=== PATIENT | female | born 1945 | race Caucasian/White ===

== ENCOUNTER 2020-09-26 11:17 | Outpatient (REF) | payer MEDICARE, SELFPAY ==
--- NOTE | 2020-09-27 12:34 | MHC.AU.P13 ---
Adult Audiological Evaluation Date of Visit: 09/26/20 Bridge Maintainer Used: Not Applicable Reason for Appointment: Audiologic evaluation due to tinnitus and increasing hearing difficulties, particularly when background noise is present. Also experiencing sensitivity to loud speech and sounds. Does patient feel they have a hearing loss?: Yes If Yes, Which Ear?: Both Ears Has hearing been tested previously?: Yes Previous Hearing Test Results: Previously tested at [facility] several years ago and results are not available for review. Will obtain old records from storage. Hearing Handicap Inventory HHIE SCORE: 20 Based on HHIE score, patient has: Mild to moderate perceived hearing handicap Ear History: Bothersome Tinnitus/Ringing/Noises in Ears: Both Ears Ear used on the phone: Left Ear History of occupational noise exposure?: No Medical History: Arthritis, allergies, bladder cancer, high blood pressure, measles, and intermittent dizziness in the past Allergies: Erythromycin, Morphine, Statin drugs, Prilocec Medication List: Lisinopril, Meoloxicam, Ezetimibe, Baby Asprin, Loratadine (as needed), Tylenol (as needed), and Albuterol inhaler (as needed) Otoscopy: Right Ear: Small amount of non-occluding cerumen Left Ear: Unremarkable Tympanometry: Right Ear: Normal Middle Ear System (Type A) Left Ear: Normal Middle Ear System (Type A) Otoacoustic Emissions Frequency Range Used: 1.6-8 kHz Right Ear Results: Present 1600 and 2000 Hz. Absent 3365-4809 Hz Analysis: Results are consistent with degree and configuration of hearing loss Left Ear Results: Present 0515-7448 Hz Absent 5240-5959 Hz Analysis: Results are consistent with degree and configuration of hearing loss Hearing Evaluation: Transducer(s) Used: Insert Earphones Bone Conduction Method: Conventional Audiometry Stimuli Used: Pure Tones Right Ear: Description of Hearing: Mild to moderate sensorineural hearing loss Left Ear: Description of Hearing: Mild to moderate sensorineural hearing loss Speech Recognition Threshold (SRT): Method Used: Monitored Live Voice Stimuli Used: Spondee Words Right Ear: 25 dB HL Left Ear: 25 dB HL Word Discrimination: Method: Recorded Lists Word Lists Used: NU-6 Right Ear: 100% at 65 dB HL Left Ear: 100% at 65 dB HL Uncomfortable Loudness Level (UCL): Right Ear: 105 dB HL Left Ear: 100 dB HL QuickSIN: Binaural score is 1 dB SNR Loss. This results falls within the normal range suggesting Charlette does not experience any more difficulty understanding speech when background noise is present when in this controlled test environment. Comparison: Compared to the most recent evaluation: N/A Recommendations: Recommendations: Audiological re-evaluation in one year. Patient does not feel they are ready for amplification at this time. Recommendations (Other): 1) Discussed the theories of tinnitus including how allergies, chronic pain, stress, and fatigue can increase the tinnitus. 2) Discussed and provided a handout regarding Communication Strategies to improve speech understanding when needed. 3) Discussed possible trial with hearing aids; however, Charlette is not ready to pursue amplification at this time. If within the next 6 months she would like to trial aids at this office, she may schedule a Hearing Aid Evaluation. Diagnosis: Primary Diagnosis: H93.13 Tinnitus, Bilateral Secondary Diagnosis: H90.3 Bilateral Sensorineural Hearing Loss Services Performed: Services Performed: Comprehensive Audiological Evaluation (CPT 69556) Diagnostic Otoacoustic Emissions (CPT 67256, 26+TC) Tympanometry (CPT 10063) Signature: Provider: Reji Garcia, [facility]
== END 2020-09-26 11:18 | disposition home or self-care (01) ==
LOC: HO.SH 11:17
PROVIDERS: Visit Provider Internal Medicine
DX: H93.13 Tinnitus, bilateral (principal); H90.3 Sensorineural hearing loss, bilateral
CPT/HCPCS: 92557; 92567; 92588

== ENCOUNTER 2020-10-22 11:38 | Outpatient (REF) | payer MEDICARE, SELFPAY ==
--- NOTE | 2020-10-22 11:48 | MM_ITS ---
EXAMINATION: MM SCREENING DIGITAL BREAST TOMOSYNTHESIS, BILATERAL CLINICAL INFORMATION: Screening. Asymptomatic. The lifetime risk of breast cancer based on the Tyrer-Cuzick Model is 6%. COMPARISON: Mammography: 06/22/2019, 05/17/2018, 04/10/2017 TECHNIQUE: Digital breast tomosynthesis is performed in both the craniocaudal and mediolateral oblique views along with computer-aided detection (CAD). Synthesized 2D images are generated from the tomosynthesis. FINDINGS: There are scattered areas of fibroglandular density (ACR BI-RADS breast composition Category b). Parenchymal pattern is similar to prior studies. There is no developing density or interval mass or architectural abnormality. There are scattered round and dermal calcifications again noted and a dermal lesion overlying the upper outer quadrant left breast. No significant changes. MM/MM tomosynthesis screening BI IMPRESSION: No significant changes from prior exams. ASSESSMENT: BI-RADS 2: Benign RECOMMENDATION: Routine annual mammography screening. This patient's information was entered into a reminder system with a target due date for their next mammogram.
== END 2020-10-22 11:39 | disposition home or self-care (01) ==
LOC: HO.MAMMO 11:38
PROVIDERS: Visit Provider Internal Medicine
DX: Z12.31 Encounter for screening mammogram for malignant neoplasm of breast (principal)
CPT/HCPCS: 77063; 77067

== ENCOUNTER 2021-04-22 08:17 | Outpatient (REF) | payer MEDICARE, SELFPAY ==
--- NOTE | ~2021-04-22 | US_ITS ---
EXAMINATION: US RETROPERITONEAL LIMITED (RENAL ONLY) CLINICAL INFORMATION: Renal stones. COMPARISON: Renal ultrasound 03/29/2019 and 03/31/2018. X-ray abdomen KUB 01/17/2015. CT abdomen and pelvis 08/28/2013. TECHNIQUE: Real-time imaging of the kidneys. FINDINGS: RIGHT KIDNEY: 11.1 x 5.8 x 4.9 cm (SAG x AP x TRV). The kidney is normal in size, contour, and echogenicity. Renal cortical thickness is normal. There are 2 small cysts in the lower pole, largest measuring 11 x 7 x 8 mm. There are 3 stones. Largest stone measures 1.7 x 0.9 cm in the lower pole. There are 2 smaller 4 mm stones in the mid to lower pole. No hydronephrosis. LEFT KIDNEY: 12.8 x 4.9 x 4.8 cm (SAG x AP x TRV). The kidney is normal in size, contour, and echogenicity. Renal cortical thickness is normal. There are 2 small cysts, largest measuring 2.3 x 1.3 x 1.4 cm in the upper pole. There are 3 small stones, largest measuring 6 mm in the midpole. No hydronephrosis. US/US renal BI IMPRESSION: Bilateral renal stones. Bilateral renal cysts.
== END 2021-04-22 08:18 | disposition home or self-care (01) ==
LOC: HO.US 08:17
PROVIDERS: PCP Internal Medicine; Visit Provider Urology
DX: N20.0 Calculus of kidney (principal)
CPT/HCPCS: 76775

== ENCOUNTER → 2021-05-09 08:52 | Outpatient (BNVA) | payer MEDICARE, SELFPAY | PROVIDERS: PCP Internal Medicine; Visit Provider Urology | DX: C67.9 Malignant neoplasm of bladder, unspecified (principal); N20.0 Calculus of kidney; N39.3 Stress incontinence (female) (male) | CPT/HCPCS: 52000; 99212 ==

== ENCOUNTER 2021-06-07 06:38 | Outpatient (REF) | payer MEDICARE, SELFPAY ==
[2021-06-07 06:58] LABS: MANUAL DIFF FLAG NO
[2021-06-07 07:01] LABS: Basophils Absolute Auto 0.1 X10*3/uL (0.0-0.2); Basophils Percent Auto 0.8 % (0-2); Eosinophils Absolute Auto 0.6 X10*3/uL (0.0-0.4); Eosinophils Percent Auto 6.4 % (0-4); Hematocrit 42.6 % (37-47); Hemoglobin 13.6 g/dl (12.0-16.0); Imm Gran Abs Auto 0.02 X10*3/uL (0.00-0.03); Imm Gran Pct Auto 0.2 % (0.0-0.4); Lymphocytes Absolute Auto 3.4 X10*3/uL (1.2-4.9); Lymphocytes Percent Auto 38.1 % (20-40); Mean Corpuscular HGB Conc 31.9 g/dl (31.0-35.0); Mean Corpuscular Hemoglobin 29.6 pg (27.0-33.0); Mean Corpuscular Volume 92.8 fL (80-98); Mean Platelet Volume 9.2 fL (9.4-12.3); Monocytes Absolute Auto 0.9 X10*3/uL (0.1-1.2); Monocytes Percent Auto 9.5 % (2-11); Platelet Count 348 X10*3/uL (160-400); Red Blood Count 4.59 X10*6/uL (4.20-5.50); Red Cell Distribution Width 13.9 % (11.0-16.0)
[2021-06-07 07:26] LABS: Alanine Aminotransferase 27 U/L (0-31); Albumin Level 4.2 g/dL (3.5-5.0); Alkaline Phosphatase 69 U/L (39-117); Anion Gap 13 (12-20); Aspartate Amino Transferase 22 U/L (5-31); Bilirubin Total 0.4 mg/dL (0.0-1.0); Blood Urea Nitrogen 25 mg/dL (9-16); Calcium 9.7 mg/dL (8.4-10.2); Carbon Dioxide 27 mmol/L (22-29); Chloride 108 mmol/L (96-108); Cholesterol 206 mg/dL; Estimated Glomerular Filt Rate > 60; Glucose Random 105 mg/dL (60-115); HDL Cholesterol 57 mg/dL; LDL Cholesterol Calculated 131 mg/dl; Potassium 4.7 mmol/L (3.3-5.1); Sodium 143 mmol/L (135-145); Total Protein 7.1 g/dL (6.5-8.0); Triglycerides 91 mg/dL
[2021-06-07 07:50] LABS: Free T4 (Free Thyroxine) 1.05 ng/dL (0.71-1.85); Thyroid Stimulating Hormone 3.07 uIU/mL (0.32-4.0)
[2021-06-07 07:57] LABS: Folate 6.8 ng/mL (> or = 4.0); Vitamin B12 372 pg/mL (200-900)
== END 2021-06-07 06:39 | disposition home or self-care (01) ==
LOC: HO.LAB 06:38
PROVIDERS: PCP Internal Medicine; Visit Provider Internal Medicine
DX: E78.00 Pure hypercholesterolemia, unspecified (principal); I10 Essential (primary) hypertension
CPT/HCPCS: 36415; 80053; 80061; 82306; 82607; 82746; 84439; 84443; 85025

== ENCOUNTER 2021-07-16 08:00 | Outpatient (RCR) | payer MEDICARE, SELFPAY ==
--- NOTE | 2021-05-16 12:20 | MHC.PT.EP ---
[facility] [place] Office [place] Office [place] Office [address] Yasmin Weaver [address] [phone] F: [phone] F: [phone] F: [phone] F: [phone] Physical Therapy Plan of Care Date of Evaluation: Date of Surgery: Diagnosis: Assessment: The patient arrived reporting mixed urinary incontinence including stress and urge. After granted patient consent an internal exam was performed and the patient was found to have poor pelvic floor tone, and significantly decreased strength and coordination of her pelvic floor muscles. No pain noted. No point tenderness. Grade 2 rectocele noted, which does not appear to be giving her any trouble. The patient was educated on splinting the pelvic floor during difficult BM's. Grade 1 cystourethrocele noted. Additionally, the patient had poor PF endurance only able to hold for 1 second. Decreased ability to do a quick contraction of her pelvic floor, which contributes to TEGAN. She did not exhibit a pre activation of her PFM with a cough. The patient will greatly benefit from Pelvic Floor PT in order to improve coordination, and strength of her pelvic floor muscles, as well as body mechanics training with pre activation of her PFM, Pre activation of her PFM for coughing, sneezing, and laughing when possible, and improved breathing techniques. Her current diet also includes several bladder irritants, which I will discuss diet and lifestyle changes in subsequent visits. Frequency and Duration: The patient will be seen 1x/week x 8 weeks Short Term Goals: 1. Pt to be able to correctly activate her PFM to allow improved support to bowel and bladder. 2. Pt to be able to demonstrate a pre contraction before a cough 3.Pt to be able to demonstrate diaphragmatic breathing to improve pressure exchange and intra abdominal load management. 4. Pt to be educated on bladder irritants in order to decrease UI triggers 5. Pt to complete a voiding log in order to accurately assess her bladder habits 6. Pt to be educated on behavior training to help decrease urge incontinence. Director Audience Marketing Goals: 1. Pt to be able to show improved PFM contraction during functional movements such as a bridge or squat to help prevent or limit POP. 2. Pt to reduce # of episodes of TEGAN during the day by 50% to help improve quality of life and reduce pad usage. 3. Pt to be independent with her final HEP for PFM in order to help maintain gains made in therapy. Treatment Plan: Modalities to reduce pain, spasms and effusion. Manual therapy to restore motion and function. Therapeutic exercise to improve strength and flexibility. Neuromuscular re-education for posture and balance. Therapeutic activities to return to functional activities of daily living. Electronically signed by: Farzaneh Choi PT DPT Please sign and return to therapist. Thank you for your referral.
--- NOTE | 2021-07-16 10:44 | MHC.PT.DC ---
[facility] [place] Office [place] Office [place] Office [address] Yasmin Weaver [address] [facility] [phone] F: [phone] F: [phone] F: [phone] F: [phone] Physical Therapy Discharge Report Diagnosis: Date of Surgery: Date of Evaluation: 05/16/21 Date of Discharge: 07/16/21 Treatments to Date: 5 Cancellations to Date: No Shows to Date: Discharge Status: Achieved Goals Improved Function Independent with HEP Discharge Summary: The patient feels independent with the HEP. She feels she knows all of the tools to manage her symptoms. We did behavior training to help manage urge incontinence. Overall over the span of our treatment her coordination of her pelvic floor muscles improved as well as the endurance, but she has not make significant progress in strength in her PFM. The patient admits she has poor compliance to HEP. She reports not actively working on her PFM strength. She requested to be d/c today stating she felt I know what to do, I just have to do it Electronically signed by: Farzaneh Choi PT DPT Please sign and return to therapist. Thank you for your referral.
== END 2021-07-16 10:51 | disposition home or self-care (01) ==
LOC: HO.PT 08:00
PROVIDERS: PCP Internal Medicine; Visit Provider Urology
DX: N39.3 Stress incontinence (female) (male) (principal)
CPT/HCPCS: 97110; 97112; 97163

== ENCOUNTER 2021-11-12 13:31 | Outpatient (REF) | payer MEDICARE, SELFPAY ==
--- NOTE | ~2021-11-12 | MM_ITS ---
EXAMINATION: MM SCREENING DIGITAL BREAST TOMOSYNTHESIS, BILATERAL CLINICAL INFORMATION: Screening. Asymptomatic. The lifetime risk of breast cancer based on the Tyrer-Cuzick Model is 6%. COMPARISON: Mammography: 10/22/2020, 06/22/2019, 05/17/2018 TECHNIQUE: Digital breast tomosynthesis is performed in both the craniocaudal and mediolateral oblique views along with computer-aided detection (CAD). Synthesized 2D images are generated from the tomosynthesis. Additional bilateral MLO views are provided. FINDINGS: There are scattered areas of fibroglandular density (ACR BI-RADS breast composition Category b). There are no significant masses, abnormal calcifications, or other abnormalities. Parenchymal pattern is similar to prior studies. There are scattered benign round and dermal calcifications again seen. Dermal lesion again noted overlying left breast posterior outer quadrant. There is no developing density. The axilla are unremarkable. MM/MM tomosynthesis screening BI IMPRESSION: No mammographic evidence of malignancy. ASSESSMENT: BI-RADS 2: Benign RECOMMENDATION: Routine annual mammography screening. This patient's information was entered into a reminder system with a target due date for their next mammogram.
--- NOTE | ~2021-11-12 | MM_ITS ---
EXAMINATION: BONE DENSITOMETRY CLINICAL INDICATION: Osteopenia. COMPARISON: Previous BD dated 02/25/2018 and baseline BD dated 11/25/2011. TECHNIQUE: Using a JayCut DXA System (software version: 13.1) manufactured by [employer], dual-energy x-ray absorptiometry was performed of the lumbar spine and left forearm radius 33%. The patient has had prior bilateral hip replacements precluding bone density measurement. The images are of good technical quality. Summary results are attached. FINDINGS: AP SPINE L1-L4: There are multilevel degenerative changes which may cause overestimation of the lumbar bone mineral density. Current: BMD 1.686 g/cm2, Z-score 4.8, T-score 4.2, normal, 3.9% increase from previous, 6.1% increase from baseline (<5% change is not significant). Prior: BMD 1.622 g/cm2. Baseline: BMD 1.589 g/cm2. LEFT FOREARM RADIUS 33%: BMD 0.855 g/cm2, Z-score 2.1, T-score -0.2, normal, 12.1% increase from baseline (<5% change is not significant). Baseline 02/25/2018:: BMD 0.763 g/cm2. IDENTIFIED RISK FACTORS: Menopause, height loss, bilateral oophorectomy, history of fracture (adult), hysterectomy, renal. HISTORY OF FRACTURE: Ankle. MEDICATIONS: Calcium/multivitamin. MM/XR DEXA axial skeleton IMPRESSION: 1. DIAGNOSIS: Normal bone density based on the lowest T-score value of -0.2 in the forearm radius 33% applying World Health Organization criteria. 2. 10-YEAR FRACTURE RISK PREDICTION, FRAX: Not performed in this patient without a femoral neck BMD measurement. 3. Treatment Recommendations: NOF guidelines recommend consideration for treatment in postmenopausal women and men age 50 and older presenting with the following: -A hip or vertebral (clinical or morphometric) fracture. -T-score less than or equal to -2.5 at the femoral neck or spine after appropriate evaluation to exclude secondary causes. -Low bone mass at the hip or spine and a 10-year fracture probability by FRAX of greater than or equal to 3% for hip fracture or greater than or equal to 20% for major osteoporotic fracture based on the [place] adapted WHO algorithm. 4. Other Recommendations: All treatment decisions require clinical judgment and consideration of individual patient factors, including patient preferences, comorbidities, previous drug use, risk factors not captured in the FRAX model (e.g. frailty, falls, vitamin D deficiency, increased bone turnover, interval significant decline in bone density) and possible under or overestimation of fracture risk by FRAX. FUTURE SCAN RECOMMENDATION: People with diagnosed cases of osteoporosis or at high risk for fracture should have regular bone mineral density tests. For patients eligible for Medicare, routine testing is allowed once every 2 years. The testing frequency can be increased to one year for patients who have rapidly progressing disease, those who are receiving or discontinuing medical therapy to restore bone mass, or have additional risk factors.
== END 2021-11-12 13:32 | disposition home or self-care (01) ==
LOC: HO.MAMMO 13:31
PROVIDERS: PCP Internal Medicine; Visit Provider Internal Medicine
DX: Z12.31 Encounter for screening mammogram for malignant neoplasm of breast (principal); M85.80 Other specified disorders of bone density and structure, unspecified site; Z78.0 Asymptomatic menopausal state; Z90.722 Acquired absence of ovaries, bilateral; Z90.710 Acquired absence of both cervix and uterus
CPT/HCPCS: 77063; 77067; 77080

== ENCOUNTER 2021-12-27 09:27 | Outpatient (REF) | payer MEDICARE, SELFPAY ==
--- NOTE | 2021-12-30 12:32 | MHC.AU.ATI ---
Adult Audiological Evaluation- Tinnitus Date of Visit: 12/27/21 Reason for Appointment: History of constant, bilateral tinnitus and borderline-normal/mild to moderate sensorineural hearing loss. Patient feels her tinnitus has gotten louder since her last evaluation in 09/2020. Has hearing been tested previously?: Yes Previous Hearing Test Results: At this clinic on 09/26/2020- Borderline-normal/Mild sloping to moderate sensorineural hearing loss bilaterally Ear History: Recent Ear Drainage: None Reported Recent Ear Infections: None Reported Bothersome Tinnitus/Ringing/Noises in Ears: Both Ears History of occupational noise exposure?: No Medical History: Medical History: Arthritis, allergies, bladder cancer, high blood pressure, measles, and intermittent dizziness in the past Allergies: Erythromycin, Morphine, Statin drugs, Prilocec Otoscopy: Right Ear: Unremarkable Left Ear: Unremarkable Tympanometry: Tympanometry performed due to: To assess integrity of the middle ear system Right Ear: Normal Middle Ear System (Type A) Left Ear: Normal Middle Ear System (Type A) Hearing Evaluation: Transducer(s) Used: Insert Earphones Method: Conventional Audiometry Stimuli Used: Pure Tones Right Ear: Description of Hearing: Mild to moderate sensorineural hearing loss Left Ear: Description of Hearing: Mild to moderate sensorineural hearing loss Speech Recognition Threshold (SRT): Method Used: Recorded Lists Stimuli Used: Spondee Words Right Ear: 30 dBHL Left Ear: 30 dBHL Word Discrimination: Method: Recorded Lists Word Lists Used: W-22 Right Ear: 100% at 60 dBHL Left Ear: 100% at 60 dBHL Most Comfortable Level (MCL): Right Ear: 60 dBHL Left Ear: 60 dBHL Tinnitus Assessment: Tinnitus Match- Pitch/Frequency: Around 2000 Hz Tinnitus Match- Loudness: 45 dBHL Minimum Masking Level: Binaurally, tinnitus was able to be masked with white noise at 30 dBHL Comparison: Compared to the most recent evaluation: Slight decreases in thresholds bilaterally Interpretation of Results: Patient's hearing has decreased slightly since 2019. 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 Patient's tinnitus was able to be masked with only 30 dB of white noise, suggesting that she may be successful in finding relief through masking noises of her own at home, such as fans, TV, radio, nature sounds, noise generators, etc. Recommendations: Audiological re-evaluation in one year. Discussed tinnitus management strategies, which include: -Cognitive Behavior Therapy (CBT) to help train the mind to put the tinnitus in the background and manage the perception of it. -Stress relief, which could include meditation, exercise, yoga, learning new hobbies, etc. -Use of masking sounds to cover the tinnitus, such as TV, music, fans, noise generators, tinnitus masking apps, etc. -Continued avoidance of caffeine, nicotine, and alcohol, which can all exacerbate tinnitus. -Patient reports that her allergies make the tinnitus worse. She should work closely with her PCP or an fire extinguisher repairer to manage/treat her allergies. -Many people with tinnitus and hearing loss find tinnitus relief from use of hearing aids. Patient is a borderline candidate for hearing aids at this time. Most of her hearing loss is in the mild range and she is still understanding normal conversational speech well; therefore, they may not yet be warranted. If the patient is interested in trying hearing aids but is not ready for the full investment, she may be a good candidate for OTC hearing aids, such as the [employer]. Diagnosis: Primary Diagnosis: H93.13 Tinnitus, Bilateral Secondary Diagnosis: H90.3 Bilateral Sensorineural Hearing Loss Signature: Provider: Reji Garza, [facility]
== END 2021-12-27 09:28 | disposition home or self-care (01) ==
LOC: HO.SH 09:27
PROVIDERS: Visit Provider Internal Medicine
DX: H93.13 Tinnitus, bilateral (principal); H90.3 Sensorineural hearing loss, bilateral
CPT/HCPCS: 92557; 92567

== ENCOUNTER 2022-04-16 09:53 | Outpatient (REF) | payer MEDICARE, SELFPAY ==
--- NOTE | ~2022-04-16 | US_ITS ---
EXAMINATION: US RETROPERITONEAL LIMITED (RENAL ONLY) CLINICAL INFORMATION: Calculus of kidney. COMPARISON: Renal ultrasound 04/22/2021 and 03/29/2019. X-ray KUB 01/17/2015. CT abdomen and pelvis 08/28/2013. TECHNIQUE: Real-time imaging of the kidneys. FINDINGS: RIGHT KIDNEY: 10.9 x 4.7 x 4.1 cm (SAG x AP x TRV). The kidney is normal in size, contour, and echogenicity. Renal cortical thickness is normal. No hydronephrosis. There are multiple anechoic cysts. 1. A lateral lower pole cyst measures 1.2 x 0.8 x 1.1 cm. 2. A lateral lower pole cyst measures 1.0 x 1.1 x 1.0 cm. 3. A medial lower pole cyst measures 2.0 x 1.6 x 1.6 cm. There are echogenic stones. 1. Lower pole echogenic stones measure 2.1 x 0.8 cm and 0.8 x 0.9 cm. 2. Midpole stone measures 0.6 x 0.4 cm. There is no caliectasis. LEFT KIDNEY: 12.3 x 5.7 x 5.7 cm (SAG x AP x TRV). The kidney is normal in size, contour, and echogenicity. Renal cortical thickness is normal. No hydronephrosis. There are anechoic cysts. 1. An upper pole cyst measures 2.2 x 1.3 x 1.5 cm. 2. A lower pole cyst measures 1.5 x 0.8 x 1.0 cm. There are 3 echogenic stones. 1. A lower pole stone measures 0.6 x 0.7 cm and 0.6 x 0.5 cm. 2. An upper pole stone measures 0.6 x 0.4 cm. US/US renal BI IMPRESSION: Bilateral nonobstructive echogenic renal calculi. No hydronephrosis. Bilateral renal cysts.
== END 2022-04-16 09:54 | disposition home or self-care (01) ==
LOC: HO.US 09:53
PROVIDERS: Visit Provider Urology
DX: N20.0 Calculus of kidney (principal)
CPT/HCPCS: 76775

== ENCOUNTER → 2022-05-08 09:33 | Outpatient (BNVA) | payer MEDICARE, SELFPAY | PROVIDERS: PCP Internal Medicine | DX: N20.0 Calculus of kidney (principal) | CPT/HCPCS: 99212 ==

== ENCOUNTER 2022-05-29 08:54 | Day surgery (SDC) | payer MEDICARE, SELFPAY ==
[2022-05-29] VITALS (7 sets, daily range): BP systolic 111–181; BP diastolic 41–89; PULSE 50–70; RESP 15–20; TEMP 36.4–37.2; O2SAT 93–98; BMI 37.9
--- NOTE | ~2022-05-29 | CT_ITS ---
EXAMINATION: CT ABDOMEN AND PELVIS WITHOUT CONTRAST CLINICAL INFORMATION: Right-sided flank pain COMPARISON: None TECHNIQUE: Multidetector volumetric imaging was performed from the superior aspect of the liver through the pubic symphysis. Sagittal and coronal reformatted images were obtained on the technologist's workstation. This CT examination was performed using dose optimization techniques as appropriate, variously including the following: *Automated exposure control *Adjustment of mA and/or kV according to patient size (this includes techniques or standardized protocols for targeted exams where dose is matched to indication/reason for exam; i.e. extremities or head) *Use of iterative reconstruction technique DLP: 817 mGy-cm FINDINGS: LUNG BASES: Mild atelectasis or chronic change LIVER, GALLBLADDER, AND BILIARY TREE: The liver is normal in size, shape, and attenuation. No focal hepatic lesion or biliary ductal dilatation is present. Status post cholecystectomy PANCREAS: Unremarkable. SPLEEN: Unremarkable. ADRENAL GLANDS: Unremarkable. KIDNEYS AND URETERS: Bilateral renal calculi. On the right there is moderate hydronephrosis caused by a 1.2 x 0.6 cm calculus in the right UPJ/proximal right ureter. BLADDER: Limited evaluation from artifact from the patient's hip replacements. GASTROINTESTINAL TRACT: Diverticulosis without evidence for diverticulitis. ABDOMINAL WALL: There is a small periumbilical herniation but this does contain a loop of small bowel. No evidence for obstruction. The orifice measures 1.4 cm. LYMPH NODES: Normal. VASCULAR: Some atherosclerotic changes noted PELVIC VISCERA: Unremarkable. OSSEOUS STRUCTURES: Degenerative change in the lumbar spine. Mild grade 1 anterolisthesis of L4 and L5 is likely degenerative. No compression injury CT/CT abdomen pelvis wo con IMPRESSION: Moderate hydronephrosis on the right kidney caused by a 1.2 x 1.6 cm calculus in the proximal right ureter/right UPJ. Other nonobstructing calculi bilaterally. Diverticulosis but no convincing evidence for diverticulitis. Small periumbilical herniation containing small bowel but this is not causing an obstruction Fleischner guidelines were followed.
--- NOTE | ~2022-05-29 | FL_ITS ---
EXAMINATION: XR FLUOROSCOPY WITH IMAGES CLINICAL INFORMATION: Right ureteral stones. COMPARISON: Previous CT of the abdomen and pelvis 05/29/2022. TECHNIQUE: Fluoroscopy performed by Dr. Ashvin Arellano. Fluoroscopy time: 136 seconds. Cumulative Dose: 76 mGy. Images: 7. FINDINGS: Images demonstrate contrast opacification of the right renal collecting system and [id number] ureter. There are multiple filling defects in the right renal collecting system suggestive of right renal stones. There is mild right hydronephrosis and right ureteral dilatation. FL/FL guidance in OR IMPRESSION: Fluoroscopy guidance for right retrograde procedure.
--- NOTE | 2022-05-29 09:20 | PC.NURSE ---
CONSULTED WITH KYLAH SOLOMON. REQUEST TO ORDER CT SCAN. PT WITH HX OF KIDNEY STONES. PRESENTS WITH C/O RIGHT SIDED FLANK PAIN X 1 WEEK AND HEMATURIA. KYLAH SOLOMON AGREED TO CT SCAN WO CONTRAST.
[2022-05-29 09:35] LABS: Appearance Urine Clear; Color Urine Yellow; Glucose Urine UA Negative (Negative); Leukocyte Esterase Urine Negative (Negative); Nitrite Urine Negative (Negative); Specific Gravity - Urine <= 1.005 (1.005-1.025); Urine Blood Negative (Negative); Urine Ketones Negative (Negative); Urine Protein Negative (Neg-Trace)
--- NOTE | 2022-05-29 11:09 | ED.GENADULT ---
HPI - General Adult General Chief complaint: General Medical Stated complaint: Possible kidney stone Time Seen by Provider: 05/29/22 10:55 Source: patient Mode of arrival: ambulatory Limitations: no limitations History of Present Illness HPI narrative: 77-year-old female with a history kidney stones who presents emergency department for evaluation of right-sided abdominal pain x1 week. The pain started suddenly approximately 1 week prior. The pain is been intermittent. She states she gets the pain the pain waxes and wanes in intensity and has a dull component and a sharp component. The pain is 8/10 at its worst. The pain is radiating to her right abdomen. She states that she has had urinary frequency but no dysuria. She has noted some blood in her urine. The patient states that she has a large kidney stone and is scheduled to have the stone removed by Dr. Arellano. She denied fever, chills, cough, chest pain. She has had nausea and dry heaves. The patient states she took Tylenol home without relief for pain. Onset (ago): day(s) (6) Location: back (Right flank) and abdomen (Right-sided) Radiation: non-radiation Severity: severe Severity scale (1-10): 8 Quality: stabbing and aching Pain Consistency: intermittent Relieving factors: none Exacerbating factors: none Associated symptoms: nausea/vomiting Treatments prior to arrival: other (Acetaminophen) Related Data Home Medications Medication Instructions Recorded Confirmed acetaminophen 325 mg tablet 325 mg PO BEDTIME PRN 08/30/20 05/08/22 (Tylenol) albuterol sulfate 90 mcg/actuation 2 puff inhalation Q4-6H PRN 08/30/20 05/08/22 aerosol inhaler (ProAir HFA) cholecalciferol (vitamin D3) 50 50 mcg PO DAILY 08/30/20 05/08/22 mcg (2,000 unit) capsule diphenhydramine HCl 25 mg tablet 25 mg PO BEDTIME 08/30/20 05/08/22 (Benadryl Allergy) loratadine 10 mg tablet (Claritin) 10 mg PO DAILY 08/30/20 05/08/22 meloxicam 15 mg tablet 15 mg PO DAILY 08/30/20 05/08/22 aspirin 81 mg tablet,delayed 81 mg PO DAILY 10/04/20 05/08/22 release multivitamin 1 tab PO DAILY 12/10/21 05/08/22 Previous Rx's Medication Instructions Recorded fluticasone propionate 50 2 spray intranasal DAILY #15.8 mL 06/20/21 mcg/actuation nasal spray,suspension (Allergy Relief (fluticasone)) ezetimibe 10 mg tablet (Zetia) 10 mg PO DAILY 90 days #90 tabs 01/27/22 lisinopril 30 mg tablet 30 mg PO DAILY 90 days #90 tabs 02/21/22 pyridoxine (vitamin B6) 50 mg 50 mg PO DAILY #30 caps 05/08/22 capsule Allergies Allergy/AdvReac Type Severity Reaction Status Date / Time erythromycin base Allergy Severe BODY ACHES Verified 05/08/22 09:39 [ERYTHROMYCIN BASE] morphine [MORPHINE] Allergy Severe HALLUCINATI Verified 05/08/22 09:39 ONS Ursctuc-[id number]-KuB Reductase Allergy Severe ALTERED Verified 05/08/22 09:39 Inhibitor MENTAL [[id number]-QAF REDUCTASE STATUS, SI INHIBITOR] adhesive tape Allergy Intermediate BLISTERS Verified 05/08/22 09:39 omeprazole [From PRILOSEC] AdvReac Intermediate DIARRHEA Verified 05/08/22 09:39 hospital sheets Allergy Unknown ? Uncoded 05/08/22 09:39 Review of Systems Review of Systems: Yes all other systems are reviewed and are negative [facility] Past Medical History [facility] Narrative: Social history: She is . Her is here in the emergency department with her. The patient denies tobacco use. She states she occasionally drinks alcohol. She denies drug use. Medical History Allergic rhinitis Bladder cancer Carpal tunnel syndrome, left Cervical radiculopathy Dislocation of right shoulder joint GERD (gastroesophageal reflux disease) Hypercholesteremia Hypertension Left leg DVT Obesity Post herpetic neuralgia Renal calculus, bilateral Right rotator cuff tear Surgical History H/O shoulder replacement History of appendectomy History of carpal tunnel surgery of left wrist History of cholecystectomy History of cystoscopy History of hip replacement History of knee replacement procedure of left knee History of knee replacement procedure of right knee History of lithotripsy History of lumpectomy of left breast History of lumpectomy of right breast History of total abdominal hysterectomy and bilateral salpingo-oophorectomy Family History Family History Father Cancer Mother CVD (cardiovascular disease) Cerebral hemorrhage Brother CAD (coronary artery disease) Sister CVD (cardiovascular disease) Cancer Social History Social History Housing: House Alcohol intake: current Patient Tobacco Use Status: Never used Tobacco e-Cigarette/Vaping Use: Never Used Second Hand Smoke Exposure: No Advance Directives: No Advance Directives Information Provided: No service: No Current occupational status: employed and retired Cognitive needs: No Hearing needs: No Vision needs: Yes Physical Exam ED Vital Signs: Vital Signs - 24 hr 05/29/22 09:12 Temperature 98.3 F Pulse Rate 64 Respiratory Rate 16 Blood Pressure 181/89 H Pulse Oximetry 97 Oxygen Delivery Method Room Air BMI result Body Mass Index 37.9 Const General: cooperative and no acute distress Orientation/consciousness: oriented to person and oriented to place Limitations: no limitations HENMT Head: Yes normal to inspection, Yes normocephalic and Yes atraumatic Ears: external ears normal General nose exam: Normal external nose present Face and sinus: Yes normal facial exam Mouth: Normal oral and palatal mucosa present Throat: Yes posterior oropharynx normal Eyes General: appearance normal, both eyes and all related structures Pupils: Equal, round and reactive pupils present Neck Neck: Yes normal visual inspection, Yes no lymphadenopathy, Yes trachea midline and Yes supple Chest Chest palpation & inspection: normal inspection of the chest and normal palpation of entire chest wall Resp Effort & Inspection: normal respiratory effort and able to speak in complete sentences Auscultation: clear to auscultation bilaterally Cardio Rate: regular rate Rhythm: regular rhythm Heart sounds: S1 normal heart sound present, S2 normal heart sound present and no murmurs GI Inspection: Yes normal to inspection Palpation (GI): Soft to palpation, Tenderness to palpation present (GI) in the RLQ (Moderate), in the RUQ (Mild) and suprapubicly (Moderate) and no guarding Auscultation: normal bowel sounds General: Yes CVA tenderness on the right (Moderate) Back/Spine/Pelvis Back: CVA tenderness Skin General skin exam: no rashes or lesions noted Neuro General: oriented to person and oriented to place Cranial nerves: Yes CN's II-XII intact bilaterally and Yes Equal, round and reactive pupils present Cognition (Neuro): normal cognition Motor exam (neuro): 5/5 motor strength present throughout Extrem General: Yes normal to inspection Psych Appearance: grossly normal Speech and movement: Normal speech and movement present Affect: normal affect Attitude: cooperative Thought process: Normal thought process present Thought content: Normal thought content present Course Course Course Narrative: 77-year-old female with a history kidney stones a presents emergency department for evaluation of 1 week of intermittent right-sided abdominal and flank pain. Patient has had urinary frequency with hematuria as well. The patient's vital signs revealed an elevated blood pressure of 181/89 otherwise unremarkable. The patient's exam did reveal right-sided CVA tenderness, right-sided abdominal tenderness increased in the right lower quadrant and suprapubic area. I did order laboratory evaluation to include CBC, CMP, lipase, urinalysis. CT scan of the abdomen pelvis without IV contrast was ordered. Patient was ordered to get Dilaudid 0.5 mg IV, Benadryl 25 mg IV and normal saline x1 L. 1152: Radiology evaluation: CT scan of the abdomen pelvis radiology reading as follows: IMPRESSION: Moderate hydronephrosis on the right kidney caused by a 1.2 x 1.6 cm calculus in the proximal right ureter/right UPJ. Other nonobstructing calculi bilaterally. Diverticulosis but no convincing evidence for diverticulitis. Small periumbilical herniation containing small bowel but this is not causing an obstruction Fleischner guidelines were followed. Dictated By:Otis Magana MD I did send a tiger text to our urologist, Dr. Arellano to discuss further management. 1257: Laboratory evaluation: CBC and CMP were on remarkable. Urinalysis was unremarkable. Dr. Arellano plans on taking the patient to the operating room to stent the patient's ureter. The patient will be kept NPO until the procedure can be performed. Medical Decision Making Lab Data Result diagrams: 05/29/22 11:52 05/29/22 11:52 Labs: Lab Results 05/29/22 05/29/22 05/29/22 Range/Units 09:26 11:52 11:52 WBC 11.1 H (4.8-10.8) X10*3/uL RBC 4.41 (4.20-5.50) X10*6/uL Hgb 13.0 (12.0-16.0) g/dl Hct 40.5 (37.0-47.0) % MCV 91.8 (80.0-98.0) fL MCH 29.5 (27.0-33.0) pg MCHC 32.1 (31.0-35.0) g/dl RDW 13.5 (11.0-16.0) % Plt Count 332 (160-400) X10*3/uL MPV 8.7 L (9.4-12.3) fL Immature Gran % (Auto) 0.3 (0.0-0.4) % Neut % (Auto) 67.4 (45-73) % Lymph % (Auto) 19.3 L (20-40) % [place] % (Auto) 9.1 (2-11) % Eos % (Auto) 3.4 (0-4) % Baso % (Auto) 0.5 (0-2) % Lymph # (Auto) 2.1 (1.2-4.9) X10*3/uL [place] # (Auto) 1.0 (0.1-1.2) X10*3/uL Eos # (Auto) 0.4 (0.0-0.4) X10*3/uL Baso # (Auto) 0.1 (0.0-0.2) X10*3/uL Abs Immat Gran (auto) 0.03 (0.00-0.03) X10*3/uL Absolute Neuts (auto) 7.4 (2.0-8.3) x10*3/uL Absolute Nucleated RBC 0.000 (0.0-0.012) X10*3/uL Nucleated RBC % (auto) 0.0 (0.0-0.2) /100WBC PT (10.0-13.1) SEC INR (0.9-1.1) APTT (26.0-36.4) SEC Sodium 140 (135-145) mmol/L Potassium 4.6 (3.3-5.1) mmol/L Chloride 104 (96-108) mmol/L Carbon Dioxide 26 (22-29) mmol/L Anion Gap 15 (12-20) BUN 20 H (9-16) mg/dL Creatinine 1.12 (0.5-1.4) mg/dL Estim Creat Clear Calc 49.1 Estimated GFR 47 Random Glucose 107 (60-115) mg/dL Calcium 9.7 (8.4-10.2) mg/dL Total Bilirubin 0.4 (0.0-1.0) mg/dL AST 20 (5-31) U/L ALT 23 (0-31) U/L Alkaline Phosphatase 59 (39-117) U/L Total Protein 7.1 (6.5-8.0) g/dL Albumin 4.1 (3.5-5.0) g/dL Lipase 27 (8-78) U/L Urine Color Yellow Urine Appearance Clear Urine pH 6.0 (5.0-8.0) Ur Specific [place] <= 1.005 (1.005-1.025) Urine Protein Negative (Neg-Trace) mg/dL Urine Glucose (UA) Negative (Negative) mg/dL Urine Ketones Negative (Negative) mg/dL Urine Blood Negative (Negative) Urine Nitrite Negative (Negative) Ur Leukocyte Esterase Negative (Negative) COVID-19 (CHARLY) (Negative) COVID-19 Clin Com 05/29/22 05/29/22 Range/Units 11:52 11:52 WBC (4.8-10.8) X10*3/uL RBC (4.20-5.50) X10*6/uL Hgb (12.0-16.0) g/dl Hct (37.0-47.0) % MCV (80.0-98.0) fL MCH (27.0-33.0) pg MCHC (31.0-35.0) g/dl RDW (11.0-16.0) % Plt Count (160-400) X10*3/uL MPV (9.4-12.3) fL Immature Gran % (Auto) (0.0-0.4) % Neut % (Auto) (45-73) % Lymph % (Auto) (20-40) % [place] % (Auto) (2-11) % Eos % (Auto) (0-4) % Baso % (Auto) (0-2) % Lymph # (Auto) (1.2-4.9) X10*3/uL [place] # (Auto) (0.1-1.2) X10*3/uL Eos # (Auto) (0.0-0.4) X10*3/uL Baso # (Auto) (0.0-0.2) X10*3/uL Abs Immat Gran (auto) (0.00-0.03) X10*3/uL Absolute Neuts (auto) (2.0-8.3) x10*3/uL Absolute Nucleated RBC (0.0-0.012) X10*3/uL Nucleated RBC % (auto) (0.0-0.2) /100WBC PT 11.5 (10.0-13.1) SEC INR 1.0 (0.9-1.1) APTT 30.3 (26.0-36.4) SEC Sodium (135-145) mmol/L Potassium (3.3-5.1) mmol/L Chloride (96-108) mmol/L Carbon Dioxide (22-29) mmol/L Anion Gap (12-20) BUN (9-16) mg/dL Creatinine (0.5-1.4) mg/dL Estim Creat Clear Calc Estimated GFR Random Glucose (60-115) mg/dL Calcium (8.4-10.2) mg/dL Total Bilirubin (0.0-1.0) mg/dL AST (5-31) U/L ALT (0-31) U/L Alkaline Phosphatase (39-117) U/L Total Protein (6.5-8.0) g/dL Albumin (3.5-5.0) g/dL Lipase (8-78) U/L Urine Color Urine Appearance Urine pH (5.0-8.0) Ur Specific [place] (1.005-1.025) Urine Protein (Neg-Trace) mg/dL Urine Glucose (UA) (Negative) mg/dL Urine Ketones (Negative) mg/dL Urine Blood (Negative) Urine Nitrite (Negative) Ur Leukocyte Esterase (Negative) COVID-19 (CHARLY) Negative (Negative) COVID-19 Clin Com See Note Discharge Plan Discharge Patient Disposition: Admitted As Inpatient Prescriptions: No Action fluticasone propionate [Allergy Relief (fluticasone)] 50 mcg/actuation spray,suspension 2 spray intranasal DAILY Qty: 15.8 11RF Rx Instructions: administer into each nostril ezetimibe [Zetia] 10 mg tablet 10 mg PO DAILY 90 Days Qty: 90 3RF aspirin 81 mg tablet,delayed release (DR/EC) 81 mg PO DAILY loratadine [Claritin] 10 mg tablet 10 mg PO DAILY diphenhydramine HCl [Benadryl Allergy] 25 mg tablet 25 mg PO BEDTIME acetaminophen [Tylenol] 325 mg tablet 325 mg PO BEDTIME PRN meloxicam 15 mg tablet 15 mg PO DAILY albuterol sulfate [ProAir HFA] 90 mcg/actuation HFA aerosol inhaler 2 puff inhalation Q4-6H PRN cholecalciferol (vitamin D3) 50 mcg (2,000 unit) capsule 50 mcg PO DAILY multivitamin Tablet 1 tab PO DAILY lisinopril 30 mg tablet 30 mg PO DAILY 90 Days Qty: 90 2RF pyridoxine (vitamin B6) 50 mg capsule 50 mg PO DAILY Qty: 30 0RF
[2022-05-29 11:56] LABS: MANUAL DIFF FLAG NO
[2022-05-29 11:58] LABS: Basophils Absolute Auto 0.1 X10*3/uL (0.0-0.2); Basophils Percent Auto 0.5 % (0-2); Eosinophils Absolute Auto 0.4 X10*3/uL (0.0-0.4); Eosinophils Percent Auto 3.4 % (0-4); Hematocrit 40.5 % (37.0-47.0); Imm Gran Abs Auto 0.03 X10*3/uL (0.00-0.03); Imm Gran Pct Auto 0.3 % (0.0-0.4); Lymphocytes Absolute Auto 2.1 X10*3/uL (1.2-4.9); Lymphocytes Percent Auto 19.3 % (20-40); Mean Corpuscular HGB Conc 32.1 g/dl (31.0-35.0); Mean Corpuscular Hemoglobin 29.5 pg (27.0-33.0); Mean Corpuscular Volume 91.8 fL (80.0-98.0); Mean Platelet Volume 8.7 fL (9.4-12.3); Monocytes Percent Auto 9.1 % (2-11); Neutrophils Absolute Auto 7.4 x10*3/uL (2.0-8.3); Neutrophils Percent Auto 67.4 % (45-73); Platelet Count 332 X10*3/uL (160-400); Red Blood Count 4.41 X10*6/uL (4.20-5.50); Red Cell Distribution Width 13.5 % (11.0-16.0); White Blood Count 11.1 X10*3/uL (4.8-10.8)
[2022-05-29 12:04] LABS: Prothrombin Time 11.5 SEC (10.0-13.1)
[2022-05-29 12:07] LABS: Partial Thromboplastin Time 30.3 SEC (26.0-36.4)
[2022-05-29 12:15] LABS: COVID-19 Test Negative (Negative); IDNOW Serial# 16C4AD1C
[2022-05-29 12:16] LABS: Alanine Aminotransferase 23 U/L (0-31); Albumin Level 4.1 g/dL (3.5-5.0); Alkaline Phosphatase 59 U/L (39-117); Anion Gap 15 (12-20); Aspartate Amino Transferase 20 U/L (5-31); Bilirubin Total 0.4 mg/dL (0.0-1.0); Blood Urea Nitrogen 20 mg/dL (9-16); Calcium 9.7 mg/dL (8.4-10.2); Carbon Dioxide 26 mmol/L (22-29); Chloride 104 mmol/L (96-108); Creatinine Clr Calc Pharmacy 49.1; Estimated Glomerular Filt Rate 47; Glucose Random 107 mg/dL (60-115); Lipase 27 U/L (8-78); Potassium 4.6 mmol/L (3.3-5.1); Sodium 140 mmol/L (135-145); Total Protein 7.1 g/dL (6.5-8.0)
--- NOTE | 2022-05-29 13:25 | PHA.MEDREC ---
Pharmacy Consult ? Medication Reconciliation Pharmacy has completed the medication reconciliation.
[2022-05-29] MEDS: 0.9 % Sodium Chloride 1,000 ML 999 ML IV (14:16)
--- NOTE | 2022-05-29 15:57 | PM.UROCN ---
History of Present Illness Consult details Consult date: 05/29/22 Narrative: Consulting complaint right proximal ureteric stone Charlette is known to Urology. Has stones. Procedure was planned for June Presents with persistent right abdominal flank pain associated with nausea, dry heaves and micro hematuria. Denies fever, chills. Responded to pain medication in emergency room Imaging shows 1.5 cm stone in proximal ureter Lab work creatinine 1.12, WBC 11.1, normal temp, nitrite negative, micro hematuria positive Stone will not pass Plan for stone intervention Discussed with Charlette and Review of Systems Constitutional: Constitutional: Reports as per HPI and Reports no additional constitutional complaints Cardiovascular: Cardiovascular: Reports as per HPI and Reports no additional cardiovascular complaints Respiratory: Respiratory: Reports as per HPI and Reports no additional respiratory complaints Gastrointestinal: Gastrointestinal: Reports as per HPI and Reports no additional gastrointestinal complaints Genitourinary: Genitourinary: Reports as per HPI Musculoskeletal: Musculoskeletal: Reports no additional musculoskeletal complaints and Reports as per HPI Neurologic: Reports system reviewed and no additional complaints, except as documented and Reports as per HPI PMFSH Past Medical History Medical History Allergic rhinitis Bladder cancer Carpal tunnel syndrome, left Cervical radiculopathy Dislocation of right shoulder joint GERD (gastroesophageal reflux disease) Hypercholesteremia Hypertension Left leg DVT Obesity Post herpetic neuralgia Renal calculus, bilateral Right rotator cuff tear Family History Family History Father Cancer Mother CVD (cardiovascular disease) Cerebral hemorrhage Brother CAD (coronary artery disease) Sister CVD (cardiovascular disease) Cancer Surgical History Surgical History H/O shoulder replacement History of appendectomy History of carpal tunnel surgery of left wrist History of cholecystectomy History of cystoscopy History of hip replacement History of knee replacement procedure of left knee History of knee replacement procedure of right knee History of lithotripsy History of lumpectomy of left breast History of lumpectomy of right breast History of total abdominal hysterectomy and bilateral salpingo-oophorectomy Social History Social History Housing: House Alcohol intake: current Patient Tobacco Use Status: Never used Tobacco e-Cigarette/Vaping Use: Never Used Second Hand Smoke Exposure: No Advance Directives: No Advance Directives Information Provided: No service: No Current occupational status: employed and retired Cognitive needs: No Hearing needs: No Vision needs: Yes Meds Allergies Allergy/AdvReac Type Severity Reaction Status Date / Time erythromycin base Allergy Severe BODY ACHES Verified 05/08/22 09:39 [ERYTHROMYCIN BASE] morphine [MORPHINE] Allergy Severe HALLUCINATI Verified 05/08/22 09:39 ONS [id number]-[id number]-[id number] Reductase Allergy Severe ALTERED Verified 05/08/22 09:39 Inhibitor MENTAL [[id number] REDUCTASE STATUS, SI INHIBITOR] adhesive tape Allergy Intermediate BLISTERS Verified 05/08/22 09:39 omeprazole [From PRILOSEC] AdvReac Intermediate DIARRHEA Verified 05/08/22 09:39 hospital sheets Allergy Unknown ? Uncoded 05/08/22 09:39 Home Medications Medication Instructions Recorded Confirmed Last Taken Type albuterol sulfate 90 mcg/actuation 2 puff inhalation Q4-6H PRN 08/30/20 05/29/22 Unknown History aerosol inhaler (ProAir HFA) Wheezing loratadine 10 mg tablet (Claritin) 10 mg PO DAILY 08/30/20 05/29/22 05/29/22 History meloxicam 15 mg tablet 15 mg PO DAILY 08/30/20 05/29/22 05/29/22 History aspirin 81 mg tablet,delayed 81 mg PO DAILY 10/04/20 05/29/22 05/29/22 History release acetaminophen 500 mg tablet 500 mg PO TID PRN Pain 05/29/22 05/29/22 05/28/22 History fluticasone propionate 50 2 spray intranasal DAILY PRN 05/29/22 05/29/22 Unknown History mcg/actuation nasal Allergic Symptoms spray,suspension (Allergy Relief (fluticasone)) Physical Exam Vital Signs: Vital Signs: Last Vital Signs Temp 98.3 F 05/29/22 09:12 Pulse 64 05/29/22 09:12 Resp 16 05/29/22 09:12 BP 181/89 H 05/29/22 09:12 Pulse Ox 97 05/29/22 09:12 O2 Del Method 05/29/22 09:12 BMI result Body Mass Index 37.9 Const: General: cooperative, healthy appearing, comfortable and no acute distress Orientation/consciousness: patient oriented x3 HEENT: Face and sinus: Yes normal facial exam Mouth: moist mucous membranes Neck: Neck: Yes normal visual inspection, Yes full ROM and Yes trachea midline Chest: Chest palpation & inspection: normal inspection of the chest Resp: Effort & Inspection: normal respiratory effort, able to speak in complete sentences and no respiratory distress GI: Inspection: Yes normal to inspection Back/Spine/Pelvis: Cervical Spine: normal cervical lordosis Thoracic/Lumbar Spine: thoracic and lumbar spine normal to inspection Skin: General skin exam: no rashes or lesions noted Neuro: General: patient oriented x3, tone normal and moves all extremities Extrem: General: Yes normal to inspection and Yes capillary refill normal Results Labs Result diagrams: 05/29/22 11:52 05/29/22 11:52 Labs: Abnormal lab results 05/29/22 05/29/22 Range/Units 11:52 11:52 WBC 11.1 H (4.8-10.8) X10*3/uL MPV 8.7 L (9.4-12.3) fL Lymph % (Auto) 19.3 L (20-40) % BUN 20 H (9-16) mg/dL Short CBC 05/29/22 Range/Units 11:52 WBC 11.1 H (4.8-10.8) X10*3/uL Hgb 13.0 (12.0-16.0) g/dl Hct 40.5 (37.0-47.0) % Plt Count 332 (160-400) X10*3/uL BMP 05/29/22 11:52 Sodium 140 Potassium 4.6 Chloride 104 Carbon Dioxide 26 BUN 20 H Creatinine 1.12 Calcium 9.7 Liver Function 05/29/22 Range/Units 11:52 Total Bilirubin 0.4 (0.0-1.0) mg/dL AST 20 (5-31) U/L ALT 23 (0-31) U/L Alkaline Phosphatase 59 (39-117) U/L Albumin 4.1 (3.5-5.0) g/dL Urine 05/29/22 Range/Units 09:26 Urine Color Yellow Urine Appearance Clear Urine pH 6.0 (5.0-8.0) Ur Specific [place] <= 1.005 (1.005-1.025) Urine Protein Negative (Neg-Trace) mg/dL Urine Glucose (UA) Negative (Negative) mg/dL All other labs normal. Assessment and Plan (1) Calculus of proximal right ureter: Status: Acute (2) Hydronephrosis: Qualifiers: Hydronephrosis type: with ureteral calculous obstruction Qualified Code(s): N13.2 - Hydronephrosis with renal and ureteral calculous obstruction Status: Acute Plan Ureteroscopy We discussed the nature of the decision and reasonable alternatives for performing the above surgery. Interventions include chemical dissolution, ESWL, ureteroscopy with laser lithotripsy and stent placement, PCNL. Options such as medical therapy were discussed. The relative uncertainties and benefits related to each alternate procedure were adequately discussed. General surgical risks including, but not limited to, pain, bleeding, infection, myocardial infarction, pulmonary embolus, deep vein thrombosis and cerebrovascular accident which may result in further hospitalization were discussed. Full disclosure of the procedure as well as all major risks, benefits and complications were discussed including but not limited to damage to the urethra, bladder and kidney infection, damage to the ureter, stent migration or malposition, scarring to the renal pelvis, remnant stone fragments, subsequent stone passage with need for secondary procedures. The overall secondary procedure rate is approximately 10-15%. The success rate of the procedure was discussed. Success of the procedure in the short-term does not necessarily guarantee that long-term success will be maintained. Suitable follow up will need to be maintained. The patient showed understanding of discussion and wishes to proceed with - cystoscopy, retrograde, ureteroscopy, possible lithotripsy/stone basketing and stent on the right side Procedures Date of Service Date of Service: 05/29/22
[2022-05-29] MEDS: levoFLOXacin/D5W 500 MG/100 ML PIGGYBACK 100 MG IV (16:42)
--- NOTE | 2022-05-29 17:03 | HO.ANESPROP2 ---
HPI - Anesthesia Eval Consult details Narrative: 77 F for cystoscopy HTN no H/o Chest pain or SOB , Asthma , DVT about 2 years ago . GERD . Bladder cancer . [facility] Active Problems Active Problems: All Active Problems (Updated 05/29/22 @ 13:00 by Moshe Smith MD) Calculus of proximal right ureter (Acute) Hydronephrosis (Acute) Cataract (Acute) Osteopenia (Acute) Mixed incontinence (Acute) Annual physical exam (Acute) Impaired fasting blood sugar (Acute) Bladder cancer (Acute) Renal calculus, bilateral (Acute) Stress incontinence (Acute) Encounter for annual wellness visit (AWV) in Medicare patient (Acute) DVT (deep venous thrombosis) (Acute) Allergic rhinitis (Acute) Tinnitus (Acute) Vitamin D deficiency (Acute) Obesity (Acute) GERD (gastroesophageal reflux disease) (Acute) Hypercholesteremia (Acute) Hypertension (Acute) Past Medical History Medical History Allergic rhinitis Bladder cancer Carpal tunnel syndrome, left Cervical radiculopathy Dislocation of right shoulder joint GERD (gastroesophageal reflux disease) Hypercholesteremia Hypertension Left leg DVT Obesity Post herpetic neuralgia Renal calculus, bilateral Right rotator cuff tear Functional capacity: independent ambulation Family History Family History Father Cancer Mother CVD (cardiovascular disease) Cerebral hemorrhage Brother CAD (coronary artery disease) Sister CVD (cardiovascular disease) Cancer Family history of problems with anesthesia: No Surgical History Surgical History H/O shoulder replacement History of appendectomy History of carpal tunnel surgery of left wrist History of cholecystectomy History of cystoscopy History of hip replacement History of knee replacement procedure of left knee History of knee replacement procedure of right knee History of lithotripsy History of lumpectomy of left breast History of lumpectomy of right breast History of total abdominal hysterectomy and bilateral salpingo-oophorectomy History of Problems with Anesthesia: Yes (History of delayed emergence ) Social History Social History Housing: House Alcohol intake: current Patient Tobacco Use Status: Never used Tobacco e-Cigarette/Vaping Use: Never Used Second Hand Smoke Exposure: No Advance Directives: No Advance Directives Information Provided: No service: No Current occupational status: employed and retired Cognitive needs: No Hearing needs: No Vision needs: Yes Meds Allergies Allergy/AdvReac Type Severity Reaction Status Date / Time erythromycin base Allergy Severe BODY ACHES Verified 05/08/22 09:39 [ERYTHROMYCIN BASE] morphine [MORPHINE] Allergy Severe HALLUCINATI Verified 05/08/22 09:39 ONS Iqhjlar-ESZ-AfC Reductase Allergy Severe ALTERED Verified 05/08/22 09:39 Inhibitor MENTAL [[id number] REDUCTASE STATUS, SI INHIBITOR] adhesive tape Allergy Intermediate BLISTERS Verified 05/08/22 09:39 omeprazole [From PRILOSEC] AdvReac Intermediate DIARRHEA Verified 05/08/22 09:39 hospital sheets Allergy Unknown ? Uncoded 05/08/22 09:39 Home Medications Medication Instructions Recorded Confirmed Last Taken Type albuterol sulfate 90 mcg/actuation 2 puff inhalation Q4-6H PRN 08/30/20 05/29/22 Unknown History aerosol inhaler (ProAir HFA) Wheezing loratadine 10 mg tablet (Claritin) 10 mg PO DAILY 08/30/20 05/29/22 05/29/22 History meloxicam 15 mg tablet 15 mg PO DAILY 08/30/20 05/29/22 05/29/22 History aspirin 81 mg tablet,delayed 81 mg PO DAILY 10/04/20 05/29/22 05/29/22 History release acetaminophen 500 mg tablet 500 mg PO TID PRN Pain 05/29/22 05/29/22 05/28/22 History fluticasone propionate 50 2 spray intranasal DAILY PRN 05/29/22 05/29/22 Unknown History mcg/actuation nasal Allergic Symptoms spray,suspension (Allergy Relief (fluticasone)) Exam Exam Date and Time: May 29, 2022 170 Height,Weight and Vital Signs: Height 5 ft 4 in Weight 100.244 kg Last Vital Signs Temp 98.3 F 05/29/22 09:12 Pulse 64 05/29/22 09:12 Resp 16 05/29/22 09:12 BP 181/89 H 05/29/22 09:12 Pulse Ox 97 05/29/22 09:12 O2 Del Method 05/29/22 09:12 Pertinent Lab Results Pertinent Lab Results: Laboratory Tests 05/29/22 05/29/22 05/29/22 09:26 11:52 11:52 WBC 11.1 H RBC 4.41 Hgb 13.0 Hct 40.5 MCV 91.8 MCH 29.5 MCHC 32.1 RDW 13.5 Plt Count 332 MPV 8.7 L Immature Gran % (Auto) 0.3 Neut % (Auto) 67.4 Lymph % (Auto) 19.3 L [place] % (Auto) 9.1 Eos % (Auto) 3.4 Baso % (Auto) 0.5 Lymph # (Auto) 2.1 [place] # (Auto) 1.0 Eos # (Auto) 0.4 Baso # (Auto) 0.1 Abs Immat Gran (auto) 0.03 Absolute Neuts (auto) 7.4 Absolute Nucleated RBC 0.000 Nucleated RBC % (auto) 0.0 PT INR APTT Sodium 140 Potassium 4.6 Chloride 104 Carbon Dioxide 26 Anion Gap 15 BUN 20 H Creatinine 1.12 Estim Creat Clear Calc 49.1 Estimated GFR 47 Random Glucose 107 Calcium 9.7 Total Bilirubin 0.4 AST 20 ALT 23 Alkaline Phosphatase 59 Total Protein 7.1 Albumin 4.1 Lipase 27 Urine Color Yellow Urine Appearance Clear Urine pH 6.0 Ur Specific [place] <= 1.005 Urine Protein Negative Urine Glucose (UA) Negative Urine Ketones Negative Urine Blood Negative Urine Nitrite Negative Ur Leukocyte Esterase Negative COVID-19 ([facility]) COVID-[place] [facility] Com 05/29/22 05/29/22 11:52 11:52 WBC RBC Hgb Hct MCV MCH MCHC RDW Plt Count MPV Immature Gran % (Auto) Neut % (Auto) Lymph % (Auto) [place] % (Auto) Eos % (Auto) Baso % (Auto) Lymph # (Auto) [place] # (Auto) Eos # (Auto) Baso # (Auto) Abs Immat Gran (auto) Absolute Neuts (auto) Absolute Nucleated RBC Nucleated RBC % (auto) PT 11.5 INR 1.0 APTT 30.3 Sodium Potassium Chloride Carbon Dioxide Anion Gap BUN Creatinine Estim Creat Clear Calc Estimated GFR Random Glucose Calcium Total Bilirubin AST ALT Alkaline Phosphatase Total Protein Albumin Lipase Urine Color Urine Appearance Urine pH Ur Specific [place] Urine Protein Urine Glucose (UA) Urine Ketones Urine Blood Urine Nitrite Ur Leukocyte Esterase COVID-19 ([facility]) Negative COVID-19 Clin Com See Note Airway Mallampati Class: III TM Dist: >3cm Neck ROM: Full Loose/Missing/Broken Teeth: Yes (Missing and chipped teeth . Fillings ) Heart: S1,S2 Lungs: b/l breath sounds Assessment and Plan Assessment Anesthesia Assessment: Anesthesia Plan Discussed and Chart Reviewed Final Anesthetic Review Family History of Problems with Anesthesia: No History of Problems with Anesthesia: Yes (History of delayed emergence ) NPO: Yes ASA Class: III and Emergency Final Preanesthetic Review: Meds/Allgs Chart Reviewed, Consent Obtained/Reviewed and Anes Risks/Benef Reviewed Patient Risk: High Procedure Risk: Intermediate Anesthetic Plan Anesthetic Plan: GA Disposition: Standard PACU
--- NOTE | 2022-05-29 17:35 | MHC.SHP ---
Pre-Procedural Eval Section A Date of Service: 05/29/22 The patient is an INPATIENT: No Changes since office visit: No Cold of Flu in the past 2 weeks, No New Medical Problems, No Changes in Medication and No Patient answered all questions The History & Physical has been completed within 30 days and I have reviewed it.: Yes Section B Chief Complaint: Possible kidney stone Allergies: Allergies Allergy/AdvReac Type Severity Reaction Status Date / Time erythromycin base Allergy Severe BODY ACHES Verified 05/08/22 09:39 [ERYTHROMYCIN BASE] morphine [MORPHINE] Allergy Severe HALLUCINATI Verified 05/08/22 09:39 ONS Kjrxzhk-WTO-DrN Reductase Allergy Severe ALTERED Verified 05/08/22 09:39 Inhibitor MENTAL [[id number] REDUCTASE STATUS, SI INHIBITOR] adhesive tape Allergy Intermediate BLISTERS Verified 05/08/22 09:39 omeprazole [From PRILOSEC] AdvReac Intermediate DIARRHEA Verified 05/08/22 09:39 hospital sheets Allergy Unknown ? Uncoded 05/08/22 09:39 Review of Systems Sugical H&P ROS: Negative: Constitution, Cardiovascular, Respiratory, Neurological, Psychiatric, Hem-Onc, Allergic/Immunologic, Gastrointestinal, Genitourinary, Musculoskeletal, Integumentary, Endocrine and Eyes/Ears/Nose/Throat Exam Surgical H&P Exam: Normal: HEENT, Normal: Heart, Normal: Lungs, Normal: Extremities, Normal: Abdomen, Normal: Skin and Normal: Neurological Plan Diagnosis/Plan: Unchanged (cystoscopy, right retrograde, right ureteroscopy, laser, basket, stent) I have reviewed the history and physical and performed a pertinent physical examination on my patient. No changes have occurred unless specified.
--- NOTE | 2022-05-29 19:20 | W.PM.OPN ---
Operative Note Operative Note Date of Service: 05/29/22 Narrative: PreOperative Diagnosis: large right ureteric stone burden and renal stone burden with hydronephrosis Post Operative Diagnosis: above Procedure: - cystoscopy, right retrograde - right dilatation of ureteric orifice under fluoroscopy - right ureteroscopy, laser lithotripsy - modifier 22 150% longer than typical - right stent placement Surgeon: Dr Ashvin Arellano Anesthesia: General Indications for procedure: large right stone burden with 2.2 cm, 1.6 cm stones with in renal pelvis and obstructing 1.3 cm stone in proximal right ureter. the patient understands this is a staged procedure and based on the residual stone burden further procedures may be required for complete stone clearance. Risks and benefits have been discussed. Procedure: After informed consent was verified patient was brought to the operating placed in supine position. Anesthesia was administered per protocol. Patient was placed in modified dorsal lithotomy position and prepped and draped in a sterile fashion. Safety pause time-out and side of surgery confirmed. Antibiotics confirmed. 22 Palestinian cystoscope was inserted per urethra. Bladder was normal in its entirety. Both ureteric orifices were in normal position. The right ureteric orifice was cannulated and a retrograde examination was performed. obstructing stone seen in the proximal ureter and stone burden outlined within the renal pelvis . A Sensor guidewire was placed up to the level of the renal pelvis under fluoroscopy. The rigid cystoscope was removed and the inner cannula of ureteric access sheath was used under fluoroscopy to dilate the ureteric orifice. The suctionureteric access sheath was placed and the inner cannula with access wire removed. a rigid ureteral scope was placed in the stone encountered at the right UPJ. Lasering was performed. Settings were varied between hammer and dusting power. Power was adjusted to match stone burden and rate of stone fragmentation. Suction was adjusted to allow withdrawal of clouds of stone fragments and dust. Once the initial stone was addressed we were able to into the renal pelvis and break apart is much stone burden as we could access. Lasering was performed for approximately 56 minutes. This is 150% longer than typical for large stone burden more consistent with staghorn calculus. At the completion of this time there were stone fragments within the upper pole of the kidney. These were in accessible to the rigid scope. A decision was made to place a stent and Further stone procedures will be performed. A 6 Palestinian by Twenty 4 cm double-J stent was placed into the renal pelvis and bladder under a combination of fluoroscopy and direct visualization. The bladder was emptied. The patient tolerated the procedure well and was extubated in the operating room, and transferred in stable condition to the recovery area. Pathology: stone debris Drains: double-J stent with 6 x 24 cm stent Breast [place] Node Biopsy Substrate(s) used for sentinel node biopsy in the neoadjuvant setting: Dye, Radiotracer, & Clips General Surg. - Synoptic Notes Breast [place] Node Biopsy Substrate(s) used for sentinel node biopsy in the neoadjuvant setting: Dye, Radiotracer, & Clips
[2022-05-29] MEDS: ondansetron HCL 4 MG/2 ML VIAL IVPUSH (19:30)
--- NOTE | 2022-05-29 20:11 | PC.NURSE ---
PATIENT OOB TO DRESS, THEN TO WHEELCHAIR. NOTED SMALL AMOUNT URINE LEAKAGE ON PAD RED TINGED. NO CLOTS. NO FURTHER VOMITING OR NAUSEA PRIOR TO DISCHARGE. ABLE AMBULATE FROM WHEELCHAIR TO CAR SAFELY.
[2022-06-03 01:52] LABS: Stone Source KIDNEY STONE
== END 2022-05-29 20:12 | disposition home or self-care (01) ==
LOC: HO.ED 16:51 → HO.SSS 18:16
PROVIDERS: Emergency Provider Emergency Medicine Emergency Medical Services; PCP Internal Medicine; Visit Provider Urology
PROC: (CPT 52356; principal; 2022-05-29 17:00)
DX: N13.2 Hydronephrosis with renal and ureteral calculous obstruction (principal); Z87.442 Personal history of urinary calculi; I10 Essential (primary) hypertension; B02.29 Other postherpetic nervous system involvement; K57.30 Diverticulosis of large intestine without perforation or abscess without bleeding; J30.9 Allergic rhinitis, unspecified; Z79.82 Long term (current) use of aspirin; Z85.51 Personal history of malignant neoplasm of bladder; Z86.718 Personal history of other venous thrombosis and embolism; Z79.899 Other long term (current) drug therapy; Z88.8 Allergy status to other drugs, medicaments and biological substances; Z88.1 Allergy status to other antibiotic agents; Z96.653 Presence of artificial knee joint, bilateral; Z96.643 Presence of artificial hip joint, bilateral; Z96.612 Presence of left artificial shoulder joint; Z20.822 Contact with and (suspected) exposure to COVID-19; Z98.890 Other specified postprocedural states
CPT/HCPCS: 52356; 36415; 74176; 80053; 81003; 82365; 83690; 85025; 85610; 85730; 87635; 88300; 96360; 99285; C1758; C1769; C1894; C2617; J1956; J2405; J3010; Q9967

== ENCOUNTER 2022-06-30 06:51 | Day surgery (SDC) | payer MEDICARE, SELFPAY ==
[2022-06-24 17:02] VITALS: BMI 37.9
--- NOTE | 2022-06-27 10:29 | P.CONAN_ITS ---
Documented by User: Mishel Hinton NP 06/27/22 10:30 HPI - Anesthesia Eval Consult details Narrative: 77yo F for Right Cystoscopy, Ureteroroscopy, Retro, Laser with poss stent s/p cysto, etc 05/2022 with GA-LMA 4 PMFSH Active Problems Active Problems: All Active Problems (Updated 06/26/22 @ 12:05 by Maria De Jesus Evans MD) Preop exam for internal medicine (Acute) Calculus of proximal right ureter (Acute) Cataract (Acute) Osteopenia (Acute) Mixed incontinence (Acute) Annual physical exam (Acute) Impaired fasting blood sugar (Acute) Bladder cancer (Acute) Renal calculus, bilateral (Acute) Stress incontinence (Acute) Encounter for annual wellness visit (AWV) in Medicare patient (Acute) DVT (deep venous thrombosis) (Acute) Allergic rhinitis (Acute) Tinnitus (Acute) Vitamin D deficiency (Acute) Obesity (Acute) GERD (gastroesophageal reflux disease) (Acute) Hypercholesteremia (Acute) Hypertension (Acute) Past Medical History Medical History Allergic rhinitis Bladder cancer Carpal tunnel syndrome, left Cervical radiculopathy Dislocation of right shoulder joint GERD (gastroesophageal reflux disease) Hypercholesteremia Hypertension Left leg DVT Obesity Post herpetic neuralgia Renal calculus, bilateral Right rotator cuff tear Family History Family History Father Cancer Mother CVD (cardiovascular disease) Cerebral hemorrhage Brother CAD (coronary artery disease) Sister CVD (cardiovascular disease) Cancer Family history of problems with anesthesia: No Surgical History Surgical History H/O shoulder replacement History of appendectomy History of carpal tunnel surgery of left wrist History of cholecystectomy History of cystoscopy History of hip replacement History of knee replacement procedure of left knee History of knee replacement procedure of right knee History of lithotripsy History of lumpectomy of left breast History of lumpectomy of right breast History of total abdominal hysterectomy and bilateral salpingo-oophorectomy History of Problems with Anesthesia: Yes (History of delayed emergence ) Social History Social History Housing: House Alcohol intake: current Patient Tobacco Use Status: Never used Tobacco e-Cigarette/Vaping Use: Never Used Second Hand Smoke Exposure: No Use of substances other than those prescribed or required for medical reasons: No Are you DNR?: No Advance Directives: No Advance Directives Information Provided: Yes service: No Current occupational status: employed and retired Cognitive needs: No Hearing needs: No Vision needs: Yes Meds Allergies Allergy/AdvReac Type Severity Reaction Status Date / Time erythromycin base Allergy Severe BODY ACHES Verified 06/26/22 11:51 [ERYTHROMYCIN BASE] morphine [MORPHINE] Allergy Severe HALLUCINATI Verified 06/26/22 11:51 ONS Vjnwukd-DGC-JzN Reductase Allergy Severe ALTERED Verified 06/26/22 11:51 Inhibitor MENTAL [[id number]-[id number] REDUCTASE STATUS, SI INHIBITOR] adhesive tape Allergy Intermediate BLISTERS Verified 06/26/22 11:51 omeprazole [From PRILOSEC] AdvReac Intermediate DIARRHEA Verified 06/26/22 11:51 hospital sheets Allergy Unknown ? Uncoded 06/26/22 11:51 Home Medications Medication Instructions Recorded Confirmed Last Taken Type albuterol sulfate 90 mcg/actuation 2 puff inhalation Q4-6H PRN 08/30/20 06/26/22 Unknown History aerosol inhaler (ProAir HFA) Wheezing loratadine 10 mg tablet (Claritin) 10 mg PO DAILY 08/30/20 06/26/22 05/29/22 History aspirin 81 mg tablet,delayed 81 mg PO DAILY 10/04/20 06/26/22 05/29/22 History release acetaminophen 500 mg tablet 500 mg PO TID PRN Pain 05/29/22 06/26/22 05/28/22 History fluticasone propionate 50 2 spray intranasal DAILY PRN 05/29/22 06/26/22 Unknown History mcg/actuation nasal Allergic Symptoms spray,suspension (Allergy Relief (fluticasone)) Exam Exam Date and Time: June 27, 2022 1029 Height,Weight and Vital Signs: Height 5 ft 4 in Weight 100.244 kg Pertinent Lab Results Pertinent Lab Results: Laboratory Tests 05/29/22 05/29/22 11:52 11:52 WBC 11.1 H Hgb 13.0 Hct 40.5 Plt Count 332 Sodium 140 Potassium 4.6 Chloride 104 Carbon Dioxide 26 BUN 20 H Creatinine 1.12 Assessment and Plan Assessment Anesthesia Assessment: Chart Reviewed Final Anesthetic Review Family History of Problems with Anesthesia: No History of Problems with Anesthesia: Yes (History of delayed emergence ) Documented by User: Trang Grigsby MD 06/30/22 09:28 [facility] Active Problems Active Problems: All Active Problems (Updated 06/26/22 @ 12:05 by Maria De Jesus Evans MD) Preop exam for internal medicine (Acute) Calculus of proximal right ureter (Acute) Cataract (Acute) Osteopenia (Acute) Mixed incontinence (Acute) Annual physical exam (Acute) Impaired fasting blood sugar (Acute) Bladder cancer (Acute) Renal calculus, bilateral (Acute) Stress incontinence (Acute) Encounter for annual wellness visit (AWV) in Medicare patient (Acute) DVT (deep venous - thrombosis)history- about 2 years ago Allergic rhinitis (Acute) Tinnitus (Acute) Vitamin D deficiency (Acute) Obesity (Acute) GERD (gastroesophageal reflux disease) (Acute) Hypercholesteremia (Acute) Hypertension (Acute) Past Medical History Medical History Allergic rhinitis Bladder cancer Carpal tunnel syndrome, left Cervical radiculopathy Dislocation of right shoulder joint GERD (gastroesophageal reflux disease) Hypercholesteremia Hypertension Left leg DVT Obesity Post herpetic neuralgia Renal calculus, bilateral Right rotator cuff tear Family History Family History Father Cancer Mother CVD (cardiovascular disease) Cerebral hemorrhage Brother CAD (coronary artery disease) Sister CVD (cardiovascular disease) Cancer Surgical History Surgical History H/O shoulder replacement History of appendectomy History of carpal tunnel surgery of left wrist History of cholecystectomy History of cystoscopy History of hip replacement History of knee replacement procedure of left knee History of knee replacement procedure of right knee History of lithotripsy History of lumpectomy of left breast History of lumpectomy of right breast History of total abdominal hysterectomy and bilateral salpingo-oophorectomy Social History Social History Housing: House Alcohol intake: current Patient Tobacco Use Status: Never used Tobacco e-Cigarette/Vaping Use: Never Used Second Hand Smoke Exposure: No Use of substances other than those prescribed or required for medical reasons: No Are you DNR?: No Advance Directives: No Advance Directives Information Provided: Yes service: No Current occupational status: employed and retired Cognitive needs: No Hearing needs: No Vision needs: Yes Meds Allergies Allergy/AdvReac Type Severity Reaction Status Date / Time erythromycin base Allergy Severe BODY ACHES Verified 06/26/22 11:51 [ERYTHROMYCIN BASE] morphine [MORPHINE] Allergy Severe HALLUCINATI Verified 06/26/22 11:51 ONS Ivkipzw-YWO-KsU Reductase Allergy Severe ALTERED Verified 06/26/22 11:51 Inhibitor MENTAL [ZUTLAOK-[id number]-MOQ REDUCTASE STATUS, SI INHIBITOR] adhesive tape Allergy Intermediate BLISTERS Verified 06/26/22 11:51 omeprazole [From PRILOSEC] AdvReac Intermediate DIARRHEA Verified 06/26/22 11:51 hospital sheets Allergy Unknown ? Uncoded 06/26/22 11:51 Home Medications Medication Instructions Recorded Confirmed Last Taken Type albuterol sulfate 90 mcg/actuation 2 puff inhalation Q4-6H PRN 08/30/20 06/26/22 Unknown History aerosol inhaler (ProAir HFA) Wheezing loratadine 10 mg tablet (Claritin) 10 mg PO DAILY 08/30/20 06/26/22 05/29/22 History aspirin 81 mg tablet,delayed 81 mg PO DAILY 10/04/20 06/26/22 05/29/22 History release acetaminophen 500 mg tablet 500 mg PO TID PRN Pain 05/29/22 06/26/22 05/28/22 History fluticasone propionate 50 2 spray intranasal DAILY PRN 05/29/22 06/26/22 Unknown History mcg/actuation nasal Allergic Symptoms spray,suspension (Allergy Relief (fluticasone)) Exam Height,Weight and Vital Signs: Height 5 ft 4 in Weight 100.244 kg Vital Signs Temp Pulse Resp BP Pulse Ox O2 Del Method 06/30/22 07:41 97.9 F 58 16 160/83 H 95 Room Air Airway Mallampati Class: III TM Dist: >3cm Neck ROM: Full Partial: Upper Loose/Missing/Broken Teeth: Yes (Missing lower left) Heart: RRR Lungs: CTAB Assessment and Plan Assessment Anesthesia Assessment: Anesthesia Plan Discussed Final Anesthetic Review NPO: Yes ASA Class: III Final Preanesthetic Review: No Changes in Pt Med Stat, Meds/Allgs Chart Reviewed, Consent Obtained/Reviewed and Anes Risks/Benef Reviewed Patient Risk: Intermediate Procedure Risk: Low Assessment/Block/Sedation in SS: Assess/Block/Sedation-SS Anesthetic Plan Anesthetic Plan: GA Disposition: Standard PACU
--- NOTE | ~2022-06-30 | FL_ITS ---
EXAMINATION: XR FLUOROSCOPY WITH IMAGES CLINICAL INFORMATION: Urinary tract calculi. Moderate right hydronephrosis. COMPARISON: CT abdomen and pelvis noncontrast 05/29/2022, fluoroscopic spot views 05/29/2022 TECHNIQUE: Fluoroscopy performed by Dr. Ashvin Arellano. Fluoroscopy time: 41 seconds. Cumulative Dose: 23.76 mGy. Images: 4. FINDINGS: Fluoroscopic spot views demonstrates guidewire and catheter overlying right urinary tract. FL/FL guidance in OR IMPRESSION: Fluoroscopy for urologic procedure.
[2022-06-30 07:17] VITALS: BMI 37.4
[2022-06-30 07:41] VITALS: BP 160/83; PULSE 58; RESP 16; TEMP 36.6; O2SAT 95
[2022-06-30] MEDS: Lactated Ringers 1,000 ML 100 ML IVCONT (07:49)
--- NOTE | 2022-06-30 09:07 | P.HPSUR_ITS ---
Pre-Procedural Eval Section A Date of Service: 06/30/22 The patient is an INPATIENT: No Changes since office visit: No Cold of Flu in the past 2 weeks, No New Medical Problems, No Changes in Medication and No Patient answered all questions The History & Physical has been completed within 30 days and I have reviewed it.: No Section B Chief Complaint: Calculus of kidney Details of Present Illness: cystoscopy, right stent removal, ureteroscopy, laser Relevant Family History (Specify if Yes): No Relevant Social History: None Present Medications: see Short Stay Collaborative assessment Medical History: Significant History History of Previous Operations: Relevant previous surgery/procedure and date(s) Allergies: Allergies Allergy/AdvReac Type Severity Reaction Status Date / Time erythromycin base Allergy Severe BODY ACHES Verified 06/26/22 11:51 [ERYTHROMYCIN BASE] morphine [MORPHINE] Allergy Severe HALLUCINATI Verified 06/26/22 11:51 ONS Unuitrx-ZHY-IkD Reductase Allergy Severe ALTERED Verified 06/26/22 11:51 Inhibitor MENTAL [[id number]-[id number] REDUCTASE STATUS, SI INHIBITOR] adhesive tape Allergy Intermediate BLISTERS Verified 06/26/22 11:51 omeprazole [From PRILOSEC] AdvReac Intermediate DIARRHEA Verified 06/26/22 11:51 hospital sheets Allergy Unknown ? Uncoded 06/26/22 11:51 Review of Systems Sugical H&P ROS: Negative: Constitution, Cardiovascular, Respiratory, Neurological, Psychiatric, Hem-Onc, Allergic/Immunologic, Gastrointestinal, Genitourinary, Musculoskeletal, Integumentary, Endocrine and Eyes/Ears/ Nose/Throat Exam Surgical H&P Exam: Normal: HEENT, Normal: Heart, Normal: Lungs, Normal: Extremities, Normal: Abdomen, Normal: Skin and Normal: Neurological Plan Diagnosis/Plan: Unchanged (cystoscopy, right stent removal, ureteroscopy, laser) I have reviewed the history and physical and performed a pertinent physical examination on my patient. No changes have occurred unless specified.
--- NOTE | 2022-06-30 10:05 | W.PM.OPN ---
Operative Note Operative Note Date of Service: 06/30/22 Narrative: PreOperative Diagnosis: right indwelling stent and right renal stones Post Operative Diagnosis: above Procedure: - cystoscopy, right stent removal - right dilatation of ureteric orifice under fluoroscopy - right ureteroscopy, laser lithotripsy, stone basketing Surgeon: Dr Ashvin Arellano Anesthesia: General Indications for procedure: prior large stone removed from right renal pelvis. Stent in place. Secondary looked remove residual fragments. Procedure: After informed consent was verified patient was brought to the operating placed in supine position. Anesthesia was administered per protocol. Patient was placed in modified dorsal lithotomy position and prepped and draped in a sterile fashion. Safety pause time-out and side of surgery confirmed. Antibiotics confirmed. 22 Serbian cystoscope was inserted per urethra. Bladder was normal in its entirety. Both ureteric orifices were in normal position. Stent was emerging from right ureter. The stent was grasped and removed without difficulty. The Right ureteric orifice was cannulated and a retrograde examination was performed. No filling defects seen. Sensor wire placed up to the level renal pelvis.. A Sensor guidewire was placed up to the level of the renal pelvis under fluoroscopy. The rigid cystoscope was removed and the inner cannula of ureteric access sheath was used under fluoroscopy to dilate the ureteric orifice. The ureteric access sheath was placed and the inner cannula with access wire removed. The digital flexible ureteral scope was placed. The stones were engaged using a 265 nanometer holmium laser fiber. This was set with dusting settings. There were at least 2 significant stones greater than 7 mm which were dusted. An attempt is made to use a basket to remove stone fragments over the also small left failed to engage with the basket At completion we used the open-ended catheter flush the renal pelvis to try to remove residual stone fragmentation. At the completion of the stone procedure a Sensor wire was placed back into the renal pelvis. The ureteric access sheath was removed. The bladder was emptied. The patient tolerated the procedure well and was extubated in the operating room, and transferred in stable condition to the recovery area. Pathology: Stone fragmentation Drains: none
[2022-06-30 10:14] VITALS: BP 113/68; PULSE 64; RESP 16; TEMP 36.2; O2SAT 97
[2022-06-30 10:19] VITALS: BP 140/88; PULSE 82; RESP 16; O2SAT 98
[2022-06-30 10:24] VITALS: BP 147/88; PULSE 71; RESP 16; O2SAT 98
[2022-06-30] MEDS: Phenazopyridine HCL 100 MG TABLET PO (10:24)
[2022-06-30] MEDS: Acetaminophen 325 MG TABLET 650 MG PO (10:24)
[2022-06-30 10:29] VITALS: BP 147/96; PULSE 72; RESP 16; O2SAT 98
[2022-06-30 10:44] VITALS: BP 129/66; PULSE 69; RESP 16; TEMP 36.3; O2SAT 100
[2022-07-03 09:06] LABS: Stone Source RENAL STONE
== END 2022-06-30 11:13 | disposition home or self-care (01) ==
PROVIDERS: PCP Internal Medicine; Visit Provider Urology
PROC: (CPT 52353; principal; 2022-06-30 08:40)
DX: N20.0 Calculus of kidney (principal); J30.9 Allergic rhinitis, unspecified; I10 Essential (primary) hypertension; E78.00 Pure hypercholesterolemia, unspecified; B02.29 Other postherpetic nervous system involvement; Z87.442 Personal history of urinary calculi; Z85.51 Personal history of malignant neoplasm of bladder; Z86.718 Personal history of other venous thrombosis and embolism; Z79.01 Long term (current) use of anticoagulants; Z79.51 Long term (current) use of inhaled steroids; Z79.899 Other long term (current) drug therapy; Z79.82 Long term (current) use of aspirin; Z88.1 Allergy status to other antibiotic agents; Z88.8 Allergy status to other drugs, medicaments and biological substances; Z90.49 Acquired absence of other specified parts of digestive tract; Z98.890 Other specified postprocedural states
CPT/HCPCS: 52353; 52352; 82365; 88300; C1758; C1769; J0461; J1956; J2405; J3010; Q9965

== ENCOUNTER → 2022-07-18 13:02 | Outpatient (BNVA) | payer MEDICARE, SELFPAY | PROVIDERS: PCP Internal Medicine; Visit Provider Urology | DX: N20.0 Calculus of kidney (principal) | CPT/HCPCS: Q3014 ==

== ENCOUNTER 2022-08-26 11:50 | Outpatient (REF) | payer MEDICARE, SELFPAY ==
--- NOTE | 2022-08-26 11:57 | ECG_ITS ---
Test Reason : PREOP Blood Pressure : / mmHG Vent. Rate : 079 BPM Atrial Rate : 079 BPM P-R Int : 186 ms QRS Dur : 084 ms QT Int : 412 ms P-R-T Axes : 080 004 061 degrees QTc Int : 472 ms Sinus rhythm with Premature supraventricular complexes Otherwise normal ECG When compared with ECG of 30-APR-2012 16:43, Premature supraventricular complexes are now Present Referred By: Maria De Jesus Evans Electronically Signed By:YVONNE OLSON MD
[2022-08-26 12:10] LABS: MANUAL DIFF FLAG NO
[2022-08-26 13:29] LABS: Basophils Absolute Auto 0.1 X10*3/uL (0.0-0.2); Basophils Percent Auto 0.8 % (0-2); Eosinophils Absolute Auto 0.5 X10*3/uL (0.0-0.4); Eosinophils Percent Auto 5.4 % (0-4); Hematocrit 43.2 % (37.0-47.0); Hemoglobin 13.5 g/dl (12.0-16.0); Imm Gran Abs Auto 0.02 X10*3/uL (0.00-0.03); Imm Gran Pct Auto 0.2 % (0.0-0.4); Lymphocytes Absolute Auto 3.9 X10*3/uL (1.2-4.9); Lymphocytes Percent Auto 39.9 % (20-40); Mean Corpuscular HGB Conc 31.3 g/dl (31.0-35.0); Mean Corpuscular Hemoglobin 29.3 pg (27.0-33.0); Mean Corpuscular Volume 93.7 fL (80.0-98.0); Mean Platelet Volume 9.2 fL (9.4-12.3); Monocytes Absolute Auto 0.9 X10*3/uL (0.1-1.2); Monocytes Percent Auto 8.8 % (2-11); Neutrophils Absolute Auto 4.4 x10*3/uL (2.0-8.3); Neutrophils Percent Auto 44.9 % (45-73); Platelet Count 392 X10*3/uL (160-400); Red Blood Count 4.61 X10*6/uL (4.20-5.50); Red Cell Distribution Width 13.8 % (11.0-16.0); White Blood Count 9.8 X10*3/uL (4.8-10.8)
[2022-08-26 14:20] LABS: Alanine Aminotransferase 32 U/L (0-31); Albumin Level 4.3 g/dL (3.5-5.0); Alkaline Phosphatase 64 U/L (39-117); Anion Gap 16 (12-20); Aspartate Amino Transferase 27 U/L (5-31); Bilirubin Total 0.4 mg/dL (0.0-1.0); Blood Urea Nitrogen 19 mg/dL (9-16); Carbon Dioxide 26 mmol/L (22-29); Chloride 105 mmol/L (96-108); Cholesterol 215 mg/dL; Estimated Glomerular Filt Rate > 60; Glucose Random 83 mg/dL (60-115); HDL Cholesterol 56 mg/dL; LDL Cholesterol Calculated 128 mg/dl; Sodium 142 mmol/L (135-145); Thyroid Stimulating Hormone 1.88 uIU/mL (0.32-4.0); Total Protein 7.3 g/dL (6.5-8.0); Triglycerides 156 mg/dL
[2022-08-26 14:22] LABS: Free T4 (Free Thyroxine) 1.01 ng/dL (0.71-1.85); Vitamin D 25-OH Total 15.4 ng/mL (>30)
== END 2022-08-26 11:51 | disposition home or self-care (01) ==
LOC: HO.LAB 11:50
PROVIDERS: PCP Internal Medicine; Visit Provider Internal Medicine
DX: Z01.818 Encounter for other preprocedural examination (principal); E78.00 Pure hypercholesterolemia, unspecified
CPT/HCPCS: 36415; 80053; 80061; 82306; 84439; 84443; 85025; 93005

== ENCOUNTER 2022-09-01 08:26 | Outpatient (REF) | payer MEDICARE, SELFPAY ==
--- NOTE | ~2022-09-01 | US_ITS ---
EXAMINATION: US RETROPERITONEAL LIMITED (RENAL ONLY) CLINICAL INFORMATION: Nephrolithiasis. COMPARISON: CT abdomen/pelvis 05/29/2022. TECHNIQUE: Real-time imaging of the kidneys. FINDINGS: RIGHT KIDNEY: 10.7 x 6 x 6.6 cm (SAG x AP x TRV). The kidney is normal in size, contour, and echogenicity. Renal cortical thickness is normal. No hydronephrosis. There is a 0.2 cm nonobstructive calculus in the interpolar region. There are several simple cysts, largest measuring 2.4 cm in the upper pole, for which no imaging follow-up is recommended. LEFT KIDNEY: 12.3 x 6.7 x 4.6 cm (SAG x AP x TRV). The kidney is normal in size, contour, and echogenicity. Renal cortical thickness is normal. No hydronephrosis. There is a 0.3 cm nonobstructive calculus in the interpolar region and a 0.3 cm nonobstructive calculus in the lower pole. There are 2 simple cysts, largest measuring 2 cm in the lower pole, for which no imaging follow-up is recommended. US/US renal BI IMPRESSION: Nonobstructive bilateral renal calculi.
== END 2022-09-01 08:27 | disposition home or self-care (01) ==
LOC: HO.US 08:26
PROVIDERS: Visit Provider Urology
DX: N20.0 Calculus of kidney (principal)
CPT/HCPCS: 76775

== ENCOUNTER 2022-09-08 07:53 | Day surgery (SDC) | payer MEDICARE, SELFPAY ==
[2022-08-25 14:58] VITALS: BMI 37.5
--- NOTE | 2022-09-02 13:18 | HO.ANESPROP2 ---
Documented by User: Mishel Hinton NP 09/02/22 13:19 HPI - Anesthesia Eval Consult details Narrative: 77yo F for Right Cataract Extraction IOL Insertion PCP cleared No previous cataract on record [facility] Active Problems Active Problems: All Active Problems (Updated 08/26/22 @ 11:14 by Maria De Jesus Evans MD) Preop exam for internal medicine (Acute) Vitamin D deficiency (Acute) Tinnitus (Acute) Encounter for annual wellness visit (AWV) in Medicare patient (Acute) Stress incontinence (Acute) Impaired fasting blood sugar (Acute) Annual physical exam (Acute) Mixed incontinence (Acute) Osteopenia (Acute) Cataract (Acute) Calculus of proximal right ureter (Acute) Preop exam for internal medicine (Acute) Uric acid kidney stone (Acute) Bladder cancer (Acute) Renal calculus, bilateral (Acute) Allergic rhinitis (Acute) Obesity (Acute) GERD (gastroesophageal reflux disease) (Acute) Hypercholesteremia (Acute) Hypertension (Acute) Past Medical History Medical History Allergic rhinitis Bladder cancer Carpal tunnel syndrome, left Cervical radiculopathy Dislocation of right shoulder joint GERD (gastroesophageal reflux disease) Hypercholesteremia Hypertension Left leg DVT Obesity Post herpetic neuralgia Renal calculus, bilateral Right rotator cuff tear Family History Family History Father Cancer Mother CVD (cardiovascular disease) Cerebral hemorrhage Brother CAD (coronary artery disease) Sister CVD (cardiovascular disease) Cancer Family history of problems with anesthesia: No Surgical History Surgical History H/O shoulder replacement History of appendectomy History of carpal tunnel surgery of left wrist History of cholecystectomy History of cystoscopy History of hip replacement History of knee replacement procedure of left knee History of knee replacement procedure of right knee History of lithotripsy History of lumpectomy of left breast History of lumpectomy of right breast History of total abdominal hysterectomy and bilateral salpingo-oophorectomy Hx of cystoscopy History of Problems with Anesthesia: Yes (History of delayed emergence ) Social History Social History Housing: House Are you a primary inspector health care facilities to a significant other at home: No Do you presently have visiting nurse or other home services: No Alcohol intake: current Alcohol intake frequency: holidays/special occasions only Patient Tobacco Use Status: Never used Tobacco e-Cigarette/Vaping Use: Never Used Second Hand Smoke Exposure: No Use of substances other than those prescribed or required for medical reasons: No Have you been hit, kicked, punched, or otherwise hurt by someone within the past year? If so, by whom?: No Are you DNR?: No Advance Directives Information Provided: Yes (to bring copy DOS) Advance Directives on File: No Recently lost weight without trying: No Eating poorly because of decreased appetite: No Nutrition Risks: Surgical patient >75years Poor oral hygiene: No (has upper partial) service: No Current occupational status: employed and retired Cognitive needs: No Hearing needs: No Vision needs: Yes Meds Allergies Allergy/AdvReac Type Severity Reaction Status Date / Time erythromycin base Allergy Severe BODY ACHES Verified 08/26/22 10:51 [ERYTHROMYCIN BASE] morphine [MORPHINE] Allergy Severe HALLUCINATI Verified 08/26/22 10:51 ONS Fdhilkw-HUO-JqJ Reductase Allergy Severe ALTERED Verified 08/26/22 10:51 Inhibitor MENTAL [[id number] REDUCTASE STATUS INHIBITOR] adhesive tape Allergy Intermediate BLISTERS Verified 08/26/22 10:51 omeprazole [From PRILOSEC] AdvReac Intermediate DIARRHEA Verified 08/26/22 10:51 hospital sheets Allergy Mild years Uncoded 08/25/22 14:56 ago-caused itching Home Medications Medication Instructions Recorded Confirmed Last Taken Type albuterol sulfate 90 mcg/actuation 2 puff inhalation Q4-6H PRN 08/30/20 08/26/22 Unknown History aerosol inhaler (ProAir HFA) Wheezing loratadine 10 mg tablet (Claritin) 10 mg PO DAILY 08/30/20 08/26/22 09/08/22 History acetaminophen 500 mg tablet 500 mg PO TID PRN Pain 05/29/22 08/26/22 05/28/22 History fluticasone propionate 50 2 spray intranasal DAILY PRN 05/29/22 08/26/22 Unknown History mcg/actuation nasal Allergic Symptoms spray,suspension (Allergy Relief (fluticasone)) pyridoxine (vitamin B6) 50 mg 50 mg PO DAILY 07/18/22 08/26/22 Unknown History tablet meloxicam 15 mg tablet 1 tab PO DAILY 08/25/22 08/26/22 Unknown History Exam Exam Date and Time: September 02, 2022 1318 Height,Weight and Vital Signs: Height 5 ft 4 in Weight 99.337 kg Assessment and Plan Assessment Anesthesia Assessment: Chart Reviewed Final Anesthetic Review Family History of Problems with Anesthesia: No History of Problems with Anesthesia: Yes (History of delayed emergence ) Documented by User: Tristen Pires MD 09/08/22 12:11 [facility] Past Medical History Medical History Allergic rhinitis Bladder cancer Carpal tunnel syndrome, left Cervical radiculopathy Dislocation of right shoulder joint GERD (gastroesophageal reflux disease) Hypercholesteremia Hypertension Left leg DVT Obesity Post herpetic neuralgia Renal calculus, bilateral Right rotator cuff tear Family History Family History Father Cancer Mother CVD (cardiovascular disease) Cerebral hemorrhage Brother CAD (coronary artery disease) Sister CVD (cardiovascular disease) Cancer Surgical History Surgical History H/O shoulder replacement History of appendectomy History of carpal tunnel surgery of left wrist History of cholecystectomy History of cystoscopy History of hip replacement History of knee replacement procedure of left knee History of knee replacement procedure of right knee History of lithotripsy History of lumpectomy of left breast History of lumpectomy of right breast History of total abdominal hysterectomy and bilateral salpingo-oophorectomy Hx of cystoscopy Social History Social History Housing: House Are you a primary inspector health care facilities to a significant other at home: No Do you presently have visiting nurse or other home services: No Alcohol intake: current Alcohol intake frequency: holidays/special occasions only Patient Tobacco Use Status: Never used Tobacco e-Cigarette/Vaping Use: Never Used Second Hand Smoke Exposure: No Use of substances other than those prescribed or required for medical reasons: No Have you been hit, kicked, punched, or otherwise hurt by someone within the past year? If so, by whom?: No Are you DNR?: No Advance Directives Information Provided: Yes (to bring copy DOS) Advance Directives on File: No Recently lost weight without trying: No Eating poorly because of decreased appetite: No Nutrition Risks: Surgical patient >75years Poor oral hygiene: No (has upper partial) service: No Current occupational status: employed and retired Cognitive needs: No Hearing needs: No Vision needs: Yes Meds Allergies Allergy/AdvReac Type Severity Reaction Status Date / Time erythromycin base Allergy Severe BODY ACHES Verified 08/26/22 10:51 [ERYTHROMYCIN BASE] morphine [MORPHINE] Allergy Severe HALLUCINATI Verified 08/26/22 10:51 ONS Lfizcia-OFX-RzV Reductase Allergy Severe ALTERED Verified 08/26/22 10:51 Inhibitor MENTAL [RXQRAEA-NBR-IAQ REDUCTASE STATUS INHIBITOR] adhesive tape Allergy Intermediate BLISTERS Verified 08/26/22 10:51 omeprazole [From PRILOSEC] AdvReac Intermediate DIARRHEA Verified 08/26/22 10:51 hospital sheets Allergy Mild years Uncoded 08/25/22 14:56 ago-caused itching Home Medications Medication Instructions Recorded Confirmed Last Taken Type albuterol sulfate 90 mcg/actuation 2 puff inhalation Q4-6H PRN 08/30/20 08/26/22 Unknown History aerosol inhaler (ProAir HFA) Wheezing loratadine 10 mg tablet (Claritin) 10 mg PO DAILY 08/30/20 08/26/22 09/08/22 History acetaminophen 500 mg tablet 500 mg PO TID PRN Pain 05/29/22 08/26/22 05/28/22 History fluticasone propionate 50 2 spray intranasal DAILY PRN 05/29/22 08/26/22 Unknown History mcg/actuation nasal Allergic Symptoms spray,suspension (Allergy Relief (fluticasone)) pyridoxine (vitamin B6) 50 mg 50 mg PO DAILY 07/18/22 08/26/22 Unknown History tablet meloxicam 15 mg tablet 1 tab PO DAILY 08/25/22 08/26/22 Unknown History Exam Airway Mallampati Class: II TM Dist: >3cm Neck ROM: Full Partial: Upper Loose/Missing/Broken Teeth: Yes (partail upper, lower none loose but poor dentition globally) Heart: [id number] Lungs: cta b/l Assessment and Plan Assessment Anesthesia Assessment: Anesthesia Plan Discussed Final Anesthetic Review NPO: Yes ASA Class: III Final Preanesthetic Review: No Changes in Pt Med Stat, Meds/Allgs Chart Reviewed, Consent Obtained/Reviewed and Anes Risks/Benef Reviewed Patient Risk: Intermediate Procedure Risk: Intermediate Assessment/Block/Sedation in SS: Assess/Block/Sedation-SS Anesthetic Plan Anesthetic Plan: MAC: and Agree w/ Assess. and Plan Disposition: Standard PACU
--- NOTE | 2022-09-03 08:36 | MHC.SHP ---
Pre-Procedural Eval Section A Date of Service: 09/03/22 The patient is an INPATIENT: No Changes since office visit: No Cold of Flu in the past 2 weeks, No New Medical Problems, No Changes in Medication and No Patient answered all questions The History & Physical has been completed within 30 days and I have reviewed it.: Yes Section B Chief Complaint: Age-related nuclear cataract, right eye Allergies: Allergies Allergy/AdvReac Type Severity Reaction Status Date / Time erythromycin base Allergy Severe BODY ACHES Verified 08/26/22 10:51 [ERYTHROMYCIN BASE] morphine [MORPHINE] Allergy Severe HALLUCINATI Verified 08/26/22 10:51 ONS Huylcuw-VOT-HyZ Reductase Allergy Severe ALTERED Verified 08/26/22 10:51 Inhibitor MENTAL [[id number]-[id number]-JSQ REDUCTASE STATUS INHIBITOR] adhesive tape Allergy Intermediate BLISTERS Verified 08/26/22 10:51 omeprazole [From PRILOSEC] AdvReac Intermediate DIARRHEA Verified 08/26/22 10:51 hospital sheets Allergy Mild years Uncoded 08/25/22 14:56 ago-caused itching Plan Diagnosis/Plan: Unchanged I have reviewed the history and physical and performed a pertinent physical examination on my patient. No changes have occurred unless specified.
[2022-09-08 10:24] VITALS: BP 165/87; PULSE 90; RESP 19; TEMP 36.1; O2SAT 97
[2022-09-08] MEDS: Ketorolac Tromethamine 0.5% Op 5 ML DROPS 1 DROP EYE-RIGHT ×3 (11:28→11:32)
[2022-09-08] MEDS: Cyclopentolate 1 % Ophth Sol 2 ML DRPBTL 1 DROP EYE-RIGHT ×3 (11:28→11:31)
[2022-09-08] MEDS: Phenylephrine HCL 2.5% Oph SoL 2 ML BOTTLE 1 DROP EYE-RIGHT ×3 (11:28→11:32)
[2022-09-08] MEDS: Tetracaine HCl/PF 0.5% Oph Sol 4 ML DROPS 1 DROP EYE-RIGHT (11:28)
[2022-09-08] MEDS: Tropicamide 1 % Ophth Sol 3 ML BTL 1 DROP EYE-RIGHT ×2 (11:31→11:32)
[2022-09-08] MEDS: Lactated Ringers 500 ML 50 ML IV (11:45)
--- NOTE | 2022-09-08 12:52 | HO.PNOPHT ---
Ophthalmology Procedure Procedure Date of Service: 09/08/22 Ophthalmology Viscoelastic: Thierry Gallegost Dual Pack Pro Ophthalmology Lenses: TECMARK [id number] (22) Procedure Notes: PREOPERATIVE DIAGNOSIS: Decreased visual acuity right eye secondary to cataract POSTOPERATIVE DIAGNOSIS: Same PROCEDURE: Right cataract extraction with intraocular lens insertion SURGEON: Wes Saleh M.D. ANESTHESIA: Topical/MAC ESTIMATED BLOOD LOSS: None COMPLICATIONS: None After obtaining informed consent, the patient was brought to the operating room suite and placed in the supine position. After adequate sedation per anesthesia, topical drops of Tetracaine were given to the right eye. The eye was then prepped and draped in the usual sterile fashion. The operating room microscope was then positioned over the operative eye and a lid speculum placed. A paracentesis was created. Viscoelastic was then instilled into the anterior chamber. A three plane incision was then created temporally, utilizing a 2.85 mm keratome. Capsulotomy forceps were then utilized to create a circular tear capsulotomy. Hydrodissection and hydrodelineation were carried out until adequate mobilization of the nucleus occurred. Phacoemulsification was then utilized to remove the dense central nucleus followed by removal of the cortical material utilizing the automated aspiration irrigation unit. Viscoelastic was instilled into the posterior capsular bag followed by placement of a posterior chamber intraocular lens without difficulty. The residual Viscoelastic was then removed utilizing the automated IA machine. The wound was checked and found to be watertight. The patient tolerated the procedure well and the lid speculum was removed. Intracameral injection of Vigamox 0.1 mL followed by a subtenon injection of Kenalog-40 0.2 mL were administered. The patient will be seen in the a.m.
[2022-09-08 13:20] VITALS: BP 146/84; PULSE 74; RESP 16; TEMP 36.9; O2SAT 98
== END 2022-09-08 13:42 | disposition home or self-care (01) ==
PROVIDERS: PCP Internal Medicine; Visit Provider Ophthalmology
PROC: (CPT 66985; principal; 2022-09-08 10:40)
DX: H25.11 Age-related nuclear cataract, right eye (principal); I10 Essential (primary) hypertension; Z79.899 Other long term (current) drug therapy; Z88.5 Allergy status to narcotic agent; Z88.8 Allergy status to other drugs, medicaments and biological substances
CPT/HCPCS: 66984; J2250; J3300; J7999; V2632

== ENCOUNTER 2022-09-22 07:37 | Day surgery (SDC) | payer MEDICARE, SELFPAY ==
[2022-08-25 15:01] VITALS: BMI 37.5
--- NOTE | 2022-09-18 08:47 | MHC.SHP ---
Pre-Procedural Eval Section A Date of Service: 09/18/22 The patient is an INPATIENT: No Changes since office visit: No Cold of Flu in the past 2 weeks, No New Medical Problems, No Changes in Medication and No Patient answered all questions The History & Physical has been completed within 30 days and I have reviewed it.: Yes Section B Chief Complaint: Age-related nuclear cataract, left eye Allergies: Allergies Allergy/AdvReac Type Severity Reaction Status Date / Time erythromycin base Allergy Severe BODY ACHES Verified 08/26/22 10:51 [ERYTHROMYCIN BASE] morphine [MORPHINE] Allergy Severe HALLUCINATI Verified 08/26/22 10:51 ONS Dmrdetj-DMF-FpP Reductase Allergy Severe ALTERED Verified 08/26/22 10:51 Inhibitor MENTAL [[id number]-TLQ-PWZ REDUCTASE STATUS INHIBITOR] adhesive tape Allergy Intermediate BLISTERS Verified 08/26/22 10:51 omeprazole [From PRILOSEC] AdvReac Intermediate DIARRHEA Verified 08/26/22 10:51 hospital sheets Allergy Mild years Uncoded 08/25/22 14:56 ago-caused itching Plan Diagnosis/Plan: Unchanged I have reviewed the history and physical and performed a pertinent physical examination on my patient. No changes have occurred unless specified.
--- NOTE | 2022-09-19 09:21 | P.CONAN_ITS ---
Documented by User: Mishel Hinton NP 09/19/22 09:22 HPI - Anesthesia Eval Consult details Narrative: 77yo F for Left?Cataract Extraction IOL Insertion PCP cleared Right eye 09/08/22 with MAC: Midaz 2 PMFSH Active Problems Active Problems: All Active Problems (Updated 08/26/22 @ 11:14 by Maria De Jesus Evans MD) Preop exam for internal medicine (Acute) Vitamin D deficiency (Acute) Tinnitus (Acute) Encounter for annual wellness visit (AWV) in Medicare patient (Acute) Stress incontinence (Acute) Impaired fasting blood sugar (Acute) Annual physical exam (Acute) Mixed incontinence (Acute) Osteopenia (Acute) Cataract (Acute) Calculus of proximal right ureter (Acute) Preop exam for internal medicine (Acute) Uric acid kidney stone (Acute) Bladder cancer (Acute) Renal calculus, bilateral (Acute) Allergic rhinitis (Acute) Obesity (Acute) GERD (gastroesophageal reflux disease) (Acute) Hypercholesteremia (Acute) Hypertension (Acute) Past Medical History Medical History Allergic rhinitis Bladder cancer Carpal tunnel syndrome, left Cervical radiculopathy Dislocation of right shoulder joint GERD (gastroesophageal reflux disease) Hypercholesteremia Hypertension Left leg DVT Obesity Post herpetic neuralgia Renal calculus, bilateral Right rotator cuff tear Family History Family History Father Cancer Mother CVD (cardiovascular disease) Cerebral hemorrhage Brother CAD (coronary artery disease) Sister CVD (cardiovascular disease) Cancer Family history of problems with anesthesia: No Surgical History Surgical History H/O shoulder replacement History of appendectomy History of carpal tunnel surgery of left wrist History of cholecystectomy History of cystoscopy History of hip replacement History of knee replacement procedure of left knee History of knee replacement procedure of right knee History of lithotripsy History of lumpectomy of left breast History of lumpectomy of right breast History of total abdominal hysterectomy and bilateral salpingo-oophorectomy Hx of cystoscopy History of Problems with Anesthesia: Yes (History of delayed emergence ) Social History Social History Housing: House Are you a primary infant childcare provider to a significant other at home: No Do you presently have visiting nurse or other home services: No Alcohol intake: current Alcohol intake frequency: holidays/special occasions only Patient Tobacco Use Status: Never used Tobacco e-Cigarette/Vaping Use: Never Used Second Hand Smoke Exposure: No Use of substances other than those prescribed or required for medical reasons: No Have you been hit, kicked, punched, or otherwise hurt by someone within the past year? If so, by whom?: No Are you DNR?: No Advance Directives Information Provided: Yes (to bring copy DOS) Advance Directives on File: No Recently lost weight without trying: No Nutrition Risks: Surgical patient >75years Poor oral hygiene: No (has upper partial) service: No Current occupational status: employed and retired Cognitive needs: No Hearing needs: No Vision needs: Yes Meds Allergies Allergy/AdvReac Type Severity Reaction Status Date / Time erythromycin base Allergy Severe BODY ACHES Verified 08/26/22 10:51 [ERYTHROMYCIN BASE] morphine [MORPHINE] Allergy Severe HALLUCINATI Verified 08/26/22 10:51 ONS Glfrnlg-YUK-OrW Reductase Allergy Severe ALTERED Verified 08/26/22 10:51 Inhibitor MENTAL [[id number] REDUCTASE STATUS INHIBITOR] adhesive tape Allergy Intermediate BLISTERS Verified 08/26/22 10:51 omeprazole [From PRILOSEC] AdvReac Intermediate DIARRHEA Verified 08/26/22 10:51 hospital sheets Allergy Mild years Uncoded 08/25/22 14:56 ago-caused itching Home Medications Medication Instructions Recorded Confirmed Last Taken Type albuterol sulfate 90 mcg/actuation 2 puff inhalation Q4-6H PRN 08/30/20 08/26/22 Unknown History aerosol inhaler (ProAir HFA) Wheezing loratadine 10 mg tablet (Claritin) 10 mg PO DAILY 08/30/20 08/26/22 09/08/22 History acetaminophen 500 mg tablet 500 mg PO TID PRN Pain 05/29/22 08/26/22 05/28/22 History fluticasone propionate 50 2 spray intranasal DAILY PRN 05/29/22 08/26/22 Unknown History mcg/actuation nasal Allergic Symptoms spray,suspension (Allergy Relief (fluticasone)) pyridoxine (vitamin B6) 50 mg 50 mg PO DAILY 07/18/22 08/26/22 Unknown History tablet meloxicam 15 mg tablet 1 tab PO DAILY 08/25/22 08/26/22 Unknown History Exam Exam Date and Time: September 19, 2022 0921 Height,Weight and Vital Signs: Height 5 ft 4 in Weight 99.337 kg Assessment and Plan Assessment Anesthesia Assessment: Chart Reviewed Final Anesthetic Review Family History of Problems with Anesthesia: No History of Problems with Anesthesia: Yes (History of delayed emergence ) Documented by User: Maria M Vargas MD 09/22/22 09:59 [facility] Past Medical History Medical History Allergic rhinitis Bladder cancer Carpal tunnel syndrome, left Cervical radiculopathy Dislocation of right shoulder joint GERD (gastroesophageal reflux disease) Hypercholesteremia Hypertension Left leg DVT Obesity Post herpetic neuralgia Renal calculus, bilateral Right rotator cuff tear Family History Family History Father Cancer Mother CVD (cardiovascular disease) Cerebral hemorrhage Brother CAD (coronary artery disease) Sister CVD (cardiovascular disease) Cancer Surgical History Surgical History H/O shoulder replacement History of appendectomy History of carpal tunnel surgery of left wrist History of cholecystectomy History of cystoscopy History of hip replacement History of knee replacement procedure of left knee History of knee replacement procedure of right knee History of lithotripsy History of lumpectomy of left breast History of lumpectomy of right breast History of total abdominal hysterectomy and bilateral salpingo-oophorectomy Hx of cystoscopy Social History Social History Housing: House Are you a primary infant childcare provider to a significant other at home: No Do you presently have visiting nurse or other home services: No Alcohol intake: current Alcohol intake frequency: holidays/special occasions only Patient Tobacco Use Status: Never used Tobacco e-Cigarette/Vaping Use: Never Used Second Hand Smoke Exposure: No Use of substances other than those prescribed or required for medical reasons: No Have you been hit, kicked, punched, or otherwise hurt by someone within the past year? If so, by whom?: No Are you DNR?: No Advance Directives Information Provided: Yes (to bring copy DOS) Advance Directives on File: No Recently lost weight without trying: No Nutrition Risks: Surgical patient >75years Poor oral hygiene: No (has upper partial) service: No Current occupational status: employed and retired Cognitive needs: No Hearing needs: No Vision needs: Yes Meds Allergies Allergy/AdvReac Type Severity Reaction Status Date / Time erythromycin base Allergy Severe BODY ACHES Verified 08/26/22 10:51 [ERYTHROMYCIN BASE] morphine [MORPHINE] Allergy Severe HALLUCINATI Verified 08/26/22 10:51 ONS Pgcnzwv-JJL-VzF Reductase Allergy Severe ALTERED Verified 08/26/22 10:51 Inhibitor MENTAL [[id number] REDUCTASE STATUS INHIBITOR] adhesive tape Allergy Intermediate BLISTERS Verified 08/26/22 10:51 omeprazole [From PRILOSEC] AdvReac Intermediate DIARRHEA Verified 08/26/22 10:51 hospital sheets Allergy Mild years Uncoded 08/25/22 14:56 ago-caused itching Home Medications Medication Instructions Recorded Confirmed Last Taken Type albuterol sulfate 90 mcg/actuation 2 puff inhalation Q4-6H PRN 08/30/20 08/26/22 Unknown History aerosol inhaler (ProAir HFA) Wheezing loratadine 10 mg tablet (Claritin) 10 mg PO DAILY 08/30/20 08/26/22 09/08/22 History acetaminophen 500 mg tablet 500 mg PO TID PRN Pain 05/29/22 08/26/22 05/28/22 History fluticasone propionate 50 2 spray intranasal DAILY PRN 05/29/22 08/26/22 Unknown History mcg/actuation nasal Allergic Symptoms spray,suspension (Allergy Relief (fluticasone)) pyridoxine (vitamin B6) 50 mg 50 mg PO DAILY 07/18/22 08/26/22 Unknown History tablet meloxicam 15 mg tablet 1 tab PO DAILY 08/25/22 08/26/22 Unknown History Exam Airway Mallampati Class: II (Missing a couple) TM Dist: >3cm Neck ROM: Full Heart: rrr Lungs: cta Assessment and Plan Assessment Anesthesia Assessment: Anesthesia Plan Discussed Final Anesthetic Review NPO: Yes ASA Class: III Final Preanesthetic Review: No Changes in Pt Med Stat, Meds/Allgs Chart Reviewed and Consent Obtained/Reviewed Patient Risk: Intermediate Procedure Risk: Intermediate Anesthetic Plan Anesthetic Plan: MAC: Disposition: Standard PACU
[2022-09-22 09:38] VITALS: BP 149/64; PULSE 58; RESP 18; TEMP 36.6; O2SAT 100
[2022-09-22] MEDS: Lactated Ringers 500 ML 50 ML IV (09:50)
[2022-09-22] MEDS: Tetracaine HCl/PF 0.5% Oph Sol 4 ML DROPS 1 DROP EYE-LEFT (09:51)
[2022-09-22] MEDS: Cyclopentolate 1 % Ophth Sol 2 ML DRPBTL 1 DROP EYE-LEFT ×3 (09:52→10:02)
[2022-09-22] MEDS: Tropicamide 1 % Ophth Sol 3 ML BTL 1 DROP EYE-LEFT ×3 (09:53→10:03)
[2022-09-22] MEDS: Ketorolac Tromethamine 0.5% Op 5 ML DROPS 1 DROP EYE-LEFT ×3 (09:55→10:04)
[2022-09-22] MEDS: Phenylephrine HCL 2.5% Oph SoL 2 ML BOTTLE 1 DROP EYE-LEFT ×3 (09:56→10:05)
--- NOTE | 2022-09-22 10:56 | HO.PNOPHT ---
Ophthalmology Procedure Procedure Date of Service: 09/22/22 Ophthalmology Viscoelastic: Healtessy Duet Dual Pack Pro Ophthalmology Lenses: TECMARK [id number] (22) Procedure Notes: PREOPERATIVE DIAGNOSIS: Decreased visual acuity left eye secondary to cataract POSTOPERATIVE DIAGNOSIS: Same PROCEDURE: Left cataract extraction with intraocular lens insertion SURGEON: Wes Saleh M.D. ANESTHESIA: Topical/MAC ESTIMATED BLOOD LOSS: None COMPLICATIONS: None After obtaining informed consent, the patient was brought to the operation room suite and placed in the supine position. After adequate sedation per anesthesia, topical drops of Tetracaine were given to the left eye. The eye was then prepped and draped in the usual sterile fashion. The operating room microscope was then positioned over the operative eye and a lid speculum placed. A paracentesis was created. Viscoelastic was then instilled into the anterior chamber. A three plane incision was then created temporally, utilizing a 2.85 mm keratome. Capsulotomy forceps were then utilized to create a circular tear capsulotomy. Hydrodissection and hydrodelineation were carried out until adequate mobilization of the nucleus occurred. Phacoemulsification was then utilized to remove the dense central nucleus followed by removal of the cortical material utilizing the automated aspiration irrigation unit. Viscoat elastic was instilled into the posterior capsular bag followed by placement of a posterior chamber intraocular lens without difficulty. The residual Viscoat elastic was then removed utilizing the automated IA machine. The wound was check and found to be watertight. The patient tolerated the procedure well and the lid speculum was removed. Intracameral injection of Vigamox 0.1 mL followed by a subtenon injection of Kenalog-40 0.2 mL were administered. The patient will be seen in the a.m.
[2022-09-22 11:17] VITALS: BP 136/70; PULSE 53; RESP 16; TEMP 36.6; O2SAT 100
== END 2022-09-22 11:32 | disposition home or self-care (01) ==
PROVIDERS: PCP Internal Medicine; Visit Provider Ophthalmology
PROC: (CPT 66985; principal; 2022-09-22 10:40)
DX: H25.12 Age-related nuclear cataract, left eye (principal); I10 Essential (primary) hypertension; Z86.718 Personal history of other venous thrombosis and embolism; Z79.899 Other long term (current) drug therapy; Z88.5 Allergy status to narcotic agent; Z88.8 Allergy status to other drugs, medicaments and biological substances
CPT/HCPCS: 66984; J2250; J3301; J7999; V2632

== ENCOUNTER → 2022-10-03 09:27 | Outpatient (BNVA) | payer MEDICARE, SELFPAY | PROVIDERS: PCP Internal Medicine; Visit Provider Urology | DX: C67.9 Malignant neoplasm of bladder, unspecified (principal); N20.0 Calculus of kidney; I10 Essential (primary) hypertension; E78.00 Pure hypercholesterolemia, unspecified | CPT/HCPCS: Q3014 ==

== ENCOUNTER 2022-11-14 07:45 | Outpatient (REF) | payer MEDICARE, SELFPAY ==
--- NOTE | ~2022-11-14 | MM_ITS ---
EXAMINATION: MM SCREENING DIGITAL BREAST TOMOSYNTHESIS, BILATERAL CLINICAL INFORMATION: Screening. Asymptomatic. The lifetime risk of breast cancer based on the Tyrer-Cuzick Model is 5.3%. COMPARISON: Mammography: November 12, 2021 and studies dating back to March 12, 2016 TECHNIQUE: Digital breast tomosynthesis is performed in both the craniocaudal and mediolateral oblique views along with computer-aided detection (CAD). Synthesized 2D images are generated from the tomosynthesis. FINDINGS: There are scattered areas of fibroglandular density (ACR BI-RADS breast composition Category b). There are no significant masses, abnormal calcifications, or other abnormalities. MM/MM tomosynthesis screening BI IMPRESSION: No significant changes from prior exam. ASSESSMENT: BI-RADS 1: Negative RECOMMENDATION: Routine annual mammography screening. This patient's information was entered into a reminder system with a target due date for their next mammogram.
== END 2022-11-14 07:46 | disposition home or self-care (01) ==
LOC: HO.MAMMO 07:45
PROVIDERS: PCP Internal Medicine; Visit Provider Internal Medicine
DX: Z12.31 Encounter for screening mammogram for malignant neoplasm of breast (principal)
CPT/HCPCS: 77063; 77067

== ENCOUNTER 2022-11-14 11:15 | Outpatient (REF) | payer MEDICARE, SELFPAY ==
--- NOTE | ~2022-11-14 | US_ITS ---
EXAMINATION: US VENOUS ULTRASOUND WITH DOPPLER LOWER EXTREMITY, LEFT CLINICAL INFORMATION: Chronic DVT left lower extremity. Follow-up. COMPARISON: Left leg venous ultrasound with Doppler 05/17/2020, 02/16/2020. TECHNIQUE: Ultrasound of the deep veins is performed from the hip to the calf with compression sonography and color and pulse Doppler assessment. Spectral analysis with color-flow imaging is performed. FINDINGS: There is minor residual organized thrombus and stranding in the popliteal lumen consistent with the chronic DVT, similar to decreased when compared with prior exam 05/17/2020. There is no acute DVT. The visualized common femoral vein, superficial femoral vein, profunda femoral vein and the trifurcation region shows normal venous compression and respiratory variation and augmented flow. The peroneal vein is not well visualized but no thrombus demonstrated. If the patient's symptoms persist, followup ultrasound in 5 days 7 days might be of value to exclude proximal propagation from a non-visualized calf vein. US/US venous duplex LE LT IMPRESSION: -Minor residual organized thrombus and intraluminal stranding popliteal vein consistent with the chronic DVT. -No visible acute DVT demonstrated in the left lower extremity.
== END 2022-11-14 11:16 | disposition home or self-care (01) ==
LOC: HO.US 11:15
PROVIDERS: PCP Internal Medicine; Visit Provider Nurse Practitioner Family
DX: I82.402 Acute embolism and thrombosis of unspecified deep veins of left lower extremity (principal)
CPT/HCPCS: 93971

== ENCOUNTER 2022-12-29 13:30 | Outpatient (REF) | payer MEDICARE, SELFPAY ==
[2022-12-29 16:11] LABS: Appearance Urine Turbid; Color Urine Orange; Glucose Urine UA Negative (Negative); Leukocyte Esterase Urine Small (1+) (Negative); Nitrite Urine Negative (Negative); UMIC TRIGGER UA YES; Urine Blood Large (3+) (Negative); Urine Ketones Trace mg/dL (Negative); Urine Protein 100 (2+) mg/dL (Neg-Trace)
[2022-12-29 16:12] LABS: Bacteria Urine 1+ (None Seen); Hyaline Casts Urine 0-2 /LPF (0-2); RBC Urine >20 /HPF (0-2); WBC Urine 0-5 /HPF (0-5)
== END 2022-12-29 13:31 | disposition home or self-care (01) ==
LOC: HO.LAB 13:30
PROVIDERS: PCP Internal Medicine; Visit Provider Urology
DX: N20.0 Calculus of kidney (principal)
CPT/HCPCS: 81001; 87086

== ENCOUNTER 2023-02-20 14:11 | Outpatient (REF) | payer MEDICARE, SELFPAY ==
--- NOTE | ~2023-02-20 | US_ITS ---
EXAMINATION: US VENOUS ULTRASOUND WITH DOPPLER LOWER EXTREMITY, LEFT CLINICAL INFORMATION: History of Left lower leg DVT now with worsening pain and swelling. On Eliquis COMPARISON: Left leg venous duplex Doppler exam 11/14/2022 TECHNIQUE: Ultrasound of the deep veins is performed from the hip to the calf with compression sonography and color and pulse Doppler assessment. Spectral analysis with color-flow imaging is performed. FINDINGS: Within the popliteal vein there is a small volume of chronic partial thrombus. This is similar to the prior exam of 11/14/2022. No evidence of acute thrombus from the groin through the distal thigh. Calf veins are not well seen due to swelling. Vascular flow is demonstrated in both posterior tibial vein and the peroneal vein with Doppler. US/US venous duplex LE LT IMPRESSION: Small volume of chronic partial thrombus in the popliteal vein similar to prior exam 11/14/2022. No evidence of acute thrombus from the groin through the distal thigh. Calf veins are not well seen due to swelling.
== END 2023-02-20 14:12 | disposition home or self-care (01) ==
LOC: HO.US 14:11
PROVIDERS: PCP Internal Medicine; Visit Provider Internal Medicine
DX: I82.402 Acute embolism and thrombosis of unspecified deep veins of left lower extremity (principal)
CPT/HCPCS: 93971

== ENCOUNTER 2023-03-12 07:50 | Outpatient (REF) | payer MEDICARE, SELFPAY ==
--- NOTE | ~2023-03-12 | US_ITS ---
EXAMINATION: US RETROPERITONEAL LIMITED (RENAL ONLY) CLINICAL INFORMATION: Calculus of kidney. COMPARISON: Renal ultrasound 09/01/2022 and 04/16/2022. CT abdomen and pelvis 05/29/2022. X-ray abdomen KUB 01/17/2015. TECHNIQUE: Real-time imaging of the kidneys. FINDINGS: RIGHT KIDNEY: 11.5 x 6.6 x 5.1 cm (SAG x AP x TRV). The kidney is normal in size, contour, and echogenicity. Renal cortical thickness is normal. No hydronephrosis. Multiple nonobstructing renal calculi, largest in the upper pole measuring 0.8 cm. Multiple simple appearing cysts, largest in the upper pole measuring 1.5 cm, for which no imaging follow-up is recommended. LEFT KIDNEY: 12.4 x 5.4 x 6.9 cm (SAG x AP x TRV). The kidney is normal in size, contour, and echogenicity. Renal cortical thickness is normal. No hydronephrosis. Multiple nonobstructive calculi, largest in the midpole medially measuring 1.5 cm. Multiple simple cysts largest measuring 2.5 cm in the upper pole, for which no imaging follow-up is recommended. US/US renal BI IMPRESSION: 1. Multiple bilateral nonobstructive renal calculi. 2. Bilateral simple renal cysts for which no imaging follow-up is recommended.
== END 2023-03-12 07:51 | disposition home or self-care (01) ==
LOC: HO.US 07:50
PROVIDERS: PCP Internal Medicine; Visit Provider Urology
DX: N20.0 Calculus of kidney (principal)
CPT/HCPCS: 76775

== ENCOUNTER 2023-04-21 13:16 | Outpatient (AMB) | payer MEDICARE, SELFPAY ==
--- NOTE | 2023-04-21 13:20 | A.OFFVIS_ITS ---
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 Patient completed treatment but her leg kept hurting and has some skin changes. 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 This began several years prior where she had a left popliteal and peroneal DVT secondary to a fall and she became sick quite sedentary after that. She was treated and subsequently did better. She did have a surveillance follow-up ultrasound most recently due to the swelling it demonstrated residual thrombus with at pretty good recannulization. She had been restarted on Eliquis and it was subsequently stopped. She has been doing relatively well in terms of her DVT and has had no recurrence of that. Her concern at the current time is the lower extremity swelling and tenderness. In particular the left lower extremity. She denies any difficulty walking. She reports no prior venous procedures. She has no other family history of DVT. She has used compression on occasion with some mild to moderate relief. Her other concern is her overall sensitivity of that leg. She now presents to us for vascular evaluation. [facility] Medical History Allergic rhinitis Bladder cancer Carpal tunnel syndrome, left Cervical radiculopathy Dislocation of right shoulder joint GERD (gastroesophageal reflux disease) Hypercholesteremia Hypertension Left leg DVT Obesity Post herpetic neuralgia Renal calculus, bilateral Right rotator cuff tear Surgical History H/O shoulder replacement History of appendectomy History of carpal tunnel surgery of left wrist History of cholecystectomy History of cystoscopy History of hip replacement History of knee replacement procedure of left knee History of knee replacement procedure of right knee History of lithotripsy History of lumpectomy of left breast History of lumpectomy of right breast History of total abdominal hysterectomy and bilateral salpingo-oophorectomy Hx of cystoscopy Family History Father Cancer Mother CVD (cardiovascular disease) Cerebral hemorrhage Brain aneurysm Brother CAD (coronary artery disease) Sister CVD (cardiovascular disease) Cancer Lung cancer Cerebral hemorrhage Sister Cancer Lung cancer Social History Household Members: Spouse Housing: House Are you a primary healthcare administration internship to a significant other at home: No Do you presently have visiting nurse or other home services: No Alcohol intake: current Alcohol intake frequency: holidays/special occasions only Patient Tobacco Use Status: Never used Tobacco e-Cigarette/Vaping Use: Never Used Second Hand Smoke Exposure: No service: No Current occupational status: employed and retired Cognitive needs: No Hearing needs: No Vision needs: Yes Review of Systems Const All systems reviewed & are unremarkable except as noted in HPI and below Reports no additional complaints ENT Reports Normal hearing present Card Denies chest pain, Denies chest pain at rest, Denies chest pain with activity and Denies pedal edema Resp Denies cough GI Denies abdominal pain Musc Denies abnormal gait, Denies muscle cramps and Denies radiating pain into limb Skin/Breast Denies skin ulcer and Denies wounds Neuro Reports Normal hearing present and Denies abnormal gait Psych Reports no additional complaints Physical Exam Const General: cooperative, healthy appearing and comfortable Orientation/consciousness: oriented to person, oriented to place and oriented to time HEENT Head: Yes normal to inspection Neck Neck: Yes normal visual inspection Carotids: no bruits Chest Chest palpation & inspection: normal inspection of the chest Resp Effort & Inspection: normal respiratory effort and able to speak in complete sentences Auscultation: clear to auscultation bilaterally, no crackles, no rales, no rhonchi and no wheezes Cardio Rate: regular rate Rhythm: regular rhythm Heart sounds: S1 normal heart sound present and S2 normal heart sound present Bruits: no carotid bruits Peripheral pulses: Peripheral pulses 2+ throughout GI Inspection: Yes normal to inspection Skin Wounds: no wounds Hair: normal Neuro General: oriented to person, oriented to place and oriented to time Cranial nerves: Yes CN's II-XII intact bilaterally and Yes Normal hearing present Cognition (Neuro): normal cognition Motor exam (neuro): 5/5 motor strength present throughout Extrem Other: venous exam: +2 edema left greater than right, multiple spider telangiectasias on the lower extremities. General: No clubbing, No cyanosis and Yes edema Psych Appearance: grossly normal Mental Status: mental status grossly normal Speech and movement: Normal speech and movement present Assessment & Plan Assessment & Plan (1) Varicose veins of left lower extremity with inflammation: Code(s): I83.12 - Varicose veins of left lower extremity with inflammation Plan: In short patient does have evidence of reflux disease. By the simple fact that she does have a prior history of DVT, she does have reflux. We did discuss routine conservative measures including compression elevation and exercise. I have taken the liberty of ordering venous insufficiency testing. She will follow up with us after testing. Thank you for allowing us to assist in her care. If there are any questions or concerns please do not hesitate to contact us. Orders: Orders US venous duplex LE BI 1 Week I83.12 - Varicose veins of left lower extremity with inflammation Coding Level of Care Code New Pt Level 4 (55082) Diagnoses Varicose veins of left lower extremity with inflammation I83.12
== END 2023-04-21 13:51 | disposition home or self-care (01) ==
LOC: HO.HVS 13:16
PROVIDERS: PCP Internal Medicine; Visit Provider Surgery Vascular Surgery
DX: I83.12 Varicose veins of left lower extremity with inflammation (principal)
CPT/HCPCS: 99203

== ENCOUNTER → 2023-04-21 13:16 | Outpatient (BNVA) | payer MEDICARE, SELFPAY | PROVIDERS: PCP Internal Medicine; Visit Provider Surgery Vascular Surgery | DX: I83.12 Varicose veins of left lower extremity with inflammation (principal); Z86.718 Personal history of other venous thrombosis and embolism | CPT/HCPCS: 99202 ==

== ENCOUNTER 2023-04-27 10:15 | Outpatient (REF) | payer MEDICARE, SELFPAY ==
--- NOTE | ~2023-04-27 | US_ITS ---
EXAMINATION: US LOWER EXTREMITY VENOUS (REFLUX EXAM), BILATERAL CLINICAL INDICATION: Varicose veins of the left lower extremity COMPARISON: None. TECHNIQUE: Color flow triplex imaging and compression Doppler was performed to evaluate both the deep and the superficial systems bilaterally. To evaluate the superficial system, the examination was performed in the upright position. Color-flow Doppler ultrasound and compression ultrasound were utilized. In addition, maneuvers were utilized to demonstrate reflux. FINDINGS: RIGHT: 1. DEEP VENOUS ULTRASOUND OF THE RIGHT LOWER EXTREMITY: Common Femoral Vein: Compressible, normal respiratory variation and augmented flow. Popliteal Vein: Compressible, normal augmentation. Deep Venous Reflux: There is no evidence of reflux in the deep system in either the common femoral vein or the popliteal vein. There is no evidence of a Bass's cyst. 2. SUPERFICIAL ULTRASOUND WITH DOPPLER OF RIGHT LOWER EXTREMITY: RIGHT GREAT SAPHENOUS VEIN: Saphenofemoral Junction: 54 mm. No reflux. Proximal Thigh: 46 mm. No reflux. Mid Thigh: 27 mm. No reflux. Above Knee: 27 mm. No reflux. Below Knee: 41 mm. No reflux. Mid Calf: 25 mm. No reflux. Ankle: 25 mm. No reflux. DUPLICATED GREAT SAPHENOUS VEIN: Yes, laterally Saphenofemoral junction: 45 mm. No reflux. Not seen at the mid thigh. RIGHT SMALL SAPHENOUS VEIN: Proximal: 20 mm. No reflux. Distal: 17 mm. No reflux. PERFORATORS: None LEFT: 1. DEEP VENOUS ULTRASOUND OF THE LEFT LOWER EXTREMITY: Common Femoral Vein: Compressible, normal respiratory variation and augmented flow. Popliteal Vein: Compressible, normal augmentation. Deep Venous Reflux: There is no evidence of reflux in the deep system in either the common femoral vein. However, there is 1804 ms of reflux seen within the popliteal vein which is likely related to chronic nonocclusive thrombus. There is no evidence of a Bass's cyst. 2. SUPERFICIAL ULTRASOUND WITH DOPPLER OF LEFT LOWER EXTREMITY: LEFT GREAT SAPHENOUS VEIN: Saphenofemoral Junction: 39 mm. No reflux. Proximal Thigh: 42 mm. No reflux. Mid Thigh: 42 mm. No reflux. Above Knee: 37 mm. No reflux. Below Knee: 29 mm. No reflux. Mid Calf: 26 mm. No reflux. Ankle: 26 mm. No reflux. DUPLICATED GREAT SAPHENOUS VEIN: Yes, medially Saphenofemoral junction: 24 mm. No reflux. Not seen at the mid thigh. LEFT SMALL SAPHENOUS VEIN: Proximal: 17 mm. No reflux. Distal: Not seen. PERFORATORS: None US/US venous duplex LE BI IMPRESSION: 1. No superficial venous reflux. 2. Prolonged reflux within the left popliteal vein likely related to known chronic DVT. Abnormal lower extremity venous reflux times: Superficial and deep calf veins: >500 ms Femoropopliteal veins: >1000 ms Perforating veins: >350 ms Fausto N, Lamar J, Lesli L, Dilcia AK, Ilya SS, Vimal Corley M, Shelia WH. Definition of venous reflux in lower-extremity veins.J Vasc Surg. 2003; [phone].
== END 2023-04-27 10:16 | disposition home or self-care (01) ==
LOC: HO.US 10:15
PROVIDERS: PCP Internal Medicine; Visit Provider Surgery Vascular Surgery
DX: I83.12 Varicose veins of left lower extremity with inflammation (principal)
CPT/HCPCS: 93970

== ENCOUNTER 2023-04-27 16:50 | Outpatient (AMB) | payer MEDICARE, SELFPAY ==
[2023-04-27 17:01] VITALS: BP 130/62; PULSE 59; O2SAT 97; BMI 37.1
--- NOTE | 2023-04-27 17:01 | MHC.PC.OV ---
Vital Signs 04/27/23 17:01 Height 5 ft 4 in Weight 216 lb BMI 37.1 BP 130/62 Blood Pressure Location Lt brachial Position Sitting Pulse 59 Pulse Source Pulse Oximeter Pulse Oximetry (%) 97 Oxygen Delivery Method Room Air Intake Visit Reasons: left lower extremity edema Allergies erythromycin base [ERYTHROMYCIN BASE] Allergy (Severe, Verified 04/27/23 17:01) BODY ACHES morphine [MORPHINE] Allergy (Severe, Verified 04/27/23 17:01) HALLUCINATIONS Knfyhke-ALR-QoE Reductase Inhibitor [GBNYDKG-HQA-MHV REDUCTASE INHIBITOR] Allergy (Severe, Verified 04/27/23 17:01) ALTERED MENTAL STATUS adhesive tape Allergy (Intermediate, Verified 04/27/23 17:01) BLISTERS omeprazole [From PRILOSEC] Adverse Reaction (Intermediate, Verified 04/27/23 17:) DIARRHEA hospital sheets Allergy (Mild, Uncoded 04/27/23 17:) years ago-caused itching Medication List - Last Reconciled 04/27/23 by Maria De Jesus Evans, acetaminophen 1,000 mg (2 x 500 mg) PO TID PRN albuterol sulfate 90 mcg/actuation (ProAir HFA) 2 puffs inhalation Q4-6H PRN cholecalciferol (vitamin D3) (Vitamin D3) 50 mcg PO DAILY diclofenac sodium 1% (Arthritis Pain (diclofenac)) 4 grams topical QID ezetimibe (Zetia) 10 mg PO DAILY 90 days lisinopril-hydrochlorothiazide 20-25 mg 1 tab PO DAILY loratadine (Claritin) 10 mg PO DAILY meloxicam 15 mg PO DAILY potassium citrate ER 10 mEq PO BID 90 days pyridoxine (vitamin B6) 1 tab PO DAILY Tobacco use date assessed: 11/14/22 Fall risk assessment: No Falls in past year Last assessed Fall Risk: 04/27/23 Dental Screening Dental Screen Date: 04/27/23 Did you have a dental visit in the last 12 months?: Yes Did you have a dental problem in the last 6 months where you did not have access to dental care?: No Was dental information given to patient?: Patient has dentist HPI left lower extremity edema HPI Details 77-year-old obese female with a history of hypertension hypercholesterolemia GERD bilateral renal calculus cancer of the bladder impaired glucose tolerance and left leg DVT coming in for follow-up. Patient was last seen in December 2022. Review of the notes was seen by the vascular surgeon due to peripheral vascular disease noted left leg pain and has been advised ultrasound results are pending. Patient has followed up with the hematology oncology also left lower extremity DVT October 2019 after trauma and sedentary habits was on Eliquis August 2020 repeat ultrasound showing persistent residual clot November 2022 left lower extremity swelling chronic DVT started back on Eliquis until February 2023 did recommend putting her on a thiazide diuretic due to concomitant blood pressure problem [facility] Medical History Allergic rhinitis Bladder cancer Carpal tunnel syndrome, left Cervical radiculopathy Dislocation of right shoulder joint GERD (gastroesophageal reflux disease) Hypercholesteremia Hypertension Left leg DVT Obesity Post herpetic neuralgia Renal calculus, bilateral Right rotator cuff tear Surgical History H/O shoulder replacement History of appendectomy History of carpal tunnel surgery of left wrist History of cholecystectomy History of cystoscopy History of hip replacement History of knee replacement procedure of left knee History of knee replacement procedure of right knee History of lithotripsy History of lumpectomy of left breast History of lumpectomy of right breast History of total abdominal hysterectomy and bilateral salpingo-oophorectomy Hx of cystoscopy Family History Father Cancer Mother CVD (cardiovascular disease) Cerebral hemorrhage Brain aneurysm Brother CAD (coronary artery disease) Sister CVD (cardiovascular disease) Cancer Lung cancer Cerebral hemorrhage Sister Cancer Lung cancer Social History Household Members: Spouse Housing: House Are you a primary home care and home health aides teacher to a significant other at home: No Do you presently have visiting nurse or other home services: No Alcohol intake: current Alcohol intake frequency: holidays/special occasions only Patient Tobacco Use Status: Never used Tobacco e-Cigarette/Vaping Use: Never Used Second Hand Smoke Exposure: No service: No Current occupational status: employed and retired Cognitive needs: No Hearing needs: No Vision needs: Yes Questionnaire PHQ-9 Over the last 2 weeks, how often have you been bothered by any of the following problems? 1. Little interest or pleasure in doing things: not at all 2. Feeling down, depressed, or hopeless: not at all 3. Trouble falling or staying asleep, or sleeping too much: not at all 4. Feeling tired or having little energy: not at all 5. Poor appetite or overeating: not at all 6. Feeling bad about yourself - or that you are a failure or have let yourself or your family down: not at all 7. Trouble concentrating on things, such as reading the newspaper or watching television: not at all 8. Moving or speaking so slowly that other people could have noticed. Or the opposite - being so fidgety or restless that you have been moving around a lot more than usual: not at all 9. Thoughts that you would be better off or of hurting yourself in some way: not at all Total score: 0 Depression Screening Interpretation: Negative 92282 - PHQ-9 Billing: Yes Source: Developed by Drs. Ubaldo Zepeda, Ramona Reza, Derrek Martinez and colleagues, with an educational lucila from [employer]. Thrive Questionnaire Date Thrive assessed: 11/14/22 AUDIT C Alcohol Use Questionnaire (AUDIT-C) 1. How often do you have a drink containing alcohol?: 2-4 times a month 2. How many drinks containing alcohol do you have on a typical day when you are drinking?: 1 or 2 3. How often do you have six or more drinks on one occasion?: Never Total Score: 2 Score Reviewed/Action Taken: No ANDREW-7 AMB Questionnaire ANDREW-7 Date ANDREW - 7 assessed: 11/14/22 Source: Developed by Drs. Ubaldo Zepeda, Ramona Reza, Derrek Martinez and colleagues, with an educational lucila from [employer]. Physical exam (Primary Care) Vital Signs: Last Vital Signs Pulse 59 04/27/23 17:01 BP 130/62 04/27/23 17:01 Pulse Ox 97 04/27/23 17:01 Oxygen Delivery Method Room Air 04/27/23 17:01 BMI result Body Mass Index 37.1 Tobacco/Smoking Status: Tobacco use Status Tobacco use date assessed 11/14/22 04/27/23 17:09 Patient Tobacco Use Status Never used Tobacco 04/27/23 17:09 e-Cigarette/Vaping Use Never Used 04/27/23 17:09 PHQ-9: PHQ-9 Score PHQ-9: Total score 0 04/27/23 17:09 Depression Screening Interpretation: Negative Thrive Assessment: Date of Thrive Assessment Date Thrive assessed 11/14/22 04/27/23 17:09 Const General: alert; No acute distress Eyes Conjunctivae: conjunctivae normal Resp Auscultation: clear to auscultation bilaterally Cardio Rate: regular rate Rhythm: regular rhythm GI Inspection: Yes normal to inspection Extrem General: Yes normal to inspection and No edema Assessment and Plan Assessment & Plan (1) Left leg swelling: Code(s): M79.89 - Other specified soft tissue disorders Plan: Patient has seen the vascular surgeon and ultrasound was requested with results pending (2) Impaired fasting blood sugar: Code(s): R73.01 - Impaired fasting glucose Plan: Decrease the amount of carbohydrate intake, pasta, bread, rice and potatoes are all sugar and that is aside from all the sweet stuff, remember that fruits are good but they are Sweet also. (3) Bladder cancer: Comment: Dr. Hicks 1994 no chemo/radio Q other year cysto and the last cysto 04/2019 Code(s): C67.9 - Malignant neoplasm of bladder, unspecified Qualifiers: Bladder location: unspecified site Qualified Code(s): C67.9 - Malignant neoplasm of bladder, unspecified Plan: Patient follows up with urology (4) Obesity: Code(s): E66.9 - Obesity, unspecified Qualifiers: Obesity type: due to excess calories Obesity classification: adult class 3 (BMI >= 40) Serious obesity comorbidity presence: with serious comorbidity Body mass index: BMI 40.0-44.9 Qualified Code(s): E66.01 - Morbid (severe) obesity due to excess calories; Z68.41 - Body mass index [BMI]40.0-44.9, adult Plan: Diet and exercise (5) GERD (gastroesophageal reflux disease): Code(s): K21.9 - Gastro-esophageal reflux disease without esophagitis Qualifiers: Esophagitis presence: without esophagitis Qualified Code(s): K21.9 - Gastro-esophageal reflux disease without esophagitis Plan: Avoid the foods that causes that usually spicy foods, tomato products, juices, coffee, soda and foods that your sensitive to. After eating do not lie down, allow 3-4 hours before in lie down. And keep the head of bed above 30 degrees to avoid the acid from going up. (6) Hypercholesteremia: Code(s): E78.00 - Pure hypercholesterolemia, unspecified Plan: Avoid fried foods, chicken skin, eggs, butter margarine, pastries and meat. Be it pork or beef they have a lot of cholesterol LDL goal of less than 130 (7) Hypertension: Code(s): I10 - Essential (primary) hypertension Qualifiers: Hypertension type: essential hypertension Qualified Code(s): I10 - Essential (primary) hypertension Plan: Continue with blood pressure medication. Decrease salt intake and exercise patient is on lisinopril hydrochlorothiazide, . Coding Level of Care Code Est Pt Level 4 (19252) Diagnoses Left leg swelling M79.89 Impaired fasting blood sugar R73.01 Bladder cancer C67.9 Bladder location: unspecified site Obesity E66.01; Z68.41 Obesity type: due to excess calories Obesity classification: adult class 3 (BMI >= 40) Serious obesity comorbidity presence: with serious comorbidity Body mass index: BMI 40.0-44.9 GERD (gastroesophageal reflux disease) K21.9 Esophagitis presence: without esophagitis Hypercholesteremia E78.00 Hypertension I10 Hypertension type: essential hypertension
== END 2023-04-27 17:45 | disposition home or self-care (01) ==
PROVIDERS: PCP Internal Medicine; Visit Provider Internal Medicine
DX: K21.9 Gastro-esophageal reflux disease without esophagitis (principal); C67.9 Malignant neoplasm of bladder, unspecified; E66.01 Morbid (severe) obesity due to excess calories; Z68.41 Body mass index [BMI] 40.0-44.9, adult; I10 Essential (primary) hypertension; M79.89 Other specified soft tissue disorders; R73.01 Impaired fasting glucose; E78.00 Pure hypercholesterolemia, unspecified
CPT/HCPCS: 99214

== ENCOUNTER 2023-04-28 08:50 | Outpatient (AMB) | payer MEDICARE, SELFPAY ==
--- NOTE | 2023-04-28 08:56 | A.OFFVIS_ITS ---
Intake Intake Visit Reasons: 6 month cysto/US(set) Intake Note: Patient is present for Cystoscopy Urology Med: Vitamin B6 Antibiotic Allergy:Erythromycin Blood Thinner: Apixaban Disposable Cystoscope LOT: [id number] EXP:03/02/2025 Urine will be sent for cytology Allergies erythromycin base [ERYTHROMYCIN BASE] Allergy (Severe, Verified 04/28/23 08:59) BODY ACHES morphine [MORPHINE] Allergy (Severe, Verified 04/28/23 08:59) HALLUCINATIONS Qunkrdt-YZQ-RtD Reductase Inhibitor [GRBSFMZ-UCX-DBU REDUCTASE INHIBITOR] Allergy (Severe, Verified 04/28/23 08:59) ALTERED MENTAL STATUS adhesive tape Allergy (Intermediate, Verified 04/28/23 08:59) BLISTERS omeprazole [From PRILOSEC] Adverse Reaction (Intermediate, Verified 04/28/23 08:59) DIARRHEA hospital sheets Allergy (Mild, Uncoded 04/28/23 08:59) years ago-caused itching Medication List - Last Reconciled 04/28/23 by Ashvin Arellano MD acetaminophen 1,000 mg (2 x 500 mg) PO TID PRN albuterol sulfate 90 mcg/actuation (ProAir HFA) 2 puffs inhalation Q4-6H PRN apixaban (Eliquis) 5 mg PO BID cholecalciferol (vitamin D3) (Vitamin D3) 50 mcg PO DAILY diclofenac sodium 1% (Arthritis Pain (diclofenac)) 4 grams topical QID ezetimibe (Zetia) 10 mg PO DAILY 90 days lisinopril-hydrochlorothiazide 20-25 mg 1 tab PO DAILY loratadine (Claritin) 10 mg PO DAILY meloxicam 15 mg PO DAILY potassium citrate ER 10 mEq PO BID 90 days pyridoxine (vitamin B6) 1 tab PO DAILY HPI HPI Comments History of Present Illness Details Charlette is a pleasant female. She is a patient of Dr. Evans. She is seen for the following urologic conditions - bladder cancer - nephrolithiasis Stop potassium citrate secondary to stomach pain Has had recurrence of stones Will try potassium citrate 1 week on 1 week off In cystoscopy with negative bladder Six month follow-up renal ultrasound Bladder Cancer Diagnosed 1994 Low-grade superficial Negative in prior surveillance cystoscopy Currently in check every 2 years Cystoscopy - 05/01 NAD, 05/03 NAD Nephrolithiasis 07/03 uric acid 50% Known stone former Current therapy b.i.d. 10 mEq potassium citrate Imaging - 04/29 renal ultrasound bilateral 9 mm stones - 05/01 renal ultrasound bilateral cysts, right 1.2 cm stone, left 8 mm stone - 09/02 renal ultrasound bilateral cysts, significant decrease stone burden 3 mm stones bilateral - 04/03 renal ultrasound, bilateral cysts stable, increased stone burden left side up to 12 mm Prior interventions - ureteroscopy and ESWL - 07/03 R USR Stone composition - 07/03 uric acid 50%, calcium oxalate Urinary frequency and urgency Prior oral medications Prior discussion regarding tibial stimulation [facility] Medical History Allergic rhinitis Bladder cancer Carpal tunnel syndrome, left Cervical radiculopathy Dislocation of right shoulder joint GERD (gastroesophageal reflux disease) Hypercholesteremia Hypertension Left leg DVT Obesity Post herpetic neuralgia Renal calculus, bilateral Right rotator cuff tear Surgical History H/O shoulder replacement History of appendectomy History of carpal tunnel surgery of left wrist History of cholecystectomy History of cystoscopy History of hip replacement History of knee replacement procedure of left knee History of knee replacement procedure of right knee History of lithotripsy History of lumpectomy of left breast History of lumpectomy of right breast History of total abdominal hysterectomy and bilateral salpingo-oophorectomy Hx of cystoscopy Family History Father Cancer Mother CVD (cardiovascular disease) Cerebral hemorrhage Brain aneurysm Brother CAD (coronary artery disease) Sister CVD (cardiovascular disease) Cancer Lung cancer Cerebral hemorrhage Sister Cancer Lung cancer Social History Household Members: Spouse Housing: House Are you a primary floor care technician to a significant other at home: No Do you presently have visiting nurse or other home services: No Alcohol intake: current Alcohol intake frequency: holidays/special occasions only Patient Tobacco Use Status: Never used Tobacco e-Cigarette/Vaping Use: Never Used Second Hand Smoke Exposure: No service: No Current occupational status: employed and retired Cognitive needs: No Hearing needs: No Vision needs: Yes Review of Systems Const Denies chills and Denies fever(s) Card Reports no additional complaints and Denies syncope Resp Denies cough GI Denies abdominal pain and Denies heartburn Reports as per HPI and Denies change in libido Neuro Denies syncope Psych Denies change in libido Endo Denies change in libido Physical Exam Const General: cooperative, healthy appearing, comfortable and no acute distress Orientation/consciousness: patient oriented x3 HEENT Face and sinus: Yes normal facial exam Mouth: moist mucous membranes Neck Neck: Yes normal visual inspection, Yes full ROM and Yes trachea midline Chest Chest palpation & inspection: normal inspection of the chest Resp Effort & Inspection: normal respiratory effort, able to speak in complete sentences and no respiratory distress GI Inspection: Yes normal to inspection Back/Spine/Pelvis Cervical Spine: normal cervical lordosis Thoracic/Lumbar Spine: thoracic and lumbar spine normal to inspection Skin General skin exam: no rashes or lesions noted Neuro General: patient oriented x3, gait normal, tone normal and moves all extremities Extrem General: Yes normal to inspection and Yes capillary refill normal Office Procedures Cystoscopy Consent Discussed risk and benefit or proposed procedure with the patient. Information consent for procedure given to the patient. Discussed technical aspects, risks, benefits and alternatives in full. Addressed all of the patient's questions and concerns regarding the procedure. The patient demonstrated knowledge and understanding. They wish to proceed with this procedure. Preparation The patient was prepped in the usual manner. A room worker was present and in the room. Genitalia was prepped with betadine solution in a sterile manner. Lidocaine Jelly 2% was placed into the urethra and 16Fr flexible Olympus cystoscope was inserted into the meatus after adequate lubrication. Procedure Meatus normal position Urethra mild atrophy Bladder examination with retroflexion of cystoscope Bladder Orifices normal shape and position Trigone normal metaplasia Bladder Capacity medium Trabeculations - Cellule Formation - Diverticulum Formation - Mucosal Erythema - Bladder Tumor - [id number] Procedure code (CPT) selection complete Office Meds lidocaine HCl Performing Provider: Ashvin Arellano MD Administered by: CONG Henry on 04/28/23 09:13 Dose Route Admin Location Lot Number Expiration Date [facility] Billing And Coding Specialist 10 mL intra-urethral nitrofurantoin monohyd/m-cryst 100 mg Performing Provider: Ashvin Arellano MD Administered by: CONG Henry on 04/28/23 09:13 Dose Route Admin Location Lot Number Expiration Date [facility] Billing And Coding Specialist 100 mg PO Results AMB Urinalysis, Automated UA Leukoctes 0 Anali/uL Last Edit by Ceci Graff, A on 04/28/23 09:13 UA Nitrite Negative Last Edit by Ceci Graff, RMA on 04/28/23 09:13 UA Urobilinogen 0.2 mg/dL Last Edit by Ceci Graff, A on 04/28/23 09:1 3 UA Protein 15 mg/dL Last Edit by Ceci Graff, RMA on 04/28/23 09:13 UA pH 5.0 Last Edit by Ceci Graff, RMA on 04/28/23 09:13 UA Blood 80 Jeremy/uL Last Edit by Ceci Graff, A on 04/28/23 09:13 UA Specific [place] 1.025 Last Edit by Ceci Graff, A on 04/28/23 09: 13 UA Ketone Negative Last Edit by Ceci Graff, A on 04/28/23 09:13 UA Bilirubin 0 mg/dL Last Edit by Ceci Graff, A on 04/28/23 09:13 UA Glucose 0 mg/dL Last Edit by Ceci Graff, A on 04/28/23 09:13 Results Reviewed Results Reviewed: Laboratory Last Values Urine pH (Auto) 5.0 04/28/23 09:01 Specific [place] (Auto) 1.025 04/28/23 09:01 Urine Protein (Auto) 15 mg/dL 04/28/23 09:01 Glucose (UA)(Auto) 0 mg/dL 04/28/23 09:01 Urine Ketones (Auto) Negative 04/28/23 09:01 Urine Blood (Auto) 80 Jeremy/uL 04/28/23 09:01 Urine Nitrite (Auto) Negative 04/28/23 09:01 Urine Bilirubin (Auto) 0 mg/dL 04/28/23 09:01 Urine Urobilinogen (Auto) 0.2 mg/dL 04/28/23 09:01 Leukocyte Esterase (Auto) 0 Anali/uL 04/28/23 09:01 Assessment & Plan Assessment & Plan (1) Uric acid kidney stone: Code(s): N20.0 - Calculus of kidney (2) Bladder cancer: Comment: Dr. Hicks 1994 no chemo/radio Q other year cysto and the last cysto 04/2019 Code(s): C67.9 - Malignant neoplasm of bladder, unspecified Qualifiers: Bladder location: unspecified site Qualified Code(s): C67.9 - Malignant neoplasm of bladder, unspecified Plan Six month follow-up ultrasound Orders: Orders Urine Cytology Today C67.9 - Malignant neoplasm of bladder, unspecified AMB Cystoscopy Today C67.9 - Malignant neoplasm of bladder, unspecified AMB Urinalysis Automated Today Z13.9 - Encounter for screening, unspecified US renal BI 6 Months N20.0 - Calculus of kidney Patient Instructions: Imaging studies, laboratory and physical exam results were discussed and reviewed in detail. No major barriers to patient understanding were identified. An opportunity to ask questions regarding the treatment plan was provided. All questions were answered. The patient expressed understanding and agreement with the above treatment plan. The patient is aware they should contact our office by phone for worsening of their current condition or the appearance of new urologic symptoms. Compliance is encouraged with any medications and followup testing that is ordered. It is a privilege to participate in the urologic care of your patient. If you have any questions or concerns regarding treatment for the above conditions, or other urologic issues, please do not hesitate to contact me. The office telephone contact is [phone]. This note is constructed using voice recognition software. While every effort has been made to ensure accuracy fittings tightener errors may have been included. Yours sincerely, Dr Ashvin Arellano MD, [facility] - [facility] Providers of Expert, Compassionate Care for the Genitourinary System Coding Level of Care Code Est Pt Level 3 (54357) Diagnoses Uric acid kidney stone N20.0 Bladder cancer C67.9 Bladder location: unspecified site CPT Codes Cystoscopy - CPT: 14271-[id number] ([id number])
== END 2023-04-28 09:50 | disposition home or self-care (01) ==
PROVIDERS: Visit Provider Urology
DX: N20.0 Calculus of kidney (principal); C67.9 Malignant neoplasm of bladder, unspecified
CPT/HCPCS: 52000

== ENCOUNTER 2023-04-28 08:50 | Outpatient (REF) | payer MEDICARE, SELFPAY ==
[2023-05-01 07:07] LABS: Urine Cytology See Pathology rpt
== END 2023-04-28 08:51 | disposition home or self-care (01) ==
LOC: HO.LAB 08:50
PROVIDERS: Visit Provider Urology
DX: N20.0 Calculus of kidney (principal); Z85.51 Personal history of malignant neoplasm of bladder; Z79.899 Other long term (current) drug therapy
CPT/HCPCS: 52000; 81003; 88112

== ENCOUNTER 2023-05-26 08:43 | Outpatient (AMB) | payer MEDICARE, SELFPAY ==
--- NOTE | 2023-05-26 08:48 | A.OFFVIS_ITS ---
Intake Vital Signs 05/26/23 08:50 Height 5 ft 4 in Weight 216 lb BMI 37.1 Intake Visit Reasons: follow up 04/27/2023 Intake Note: follow up US 04/27/23 for Left LE discoloration w/ bump on Left calf. Pt also states bilateral LE swelling that reduces with elevation. Has Hx of DVT, Pt had resumed Eliquis and is discontinued again Accompanied by: Spouse Allergies erythromycin base [ERYTHROMYCIN BASE] Allergy (Severe, Verified 05/26/23 08:56) BODY ACHES morphine [MORPHINE] Allergy (Severe, Verified 05/26/23 08:56) HALLUCINATIONS Mqwavdf-UIK-KgX Reductase Inhibitor [EHQVGBU-XKG-TWB REDUCTASE INHIBITOR] Allergy (Severe, Verified 05/26/23 08:56) ALTERED MENTAL STATUS adhesive tape Allergy (Intermediate, Verified 05/26/23 08:56) BLISTERS omeprazole [From PRILOSEC] Adverse Reaction (Intermediate, Verified 05/26/23 08:56) DIARRHEA hospital sheets Allergy (Mild, Uncoded 05/26/23 08:56) years ago-caused itching HPI follow up 04/27/2023 HPI Details Very pleasant 78-year-old female presents for follow-up regarding lower extremity swelling. She does have a prior history left lower extremity popliteal DVT secondary to a fall. She had been anticoagulated on Eliquis. He has been doing well since that time. She continues to have this lower extremity swelling. She appears to be doing relatively well with some compression stockings. She now presents for follow-up with venous insufficiency testing. [facility] Medical History Allergic rhinitis Bladder cancer Carpal tunnel syndrome, left Cervical radiculopathy Dislocation of right shoulder joint GERD (gastroesophageal reflux disease) Hypercholesteremia Hypertension Left leg DVT Obesity Post herpetic neuralgia Renal calculus, bilateral Right rotator cuff tear Surgical History H/O shoulder replacement History of appendectomy History of carpal tunnel surgery of left wrist History of cholecystectomy History of cystoscopy History of hip replacement History of knee replacement procedure of left knee History of knee replacement procedure of right knee History of lithotripsy History of lumpectomy of left breast History of lumpectomy of right breast History of total abdominal hysterectomy and bilateral salpingo-oophorectomy Hx of cystoscopy Family History Father Cancer Mother CVD (cardiovascular disease) Cerebral hemorrhage Brain aneurysm Brother CAD (coronary artery disease) Sister CVD (cardiovascular disease) Cancer Lung cancer Cerebral hemorrhage Sister Cancer Lung cancer Social History Household Members: Spouse Housing: House Are you a primary healthcare prof to a significant other at home: No Do you presently have visiting nurse or other home services: No Alcohol intake: current Alcohol intake frequency: holidays/special occasions only Patient Tobacco Use Status: Never used Tobacco e-Cigarette/Vaping Use: Never Used Second Hand Smoke Exposure: No service: No Current occupational status: employed and retired Cognitive needs: No Hearing needs: No Vision needs: Yes Review of Systems Const Reports as per HPI ENT Reports no additional complaints Card Denies chest pain, Denies chest pain at rest and Denies chest pain with activity Resp Denies chest congestion and Denies cough GI Reports no additional complaints Musc Details: pain over varicosities, aching of lower extremities, swelling, cramping, hea viness and tiredness, itching Denies abnormal gait Skin/Breast Reports pruritus and Denies wounds Neuro Reports no additional complaints and Denies abnormal gait Psych Denies no additional complaints Physical Exam Vital Signs: BMI result Body Mass Index 37.1 Const General: cooperative, healthy appearing and comfortable Orientation/consciousness: oriented to person, oriented to place and oriented to time Neck Carotids: no bruits Chest Chest palpation & inspection: normal inspection of the chest and normal palp ation of entire chest wall Resp Effort & Inspection: normal respiratory effort and able to speak in complete sentences Cardio Rate: regular rate Heart sounds: S1 normal heart sound present and S2 normal heart sound present Peripheral pulses: Peripheral pulses 2+ throughout GI Inspection: Yes normal to inspection Skin Other: +2 edema, General skin exam: dry skin Neuro General: oriented to person, oriented to place and oriented to time Extrem Right lower extremity: full ROM, normal capillary refill and edema Left lower extremity: full ROM, normal capillary refill and edema Psych Mental Status: mental status grossly normal Results Reviewed Results Reviewed: Brief summary of venous insufficiency testing is as follows: right great saphenous vein: negative right small saphenous vein: negative right accessory vein: none present left great saphenous vein: negative left small saphenous vein: negative left accessory vein: none present Please note there is no evidence of any venous aneurysms or significant tortuosity Assessment & Plan Assessment & Plan (1) Varicose veins of left lower extremity with inflammation: Code(s): I83.12 - Varicose veins of left lower extremity with inflammation Plan: In short patient is negative for any significant venous insufficiency. She does have some underlying reflux just by the mere fact that she does have a prior history of DVT. At the current time this appears to be stable and recannulized well. Would recommend continued conservative measures including compression, elevation, and exercise. The patient will follow up with us on an as-needed basis. Thank you for allowing us to participate in her care. Coding Level of Care Code Est Pt Level 4 (73850) Diagnoses Varicose veins of left lower extremity with inflammation I83.12
[2023-05-26 08:50] VITALS: BMI 37.1
== END 2023-05-26 09:23 | disposition home or self-care (01) ==
PROVIDERS: PCP Internal Medicine; Visit Provider Surgery Vascular Surgery
DX: I83.12 Varicose veins of left lower extremity with inflammation (principal)
CPT/HCPCS: 99213

== ENCOUNTER → 2023-05-26 08:43 | Outpatient (BNVA) | payer MEDICARE, SELFPAY | PROVIDERS: PCP Internal Medicine; Visit Provider Surgery Vascular Surgery | DX: I83.12 Varicose veins of left lower extremity with inflammation (principal) | CPT/HCPCS: 99212 ==

== ENCOUNTER 2023-06-18 08:30 | Outpatient (AMB) | payer MEDICARE, SELFPAY ==
[2023-06-18 08:40] VITALS: BP 112/68; PULSE 84; O2SAT 97; BMI 37.2
--- NOTE | 2023-06-18 08:40 | A.OFFPC_ITS ---
Vital Signs 06/18/23 08:40 Height 5 ft 4 in Weight 217 lb BMI 37.2 BP 112/68 Blood Pressure Location Lt brachial Position Sitting Pulse 84 Pulse Source Pulse Oximeter Pulse Oximetry (%) 97 Oxygen Delivery Method Room Air Intake Visit Reasons: 6m F/U Asthma Allergies erythromycin base [ERYTHROMYCIN BASE] Allergy (Severe, Verified 06/18/23 08:43) BODY ACHES morphine [MORPHINE] Allergy (Severe, Verified 06/18/23 08:43) HALLUCINATIONS Qrjdvvt-TQT-TkT Reductase Inhibitor [WXCOQUX-LMS-NDU REDUCTASE INHIBITOR] Allergy (Severe, Verified 06/18/23 08:43) ALTERED MENTAL STATUS adhesive tape Allergy (Intermediate, Verified 06/18/23 08:43) BLISTERS omeprazole [From PRILOSEC] Adverse Reaction (Intermediate, Verified 06/18/23 08:43) DIARRHEA hospital sheets Allergy (Mild, Uncoded 06/18/23 08:43) years ago-caused itching Tobacco use date assessed: 06/18/23 Fall risk assessment: No Falls in past year Last assessed Fall Risk: 06/18/23 Dental Screening Dental Screen Date: 06/18/23 Did you have a dental visit in the last 12 months?: Yes Did you have a dental problem in the last 6 months where you did not have access to dental care?: No Was dental information given to patient?: Patient has dentist HPI 6m F/U Asthma HPI Details 78-year-old obese female with impaired g lucose tolerance bladder cancer history GERD hypercholesterolemia and hypertension last seen in April 2023 patient is here for follow-up patient had some leg swelling and was referred to the vascular surgeon patient does have a history of left lower extremity popliteal DVT secondary to a fall patient is negative for any significant venous insufficiency she does have underlying reflux which at the current time stable and recanalized conservative treatment. Elevation exercise and compression.. Patient also follows up with Rheumatology for the carpal tunnel syndrome left release August 2020 osteoarthritis pseudogout left 2nd but carpal phalangeal and right the flexor tendinitis workup was recommended.. Patient did see Urology also for follow-up on the bladder cancer diagnosed in 1994 low-grade superficial last scope April 2020 patient also has uric acid stones on potassium citrate 10 mEq twice a day cystoscopy done April 2023 [facility] Medical History Allergic rhinitis Bladder cancer Carpal tunnel syndrome, left Cervical radiculopathy Dislocation of right shoulder joint GERD (gastroesophageal reflux disease) Hypercholesteremia Hypertension Left leg DVT Obesity Post herpetic neuralgia Renal calculus, bilateral Right rotator cuff tear Surgical History H/O shoulder replacement History of appendectomy History of carpal tunnel surgery of left wrist History of cholecystectomy History of cystoscopy History of hip replacement History of knee replacement procedure of left knee History of knee replacement procedure of right knee History of lithotripsy History of lumpectomy of left breast History of lumpectomy of right breast History of total abdominal hysterectomy and bilateral salpingo-oophorectomy Hx of cystoscopy Family History Father Cancer Mother CVD (cardiovascular disease) Cerebral hemorrhage Brain aneurysm Brother CAD (coronary artery disease) Sister CVD (cardiovascular disease) Cancer Lung cancer Cerebral hemorrhage Sister Cancer Lung cancer Social History Household Members: Spouse Housing: House Are you a primary farm or ranch animal caretaker to a significant other at home: No Do you presently have visiting nurse or other home services: No Alcohol intake: current Alcohol intake frequency: holidays/special occasions only Patient Tobacco Use Status: Never used Tobacco e-Cigarette/Vaping Use: Never Used Second Hand Smoke Exposure: No service: No Current occupational status: employed and retired Cognitive needs: No Hearing needs: No Vision needs: Yes Questionnaire Thrive Questionnaire Date Thrive assessed: 11/14/22 AUDIT C Alcohol Use Questionnaire (AUDIT-C) 1. How often do you have a drink containing alcohol?: 2-4 times a month 2. How many drinks containing alcohol do you have on a typical day when you are drinking?: 1 or 2 3. How often do you have six or more drinks on one occasion?: Never Total Score: 2 Score Reviewed/Action Taken: No ANDREW-7 AMB Questionnaire ANDREW-7 Date ANDREW - 7 assessed: 11/14/22 Source: Developed by Drs. Ubaldo Zepeda, Ramona Reza, Derrek Martinez and colleagues, with an educational lucila from [employer]. Physical exam (Primary Care) BMI result Body Mass Index 37.2 Tobacco/Smoking Status: Tobacco use Status Tobacco use date assessed 11/14/22 04/27/23 17:09 Patient Tobacco Use Status Never used Tobacco 04/27/23 17:09 e-Cigarette/Vaping Use Never Used 04/27/23 17:09 Thrive Assessment: Date of Thrive Assessment Date Thrive assessed 11/14/22 04/27/23 17:09 Const General: alert; No acute distress Eyes Conjunctivae: conjunctivae normal Resp Auscultation: clear to auscultation bilaterally Cardio Rate: regular rate Rhythm: regular rhythm GI Inspection: Yes normal to inspection Extrem General: Yes normal to inspection and No edema Assessment and Plan Assessment & Plan (1) Peripheral vascular disease: Code(s): I73.9 - Peripheral vascular disease, unspecified Plan: Patient follows up with vascular surgeon. When sitting down elevate the legs, exercise, and support stockings (2) Left leg DVT: Comment: 10/2019, November 2022 Code(s): I82.402 - Acute embolism and thrombosis of unspecified deep veins of left lower extremity Qualifiers: Affected thrombotic vein of extremity: popliteal Chronicity: chronic Qualified Code(s): I82.532 - Chronic embolism and thrombosis of left popliteal vein Plan: Continue with anticoagulation (3) Calculus of proximal right ureter: Comment: Right ureteroscopy May [address]22 Dr. Arellano, right stent removal cystoscopy June 2022 Code(s): N20.1 - Calculus of ureter Plan: Patient has been placed on potassium, increase oral fluids/keep well hydrated (4) Bladder cancer: Comment: Dr. Hicks 1994 no chemo/radio Q other year cysto and the last cysto 04/2019 Code(s): C67.9 - Malignant neoplasm of bladder, unspecified Qualifiers: Bladder location: unspecified site Qualified Code(s): C67.9 - Malignant neoplasm of bladder, unspecified Plan: Patient follows up with urology and had a recent cystoscopy (5) GERD (gastroesophageal reflux disease): Code(s): K21.9 - Gastro-esophageal reflux disease without esophagitis Qualifiers: Esophagitis presence: without esophagitis Qualified Code(s): K21.9 - Gastro-esophageal reflux disease without esophagitis Plan: Avoid the foods that causes that usually spicy foods, tomato products, juices, coffee, soda and foods that your sensitive to. After eating do not lie down, allow 3-4 hours before in lie down. And keep the head of bed above 30 degrees to avoid the acid from going up. (6) Hypercholesteremia: Code(s): E78.00 - Pure hypercholesterolemia, unspecified Plan: Avoid fried foods, chicken skin, eggs, butter margarine, pastries and meat. Be it pork or beef they have a lot of cholesterol LDL goal of less than 130 and triglyceride of less than 150 patient is on Zetia statin intolerant (7) Hypertension: Code(s): I10 - Essential (primary) hypertension Qualifiers: Hypertension type: essential hypertension Qualified Code(s): I10 - Essential (primary) hypertension Plan: Continue with blood pressure medication. Decrease salt intake and exercise p atient takes lisinopril hydrochlorothiazide 2024 once a day Coding Level of Care Code Est Pt Level 4 (29589) Diagnoses Peripheral vascular disease I73.9 Chronic deep vein thrombosis (DVT) of popliteal vein of left lower extremity I82.532 Affected thrombotic vein of extremity: popliteal Chronicity: chronic Calculus of proximal right ureter N20.1 Malignant neoplasm of urinary bladder, unspecified site C67.9 Bladder location: unspecified site Gastroesophageal reflux disease without esophagitis K21.9 Esophagitis presence: without esophagitis Hypercholesteremia E78.00 Essential hypertension I10 Hypertension type: essential hypertension
== END 2023-06-18 09:32 | disposition home or self-care (01) ==
PROVIDERS: Visit Provider Internal Medicine
DX: K21.9 Gastro-esophageal reflux disease without esophagitis (principal); I10 Essential (primary) hypertension; I73.9 Peripheral vascular disease, unspecified; I82.532 Chronic embolism and thrombosis of left popliteal vein; C67.9 Malignant neoplasm of bladder, unspecified; N20.1 Calculus of ureter; E78.00 Pure hypercholesterolemia, unspecified
CPT/HCPCS: 99214

== ENCOUNTER 2023-09-18 08:44 | Outpatient (REF) | payer MEDICARE, SELFPAY ==
[2023-09-18 09:15] LABS: MANUAL DIFF FLAG NO
[2023-09-18 10:03] LABS: Basophils Absolute Auto 0.1 X10*3/uL (0.0-0.2); Basophils Percent Auto 0.7 % (0-2); Eosinophils Absolute Auto 0.4 X10*3/uL (0.0-0.4); Eosinophils Percent Auto 4.5 % (0-4); Hemoglobin 13.3 g/dl (12.0-16.0); Imm Gran Abs Auto 0.03 X10*3/uL (0.00-0.03); Imm Gran Pct Auto 0.3 % (0.0-0.4); Lymphocytes Absolute Auto 2.7 X10*3/uL (1.2-4.9); Lymphocytes Percent Auto 30.8 % (20-40); Mean Corpuscular HGB Conc 32.4 g/dl (31.0-35.0); Mean Corpuscular Hemoglobin 30.9 pg (27.0-33.0); Mean Corpuscular Volume 95.3 fL (80.0-98.0); Mean Platelet Volume 9.2 fL (9.4-12.3); Monocytes Absolute Auto 0.7 X10*3/uL (0.1-1.2); Monocytes Percent Auto 8.3 % (2-11); Neutrophils Absolute Auto 4.9 x10*3/uL (2.0-8.3); Neutrophils Percent Auto 55.4 % (45-73); Platelet Count 363 X10*3/uL (160-400); Red Cell Distribution Width 13.2 % (11.0-16.0); White Blood Count 8.8 X10*3/uL (4.8-10.8)
[2023-09-18 10:10] LABS: Estimated Average Glucose 117 mg/dL; Hemoglobin A1c % 5.7 % (<6.0)
[2023-09-18 11:17] LABS: Alanine Aminotransferase 24 U/L (0-31); Albumin Level 4.2 g/dL (3.5-5.0); Alkaline Phosphatase 61 U/L (39-117); Anion Gap 13 (12-20); Aspartate Amino Transferase 22 U/L (5-31); Bilirubin Total 0.6 mg/dL (0.0-1.0); Blood Urea Nitrogen 25 mg/dL (9-16); Calcium 9.8 mg/dL (8.4-10.2); Carbon Dioxide 27 mmol/L (22-29); Chloride 107 mmol/L (96-108); Cholesterol 210 mg/dL (<200); Estimated Glomerular Filt Rate > 60; Glucose Random 97 mg/dL (60-115); HDL Cholesterol 54 mg/dL (>40); LDL Cholesterol Calculated 129 mg/dL (<100); Potassium 3.8 mmol/L (3.3-5.1); Sodium 143 mmol/L (135-145); Total Protein 7.6 g/dL (6.5-8.0); Triglycerides 137 mg/dL (<150); Uric Acid 7.7 mg/dL (2.4-5.7)
[2023-09-18 11:21] LABS: Folate 7.1 ng/mL (> or = 4.0); Vitamin B12 435 pg/mL (200-900)
[2023-09-18 11:22] LABS: Free T4 (Free Thyroxine) 1.07 ng/dL (0.71-1.85); Thyroid Stimulating Hormone 2.41 uIU/mL (0.32-4.0); Vitamin D 25-OH Total 15.1 ng/mL (>30)
== END 2023-09-18 08:45 | disposition home or self-care (01) ==
LOC: HO.LAB 08:44
PROVIDERS: PCP Internal Medicine; Visit Provider Internal Medicine
DX: R73.01 Impaired fasting glucose (principal); K21.9 Gastro-esophageal reflux disease without esophagitis; E78.00 Pure hypercholesterolemia, unspecified
CPT/HCPCS: 36415; 80053; 80061; 82306; 82607; 82746; 83036; 84439; 84443; 84550; 85025

== ENCOUNTER 2023-09-21 16:22 | Outpatient (AMB) | payer MEDICARE, SELFPAY ==
[2023-09-21 16:25] VITALS: BP 124/70; PULSE 73; O2SAT 99; BMI 37.6
--- NOTE | 2023-09-21 16:25 | A.OFFPC_ITS ---
Vital Signs 09/21/23 16:25 Height 5 ft 4 in Weight 219 lb 0.2 oz BMI 37.6 BP 124/70 Blood Pressure Location Lt brachial Position Sitting Pulse 73 Pulse Source Pulse Oximeter Pulse Oximetry (%) 99 Oxygen Delivery Method Room Air Intake Visit Reasons: HTN, PVD Allergies erythromycin base [ERYTHROMYCIN BASE] Allergy (Severe, Verified 09/21/23 16:26) BODY ACHES morphine [MORPHINE] Allergy (Severe, Verified 09/21/23 16:26) HALLUCINATIONS Damvxbf-MYC-QgM Reductase Inhibitor [EWWTRPR-FNU-WIZ REDUCTASE INHIBITOR] Allergy (Severe, Verified 09/21/23 16:26) ALTERED MENTAL STATUS adhesive tape Allergy (Intermediate, Verified 09/21/23 16:26) BLISTERS omeprazole [From PRILOSEC] Adverse Reaction (Intermediate, Verified 09/21/23 16:26) DIARRHEA hospital sheets Allergy (Mild, Uncoded 09/21/23 16:26) years ago-caused itching Medication List - Last Reconciled 09/21/23 by Maria De Jesus Evans, acetaminophen 1,000 mg (2 x 500 mg) PO TID PRN albuterol sulfate 90 mcg/actuation (ProAir HFA) 2 puffs inhalation Q4-6H PRN apixaban (Eliquis) 5 mg PO BID cholecalciferol (vitamin D3) (Vitamin D3) 50 mcg PO DAILY diclofenac sodium 1% (Arthritis Pain (diclofenac)) 4 grams topical QID ezetimibe (Zetia) 10 mg PO DAILY 90 days lisinopril-hydrochlorothiazide 20-25 mg 1 tab PO DAILY loratadine (Claritin) 10 mg PO DAILY meloxicam 15 mg PO DAILY potassium citrate ER 10 mEq PO BID 90 days pyridoxine (vitamin B6) 1 tab PO DAILY Tobacco use date assessed: 09/21/23 Fall risk assessment: No Falls in past year HPI HTN, PVD HPI Details 78-year-old obese female with a history of hypertension hypercholesterolemia GERD bladder cancer history of left leg DVT and peripheral vascular disease last seen in June 2023. Patient had a vaccine for flu and COVID done.. will be seeing Dr. Arellano - 10/16/2022 for US. - 10/29/2022. Dr. Toro 10/30/2022. [facility] Medical History Allergic rhinitis Bladder cancer Carpal tunnel syndrome, left Cervical radiculopathy Dislocation of right shoulder joint GERD (gastroesophageal reflux disease) Hypercholesteremia Hypertension Left leg DVT Obesity Post herpetic neuralgia Renal calculus, bilateral Right rotator cuff tear Surgical History H/O shoulder replacement History of appendectomy History of carpal tunnel surgery of left wrist History of cholecystectomy History of cystoscopy History of hip replacement History of knee replacement procedure of left knee History of knee replacement procedure of right knee History of lithotripsy History of lumpectomy of left breast History of lumpectomy of right breast History of total abdominal hysterectomy and bilateral salpingo-oophorectomy Hx of cystoscopy Family History Father Cancer Mother CVD (cardiovascular disease) Cerebral hemorrhage Brain aneurysm Brother CAD (coronary artery disease) Sister CVD (cardiovascular disease) Cancer Lung cancer Cerebral hemorrhage Sister Cancer Lung cancer Social History Household Members: Spouse Housing: House Are you a primary care professionals to a significant other at home: No Do you presently have visiting nurse or other home services: No Alcohol intake: current Alcohol intake frequency: holidays/special occasions only Patient Tobacco Use Status: Never used Tobacco e-Cigarette/Vaping Use: Never Used Second Hand Smoke Exposure: No service: No Current occupational status: employed and retired Cognitive needs: No Hearing needs: No Vision needs: Yes Questionnaire Thrive Questionnaire Date Thrive assessed: 11/14/22 ANDREW-7 AMB Questionnaire ANDREW-7 Date ANDREW - 7 assessed: 11/14/22 Source: Developed by Drs. Ubaldo Zepeda, Ramona Reza, Derrek Martinez and colleagues, with an educational lucila from [employer]. Physical exam (Primary Care) Vital Signs: Last Vital Signs Pulse 73 09/21/23 16:25 BP 124/70 09/21/23 16:25 Pulse Ox 99 09/21/23 16:25 Oxygen Delivery Method Room Air 09/21/23 16:25 BMI result Body Mass Index 37.6 Tobacco/Smoking Status: Tobacco use Status Tobacco use date assessed 09/21/23 09/21/23 16:32 Patient Tobacco Use Status Never used Tobacco 09/21/23 16:32 e-Cigarette/Vaping Use Never Used 09/21/23 16:32 Thrive Assessment: Date of Thrive Assessment Date Thrive assessed 11/14/22 09/21/23 16:32 Const General: alert; No acute distress Eyes Conjunctivae: conjunctivae normal Resp Auscultation: clear to auscultation bilaterally Cardio Rate: regular rate Rhythm: regular rhythm GI Inspection: Yes normal to inspection Extrem General: Yes normal to inspection and No edema Assessment and Plan Assessment & Plan (1) Hypertension: Code(s): I10 - Essential (primary) hypertension Qualifiers: Hypertension type: essential hypertension Qualified Code(s): I10 - Essential (primary) hypertension Plan: Continue with blood pressure medication. Decrease salt intake and exercise patient is on lisinopril hydrochlorothiazide (2) GERD (gastroesophageal reflux disease): Code(s): K21.9 - Gastro-esophageal reflux disease without esophagitis Qualifiers: Esophagitis presence: without esophagitis Qualified Code(s): K21.9 - Gastro-esophageal reflux disease without esophagitis Plan: Avoid the foods that causes that usually spicy foods, tomato products, juices, coffee, soda and foods that your sensitive to. After eating do not lie down, allow 3-4 hours before in lie down. And keep the head of bed above 30 degrees to avoid the acid from going up. (3) Hypercholesteremia: Code(s): E78.00 - Pure hypercholesterolemia, unspecified Plan: Avoid fried foods, chicken skin, eggs, butter margarine, pastries and meat. Be it pork or beef they have a lot of cholesterol LDL goal of less than 130 and triglyceride of less than 150. Patient on Zetia statin tolerance (4) Obesity: Code(s): E66.9 - Obesity, unspecified Qualifiers: Obesity type: due to excess calories Obesity classification: adult class 3 (BMI >= 40) Serious obesity comorbidity presence: with serious comorbidity Body mass index: BMI 40.0-44.9 Qualified Code(s): E66.01 - Morbid (severe) obesity due to excess calories; Z68.41 - Body mass index [BMI]40.0- 44.9, adult Plan: Diet and exercise (5) Uric acid kidney stone: Code(s): N20.0 - Calculus of kidney Plan: Increase oral fluids and discussion about prescription. (6) Depression, major, recurrent: Code(s): F33.9 - Major depressive disorder, recurrent, unspecified Medications: New albuterol sulfate 90 mcg/actuation (ProAir HFA) 2 puffs inhalation Q4-6H PRN 8.5 grams 0RF Wheezing Discontinued potassium citrate ER Discontinued Reason: Ancillary Entered New Order 10 mEq PO BID 90 days 180 tabs 1RF N20.0 - Calculus of kidney Coding Level of Care Code Est Pt Level 4 (39744) Diagnoses Essential hypertension I10 Hypertension type: essential hypertension Gastroesophageal reflux disease without esophagitis K21.9 Esophagitis presence: without esophagitis Hypercholesteremia E78.00 Class 3 severe obesity due to excess calories with serious comorbidity and body mass index (BMI) of 40.0 to 44.9 in adult E66.01; Z68.41 Obesity type: due to excess calories Obesity classification: adult class 3 (BMI >= 40) Serious obesity comorbidity presence: with serious comorbidity Body mass index: BMI 40.0-44.9 Uric acid kidney stone N20.0 Depression, major, recurrent F33.9
== END 2023-09-21 17:05 | disposition home or self-care (01) ==
PROVIDERS: PCP Internal Medicine; Visit Provider Internal Medicine
DX: I10 Essential (primary) hypertension (principal); F33.9 Major depressive disorder, recurrent, unspecified; E66.01 Morbid (severe) obesity due to excess calories; Z68.41 Body mass index [BMI] 40.0-44.9, adult; K21.9 Gastro-esophageal reflux disease without esophagitis; E78.00 Pure hypercholesterolemia, unspecified; N20.0 Calculus of kidney
CPT/HCPCS: 99214

== ENCOUNTER 2023-10-16 07:44 | Outpatient (REF) | payer MEDICARE, SELFPAY | END 2023-10-16 07:45 | disposition home or self-care (01) | LOC: HO.US 07:44 | PROVIDERS: PCP Internal Medicine; Visit Provider Urology | DX: N20.0 Calculus of kidney (principal) | CPT/HCPCS: 76775 ==

== ENCOUNTER 2023-10-29 09:31 | Outpatient (REF) | payer MEDICARE, SELFPAY ==
[2023-10-29 18:08] LABS: Urine Cytology See Pathology rpt
== END 2023-10-29 09:32 | disposition home or self-care (01) ==
LOC: HO.LAB 09:31
PROVIDERS: PCP Internal Medicine; Visit Provider Urology
DX: C67.9 Malignant neoplasm of bladder, unspecified (principal); N20.0 Calculus of kidney
CPT/HCPCS: 81003; 88112; 99212

== ENCOUNTER 2023-10-29 09:31 | Outpatient (AMB) | payer MEDICARE, SELFPAY ==
--- NOTE | 2023-10-29 09:51 | A.OFFVIS_ITS ---
Intake Intake Visit Reasons: 6m/US(set) Intake Note: Patient is Present for Follow Up Ultrasound Urology Medication: Vitamin B6 ( Takes once in a while not daily) Antibiotic Allergies: Erythromycin Blood Thinners: None Urine will be sent for cytology Allergies erythromycin base [ERYTHROMYCIN BASE] Allergy (Severe, Verified 10/29/23 09:57) BODY ACHES morphine [MORPHINE] Allergy (Severe, Verified 10/29/23 09:57) HALLUCINATIONS [id number] Reductase Inhibitor [[id number] REDUCTASE INHIBITOR] Allergy (Severe, Verified 10/29/23 09:57) ALTERED MENTAL STATUS adhesive tape Allergy (Intermediate, Verified 10/29/23 09:57) BLISTERS omeprazole [From PRILOSEC] Adverse Reaction (Intermediate, Verified 10/29/23 09:57) DIARRHEA hospital sheets Allergy (Mild, Uncoded 10/29/23 09:57) years ago-caused itching HPI HPI Comments History of Present Illness Details Charlette is a pleasant female. She is a patient of Dr. Evans. She is seen for the following urologic conditions - bladder cancer - nephrolithiasis Six-month follow-up Ultrasound shows significant reduction in stone burden Recommend continued use of potassium citrate and lemon juice Six-month follow-up check cystoscopy Bladder Cancer Diagnosed 1994 Low-grade superficial Negative in prior surveillance cystoscopy Currently in check every 2 years Cystoscopy - 05/01 NAD, 05/03 NAD Nephrolithiasis 07/03 uric acid 50% Known stone former Current therapy b.i.d. 10 mEq potassium citrate Imaging - 04/29 renal ultrasound bilateral 9 mm s tones - 05/01 renal ultrasound bilateral cysts, right 1.2 cm stone, left 8 mm stone - 09/02 renal ultrasound bilateral cysts , significant decrease stone burden 3 mm stones bilateral - 04/03 renal ultrasound, bilateral cysts stable, increased stone burden left side up to 12 mm - 10/03 renal ultrasound significant red uction in stone burden Prior interventions - ureteroscopy and ESWL - 07/03 R USR Stone composition - 07/03 uric acid 50%, calcium oxalate Urinary frequency and urgency Prior oral medications Prior discussion regarding tibial stimulation [facility] Medical History Allergic rhinitis Bladder cancer Carpal tunnel syndrome, left Cervical radiculopathy Dislocation of right shoulder joint GERD (gastroesophageal reflux disease) Hypercholesteremia Hypertension Left leg DVT Obesity Post herpetic neuralgia Renal calculus, bilateral Right rotator cuff tear Surgical History H/O shoulder replacement History of appendectomy History of carpal tunnel surgery of left wrist History of cholecystectomy History of cystoscopy History of hip replacement History of knee replacement procedure of left knee History of knee replacement procedure of right knee History of lithotripsy History of lumpectomy of left breast History of lumpectomy of right breast History of total abdominal hysterectomy and bilateral salpingo-oophorectomy Hx of cystoscopy Family History Father Cancer Mother CVD (cardiovascular disease) Cerebral hemorrhage Brain aneurysm Brother CAD (coronary artery disease) Sister CVD (cardiovascular disease) Cancer Lung cancer Cerebral hemorrhage Sister Cancer Lung cancer Social History Household Members: Spouse Housing: House Are you a primary managed care provider to a significant other at home: No Do you presently have visiting nurse or other home services: No Alcohol intake: current Alcohol intake frequency: holidays/special occasions only Patient Tobacco Use Status: Never used Tobacco e-Cigarette/Vaping Use: Never Used Second Hand Smoke Exposure: No service: No Current occupational status: employed and retired Cognitive needs: No Hearing needs: No Vision needs: Yes Review of Systems Const Denies chills and Denies fever(s) Card Reports no additional complaints and Denies syncope Resp Denies cough GI Denies abdominal pain and Denies heartburn Reports as per HPI and Denies change in libido Neuro Denies syncope Psych Denies change in libido Endo Denies change in libido Physical Exam Const General: cooperative, healthy appearing, comfortable and no acute distress Orientation/consciousness: patient oriented x3 HEENT Face and sinus: Yes normal facial exam Mouth: moist mucous membranes Neck Neck: Yes normal visual inspection, Yes full ROM and Yes trachea midline Chest Chest palpation & inspection: normal inspection of the chest Resp Effort & Inspection: normal respiratory effort, able to speak in complete sentences and no respiratory distress GI Inspection: Yes normal to inspection Back/Spine/Pelvis Cervical Spine: normal cervical lordosis Thoracic/Lumbar Spine: thoracic and lumbar spine normal to inspection Skin General skin exam: no rashes or lesions noted Neuro General: patient oriented x3, gait normal, tone normal and moves all extremities Extrem General: Yes normal to inspection and Yes capillary refill normal Results AMB Urinalysis, Automated UA Leukoctes 0 Anali/uL Last Edit by Ceci Graff Scott on 10/29/23 10:04 UA Nitrite Negative Last Edit by Ceci Graff [facility] on 10/29/23 10:04 UA Urobilinogen 0.2 mg/dL Last Edit by Ccei Graff [facility] on 10/29/23 10:0 4 UA Protein 15 mg/dL Last Edit by Ceci Graff A on 10/29/23 10:04 UA pH 5.5 Last Edit by Ceci Graff [facility] on 10/29/23 10:04 UA Blood 200 Jeremy/uL Last Edit by Ceci Graff [facility] on 10/29/23 10:04 UA Specific Garfield 1.020 Last Edit by Ceci Graff [facility] on 10/29/23 10: 04 UA Ketone Negative Last Edit by Ceci Graff [facility] on 10/29/23 10:04 UA Bilirubin 0 mg/dL Last Edit by Ceci Graff [facility] on 10/29/23 10:04 UA Glucose 0 mg/dL Last Edit by Ceci Graff [facility] on 10/29/23 10:04 Results Reviewed Results Reviewed: Laboratory Last Values Urine pH (Auto) 5.5 10/29/23 09:58 Specific Garfield (Auto) 1.020 10/29/23 09:58 Urine Protein (Auto) 15 mg/dL 10/29/23 09:58 Glucose (UA)(Auto) 0 mg/dL 10/29/23 09:58 Urine Ketones (Auto) Negative 10/29/23 09:58 Urine Blood (Auto) 200 Jeremy/uL 10/29/23 09:58 Urine Nitrite (Auto) Negative 10/29/23 09:58 Urine Bilirubin (Auto) 0 mg/dL 10/29/23 09:58 Urine Urobilinogen (Auto) 0.2 mg/dL 10/29/23 09:58 Leukocyte Esterase (Auto) 0 Anali/uL 10/29/23 09:58 Assessment & Plan Assessment & Plan (1) Uric acid kidney stone: Code(s): N20.0 - Calculus of kidney (2) Bladder cancer: Comment: Dr. Hicks 1994 no chemo/radio Q other year cysto and the last cysto 04/2019 Code(s): C67.9 - Malignant neoplasm of bladder, unspecified Qualifiers: Bladder location: unspecified site Qualified Code(s): C67.9 - Malignant neoplasm of bladder, unspecified Plan Six-month follow-up Orders: Orders Urine Cytology Today C67.9 - Malignant neoplasm of bladder, unspecified AMB Urinalysis Automated Today Z13.9 - Encounter for screening, unspecified US renal BI 6 Months N20.0 - Calculus of kidney Patient Instructions: Imaging studies, laboratory and physical exam results were discussed and reviewed in detail. No major barriers to patient understanding were identified. An opportunity to ask questions regarding the treatment plan was provided. All questions were answered. The patient expressed understanding and agreement with the above treatment plan. The patient is aware they should contact our office by phone for worsening of their current condition or the appearance of new urologic symptoms. Compliance is encouraged with any medications and followup testing that is ordered. It is a privilege to participate in the urologic care of your patient. If you have any questions or concerns regarding treatment for the above conditions, or other urologic issues, please do not hesitate to contact me. The office telephone contact is [phone]. This note is constructed using voice recognition software. While every effort has been made to ensure accuracy marketing account manager errors may have been included. Yours sincerely, Dr Ashvin Arellano MD, [facility] - Urology Providers of Expert, Compassionate Care for the Genitourinary System Coding Level of Care Code Est Pt Level 4 (14262) Diagnoses Uric acid kidney stone N20.0 Malignant neoplasm of urinary bladder, unspecified site C67.9 Bladder location: unspecified site
== END 2023-10-29 10:48 | disposition home or self-care (01) ==
PROVIDERS: PCP Internal Medicine; Visit Provider Urology
DX: N20.0 Calculus of kidney (principal); Z85.51 Personal history of malignant neoplasm of bladder; Z13.9 Encounter for screening, unspecified
CPT/HCPCS: 99214

== ENCOUNTER 2023-11-19 07:50 | Outpatient (REF) | payer MEDICARE, SELFPAY ==
--- NOTE | ~2023-11-19 | MM_ITS ---
EXAMINATION: MM SCREENING DIGITAL BREAST TOMOSYNTHESIS, BILATERAL CLINICAL INFORMATION: Screening. Asymptomatic. COMPARISON: Mammography: This study is compared with prior exams dating back to 2019. TECHNIQUE: Digital breast tomosynthesis is performed in both the craniocaudal and mediolateral oblique views along with computer-aided detection (CAD). Synthesized 2D images are generated from the tomosynthesis. FINDINGS: There are scattered areas of fibroglandular density (ACR BI-RADS breast composition Category b). There is a focal asymmetry of the upper outer quadrant of the left breast which warrants additional mammographic and targeted sonographic evaluation. In the right breast, there no are no significant masses, abnormal calcifications, or other abnormalities. MM/MM tomosynthesis screening BI IMPRESSION: Focal asymmetry of the left breast warrants additional mammographic and targeted sonographic imaging. No mammographic signs of malignancy right breast. ASSESSMENT: BI-RADS BI-RADS 0 - Incomplete: Needs additional Imaging. RECOMMENDATION: 1. Additional views of the left breast. 2. Targeted ultrasound if warranted after review of the additional views. 3. Radiology department staff will contact the patient for additional imaging. 1 year F/U This examination should not preclude the clinical evaluation of a suspicious palpable abnormality. This patient's information was entered into a reminder system with a target due date for their next mammogram.
== END 2023-11-19 07:51 | disposition home or self-care (01) ==
LOC: HO.MAMMO 07:50
PROVIDERS: PCP Internal Medicine; Visit Provider Internal Medicine
DX: Z12.31 Encounter for screening mammogram for malignant neoplasm of breast (principal)
CPT/HCPCS: 77063; 77067

== ENCOUNTER → 2023-11-19 08:15 | Outpatient (BNV) | payer MEDICARE, SELFPAY | PROVIDERS: PCP Internal Medicine; Visit Provider Radiology Diagnostic Radiology | DX: Z12.31 Encounter for screening mammogram for malignant neoplasm of breast (principal) | CPT/HCPCS: 77063; 77067 ==

== ENCOUNTER 2023-12-21 08:43 | Outpatient (AMB) | payer MEDICARE, SELFPAY ==
[2023-12-21 08:47] VITALS: BP 114/62; PULSE 60; O2SAT 99; BMI 37.4
--- NOTE | 2023-12-21 08:47 | A.OFFPC_ITS ---
Vital Signs 12/21/23 08:47 Height 5 ft 4 in Weight 218 lb 0.6 oz BMI 37.4 BP 114/62 Blood Pressure Location Lt brachial Position Sitting Pulse 60 Pulse Source Pulse Oximeter Temp Source Skin Pulse Oximetry (%) 99 Oxygen Delivery Method Room Air Intake Visit Reasons: PE Intake Note: Patient is here today for a physical. 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 Allergies erythromycin base [ERYTHROMYCIN BASE] Allergy (Severe, Verified 12/21/23 08:47) BODY ACHES morphine [MORPHINE] Allergy (Severe, Verified 12/21/23 08:47) HALLUCINATIONS Wunrmgw-AYA-JoO Reductase Inhibitor [CRBVSMR-HDB-ZEY REDUCTASE INHIBITOR] Allergy (Severe, Verified 12/21/23 08:47) ALTERED MENTAL STATUS adhesive tape Allergy (Intermediate, Verified 12/21/23 08:47) BLISTERS omeprazole [From PRILOSEC] Adverse Reaction (Intermediate, Verified 12/21/23 08:47) DIARRHEA hospital sheets Allergy (Mild, Uncoded 12/21/23 08:47) years ago-caused itching Medication List - Last Reconciled 12/21/23 by Maria De Jesus Evans MD acetaminophen 1,000 mg (2 x 500 mg) PO TID PRN albuterol sulfate 90 mcg/actuation (ProAir HFA) 2 puffs inhalation Q4-6H PRN cholecalciferol (vitamin D3) (Vitamin D3) 50 mcg PO DAILY diclofenac sodium 1% (Arthritis Pain (diclofenac)) 4 grams topical QID ezetimibe (Zetia) 10 mg PO DAILY 90 days lisinopril-hydrochlorothiazide 20-25 mg 1 tab PO DAILY loratadine (Claritin) 10 mg PO DAILY meloxicam 15 mg PO DAILY pyridoxine (vitamin B6) 1 tab PO DAILY Tobacco use date assessed: 12/21/23 Fall risk assessment: No Falls in past year Last assessed Fall Risk: 12/21/23 Dental Screening Dental Screen Date: 12/21/23 Did you have a dental visit in the last 12 months?: Yes Did you have a dental problem in the last 6 months where you did not have access to dental care?: No Was dental information given to patient?: Patient has dentist HPI PE HPI Details 78-year-old obese female with hypertensi on hypercholesterolemia GERD nephrolithiasis(uric acid) recurrent major depression last seen in September 2023 patient is here for physical exam. Patient's mammogram was done in November 2023. Bone density done in October 2021. Patient follows up with urology for urinary bladder cancer 1994(surveillance cystoscopy last April 2023) and nephrolithiasis with the use of potassium citrate and lemon juice significant reduction in stone burden. [facility] Medical History (Updated 12/21/23 @ 09:11 by Maria De Jesus Evans MD) Allergic rhinitis Dislocation of right shoulder joint Right rotator cuff tear Cervical radiculopathy Renal calculus, bilateral Obesity Carpal tunnel syndrome, left Left leg DVT GERD (gastroesophageal reflux disease) Post herpetic neuralgia Bladder cancer Hypercholesteremia Hypertension Surgical History Hx of cystoscopy History of carpal tunnel surgery of left wrist H/O shoulder replacement History of hip replacement History of lithotripsy History of cystoscopy History of cholecystectomy History of knee replacement procedure of right knee History of knee replacement procedure of left knee History of appendectomy History of total abdominal hysterectomy and bilateral salpingo-oophorectomy History of lumpectomy of left breast History of lumpectomy of right breast Family History Father Cancer Mother CVD (cardiovascular disease) Cerebral hemorrhage Brain aneurysm Brother CAD (coronary artery disease) Sister CVD (cardiovascular disease) Cancer Lung cancer Cerebral hemorrhage Sister Cancer Lung cancer Social History (Updated 12/21/23 @ 09:09 by Maria De Jesus Evans MD) Household Members: Spouse Housing: House Are you a primary customer care specialist to a significant other at home: No Do you presently have visiting nurse or other home services: No Alcohol intake: current Alcohol intake frequency: holidays/special occasions only Comment: twice a month 2 drinks Patient Tobacco Use Status: Never used Tobacco e-Cigarette/Vaping Use: Never Used Second Hand Smoke Exposure: No service: No Current occupational status: employed and retired Cognitive needs: No Hearing needs: No Vision needs: Yes Questionnaire PHQ-9 Over the last 2 weeks, how often have you been bothered by any of the following problems? 1. Little interest or pleasure in doing things: not at all 2. Feeling down, depressed, or hopeless: not at all 3. Trouble falling or staying asleep, or sleeping too much: not at all 4. Feeling tired or having little energy: not at all 5. Poor appetite or overeating: not at all 6. Feeling bad about yourself - or that you are a failure or have let yourself or your family down: not at all 7. Trouble concentrating on things, such as reading the newspaper or watching television: not at all 8. Moving or speaking so slowly that other people could have noticed. Or the opposite - being so fidgety or restless that you have been moving around a lot more than usual: not at all 9. Thoughts that you would be better off or of hurting yourself in some way: not at all Total score: 0 Depression Screening Interpretation: Negative Depression Screening Done: Yes 37418 - PHQ-9 Billing: Yes Source: Developed by Drs. Ubaldo Zepeda, Ramona Reza, Derrek Martinez and colleagues, with an educational lucila from [facility]. Thrive Questionnaire Date Thrive assessed: 12/21/23 I am a: Patient What is your living situation today?: I have a steady place to live Within the past 12 months, did the food you bought not last and you didn't have the money to get more?: Never true Within the past 12 months, did you worry whether your food would run out before you got money to buy more?: Never true Do you have trouble paying for medicines?: No Do you have trouble getting transportation to medical appointments?: No Do you have trouble paying your heating and electricity bill?: No Do you have trouble taking care of your child, family member or friend?: No Do you have trouble with day-to-day activities such as bathing, preparing meals, shopping, managing finances, etc.?: No Are you currently unemployed and looking for a job?: No Are you interested in more education?: No Please select the resources that you would like help with: None THRIVE Score: 0 AUDIT C Alcohol Use Questionnaire (AUDIT-C) 1. How often do you have a drink containing alcohol?: 2-4 times a month 2. How many drinks containing alcohol do you have on a typical day when you are drinking?: 1 or 2 3. How often do you have six or more drinks on one occasion?: Never Total Score: 2 Score Reviewed/Action Taken: No ANDREW-7 AMB Questionnaire ANDREW-7 Date ANDREW - 7 assessed: 12/21/23 Feeling nervous, anxious, or on edge: 0 = Not at all Not being able to stop or control worryin = Not at all Worrying too much about different things: 0 = Not at all Trouble relaxin = Not at all Being so restless that it is hard to sit still: 0 = Not at all Becoming easily annoyed or irritable: 0 = Not at all Feeling afraid as if something awful might happen: 0 = Not at all Total ANDREW-7 score (0-4 normal; 5-9 mild; 10-14 moderate; 15-21 severe): 0 Source: Developed by Drs. Ubaldo Zepeda, Ramona Reza, Derrek Martinez and colleagues, with an educational lucila from [facility]. Review of Systems Const Denies poor appetite and Denies weakness Eyes Denies no additional complaints ENT Reports Normal hearing present, Denies dizziness, Denies nasal congestion, Denies tinnitus and Denies sore throat Card Denies chest pain, Denies syncope, Denies rapid heart rate and Denies dyspnea Resp Denies cough and Denies dyspnea GI Denies change in stool character, Reports constipation, Denies diarrhea, Denies nausea and Denies vomiting Denies urinary frequency, Denies difficulty voiding and Denies dysuria Neuro Reports Normal hearing present, Denies confusion, Denies dizziness, Denies syncope and Denies weakness Psych Denies confusion Physical exam (Primary Care) Vital Signs: Last Vital Signs Pulse 60 12/21/23 08:47 BP 114/62 12/21/23 08:47 Pulse Ox 99 12/21/23 08:47 Oxygen Delivery Method Room Air 12/21/23 08:47 BMI result Body Mass Index 37.4 Tobacco/Smoking Status: Tobacco use Status Tobacco use date assessed 12/21/23 12/21/23 08:55 Patient Tobacco Use Status Never used Tobacco 12/21/23 08:55 e-Cigarette/Vaping Use Never Used 12/21/23 08:55 PHQ-9: PHQ-9 Score PHQ-9: Total score 0 12/21/23 08:55 Depression Screening Interpretation: Negative Thrive Assessment: Date of Thrive Assessment Date Thrive assessed 12/21/23 12/21/23 08:55 Const General: No confusion Orientation/consciousness: No confusion HENMT Head: Yes normocephalic Ears: external ears normal and TM's normal bilaterally Face and sinus: Yes normal facial exam Mouth: moist mucous membranes Throat: Yes tonsils normal Eyes Conjunctivae: conjunctivae normal Pupils: Equal, round and reactive pupils present and Pupil accommodation reflex normal Direct Ophthalmoscopy: normal light reflex Neck Neck: No lymphadenopathy Thyroid: Thyroid normal Chest Chest palpation & inspection: normal inspection of the chest Resp Effort & Inspection: normal respiratory effort and no audible wheezes Auscultation: clear to auscultation bilaterally, no crackles, no wheezes and lung sounds not diminished Cardio Rate: regular rate Rhythm: regular rhythm Peripheral pulses: radial pulses present and dorsalis pedis present GI Other: decline Palpation (GI): no masses Auscultation: normal bowel sounds and normoactive bowel sounds Rectal Exam - Female: deferred Skin General skin exam: no rashes or lesions noted Rashes: no rashes Neuro General: No confusion Cranial nerves: Yes Equal, round and reactive pupils present and Yes Normal hearing present Cognition (Neuro): normal cognition Gait exam (Neuro): Normal gait present Motor exam (neuro): 5/5 motor strength present throughout Deep tendon reflexes (DTR's): Right brachioradialis reflex intensity grade: 2+, Left brachioradialis reflex intensity grade: 2+, Right patellar reflex intensity grade: 2+ and Left patellar reflex intensity grade: 2+ Extrem Other: leg edema General: Yes edema Assessment and Plan Assessment & Plan (1) Annual physical exam: Code(s): Z00.00 - Encounter for general adult medical examination without abnormal findings (2) Bladder cancer: Comment: Dr. Hicks 1994 no chemo/radio Q other year cysto and the last cysto 2022 Code(s): C67.9 - Malignant neoplasm of bladder, unspecified Qualifiers: Bladder location: unspecified site Qualified Code(s): C67.9 - Malignant neoplasm of bladder, unspecified Plan: Patient is under surveillance with the urologist doing cystoscopy (3) Obesity: Code(s): E66.9 - Obesity, unspecified Qualifiers: Obesity type: due to excess calories Obesity classification: adult class 3 (BMI >= 40) Serious obesity comorbidity presence: with serious comorbidity Body mass index: BMI 40.0-44.9 Qualified Code(s): E66.01 - Morbid (severe) obesity due to excess calories; Z68.41 - Body mass index [BMI]40.0- 44.9, adult Plan: Diet and exercise (4) Uric acid kidney stone: Code(s): N20.0 - Calculus of kidney Plan: Patient has been getting potassium citrate and and lemon with decrease in stone burden (5) Hypertension: Code(s): I10 - Essential (primary) hypertension Qualifiers: Hypertension type: essential hypertension Qualified Code(s): I10 - Essential (primary) hypertension Plan: Continue with blood pressure medication. Decrease salt intake and exercise on lisinopril hydrochlorothiazide (6) Hypercholesteremia: Code(s): E78.00 - Pure hypercholesterolemia, unspecified Plan: On Zetia presently (7) GERD (gastroesophageal reflux disease): Code(s): K21.9 - Gastro-esophageal reflux disease without esophagitis Qualifiers: Esophagitis presence: without esophagitis Qualified Code(s): K21.9 - Gastro-esophageal reflux disease without esophagitis Plan: Avoid the foods that causes that usually spicy foods, tomato products, juices, coffee, soda and foods that your sensitive to. After eating do not lie down, allow 3-4 hours before in lie down. And keep the head of bed above 30 degrees to avoid the acid from going up. (8) Osteopenia: Code(s): M85.80 - Other specified disorders of bone density and structure, unspecified site Plan: Bone density done in October 2021. (9) Impaired fasting blood sugar: Code(s): R73.01 - Impaired fasting glucose Plan: Decrease the amount of carbohydrate intake, pasta, bread, rice and potatoes are all sugar and that is aside from all the sweet stuff, remember that fruits are good but they are Sweet also. (10) Vitamin D deficiency: Code(s): E55.9 - Vitamin D deficiency, unspecified Plan: Continue with vitamin-D (11) Left leg DVT: Comment: 10/2019, November 2022 stopped (12/2023) Code(s): I82.402 - Acute embolism and thrombosis of unspecified deep veins of left lower extremity Qualifiers: Affected thrombotic vein of extremity: popliteal Chronicity: chronic Qualified Code(s): I82.532 - Chronic embolism and thrombosis of left popliteal vein Plan: Continue with anticoagulation Orders: Orders Hemoglobin A1c 6 Months R73.01 - Impaired fasting glucose Complete Blood Count Auto Diff 6 Months E78.00 - Pure hypercholesterolemia, unspecified Vitamin B12 and Folate 6 Months E78.00 - Pure hypercholesterolemia, unspecified Thyroid Stimulating Hormone 6 Months E78.00 - Pure hypercholesterolemia, unspecified Vitamin D 25-OH Total 6 Months E78.00 - Pure hypercholesterolemia, unspecified Uric Acid 6 Months N20.0 - Calculus of kidney C Reactive Protein 6 Months N20.0 - Calculus of kidney Comprehensive Met. Panel 6 Months R73.01 - Impaired fasting glucose Lipid Panel 6 Months E78.00 - Pure hypercholesterolemia, unspecified Free T4 (Free Thyroxine) 6 Months E78.00 - Pure hypercholesterolemia, unspecified Erythrocyte Sedimentation Rate 6 Months N20.0 - Calculus of kidney Coding Level of Care Code Est Pt Prev Care >65y(77200) Diagnoses Annual physical exam Z00.00 Malignant neoplasm of urinary bladder, unspecified site C67.9 Bladder location: unspecified site Class 3 severe obesity due to excess calories with serious comorbidity and body mass index (BMI) of 40.0 to 44.9 in adult E66.01; Z68.41 Obesity type: due to excess calories Obesity classification: adult class 3 (BMI >= 40) Serious obesity comorbidity presence: with serious comorbidity Body mass index: BMI 40.0-44.9 Uric acid kidney stone N20.0 Essential hypertension I10 Hypertension type: essential hypertension Hypercholesteremia E78.00 Gastroesophageal reflux disease without esophagitis K21.9 Esophagitis presence: without esophagitis Osteopenia M85.80 Impaired fasting blood sugar R73.01 Vitamin D deficiency E55.9 Chronic deep vein thrombosis (DVT) of popliteal vein of left lower extremity I82.532 Affected thrombotic vein of extremity: popliteal Chronicity: chronic
== END 2023-12-21 09:35 | disposition home or self-care (01) ==
PROVIDERS: Visit Provider Internal Medicine
DX: Z00.00 Encounter for general adult medical examination without abnormal findings (principal); C67.9 Malignant neoplasm of bladder, unspecified; E66.01 Morbid (severe) obesity due to excess calories; Z68.41 Body mass index [BMI] 40.0-44.9, adult; I82.532 Chronic embolism and thrombosis of left popliteal vein; N20.0 Calculus of kidney; I10 Essential (primary) hypertension; E78.00 Pure hypercholesterolemia, unspecified; K21.9 Gastro-esophageal reflux disease without esophagitis; M85.80 Other specified disorders of bone density and structure, unspecified site; R73.01 Impaired fasting glucose; E55.9 Vitamin D deficiency, unspecified
CPT/HCPCS: 99397

== ENCOUNTER 2023-12-25 14:16 | Outpatient (REF) | payer MEDICARE, SELFPAY ==
--- NOTE | ~2023-12-25 | MM_ITS ---
EXAMINATION: MM DIAGNOSTIC DIGITAL BREAST TOMOSYNTHESIS, LEFT CLINICAL INFORMATION: Diagnostic views for follow-up of somewhat linear focal asymmetry upper outer left breast seen on most recent screening exam. COMPARISON: Mammography: 11/19/2023, and dating back to 2019. TECHNIQUE: Digital breast tomosynthesis is performed. 2D images are generated from the tomosynthesis. The following views are obtained: Full-field left 3-D mediolateral view, and spot compression 3-D left MLO and CC views were obtained. FINDINGS: There are scattered areas of fibroglandular density (ACR BI-RADS breast composition Category b). Additional views demonstrate stability of the linear focal asymmetry in question in the upper outer left breast, which appears unchanged from exams dating back to 2019 both on compression spot views and on full-field left ML view. This finding is benign. No further follow-up is required. There are a few vascular and dystrophic calcifications in the left breast. A few scattered skin calcifications are noted as well. There is a skin lesion in the upper outer left breast. There is no axillary abnormality. MM/MM tomosynthesis added views L IMPRESSION: No findings suspicious for malignancy in the left breast. Additional diagnostic views demonstrate stability of the linear-type asymmetry in the upper outer left breast, unchanged from 2019, and representing normal island of linear breast tissue. There are additional benign findings in the left breast. Recommend the patient resume routine annual screening mammography. ASSESSMENT: BI-RADS BI-RADS 2 - Benign Findings RECOMMENDATION: 1 year F/U Results were provided to the patient at time of visit by the technologist. This patient's information was entered into a reminder system with a target due date for their next mammogram.
== END 2023-12-25 14:17 | disposition home or self-care (01) ==
LOC: HO.MAMMO 14:16
PROVIDERS: PCP Internal Medicine; Visit Provider Internal Medicine
DX: N64.89 Other specified disorders of breast (principal)
CPT/HCPCS: 77061; 77065

== ENCOUNTER → 2023-12-25 14:30 | Outpatient (BNV) | payer MEDICARE, SELFPAY | PROVIDERS: PCP Internal Medicine; Visit Provider Radiology Diagnostic Radiology | DX: R92.1 Mammographic calcification found on diagnostic imaging of breast (principal) | CPT/HCPCS: 77065; G0279 ==

== ENCOUNTER 2024-04-28 07:44 | Outpatient (REF) | payer MEDICARE, SELFPAY ==
--- NOTE | ~2024-04-28 | US_ITS ---
EXAMINATION: US RETROPERITONEAL LIMITED (RENAL ONLY) CLINICAL INFORMATION: Calculus kidney. COMPARISON: Renal ultrasound 10/16/2023 and 03/12/2023. CT abdomen and pelvis 01/27/2022. X-ray KUB 01/27/2015. TECHNIQUE: Real-time imaging of the kidneys. FINDINGS: RIGHT KIDNEY: 11.5 x 5.5 x 4.5 cm (SAG x AP x TRV). The kidney is normal in size, contour, and echogenicity. Renal cortical thickness is normal. No hydronephrosis. Benign-appearing renal cysts measuring up to 2 cm. No follow-up imaging is recommended. 3 mm nonobstructing lower pole renal stone, previously 6 mm. Other previously seen stones are not identified with certainty. LEFT KIDNEY: 11.6 x 6.1 x 4.5 cm (SAG x AP x TRV). The kidney is normal in size, contour, and echogenicity. Renal cortical thickness is normal. No hydronephrosis. Benign-appearing renal cysts measuring up to 2.8 cm. No follow-up imaging is recommended. 2 nonobstructing stones measuring up to 8 mm in the upper pole, not previously seen. Other previously seen stones are not identified with certainty. US/US renal BI IMPRESSION: Bilateral nonobstructing renal stones measuring up to 8 mm in the left upper pole, as detailed above.
== END 2024-04-28 07:45 | disposition home or self-care (01) ==
LOC: HO.US 07:44
PROVIDERS: PCP Internal Medicine; Visit Provider Urology
DX: N20.0 Calculus of kidney (principal)
CPT/HCPCS: 76775

== ENCOUNTER 2024-05-04 08:42 | Outpatient (REF) | payer MEDICARE, SELFPAY ==
[2024-05-04 17:08] LABS: Urine Cytology See Pathology rpt
== END 2024-05-04 08:43 | disposition home or self-care (01) ==
LOC: HO.LAB 08:42
PROVIDERS: PCP Internal Medicine; Visit Provider Urology
DX: N39.0 Urinary tract infection, site not specified (principal); R35.0 Frequency of micturition; C67.9 Malignant neoplasm of bladder, unspecified; N20.0 Calculus of kidney
CPT/HCPCS: 52000; 81003; 88112; 99212

== ENCOUNTER 2024-05-04 08:42 | Outpatient (AMB) | payer MEDICARE, SELFPAY ==
--- NOTE | 2024-05-04 08:47 | A.OFFVIS_ITS ---
Intake Visit Reasons: 6M Cysto(Bladder Ca) Intake Note: Patient is present for 6M Cystoscopy Urology Medication:PYRIDOXINE Antibiotic Allergy:ERYTHROMYCIN Blood Thinner:NONE Lot:[id number] Exp:11/26/2026 Demolition Expert Required: No Allergies erythromycin base [ERYTHROMYCIN BASE] Allergy (Severe, Verified 05/04/24 08:55) BODY ACHES morphine [MORPHINE] Allergy (Severe, Verified 05/04/24 08:55) HALLUCINATIONS Jwignry-XLM-SiO Reductase Inhibitor [ZFMSAOQ-XVA-TES REDUCTASE INHIBITOR] Allergy (Severe, Verified 05/04/24 08:55) ALTERED MENTAL STATUS adhesive tape Allergy (Intermediate, Verified 05/04/24 08:55) BLISTERS omeprazole [From PRILOSEC] Adverse Reaction (Intermediate, Verified 05/04/24 08:55) DIARRHEA hospital sheets Allergy (Mild, Uncoded 05/04/24 08:55) years ago-caused itching Medication List - Last Reconciled 05/04/24 by Ashvin Arellano MD acetaminophen 1,000 mg (2 x 500 mg) PO TID PRN albuterol sulfate 90 mcg/actuation (ProAir HFA) 2 puffs inhalation Q4-6H PRN cholecalciferol (vitamin D3) (Vitamin D3) 50 mcg PO DAILY diclofenac sodium 1% (Arthritis Pain (diclofenac)) 4 grams topical QID ezetimibe (Zetia) 10 mg PO DAILY 90 days lisinopril-hydrochlorothiazide 20-25 mg 1 tab PO DAILY loratadine (Claritin) 10 mg PO DAILY meloxicam 15 mg PO DAILY potassium citrate ER 10 mEq PO BID 90 days pyridoxine (vitamin B6) 50 mg PO DAILY 90 days HPI Comments Details: Charlette is a pleasant female. She is a patient of Dr. Evans. She is seen for the following urologic conditions - bladder cancer - nephrolithiasis Six-month follow-up Continued reduction in stone burden on ultrasound Recommend continued use of potassium citrate and lemon juice Check kidney stone burden in 12 months Bladder Cancer Diagnosed 1994 Low-grade superficial Negative in prior surveillance cystoscopy Currently in check every 2 years Cystoscopy - 05/01 NAD, 05/03 NAD, 05/04 NAD Nephrolithiasis 07/03 uric acid 50% Known stone former Current therapy b.i.d. 10 mEq potassium citrate vitamin B6 Imaging - 04/29 renal ultrasound bilateral 9 mm stones - 05/01 renal ultrasound bilateral cysts, right 1.2 cm stone, left 8 mm stone - 09/02 renal ultrasound bilateral cysts, significant decrease stone burden 3 mm stones bilateral - 04/03 renal ultrasound, bilateral cysts stable, increased stone burden left side up to 12 mm - 10/03 renal ultrasound significant reduction in stone burden - 05/04 renal ultrasound right 3 mm, left 6 mm. This is significantly down over 1 year Prior interventions - ureteroscopy and ESWL - 07/03 R USR Stone composition - 07/03 uric acid 50%, calcium oxalate Urinary frequency and urgency Prior oral medications Prior discussion regarding tibial stimulation [facility] Medical History (Updated 12/21/23 @ 09:11 by Maria De Jesus Evans MD) Allergic rhinitis Dislocation of right shoulder joint Right rotator cuff tear Cervical radiculopathy Renal calculus, bilateral Obesity Carpal tunnel syndrome, left Left leg DVT GERD (gastroesophageal reflux disease) Post herpetic neuralgia Bladder cancer Hypercholesteremia Hypertension Surgical History Hx of cystoscopy History of carpal tunnel surgery of left wrist H/O shoulder replacement History of hip replacement History of lithotripsy History of cystoscopy History of cholecystectomy History of knee replacement procedure of right knee History of knee replacement procedure of left knee History of appendectomy History of total abdominal hysterectomy and bilateral salpingo-oophorectomy History of lumpectomy of left breast History of lumpectomy of right breast Family History Father Cancer Mother CVD (cardiovascular disease) Cerebral hemorrhage Brain aneurysm Brother CAD (coronary artery disease) Sister CVD (cardiovascular disease) Cancer Lung cancer Cerebral hemorrhage Sister Cancer Lung cancer Social History (Updated 12/21/23 @ 09:09 by Maria De Jesus Evans MD) Household Members: Spouse Housing: House Are you a primary wound care technician to a significant other at home: No Do you presently have visiting nurse or other home services: No Alcohol intake: current Alcohol intake frequency: holidays/special occasions only Comment: twice a month 2 drinks Patient Tobacco Use Status: Never used Tobacco e-Cigarette/Vaping Use: Never Used Second Hand Smoke Exposure: No service: No Current occupational status: employed and retired Cognitive needs: No Hearing needs: No Vision needs: Yes Review of Systems Const Denies chills and Denies fever(s) Card Reports no additional complaints and Denies syncope Resp Denies cough GI Denies abdominal pain and Denies heartburn Reports as per HPI and Denies change in libido Neuro Denies syncope Psych Denies change in libido Endo Denies change in libido Physical Exam Const General: cooperative, healthy appearing, comfortable and no acute distress Orientation/consciousness: patient oriented x3 HEENT Face and sinus: Yes normal facial exam Mouth: moist mucous membranes Neck Neck: Yes normal visual inspection, Yes full ROM and Yes trachea midline Chest Chest palpation & inspection: normal inspection of the chest Resp Effort & Inspection: normal respiratory effort, able to speak in complete sentences and no respiratory distress GI Inspection: Yes normal to inspection Back/Spine/Pelvis Cervical Spine: normal cervical lordosis Thoracic/Lumbar Spine: thoracic and lumbar spine normal to inspection Skin General skin exam: no rashes or lesions noted Neuro General: patient oriented x3, gait normal, tone normal and moves all extremities Extrem General: Yes normal to inspection and Yes capillary refill normal Office Procedures Cystoscopy Consent Discussed risk and benefit or proposed procedure with the patient. Information consent for procedure given to the patient. Discussed technical aspects, risks, benefits and alternatives in full. Addressed all of the patient's questions and concerns regarding the procedure. The patient demonstrated knowledge and understanding. They wish to proceed with this procedure. Preparation The patient was prepped in the usual manner. A contract specialist was present and in the room. Genitalia was prepped with betadine solution in a sterile manner. Lidocaine Jelly 2% was placed into the urethra and 16Fr flexible Olympus cystoscope was inserted into the meatus after adequate lubrication. Procedure Meatus normal Urethra normal Bladder examination with retroflexion of cystoscope Bladder Orifices normal shape and position Trigone normal Bladder Capacity median Trabeculations - Cellule Formation - Diverticulum Formation - Mucosal Erythema - Bladder Tumor - [id number] DISPOSABLE SCOPE URO-G FLEXIBLE SCOPE Procedure code (CPT) selection complete Office Meds lidocaine HCl 2 % mucosal jelly in applicator Performing Provider: Ashvin Arellano MD [facility] Administered by: Miguel Maher RN on 05/04/24 09:20 Dose Route Admin Location Dispensed Lot Number Expiration Date [facility] Stone Sandblaster 10 mL intra-urethral 10 mL nitrofurantoin monohydrate/macrocrystals 100 mg capsule Performing Provider: Ashvin Arellano MD Performing Location: [facility] Administered by: Miguel Maher RN on 05/04/24 09:20 Dose Route Admin Location Dispensed Lot Number Expiration Date NDC Stone Sandblaster 100 mg PO 1 cap naproxen 500 mg tablet Performing Provider: Ashvin Arellano MD Performing Location: [facility] Administered by: Miguel Maher RN on 05/04/24 09:20 Dose Route Admin Location Dispensed Lot Number Expiration Date NDC Stone Sandblaster 500 mg PO 1 tab Results AMB Urinalysis, Automated UA Leukoctes 70 Anali/uL Last Edit by PAUL Vila on 05/04/24 09:09 UA Nitrite Negative Last Edit by PAUL Vila on 05/04/24 09:09 UA Urobilinogen 0.2 mg/dL Last Edit by PAUL Vila on 05/04/24 09:0 9 UA Protein 15 mg/dL Last Edit by PAUL Vila on 05/04/24 09:09 UA pH 5.5 Last Edit by PAUL Vila on 05/04/24 09:09 UA Blood 200 Jeremy/uL Last Edit by PAUL Vila on 05/04/24 09:09 UA Specific [place] 1.015 Last Edit by PAUL Vila on 05/04/24 09: 09 UA Ketone Negative Last Edit by PAUL Vila on 05/04/24 09:09 UA Bilirubin 0 mg/dL Last Edit by PAUL Vila on 05/04/24 09:09 UA Glucose 0 mg/dL Last Edit by PAUL Vila on 05/04/24 09:09 Results Reviewed Results Reviewed: Laboratory Last Values Urine pH (Auto) 5.5 05/04/24 09:08 Specific [place] (Auto) 1.015 05/04/24 09:08 Urine Protein (Auto) 15 mg/dL 05/04/24 09:08 Glucose (UA)(Auto) 0 mg/dL 05/04/24 09:08 Urine Ketones (Auto) Negative 05/04/24 09:08 Urine Blood (Auto) 200 Jeremy/uL 05/04/24 09:08 Urine Nitrite (Auto) Negative 05/04/24 09:08 Urine Bilirubin (Auto) 0 mg/dL 05/04/24 09:08 Urine Urobilinogen (Auto) 0.2 mg/dL 05/04/24 09:08 Leukocyte Esterase (Auto) 70 Anali/uL 05/04/24 09:08 Assessment & Plan Assessment & Plan (1) Bladder cancer: Comment: Dr. Hicks 1994 no chemo/radio Q other year cysto and the last cysto 2022 Code(s): C67.9 - Malignant neoplasm of bladder, unspecified Category: Medical Qualifiers: Bladder location: unspecified site Qualified Code(s): C67.9 - Malignant neoplasm of bladder, unspecified (2) Uric acid kidney stone: Code(s): N20.0 - Calculus of kidney Category: Medical Plan Renew potassium citrate and vitamin B6 Twelve month follow-up renal ultrasound Orders: Orders AMB Urinalysis Automated Today Z13.9 - Encounter for screening, unspecified Urine Cytology Today N39.0 - Urinary tract infection, site not specified AMB Cystoscopy Today C67.9 - Malignant neoplasm of bladder, unspecified Medications: New potassium citrate ER 10 mEq PO BID 90 days 180 tabs 1RF N20.0 - Calculus of kidney Changed From pyridoxine (vitamin B6) 1 tab PO DAILY N20.0 - Calculus of kidney To pyridoxine (vitamin B6) 50 mg PO DAILY 90 days 90 tabs 3RF N20.0 - Calculus of kidney Patient Instructions: Imaging studies, laboratory and physical exam results were discussed and reviewed in detail. No major barriers to patient understanding were identified. An opportunity to ask questions regarding the treatment plan was provided. All questions were answered. The patient expressed understanding and agreement with the above treatment plan. The patient is aware they should contact our office by phone for worsening of their current condition or the appearance of new urologic symptoms. Compliance is encouraged with any medications and followup testing that is ordered. It is a privilege to participate in the urologic care of your patient. If you have any questions or concerns regarding treatment for the above conditions, or other urologic issues, please do not hesitate to contact me. The office telephone contact is [phone]. This note is constructed using voice recognition software. While every effort has been made to ensure accuracy batch heat treat operator errors may have been included. Yours sincerely, Dr Ashvin Arellano MD, [facility] - Urology Providers of Expert, Compassionate Care for the Genitourinary System Coding Level of Care Code Est Pt Level 4 (68627) Diagnoses Malignant neoplasm of urinary bladder, unspecified site C67.9 Bladder location: unspecified site Uric acid kidney stone N20.0 CPT Codes Cystoscopy - CPT: 97705-[id number] ([id number])
== END 2024-05-04 09:44 | disposition home or self-care (01) ==
PROVIDERS: PCP Internal Medicine; Visit Provider Urology
DX: N20.0 Calculus of kidney (principal); Z85.51 Personal history of malignant neoplasm of bladder; Z13.9 Encounter for screening, unspecified
CPT/HCPCS: 52000; 99214

== ENCOUNTER 2024-06-22 08:21 | Outpatient (AMB) | payer MEDICARE, SELFPAY ==
[2024-06-22 08:24] VITALS: BP 130/70; PULSE 52; O2SAT 97; BMI 37.4
--- NOTE | 2024-06-22 08:24 | MHC.PC.OV ---
Vital Signs 06/22/24 08:24 Height 5 ft 4 in Weight 218 lb BMI 37.4 BP 130/70 Blood Pressure Location Lt brachial Position Sitting Pulse 52 Pulse Source Pulse Oximeter Pulse Oximetry (%) 97 Oxygen Delivery Method Room Air Intake Visit Reasons: 6mth f/u Intake Note: Requesting refill on lisinopril. Allergies erythromycin base [ERYTHROMYCIN BASE] Allergy (Severe, Verified 06/22/24 08:24) BODY ACHES morphine [MORPHINE] Allergy (Severe, Verified 06/22/24 08:24) HALLUCINATIONS Roudoji-RDQ-JiD Reductase Inhibitor [PBKOGTM-BKD-ZKC REDUCTASE INHIBITOR] Allergy (Severe, Verified 06/22/24 08:24) ALTERED MENTAL STATUS adhesive tape Allergy (Intermediate, Verified 06/22/24 08:24) BLISTERS omeprazole [From PRILOSEC] Adverse Reaction (Intermediate, Verified 06/22/24 08:24) DIARRHEA hospital sheets Allergy (Mild, Uncoded 06/22/24 08:24) years ago-caused itching Medication List - Last Reconciled 06/22/24 by Maria De Jesus Evans MD acetaminophen 1,000 mg (2 x 500 mg) PO TID PRN albuterol sulfate 90 mcg/actuation (ProAir HFA) 2 puffs inhalation Q4-6H PRN cholecalciferol (vitamin D3) (Vitamin D3) 50 mcg PO DAILY diclofenac sodium 1% (Arthritis Pain (diclofenac)) 4 grams topical QID ezetimibe (Zetia) 10 mg PO DAILY 90 days fluticasone propionate 50 mcg/actuation (Flonase Allergy Relief) 2 sprays intranasal DAILY lisinopril-hydrochlorothiazide 20-25 mg 1 tab PO DAILY loratadine (Claritin) 10 mg PO DAILY meloxicam 15 mg PO DAILY potassium citrate ER 10 mEq PO BID 90 days pyridoxine (vitamin B6) 50 mg PO DAILY 90 days Tobacco use date assessed: 12/21/23 Fall risk assessment: No Falls in past year Last assessed Fall Risk: 06/22/24 Dental Screening Dental Screen Date: 12/21/23 HPI 6mth f/u HPI Details 79-year-old obese female with a history of bladder cancer, history of left leg DVT nephrolithiasis hypertension hypercholesterolemia GERD impaired glucose tolerance last seen in 12/30/2023 . Review of the notes has been follow-up with urology on potassium citrate lemon juice last renal ultrasound in April showing right 3 mm left 6 mm. Continue to follow-up. On vitamin B6, potassium citrate 10 mEq twice a day. Patient also had some blood work done 04/27/2024 normal blood count normal liver function test creatinine normal seen Rheumatology in April due to shoulder pain on meloxicam and diclofenac gel. Patient is not able to take the potassium regularly. chest pressure no relation but on inhaler andnhelps [facility] Medical History (Updated 06/22/24 @ 08:44 by Maria De Jesus Evans MD) Arthritis Renal calculus, bilateral Varicose veins of left lower extremity with inflammation Annual physical exam DVT (deep venous thrombosis) Left leg swelling Preop exam for internal medicine Tinnitus Encounter for annual wellness visit (AWV) in Medicare patient Stress incontinence Calculus of proximal right ureter Preop exam for internal medicine Allergic rhinitis Dislocation of right shoulder joint Right rotator cuff tear Cervical radiculopathy Obesity Carpal tunnel syndrome, left Left leg DVT GERD (gastroesophageal reflux disease) Post herpetic neuralgia Bladder cancer Hypercholesteremia Hypertension Surgical History Hx of cystoscopy History of carpal tunnel surgery of left wrist H/O shoulder replacement History of hip replacement History of lithotripsy History of cystoscopy History of cholecystectomy History of knee replacement procedure of right knee History of knee replacement procedure of left knee History of appendectomy History of total abdominal hysterectomy and bilateral salpingo-oophorectomy History of lumpectomy of left breast History of lumpectomy of right breast Family History Father Cancer Mother CVD (cardiovascular disease) Cerebral hemorrhage Brain aneurysm Brother CAD (coronary artery disease) Sister CVD (cardiovascular disease) Cancer Lung cancer Cerebral hemorrhage Sister Cancer Lung cancer Social History (Updated 12/21/23 @ 09:09 by Maria De Jesus Evans MD) Household Members: Spouse Housing: House Are you a primary skin care specialist to a significant other at home: No Do you presently have visiting nurse or other home services: No Alcohol intake: current Alcohol intake frequency: holidays/special occasions only Comment: twice a month 2 drinks Patient Tobacco Use Status: Never used Tobacco Tobacco use type: Cigarette e-Cigarette/Vaping Use: Never Used Second Hand Smoke Exposure: No service: No Current occupational status: employed and retired Cognitive needs: No Hearing needs: No Vision needs: Yes Questionnaire PHQ-9 Over the last 2 weeks, how often have you been bothered by any of the following problems? 1. Little interest or pleasure in doing things: not at all 2. Feeling down, depressed, or hopeless: not at all 3. Trouble falling or staying asleep, or sleeping too much: not at all 4. Feeling tired or having little energy: not at all 5. Poor appetite or overeating: not at all 6. Feeling bad about yourself - or that you are a failure or have let yourself or your family down: not at all 7. Trouble concentrating on things, such as reading the newspaper or watching television: not at all 8. Moving or speaking so slowly that other people could have noticed. Or the opposite - being so fidgety or restless that you have been moving around a lot more than usual: not at all 9. Thoughts that you would be better off or of hurting yourself in some way: not at all Total score: 0 Depression Screening Interpretation: Negative Depression Screening Done: Yes 22367 - PHQ-9 Billing: Yes Source: Developed by Drs. Ubaldo Zepeda, Derrek Dickerson and colleagues, with an educational lucila from [employer]. Thrive Questionnaire Date Thrive assessed: 12/21/23 AUDIT C Alcohol Use Questionnaire (AUDIT-C) 1. How often do you have a drink containing alcohol?: 2-4 times a month 2. How many drinks containing alcohol do you have on a typical day when you are drinking?: 1 or 2 3. How often do you have six or more drinks on one occasion?: Never Total Score: 2 Score Reviewed/Action Taken: No ANDREW-7 AMB Questionnaire ANDREW-7 Date ANDREW - 7 assessed: 12/21/23 Source: Developed by Drs. Ubaldo Zepeda, Derrek Dickerson and colleagues, with an educational lucila from [employer]. Physical exam (Primary Care) Vital Signs: Last Vital Signs Pulse 52 06/22/24 08:24 BP 130/70 06/22/24 08:24 Pulse Ox 97 06/22/24 08:24 Oxygen Delivery Method Room Air 06/22/24 08:24 BMI result Body Mass Index 37.4 Tobacco/Smoking Status: Tobacco use Status Tobacco use date assessed 12/21/23 06/22/24 08:35 Patient Tobacco Use Status Never used Tobacco 06/22/24 08:35 Tobacco use type Cigarette 06/22/24 08:35 e-Cigarette/Vaping Use Never Used 06/22/24 08:35 PHQ-9: PHQ-9 Score PHQ-9: Total score 0 06/22/24 08:35 Depression Screening Interpretation: Negative Thrive Assessment: Date of Thrive Assessment Date Thrive assessed 12/21/23 06/22/24 08:35 Const General: alert; No acute distress Eyes Conjunctivae: conjunctivae normal Resp Auscultation: clear to auscultation bilaterally Cardio Rate: regular rate Rhythm: regular rhythm GI Inspection: Yes normal to inspection Extrem General: Yes normal to inspection and No edema Assessment and Plan Assessment & Plan (1) Uric acid kidney stone: Code(s): N20.0 - Calculus of kidney Plan: Continue to be followed up by Urology, keep well hydrated patient on vitamin B6 potassium citrate (2) Obesity: Code(s): E66.9 - Obesity, unspecified Qualifiers: Obesity type: due to excess calories Obesity classification: adult class 3 (BMI >= 40) Serious obesity comorbidity presence: with serious comorbidity Body mass index: BMI 40.0-44.9 Qualified Code(s): E66.01 - Morbid (severe) obesity due to excess calories; Z68.41 - Body mass index [BMI]40.0-44.9, adult Plan: Continue with diet (3) GERD (gastroesophageal reflux disease): Code(s): K21.9 - Gastro-esophageal reflux disease without esophagitis Qualifiers: Esophagitis presence: without esophagitis Qualified Code(s): K21.9 - Gastro-esophageal reflux disease without esophagitis Plan: Avoid the foods that causes that usually spicy foods, tomato products, juices, coffee, soda and foods that your sensitive to. After eating do not lie down, allow 3-4 hours before in lie down. And keep the head of bed above 30 degrees to avoid the acid from going up. (4) Hypercholesteremia: Code(s): E78.00 - Pure hypercholesterolemia, unspecified Plan: Avoid fried foods, chicken skin, eggs, butter margarine, pastries and meat. Be it pork or beef they have a lot of cholesterol 09/30/2023 last blood work on Zetia 10 mg once a day (5) Hypertension: Code(s): I10 - Essential (primary) hypertension Qualifiers: Hypertension type: essential hypertension Qualified Code(s): I10 - Essential (primary) hypertension Plan: Continue with blood pressure medication. Decrease salt intake and exercise continuing with lisinopril hydrochlorothiazide 20/25 mg once a day (6) Impaired fasting blood sugar: Code(s): R73.01 - Impaired fasting glucose Plan: Decrease the amount of carbohydrate intake, pasta, bread, rice and potatoes are all sugar and that is aside from all the sweet stuff, remember that fruits are good but they are Sweet also. (7) Vitamin D deficiency: Code(s): E55.9 - Vitamin D deficiency, unspecified Plan: Vitamin-D 2000 units once a day (8) Allergic rhinitis: Code(s): J30.9 - Allergic rhinitis, unspecified Qualifiers: Allergic rhinitis trigger: unspecified Allergic rhinitis seasonality: unspecified Qualified Code(s): J30.9 - Allergic rhinitis, unspecified (9) Arthritis: Code(s): M19.90 - Unspecified osteoarthritis, unspecified site Medications: New fluticasone propionate 50 mcg/actuation (Flonase Allergy Relief) administer into each nostril 2 sprays intranasal DAILY 16 grams 12RF J30.9 - Allergic rhinitis, unspecified diclofenac sodium 1% (Arthritis Pain (diclofenac)) apply to single knee, ankle, foot; for foot includes sole/toes/top of foot 4 grams topical QID 300 grams 6RF M19.90 - Unspecified osteoarthritis, unspecified site Refilled lisinopril-hydrochlorothiazide 20-25 mg 1 tab PO DAILY 90 tabs 3RF I10 - Essential (primary) hypertension Coding Level of Care Code Est Pt Level 4 (84678) Diagnoses Uric acid kidney stone N20.0 Class 3 severe obesity due to excess calories with serious comorbidity and body mass index (BMI) of 40.0 to 44.9 in adult E66.01; Z68.41 Obesity type: due to excess calories Obesity classification: adult class 3 (BMI >= 40) Serious obesity comorbidity presence: with serious comorbidity Body mass index: BMI 40.0-44.9 Gastroesophageal reflux disease without esophagitis K21.9 Esophagitis presence: without esophagitis Hypercholesteremia E78.00 Essential hypertension I10 Hypertension type: essential hypertension Impaired fasting blood sugar R73.01 Vitamin D deficiency E55.9 Allergic rhinitis, unspecified seasonality, unspecified trigger J30.9 Allergic rhinitis trigger: unspecified Allergic rhinitis seasonality: unspecified Arthritis M19.90
== END 2024-06-22 09:00 | disposition home or self-care (01) ==
PROVIDERS: PCP Internal Medicine; Visit Provider Internal Medicine
DX: N20.0 Calculus of kidney (principal); E66.01 Morbid (severe) obesity due to excess calories; Z68.41 Body mass index [BMI] 40.0-44.9, adult; K21.9 Gastro-esophageal reflux disease without esophagitis; E78.00 Pure hypercholesterolemia, unspecified; I10 Essential (primary) hypertension; R73.01 Impaired fasting glucose; E55.9 Vitamin D deficiency, unspecified; J30.9 Allergic rhinitis, unspecified; M19.90 Unspecified osteoarthritis, unspecified site
CPT/HCPCS: 99214

== ENCOUNTER 2024-11-15 17:33 | Outpatient (AMB) | payer MEDICARE, SELFPAY ==
--- NOTE | 2024-11-15 17:34 | MHC.PC.OV ---
Intake Visit Reasons: COVID Pos. Allergies erythromycin base [ERYTHROMYCIN BASE] Allergy (Severe, Verified 11/15/24 17:35) BODY ACHES morphine [MORPHINE] Allergy (Severe, Verified 11/15/24 17:35) HALLUCINATIONS Sjidtle-QLC-VaO Reductase Inhibitor [OINNDAB-LYC-GPV REDUCTASE INHIBITOR] Allergy (Severe, Verified 11/15/24 17:35) ALTERED MENTAL STATUS adhesive tape Allergy (Intermediate, Verified 11/15/24 17:35) BLISTERS omeprazole [From PRILOSEC] Adverse Reaction (Intermediate, Verified 11/15/24 17:35) DIARRHEA hospital sheets Allergy (Mild, Uncoded 11/15/24 17:35) years ago-caused itching Tobacco use date assessed: 12/21/23 Fall risk assessment: No Falls in past year Last assessed Fall Risk: 11/15/24 Dental Screening Dental Screen Date: 12/21/23 HPI COVID Pos. HPI Details 3 days ago started having the problem of scratchy throat, chills and fevers. The patient is a 79-year-old female presenting with COVID-19 infection management. She tested positive for COVID-19 yesterday morning after experiencing a severe sore throat affecting her ability to speak, indicating the onset of the infection. The patient reported initial symptoms beginning after contact on with an individual with confirmed COVID-19 and noted feeling unusually cold at an event on Thursday, which might have coincided with the onset of fever. She described her sore throat as severe initially, which improved by the time of the consultation, now allowing her to swallow solid food. Additionally, she experienced a cough primarily when attempting to clear her throat and found relief using hot beverages. She denied any significant hydration issues, as she continued to drink fluids that soothed her symptoms. The patient's history includes obesity, essential hypertension, hypercholesterolemia, GERD, bladder cancer history (1994), nephrolithiasis, mixed incontinence, impaired glucose tolerance, and recurrent major depressive disorder. She has been managing postnasal drip using Diphenhydramine at night to aid sleep, and she uses Tylenol for symptomatic relief. The goal of the management during this visit was to shorten the duration of infectivity with antiviral treatment due to her living with family, including vulnerable individuals. - Respiratory: Reports dry cough with throat clearing, worse initially. - ENT: Reports severe sore throat, improving. - General: Reports feeling unusually cold during onset. Denies significant fever now. - Gastrointestinal: Denies issues with nausea or vomiting. - Hydration: Reports adequate hydration with warm fluids. - General Well-being: Reports better today with the ability to swallow solid food. [facility] Medical History (Updated 11/15/24 @ 17:50 by Maria De Jesus Evans MD) Arthritis Renal calculus, bilateral Varicose veins of left lower extremity with inflammation Annual physical exam DVT (deep venous thrombosis) Left leg swelling Preop exam for internal medicine Tinnitus Encounter for annual wellness visit (AWV) in Medicare patient Stress incontinence Calculus of proximal right ureter Preop exam for internal medicine Allergic rhinitis Dislocation of right shoulder joint Right rotator cuff tear Cervical radiculopathy Obesity Carpal tunnel syndrome, left Left leg DVT GERD (gastroesophageal reflux disease) Post herpetic neuralgia Bladder cancer Hypercholesteremia Hypertension Surgical History Hx of cystoscopy History of carpal tunnel surgery of left wrist H/O shoulder replacement History of hip replacement History of lithotripsy History of cystoscopy History of cholecystectomy History of knee replacement procedure of right knee History of knee replacement procedure of left knee History of appendectomy History of total abdominal hysterectomy and bilateral salpingo-oophorectomy History of lumpectomy of left breast History of lumpectomy of right breast Family History Father Cancer Mother CVD (cardiovascular disease) Cerebral hemorrhage Brain aneurysm Brother CAD (coronary artery disease) Sister CVD (cardiovascular disease) Cancer Lung cancer Cerebral hemorrhage Sister Cancer Lung cancer Social History (Updated 12/21/23 @ 09:09 by Maria De Jesus Evans MD) Household Members: Spouse Housing: House Are you a primary caregivers homecare to a significant other at home: No Do you presently have visiting nurse or other home services: No Alcohol intake: current Alcohol intake frequency: holidays/special occasions only Comment: twice a month 2 drinks Patient Tobacco Use Status: Never used Tobacco Tobacco use type: Cigarette e-Cigarette/Vaping Use: Never Used Second Hand Smoke Exposure: No service: No Current occupational status: employed and retired Cognitive needs: No Hearing needs: No Vision needs: Yes Questionnaire Thrive Questionnaire Date Thrive assessed: 12/21/23 ANDREW-7 AMB Questionnaire ANDREW-7 Date ANDREW - 7 assessed: 12/21/23 Source: Developed by Drs. Ubaldo Zepeda, Ramona Reza, Derrek Martinez and colleagues, with an educational lucila from [employer]. Physical exam (Primary Care) Tobacco/Smoking Status: Tobacco use Status Tobacco use date assessed 12/21/23 11/15/24 17:36 Patient Tobacco Use Status Never used Tobacco 11/15/24 17:36 Tobacco use type Cigarette 11/15/24 17:36 e-Cigarette/Vaping Use Never Used 11/15/24 17:36 Thrive Assessment: Date of Thrive Assessment Date Thrive assessed 12/21/23 11/15/24 17:36 Telehealth Telehealth Location of provider rendering services: practice address Location of patient: address on file Patient Identification confirmed using: Name, : Yes Telehealth method: video Patient verbally consented to treatment: Yes Patient verbally consented to billing insurance company: Yes Patient informed of any privacy concerns related to visit: Yes Minutes spent on Phone/Video with Pt.: 15 Coding Level of Care Code Tele Est Pt Level 3 (59398) Diagnoses COVID-19 virus infection U07.1 Assessment & Plan Assessment & Plan (1) COVID-19 virus infection: Comment: 11/13/2024 Code(s): U07.1 - COVID-19 Category: Medical Plan: - Initiate antiviral treatment for COVID-19 to reduce severity and duration of symptoms. - Monitor the kidney function as a precaution due to antiviral therapy usage. - Recommend [id number] Cepacol lozenges for symptomatic relief of sore throat. - Advise Delsym for managing dry cough if necessary. - Suggest ongoing use of Diphenhydramine at night for relief of postnasal drip. - Encourage Tylenol for relief of any fever or aches. - Continue to encourage maintaining hydration with warm fluids. Medications: New nirmatrelvir-ritonavir 300 mg (150 mg x 2)-100 mg (Paxlovid) take TWO 150 mg tablets of nirmatrelvir with ONE 100 mg tablet of ritonavir twice daily for 5 days PO 30 ea 0RF U07.1 - COVID-19
== END 2024-11-15 17:58 | disposition home or self-care (01) ==
LOC: HO.HMCH 17:33
PROVIDERS: PCP Internal Medicine; Visit Provider Internal Medicine
DX: U07.1 COVID-19 (principal)

== ENCOUNTER 2024-11-24 07:57 | Outpatient (REF) | payer MEDICARE, SELFPAY | END 2024-11-24 07:58 | disposition home or self-care (01) | LOC: HO.MAMMO 07:57 | PROVIDERS: PCP Internal Medicine; Visit Provider Internal Medicine | DX: Z12.31 Encounter for screening mammogram for malignant neoplasm of breast (principal) | CPT/HCPCS: 77063; 77067 ==

== ENCOUNTER → 2024-11-24 08:15 | Outpatient (BNV) | payer MEDICARE, SELFPAY | PROVIDERS: PCP Internal Medicine; Visit Provider Internal Medicine | DX: Z12.31 Encounter for screening mammogram for malignant neoplasm of breast (principal) | CPT/HCPCS: 77063; 77067 ==

== ENCOUNTER 2024-12-26 10:57 | Outpatient (REF) | payer MEDICARE, SELFPAY ==
[2024-12-26 11:11] LABS: MANUAL DIFF FLAG NO
[2024-12-26 11:37] LABS: Basophils Absolute Auto 0.1 X10*3/uL (0.0-0.2); Basophils Percent Auto 0.6 % (0-2); Eosinophils Absolute Auto 0.5 X10*3/uL (0.0-0.4); Eosinophils Percent Auto 5.4 % (0-4); Hematocrit 38.5 % (37.0-47.0); Hemoglobin 12.5 g/dl (12.0-16.0); Imm Gran Abs Auto 0.04 X10*3/uL (0.00-0.03); Imm Gran Pct Auto 0.4 % (0.0-0.4); Lymphocytes Absolute Auto 3.1 X10*3/uL (1.2-4.9); Lymphocytes Percent Auto 33.5 % (20-40); Mean Corpuscular HGB Conc 32.5 g/dl (31.0-35.0); Mean Corpuscular Hemoglobin 29.9 pg (27.0-33.0); Mean Corpuscular Volume 92.1 fL (80.0-98.0); Monocytes Absolute Auto 0.8 X10*3/uL (0.1-1.2); Neutrophils Absolute Auto 4.7 x10*3/uL (2.0-8.3); Neutrophils Percent Auto 51.1 % (45-73); Platelet Count 392 X10*3/uL (160-400); Red Blood Count 4.18 X10*6/uL (4.20-5.50); Red Cell Distribution Width 13.8 % (11.0-16.0); White Blood Count 9.3 X10*3/uL (4.8-10.8)
[2024-12-26 11:57] LABS: Estimated Average Glucose 120 mg/dL; Hemoglobin A1c % 5.8 % (<6.0)
[2024-12-26 12:14] LABS: Erythrocyte Sedimentation Rate 40 MM/HR (0-20)
[2024-12-26 12:38] LABS: Folate 7.2 ng/mL (> or = 4.0); Vitamin B12 462 pg/mL (200-900)
[2024-12-26 12:44] LABS: Free T4 (Free Thyroxine) 1.12 ng/dL (0.71-1.85); Thyroid Stimulating Hormone 2.11 uIU/mL (0.32-4.0); Vitamin D 25-OH Total 16.2 ng/mL (>30)
[2024-12-26 13:11] LABS: Anion Gap 14 (12-20)
[2024-12-26 13:16] LABS: Alanine Aminotransferase 23 U/L (0-31); Albumin Level 4.3 g/dL (3.5-5.0); Alkaline Phosphatase 69 U/L (39-117); Aspartate Amino Transferase 23 U/L (5-31); Bilirubin Total 0.5 mg/dL (0.0-1.0); Blood Urea Nitrogen 30 mg/dL (9-16); C Reactive Protein 1.05 mg/dL (< or = 0.50); Calcium 9.6 mg/dL (8.4-10.2); Carbon Dioxide 22 mmol/L (22-29); Chloride 110 mmol/L (96-108); Cholesterol 210 mg/dL (<200); Estimated Glomerular Filt Rate > 60; Glucose Random 101 mg/dL (60-115); HDL Cholesterol 55 mg/dL (>40); LDL Cholesterol Calculated 129 mg/dL (<100); Potassium 3.8 mmol/L (3.3-5.1); Sodium 142 mmol/L (135-145); Triglycerides 134 mg/dL (<150); Uric Acid 8.8 mg/dL (2.4-5.7)
== END 2024-12-26 10:58 | disposition home or self-care (01) ==
LOC: HO.LAB 10:57
PROVIDERS: PCP Internal Medicine; Visit Provider Internal Medicine
DX: E78.00 Pure hypercholesterolemia, unspecified (principal); N20.0 Calculus of kidney; R73.01 Impaired fasting glucose
CPT/HCPCS: 36415; 80053; 80061; 82306; 82607; 82746; 83036; 84439; 84443; 84550; 85025; 85652; 86140

== ENCOUNTER 2024-12-27 08:53 | Outpatient (AMB) | payer MEDICARE, SELFPAY ==
[2024-12-27 08:57] VITALS: BP 122/68; PULSE 58; O2SAT 96; BMI 37.2
--- NOTE | 2024-12-27 08:57 | MHC.PC.OV ---
Vital Signs 12/27/24 08:57 Height 5 ft 4 in Weight 217 lb BMI 37.2 BP 122/68 Blood Pressure Location Lt brachial Position Sitting Pulse 58 Pulse Source Pulse Oximeter Pulse Oximetry (%) 96 Oxygen Delivery Method Room Air Intake Visit Reasons: annual exam - see comments Allergies erythromycin base [ERYTHROMYCIN BASE] Allergy (Severe, Verified 12/27/24 09:00) BODY ACHES Ryicpwv-NAV-YbY Reductase Inhibitor [BKHEUSO-AXT-EDY REDUCTASE INHIBITOR] Allergy (Severe, Verified 12/27/24 09:00) ALTERED MENTAL STATUS adhesive tape Allergy (Intermediate, Verified 12/27/24 09:00) BLISTERS omeprazole [From PRILOSEC] Adverse Reaction (Intermediate, Verified 12/27/24 09:00) DIARRHEA hospital sheets Allergy (Mild, Uncoded 12/27/24 09:00) years ago-caused itching Medication List - Last Reconciled 12/27/24 by Maria De Jesus Evans MD acetaminophen 1,000 mg (2 x 500 mg) PO TID PRN albuterol sulfate 90 mcg/actuation (ProAir HFA) 2 puffs inhalation Q4-6H PRN cholecalciferol (vitamin D3) (Vitamin D3) 50 mcg PO DAILY diclofenac sodium 1% (Arthritis Pain (diclofenac)) 4 grams topical QID ezetimibe (Zetia) 10 mg PO DAILY 90 days fluticasone propionate 50 mcg/actuation (Flonase Allergy Relief) 2 sprays intranasal DAILY L.parac,rhamn-B.animalis-vit C 11 billion cell -15 mg (Daily Probiotic (4 Strains)) caps PO lisinopril-hydrochlorothiazide 20-25 mg 1 tab PO DAILY loratadine (Claritin) 10 mg PO DAILY meloxicam 15 mg PO DAILY pyridoxine (vitamin B6) 50 mg PO DAILY 90 days Tobacco use date assessed: 12/27/24 Fall risk assessment: No Falls in past year Last assessed Fall Risk: 12/27/24 Dental Screening Dental Screen Date: 12/27/24 Did you have a dental visit in the last 12 months?: Yes Did you have a dental problem in the last 6 months where you did not have access to dental care?: No Was dental information given to patient?: Patient has dentist HPI annual exam - see comments HPI Details covid 11/2024 [facility] Medical History (Updated 11/15/24 @ 17:50 by Maria De Jesus Evans MD) Arthritis Renal calculus, bilateral Varicose veins of left lower extremity with inflammation Annual physical exam DVT (deep venous thrombosis) Left leg swelling Preop exam for internal medicine Tinnitus Encounter for annual wellness visit (AWV) in Medicare patient Stress incontinence Calculus of proximal right ureter Preop exam for internal medicine Allergic rhinitis Dislocation of right shoulder joint Right rotator cuff tear Cervical radiculopathy Obesity Carpal tunnel syndrome, left Left leg DVT GERD (gastroesophageal reflux disease) Post herpetic neuralgia Bladder cancer Hypercholesteremia Hypertension Surgical History Hx of cystoscopy History of carpal tunnel surgery of left wrist H/O shoulder replacement History of hip replacement History of lithotripsy History of cystoscopy History of cholecystectomy History of knee replacement procedure of right knee History of knee replacement procedure of left knee History of appendectomy History of total abdominal hysterectomy and bilateral salpingo-oophorectomy History of lumpectomy of left breast History of lumpectomy of right breast Family History Father Cancer Mother CVD (cardiovascular disease) Cerebral hemorrhage Brain aneurysm Brother CAD (coronary artery disease) Sister CVD (cardiovascular disease) Cancer Lung cancer Cerebral hemorrhage Sister Cancer Lung cancer Social History (Updated 12/21/23 @ 09:09 by Maria De Jesus Evans MD) Household Members: Spouse Housing: House Are you a primary hospice care consultant to a significant other at home: No Do you presently have visiting nurse or other home services: No Alcohol intake: current Alcohol intake frequency: holidays/special occasions only Comment: twice a month 2 drinks Patient Tobacco Use Status: Never used Tobacco Tobacco use type: Cigarette e-Cigarette/Vaping Use: Never Used Second Hand Smoke Exposure: No service: No Current occupational status: employed and retired Cognitive needs: No Hearing needs: No Vision needs: Yes Questionnaire PHQ-9 Over the last 2 weeks, how often have you been bothered by any of the following problems? 1. Little interest or pleasure in doing things: not at all 2. Feeling down, depressed, or hopeless: not at all 3. Trouble falling or staying asleep, or sleeping too much: not at all 4. Feeling tired or having little energy: several days 5. Poor appetite or overeating: not at all 6. Feeling bad about yourself - or that you are a failure or have let yourself or your family down: not at all 7. Trouble concentrating on things, such as reading the newspaper or watching television: not at all 8. Moving or speaking so slowly that other people could have noticed. Or the opposite - being so fidgety or restless that you have been moving around a lot more than usual: several days 9. Thoughts that you would be better off or of hurting yourself in some way: not at all Total score: 2 Depression Screening Interpretation: Positive Depression Screening Done: Yes 95900 - PHQ-9 Billing: Yes Source: Developed by Drs. Ubaldo Zepeda, Ramona Reza, Derrek Martinez and colleagues, with an educational lucila from [id number]. Thrive Questionnaire Date Thrive assessed: 12/27/24 I am a: Patient What is your living situation today?: I have a steady place to live Within the past 12 months, did the food you bought not last and you didn't have the money to get more?: Never true Within the past 12 months, did you worry whether your food would run out before you got money to buy more?: Never true Do you have trouble paying for medicines?: No Do you have trouble getting transportation to medical appointments?: No Do you have trouble paying your heating and electricity bill?: No Do you have trouble taking care of your child, family member or friend?: I choose not to answer this question Do you have trouble with day-to-day activities such as bathing, preparing meals, shopping, managing finances, etc.?: I choose not to answer this question Are you currently unemployed and looking for a job?: No Are you interested in more education?: No Please select the resources that you would like help with: None Currently or been in a relationship where the following occur: No concerns reported THRIVE Score: 0 AUDIT C Alcohol Use Questionnaire (AUDIT-C) 1. How often do you have a drink containing alcohol?: 2-4 times a month 2. How many drinks containing alcohol do you have on a typical day when you are drinking?: 1 or 2 3. How often do you have six or more drinks on one occasion?: Never Total Score: 2 ANDREW-7 AMB Questionnaire ANDREW-7 Date ANDREW - 7 assessed: 12/27/24 Feeling nervous, anxious, or on edge: 0 = Not at all Not being able to stop or control worryin = Not at all Worrying too much about different things: 1 = Several days Trouble relaxin = Not at all Being so restless that it is hard to sit still: 0 = Not at all Becoming easily annoyed or irritable: 0 = Not at all Feeling afraid as if something awful might happen: 0 = Not at all Total ANDREW-7 score (0-4 normal; 5-9 mild; 10-14 moderate; 15-21 severe): 1 Source: Developed by Drs. Ubaldo Zepeda, Ramona Reza, Derrek Martinez and colleagues, with an educational lucila from [employer]. ANDREW-7 Assessment Billing ANDREW-7 Assessment Tool: ANDREW-7 Assessment 47404 Review of Systems Const Denies poor appetite and Denies weakness Eyes Denies no additional complaints ENT Reports Normal hearing present, Denies dizziness, Denies nasal congestion, Denies tinnitus and Denies sore throat Card Denies chest pain, Denies syncope, Denies rapid heart rate and Denies dyspnea Resp Denies cough and Denies dyspnea GI Denies change in stool character, Reports constipation, Denies diarrhea, Denies nausea and Denies vomiting Denies urinary frequency, Denies difficulty voiding and Denies dysuria Neuro Reports Normal hearing present, Denies confusion, Denies dizziness, Denies syncope and Denies weakness Psych Denies confusion Physical exam (Primary Care) Vital Signs: Last Vital Signs Pulse 58 12/27/24 08:57 BP 122/68 12/27/24 08:57 Pulse Ox 96 12/27/24 08:57 Oxygen Delivery Method Room Air 12/27/24 08:57 BMI result Body Mass Index 37.2 Tobacco/Smoking Status: Tobacco use Status Tobacco use date assessed 12/27/24 12/27/24 09:16 Patient Tobacco Use Status Never used Tobacco 12/27/24 09:16 Tobacco use type Cigarette 12/27/24 09:16 e-Cigarette/Vaping Use Never Used 12/27/24 09:16 PHQ-9: PHQ-9 Score PHQ-9: Total score 2 12/27/24 09:36 Depression Screening Interpretation: Positive Thrive Assessment: Date of Thrive Assessment Date Thrive assessed 12/27/24 12/27/24 09:16 Currently or been in a relationship where the following occur: No concerns reported Const General: No confusion Orientation/consciousness: No confusion HENMT Head: Yes normocephalic Ears: external ears normal and TM's normal bilaterally Face and sinus: Yes normal facial exam Mouth: moist mucous membranes Throat: Yes tonsils normal Eyes Conjunctivae: conjunctivae normal Pupils: Equal, round and reactive pupils present and Pupil accommodation reflex normal Direct Ophthalmoscopy: normal light reflex Neck Neck: No lymphadenopathy Thyroid: Thyroid normal Chest Chest palpation & inspection: normal inspection of the chest Resp Effort & Inspection: normal respiratory effort and no audible wheezes Auscultation: clear to auscultation bilaterally, no crackles, no wheezes and lung sounds not diminished Cardio Rate: regular rate Rhythm: regular rhythm Peripheral pulses: radial pulses present and dorsalis pedis present GI Palpation (GI): no masses Auscultation: normal bowel sounds and normoactive bowel sounds Rectal Exam - Female: deferred Skin General skin exam: no rashes or lesions noted Rashes: no rashes Neuro General: No confusion Cranial nerves: Yes Equal, round and reactive pupils present and Yes Normal hearing present Cognition (Neuro): normal cognition Gait exam (Neuro): Normal gait present Motor exam (neuro): 5/5 motor strength present throughout Deep tendon reflexes (DTR's): Right brachioradialis reflex intensity grade: 2+, Left brachioradialis reflex intensity grade: 2+, Right patellar reflex intensity grade: 2+ and Left patellar reflex intensity grade: 2+ Extrem General: No edema Coding Level of Care Code Est Pt Prev Care >65y(50025) Diagnoses Annual physical exam Z00.00 Impaired fasting blood sugar R73.01 Gastroesophageal reflux disease without esophagitis K21.9 Esophagitis presence: without esophagitis Class 3 severe obesity due to excess calories with serious comorbidity and body mass index (BMI) of 40.0 to 44.9 in adult E66.01; Z68.41 Body mass index: BMI 40.0-44.9 Obesity classification: adult class 3 (BMI >= 40) Obesity type: due to excess calories Serious obesity comorbidity presence: with serious comorbidity Hypercholesteremia E78.00 Essential hypertension I10 Hypertension type: essential hypertension Malignant neoplasm of urinary bladder, unspecified site C67.9 Bladder location: unspecified site Uric acid kidney stone N20.0 Depression, major, recurrent F33.9 Additional Codes ANDREW-7 Assessment Billing - ANDREW-7 Assessment Tool: ANDREW-7 Assessment 73417 ([id number]) PHQ-9 - 49835 - PHQ-9 Billing: Yes ([id number]) Assessment & Plan Assessment & Plan (1) Annual physical exam: Code(s): Z00.00 - Encounter for general adult medical examination without abnormal findings Category: Medical Plan: Patient is advised to eat healthy, keep well hydrated, keep active and have adequate sleep. (2) Impaired fasting blood sugar: Code(s): R73.01 - Impaired fasting glucose Category: Medical Plan: Decrease the amount of carbohydrate intake, pasta, bread, rice and potatoes are all sugar and that is aside from all the sweet stuff, remember that fruits are good but they are Sweet also. With the hemoglobin A1c is 5.8 (3) GERD (gastroesophageal reflux disease): Code(s): K21.9 - Gastro-esophageal reflux disease without esophagitis Category: Medical Qualifiers: Esophagitis presence: without esophagitis Qualified Code(s): K21.9 - Gastro-esophageal reflux disease without esophagitis Plan: Avoid the foods that causes that usually spicy foods, tomato products, juices, coffee, soda and foods that your sensitive to. After eating do not lie down, allow 3-4 hours before in lie down. And keep the head of bed above 30 degrees to avoid the acid from going up. (4) Obesity: Code(s): E66.9 - Obesity, unspecified Category: Medical Qualifiers: Body mass index: BMI 40.0-44.9 Obesity classification: adult class 3 (BMI >= 40) Obesity type: due to excess calories Serious obesity comorbidity presence: with serious comorbidity Qualified Code(s): E66.01 - Morbid (severe) obesity due to excess calories; Z68.41 - Body mass index [BMI]40.0-44.9, adult Plan: Diet and exercise (5) Hypercholesteremia: Code(s): E78.00 - Pure hypercholesterolemia, unspecified Category: Medical Plan: Avoid fried foods, chicken skin, eggs, butter margarine, pastries and meat. Be it pork or beef they have a lot of cholesterol presently on Zetia LDL goal of less than 130 and triglyceride of less than 150 (6) Hypertension: Code(s): I10 - Essential (primary) hypertension Category: Medical Qualifiers: Hypertension type: essential hypertension Qualified Code(s): I10 - Essential (primary) hypertension Plan: Continue with blood pressure medication. Decrease salt intake and exercise on lisinopril hydrochlorothiazide (7) Bladder cancer: Comment: Dr. Hicks 1994 no chemo/radio Q other year cysto and the last cysto 2022 Code(s): C67.9 - Malignant neoplasm of bladder, unspecified Category: Medical Qualifiers: Bladder location: unspecified site Qualified Code(s): C67.9 - Malignant neoplasm of bladder, unspecified Plan: Continue to follow-up with urology (8) Uric acid kidney stone: Code(s): N20.0 - Calculus of kidney Category: Medical Plan: Low purine diet and keep well hydrated (9) Depression, major, recurrent: Code(s): F33.9 - Major depressive disorder, recurrent, unspecified Category: Medical Plan History of Present Illness The patient is a 79-year-old female presenting for a follow-up evaluation and annual physical examination. She has a comprehensive history of chronic conditions including obesity, essential hypertension managed with lisinopril and hydrochlorothiazide, hypercholesterolemia addressed with Zetia, and GERD. Notably, she had bladder cancer in 1994 and a left leg DVT in October 2019, adding complexity to her cardiovascular management. Recurring major depression and a recent COVID-19 infection have further impacted her health status, with residual headaches following the viral infection. Recent laboratory tests have indicated an elevated ESR and uric acid level, and her hemoglobin A1c was observed at 5.8. Current kidney function tests have shown a high BUN level, yet creatinine remains normal. The patient has previously reported adverse reactions to several medications including morphine, omeprazole, and erythromycin, indicating hallucinations with morphine. The patient's bone density was last measured in October 2021 following a colonoscopy in January 2018. Rheumatology assessments from earlier this year show normal lab findings. The patient manages osteoarthritis symptoms but reports difficulty with increased physical discomfort and fluctuating hydration due to personal habits. She aims to maintain a low-purine diet alongside her hypertension therapy to mitigate risk factors associated with high uric acid and gout. Health Maintenance - Colonoscopy last performed in January 2018. - Mammogram is current. - Bone density scan done in October 2021. - Rheumatology lab work was normal as of October. - Blood pressure management includes the use of lisinopril and hydrochlorothiazide. - Dietary modifications include low-purine diet and adequate hydration. - Vitamin D supplementation, advised due to suboptimal levels. - Regular monitoring of hemoglobin A1c due to impaired glucose tolerance. - Cholesterol management with Zetia. - Routine physical activity was emphasized to manage weight. - Discussion of dietary intake impact on arthritis management. 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 - She reports a history of caregiving within her family, including involvement with grandchildren. - The patient notes a preference for preparing her own meals and avoiding processed and fast foods, indicating a focus on diet quality. - Alcohol intake is rare and primarily associated with family gatherings. - Post-COVID weight reduction efforts have noted a few pounds of weight loss. - Personal milestones include performing her granddaughter's marriage ceremony. Review of Systems - General: Reports headaches, no fever reported post-COVID infection. - Cardiovascular: Denies chest pain, heart pains, or shortness of breath. - Respiratory: Occasional use of albuterol inhaler. - Gastrointestinal: Reports heartburn and normal bowel movements; denies nausea, vomiting. - Musculoskeletal: Reports generalized musculoskeletal pain, particularly in knees and lower back. Physical Exam General: Cooperative, healthy appearing, comfortable, no acute distress and well developed Orientation: Patient oriented x3 Limitations: No limitations Head: Normal to inspection Ears: Hearing grossly normal bilaterally Nose: Normal external nose present Face and sinus: Normal facial exam Eyes: Appearance normal, both eyes and all related structures Neck: Normal visual inspection and Yes full ROM Respiratory: Normal respiratory effort and able to speak in complete sentences. Clear to auscultation bilaterally Cardiovascular: Regular rate and rhythm. Normal S1 and S2 GI: Normal to inspection. Soft to palpation and nontender Skin: No rashes or lesions noted Neuro: Patient oriented x3 Extremities: Normal to inspection Results - Labs: Elevated ESR of 40, normal blood count, elevated eosinophils, hemoglobin A1c of 5.8, elevated uric acid, BUN of 30. - Chemistry: Normal creatinine level, LDL cholesterol level of 129. - Vitamin D: Level at 16.2. Plan 1. 8, careful monitoring is advised, alongside a controlled diet. Osteoarthritis-related discomfort will be managed with Tylenol and topical diclofenac. Our discussions highlighted the pros and cons of her current hypertensive treatment, recognizing the impact on uric acid levels, yet maintaining its use for its benefits in preventing ankle swelling. Vitamin D supplementation and strategies for weight management were reiterated as vital to her long-term health maintenance.: Patient was informed and verbally consented to the use of an ambient scribe for clinic note documentation during this visit. Discussion Notes I reviewed the patient's comprehensive diagnostic results, specifically highlighting concerns about her elevated ESR and uric acid levels. We discussed the benefits and side effects of her antihypertensive regimen, advocating for continued lisinopril and hydrochlorothiazide use while acknowledging its contributory effects on uric acid. Given the marginally elevated hemoglobin A1c at 5.8, the patient was counseled on maintaining a diet low in carbohydrates and refined sugars. I emphasized enhancing her hydration habits to positively affect her kidney function and avoid further increases in BUN. Continued use of Tylenol and diclofenac gel for osteoarthritis management was confirmed. I advised regular vitamin D intake to counter her deficiency and discussed potential lifestyle adjustments to aid weight loss. Follow-up and re-evaluation of lab work were suggested for three months hence, aligning with her management plan and maintaining vigilance over her chronic conditions. Patient Instructions - Continue current medications as prescribed: lisinopril, hydrochlorothiazide, and Zetia. - Increase fluid intake to aid kidney health and reduce blood urea nitrogen levels. - Monitor blood sugar levels regularly and maintain a balanced diet, focusing on reducing carbohydrates and sugars. - Use Tylenol and diclofenac gel as needed for osteoarthritis pain. - Take vitamin D supplements consistently to improve bone health. - Focus on weight management, incorporating regular physical activity and healthy dietary choices. - Follow up with scheduled lab work in three months to reassess serum markers. - Seek immediate care if experiencing significant changes in symptoms or health status. Orders: Orders C Reactive Protein 3 Months M19.90 - Unspecified osteoarthritis, unspecified site Uric Acid 3 Months M19.90 - Unspecified osteoarthritis, unspecified site Comprehensive Met. Panel 3 Months M19.90 - Unspecified osteoarthritis, unspecified site Hemoglobin A1c 3 Months M19.90 - Unspecified osteoarthritis, unspecified site MARLEEN Reflex Titer and Pattern 3 Months M19.90 - Unspecified osteoarthritis, unspecified site, R79.89 - Other specified abnormal findings of blood chemistry Erythrocyte Sedimentation Rate 3 Months M19.90 - Unspecified osteoarthritis, unspecified site Complete Blood Count Auto Diff 3 Months M19.90 - Unspecified osteoarthritis, unspecified site
== END 2024-12-27 10:03 | disposition home or self-care (01) ==
LOC: HO.HMCH 08:54
PROVIDERS: PCP Internal Medicine; Visit Provider Internal Medicine
DX: Z00.00 Encounter for general adult medical examination without abnormal findings (principal); E66.01 Morbid (severe) obesity due to excess calories; Z68.41 Body mass index [BMI] 40.0-44.9, adult; C67.9 Malignant neoplasm of bladder, unspecified; F33.9 Major depressive disorder, recurrent, unspecified; R73.01 Impaired fasting glucose; K21.9 Gastro-esophageal reflux disease without esophagitis; E78.00 Pure hypercholesterolemia, unspecified; I10 Essential (primary) hypertension; N20.0 Calculus of kidney

== ENCOUNTER → 2024-12-27 08:53 | Outpatient (BNVA) | payer MEDICARE, SELFPAY | PROVIDERS: PCP Internal Medicine; Visit Provider Internal Medicine | DX: Z00.00 Encounter for general adult medical examination without abnormal findings (principal); R73.01 Impaired fasting glucose; K21.9 Gastro-esophageal reflux disease without esophagitis; E66.01 Morbid (severe) obesity due to excess calories; Z68.41 Body mass index [BMI] 40.0-44.9, adult; E78.00 Pure hypercholesterolemia, unspecified; F33.9 Major depressive disorder, recurrent, unspecified; I10 Essential (primary) hypertension; C67.9 Malignant neoplasm of bladder, unspecified; N20.0 Calculus of kidney; Z71.3 Dietary counseling and surveillance | CPT/HCPCS: 96127; 99397 ==

== ENCOUNTER 2025-04-03 08:15 | Outpatient (REF) | payer MEDICARE, SELFPAY ==
--- OUTSIDE RECORDS SUMMARY | 2025-04-03 08:24 | XMS_ITS | Patient Health Record ---
Author Organization [facility] Address [address] [place] [address] Care Team Providers Care Research Tech Name Role Phone Po Maria De Jesus AJ Primary Care Provider Ubaldo Moreira [phone] Allergies Allergen (clinical drug ingredient) Drug/Non Drug Allergy documented on EMR Reaction Allergy Type Onset Date Status morphine Morphine Sulfate Unknown Drug Allergy Active erythromycin Erythromycin Unknown Drug Allergy A ctive Substance with 7-ypxrqna-4-methylgluta ryl-coenzyme A reductase inhibitor mechanism of action (substance) statines (uncoded) Unknown Allergy Active Reason For Referral No Information Medications Medication SIG (Take, Route, Frequency, Duration) Notes Start Date End Date Status Multivitamin & Mineral as needed Active Loratadine Active Gabapentin Not-Takin g Aspirin Active Zetia Active Meloxicam Active Lisinopril Active Social History Tobacco Use: Social History Observation Description Date Details (start date - stop date) Never Smoker NA - NA Tobacco Use/Smoking Question Answer Notes Patient is a nonsmoker Alcohol Screen Question Answer Notes Did you have a drink contain ing alcohol in the past year? Yes How often did you have a dri nk containing alcohol in the past year? Monthly or less (1 point) How many drinks did you have on a typical day when you were drinking in the past year? 1 or 2 drinks (0 point) How often did you have 6 or more drinks on one occasion in the past year? Never (0 point) Points 1 Interpretation Negative Section Notes: Nonsmoker; no sig alcohol Problems Problem Type SNOMED Code ICD Code Onset Dates Problem Status W/U Status Risk Notes Problem 761477819 Encounter for screening for malignant neoplasm of colon (Z12.11) Active confirmed Problem 778985145 Long-term use of aspirin therapy (Z79.82) Active confirmed Problem 680903097 Pre-procedural examination (Z01.818) Active confirmed Problem 414122138 Encntr long-term NSAID use (Z79.1) Active confirmed Plan Of Treatment Future Test Test Name Order Date COLONOSCOPY 12/03/2017 Insurance Providers Payer Name Payer Address Payer Phone Subscriber Number Group Number Insured Name Patient Relationship to Insured Coverage Start Date Coverage End Date [facility] [address] [place] [address] [id number] HARVEY MATA Self - patient is the insured Medical (General) History Medical History History ICD Code Vertigo Kidney stones--ESWL and cystoscopies Arthritis HTN Hyperlipidemia Negative colonoscopy in 2006 except for diverticulosis Shingles on LUE--resolved Arthritis Bladder cancer--has periodic cystoscopie s Denies NE,DM,CVA,Lung disease,renal dise ase Surgical History Surgery Date(Month/Year) Lumpectomy, left breast-benign lumpectomy, right breast- Dr. Ronny moulton Bladder cancer-removed from bladder--has periodic cystoscopies--Dr. Barrientos, III OWEN Total knee replacement bilateral- Dr. Jennifer plasencia-approx 20 yrs ago Lithotrepsy to blast kidney stones Cholecystectomy Total hip replacement on Left hip - Dr. Lomeli-2010 Shoulder replacement, rotato r cuff repair , cyst removal & reattached ligament- ELVIA Humphreys-2011 CARPAL TUNNEL & TRIGGER FINGER SURGERY O N RIGHT WRIST/HAND Total hip replacement on Right hip- Dr. Lomeli--2013
[2025-04-03 08:38] LABS: MANUAL DIFF FLAG NO
[2025-04-03 09:05] LABS: Basophils Absolute Auto 0.1 X10*3/uL (0.0-0.2); Eosinophils Absolute Auto 0.5 X10*3/uL (0.0-0.4); Eosinophils Percent Auto 5.8 % (0-4); Hematocrit 39.1 % (37.0-47.0); Hemoglobin 12.6 g/dl (12.0-16.0); Imm Gran Abs Auto 0.03 X10*3/uL (0.00-0.03); Imm Gran Pct Auto 0.4 % (0.0-0.4); Lymphocytes Absolute Auto 2.9 X10*3/uL (1.2-4.9); Lymphocytes Percent Auto 34.7 % (20-40); Mean Corpuscular HGB Conc 32.2 g/dl (31.0-35.0); Mean Corpuscular Hemoglobin 30.3 pg (27.0-33.0); Mean Platelet Volume 8.8 fL (9.4-12.3); Monocytes Absolute Auto 0.7 X10*3/uL (0.1-1.2); Monocytes Percent Auto 8.4 % (2-11); Neutrophils Absolute Auto 4.1 x10*3/uL (2.0-8.3); Neutrophils Percent Auto 49.7 % (45-73); Platelet Count 359 X10*3/uL (160-400); Red Blood Count 4.16 X10*6/uL (4.20-5.50); Red Cell Distribution Width 13.2 % (11.0-16.0); White Blood Count 8.2 X10*3/uL (4.8-10.8)
[2025-04-03 09:16] LABS: Estimated Average Glucose 114 mg/dL; Hemoglobin A1c % 5.6 % (<6.0)
[2025-04-03 09:43] LABS: Erythrocyte Sedimentation Rate 31 MM/HR (0-20)
[2025-04-03 09:47] LABS: Alanine Aminotransferase 26 U/L (0-31); Albumin Level 4.3 g/dL (3.5-5.0); Alkaline Phosphatase 73 U/L (39-117); Anion Gap 12 (12-20); Aspartate Amino Transferase 31 U/L (5-31); Bilirubin Total 0.4 mg/dL (0.0-1.0); Blood Urea Nitrogen 22 mg/dL (9-16); Calcium 9.6 mg/dL (8.4-10.2); Carbon Dioxide 25 mmol/L (22-29); Chloride 108 mmol/L (96-108); Estimated Glomerular Filt Rate > 60; Glucose Random 99 mg/dL (60-115); Potassium 4.4 mmol/L (3.3-5.1); Sodium 141 mmol/L (135-145); Total Protein 7.1 g/dL (6.5-8.0)
[2025-04-03 10:40] LABS: Uric Acid 8.3 mg/dL (2.4-5.7)
[2025-04-05 11:44] LABS: Anti Nuclear Antibody Screen NEGATIVE (NEGATIVE)
== END 2025-04-03 08:16 | disposition home or self-care (01) ==
LOC: HO.LAB 08:15
PROVIDERS: PCP Internal Medicine; Visit Provider Internal Medicine
DX: M19.90 Unspecified osteoarthritis, unspecified site (principal); R79.89 Other specified abnormal findings of blood chemistry
CPT/HCPCS: 36415; 80053; 83036; 84550; 85025; 85652; 86038; 86140

== ENCOUNTER 2025-04-05 08:32 | Outpatient (AMB) | payer MEDICARE, SELFPAY ==
[2025-04-05 08:39] VITALS: BP 114/70; PULSE 110; O2SAT 96; BMI 37.3
--- NOTE | 2025-04-05 08:39 | MHC.PC.OV ---
Vital Signs 04/05/25 08:39 Height 5 ft 4 in Weight 217 lb 6.012 oz BMI 37.3 BP 114/70 Blood Pressure Location Lt brachial Position Sitting Pulse 110 H Pulse Source Pulse Oximeter Pulse Oximetry (%) 96 Oxygen Delivery Method Room Air Intake Visit Reasons: 3 month f/u Plasma Center Technician Required: No Accompanied by: Self / Same As Patient Allergies erythromycin base (ERYTHROMYCIN BASE) Allergy (Severe, Verified 04/05/25 08:40) BODY ACHES Ryempkb-MAX-BgA Reductase Inhibitor (ZVSIGWX-MQM-GHJ REDUCTASE INHIBITOR) Allergy (Severe, Verified 04/05/25 08:40) ALTERED MENTAL STATUS adhesive tape Allergy (Intermediate, Verified 04/05/25 08:40) BLISTERS omeprazole (From PRILOSEC) Adverse Reaction (Intermediate, Verified 04/05/25 08:40) DIARRHEA hospital sheets Allergy (Mild, Uncoded 04/05/25 08:40) years ago-caused itching Medication List - Last Reconciled 04/05/25 by Maria De Jesus Evans, acetaminophen 1,000 mg (2 x 500 mg) PO TID PRN albuterol sulfate 90 mcg/actuation (ProAir HFA) 2 puffs inhalation Q4-6H PRN cholecalciferol (vitamin D3) (Vitamin D3) 50 mcg PO DAILY diclofenac sodium 1% (Arthritis Pain (diclofenac)) 4 grams topical QID ezetimibe (Zetia) 10 mg PO DAILY 90 days fluticasone propionate 50 mcg/actuation (Flonase Allergy Relief) 2 sprays intranasal DAILY L.parac,rhamn-B.animalis-vit C 11 billion cell -15 mg (Daily Probiotic (4 Strains)) caps PO lisinopril-hydrochlorothiazide 20-25 mg 1 tab PO DAILY loratadine (Claritin) 10 mg PO DAILY meloxicam 15 mg PO DAILY pyridoxine (vitamin B6) 50 mg PO DAILY 90 days tirzepatide (weight loss) (Zepbound) 2.5 mg (0.5 mL) subcut QWEEK Tobacco use date assessed: 04/05/25 Fall risk assessment: No Falls in past year Last assessed Fall Risk: 04/05/25 Dental Screening Dental Screen Date: 04/05/25 Did you have a dental visit in the last 12 months?: Yes Did you have a dental problem in the last 6 months where you did not have access to dental care?: No Was dental information given to patient?: Patient has dentist [facility] Medical History (Updated 04/05/25 @ 09:12 by Maria De Jesus Evans MD) Arthritis Renal calculus, bilateral Varicose veins of left lower extremity with inflammation Annual physical exam DVT (deep venous thrombosis) Left leg swelling Preop exam for internal medicine Tinnitus Encounter for annual wellness visit (AWV) in Medicare patient Stress incontinence Calculus of proximal right ureter Preop exam for internal medicine Allergic rhinitis Dislocation of right shoulder joint Right rotator cuff tear Cervical radiculopathy Obesity Carpal tunnel syndrome, left Left leg DVT GERD (gastroesophageal reflux disease) Post herpetic neuralgia Bladder cancer Hypercholesteremia Hypertension Surgical History Hx of cystoscopy History of carpal tunnel surgery of left wrist H/O shoulder replacement History of hip replacement History of lithotripsy History of cystoscopy History of cholecystectomy History of knee replacement procedure of right knee History of knee replacement procedure of left knee History of appendectomy History of total abdominal hysterectomy and bilateral salpingo-oophorectomy History of lumpectomy of left breast History of lumpectomy of right breast Family History Father Cancer Mother CVD (cardiovascular disease) Cerebral hemorrhage Brain aneurysm Brother CAD (coronary artery disease) Sister CVD (cardiovascular disease) Cancer Lung cancer Cerebral hemorrhage Sister Cancer Lung cancer Social History Household Members: Spouse Housing: House Are you a primary child care centre manager to a significant other at home: No Do you presently have visiting nurse or other home services: No Alcohol intake: current Alcohol intake frequency: holidays/special occasions only Comment: twice a month 2 drinks Patient Tobacco Use Status: Never used Tobacco Tobacco use type: Cigarette e-Cigarette/Vaping Use: Never Used Second Hand Smoke Exposure: No service: No Current occupational status: employed and retired Cognitive needs: No Hearing needs: No Vision needs: Yes Questionnaire PHQ-9 Over the last 2 weeks, how often have you been bothered by any of the following problems? 1. Little interest or pleasure in doing things: not at all 2. Feeling down, depressed, or hopeless: not at all 3. Trouble falling or staying asleep, or sleeping too much: not at all 4. Feeling tired or having little energy: several days 5. Poor appetite or overeating: not at all 6. Feeling bad about yourself - or that you are a failure or have let yourself or your family down: not at all 7. Trouble concentrating on things, such as reading the newspaper or watching television: not at all 8. Moving or speaking so slowly that other people could have noticed. Or the opposite - being so fidgety or restless that you have been moving around a lot more than usual: several days 9. Thoughts that you would be better off or of hurting yourself in some way: not at all Total score: 2 Depression Screening Interpretation: Positive Depression Screening Done: Yes 54088 - PHQ-9 Billing: Yes Source: Developed by Drs. Ubaldo Zepeda, Ramona Reza, Derrek Martinez and colleagues, with an educational lucila from [employer]. Thrive Questionnaire Date Thrive assessed: 04/05/25 I am a: Patient What is your living situation today?: I have a steady place to live Within the past 12 months, did the food you bought not last and you didn't have the money to get more?: Never true Within the past 12 months, did you worry whether your food would run out before you got money to buy more?: Never true Do you have trouble paying for medicines?: No Do you have trouble getting transportation to medical appointments?: No Do you have trouble paying your heating and electricity bill?: No Do you have trouble taking care of your child, family member or friend?: I choose not to answer this question Do you have trouble with day-to-day activities such as bathing, preparing meals, shopping, managing finances, etc.?: I choose not to answer this question Are you currently unemployed and looking for a job?: No Are you interested in more education?: No Please select the resources that you would like help with: None Currently or been in a relationship where the following occur: No concerns reported THRIVE Score: 0 AUDIT C Alcohol Use Questionnaire (AUDIT-C) 1. How often do you have a drink containing alcohol?: 2-4 times a month 2. How many drinks containing alcohol do you have on a typical day when you are drinking?: 1 or 2 3. How often do you have six or more drinks on one occasion?: Never Total Score: 2 ANDREW-7 AMB Questionnaire ANDREW-7 Date ANDREW - 7 assessed: 04/05/25 Feeling nervous, anxious, or on edge: 0 = Not at all Not being able to stop or control worryin = Not at all Worrying too much about different things: 1 = Several days Trouble relaxin = Not at all Being so restless that it is hard to sit still: 0 = Not at all Becoming easily annoyed or irritable: 0 = Not at all Feeling afraid as if something awful might happen: 0 = Not at all Total ANDREW-7 score (0-4 normal; 5-9 mild; 10-14 moderate; 15-21 severe): 1 Source: Developed by Drs. Ubaldo Zepeda, Ramona Reza, Derrek Martinez and colleagues, with an educational lucila from [employer]. ANDREW-7 Assessment Billing ANDREW-7 Assessment Tool: ANDREW-7 Assessment 12222 Physical exam (Primary Care) Vital Signs: Oxygen Delivery Method Room Air 04/05/25 08:39 Tobacco/Smoking Status: Tobacco use Status Tobacco use date assessed 12/27/24 12/27/24 09:16 Patient Tobacco Use Status Never used Tobacco 12/27/24 09:16 Tobacco use type Cigarette 12/27/24 09:16 e-Cigarette/Vaping Use Never Used 12/27/24 09:16 Depression Screening Interpretation: Positive Thrive Assessment: Date of Thrive Assessment Date Thrive assessed 12/21/24 04/05/25 08:33 Currently or been in a relationship where the following occur: No concerns reported Const General: alert; No acute distress Eyes Conjunctivae: conjunctivae normal Resp Auscultation: clear to auscultation bilaterally Cardio Rate: regular rate Rhythm: regular rhythm GI Inspection: Yes normal to inspection Extrem General: Yes normal to inspection and No edema Coding Level of Care Code Est Pt Level 4 (99832) Diagnoses Class 3 severe obesity due to excess calories with serious comorbidity and body mass index (BMI) of 40.0 to 44.9 in adult E66.01; Z68.41 Obesity type: due to excess calories Obesity classification: adult class 3 (BMI >= 40) Serious obesity comorbidity presence: with serious comorbidity Body mass index: BMI 40.0-44.9 Osteopenia M85.80 Impaired fasting blood sugar R73.01 Gastroesophageal reflux disease without esophagitis K21.9 Esophagitis presence: without esophagitis Uric acid kidney stone N20.0 Malignant neoplasm of urinary bladder, unspecified site C67.9 Bladder location: unspecified site Gait instability R26.81 Low back pain M54.50 Obesity (BMI 30-39.9) E66.9 Additional Codes ANDREW-7 Assessment Billing - ANDREW-7 Assessment Tool: ANDREW-7 Assessment 99295 ([id number]) PHQ-9 - 05060 - PHQ-9 Billing: Yes ([id number]) Assessment & Plan Assessment & Plan (1) Obesity: Code(s): E66.9 - Obesity, unspecified Category: Medical Qualifiers: Obesity type: due to excess calories Obesity classification: adult class 3 (BMI >= 40) Serious obesity comorbidity presence: with serious comorbidity Body mass index: BMI 40.0-44.9 Qualified Code(s): E66.01 - Morbid (severe) obesity due to excess calories; Z68.41 - Body mass index [BMI]40.0-44.9, adult Plan: Diet and exercise (2) Osteopenia: Comment: November 2021 Code(s): M85.80 - Other specified disorders of bone density and structure, unspecified site Category: Medical Plan: Discussed about repeating bone density (3) Impaired fasting blood sugar: Code(s): R73.01 - Impaired fasting glucose Category: Medical Plan: Decrease the amount of carbohydrate intake, pasta, bread, rice and potatoes are all sugar and that is aside from all the sweet stuff, remember that fruits are good but they are Sweet also. Hemoglobin A1c has in (4) GERD (gastroesophageal reflux disease): Code(s): K21.9 - Gastro-esophageal reflux disease without esophagitis Category: Medical Qualifiers: Esophagitis presence: without esophagitis Qualified Code(s): K21.9 - Gastro-esophageal reflux disease without esophagitis Plan: Avoid the foods that causes that usually spicy foods, tomato products, juices, coffee, soda and foods that your sensitive to. After eating do not lie down, allow 3-4 hours before in lie down. And keep the head of bed above 30 degrees to avoid the acid from going up. (5) Uric acid kidney stone: Code(s): N20.0 - Calculus of kidney Category: Medical Plan: Keep well hydrated and patient has follow-up with Nephrology (6) Bladder cancer: Comment: Dr. Hicks 1994 no chemo/radio Q other year cysto and the last cysto 2022 Code(s): C67.9 - Malignant neoplasm of bladder, unspecified Category: Medical Qualifiers: Bladder location: unspecified site Qualified Code(s): C67.9 - Malignant neoplasm of bladder, unspecified Plan: Patient has a follow-up with Nephrology (7) Gait instability: Code(s): R26.81 - Unsteadiness on feet Category: Medical (8) Low back pain: Code(s): M54.50 - Low back pain, unspecified Category: Medical (9) Obesity (BMI 30-39.9): Code(s): E66.9 - Obesity, unspecified Category: Medical Plan History of Present Illness The patient is a 79-year-old female presenting for follow-up on multiple chronic conditions including hypertension, hypercholesterolemia, GERD, and major depression. The patient has a history of hypertension and hypercholesterolemia, both of which are being managed with medication. She also has a history of bladder cancer diagnosed in 1994, with regular follow-ups scheduled with urology. The patient reports a history of nephrolithiasis and osteopenia, with the last bone density test conducted in October 2021. She experiences peripheral edema, which has been persistent despite diuretic use. The patient has been experiencing symptoms of major depression, which are being monitored during follow-up visits. She also reports anxiety, particularly exacerbated by her health issues and caregiving responsibilities. The patient has developed lactose intolerance, leading to dietary adjustments to avoid dairy products. She also reports neuropathy, which she believes has been exacerbated by a recent COVID-19 infection. Health Maintenance - Colonoscopy completed - Mammogram conducted in November 2024 - Blood work shows normal blood count and platelet count - Electrolytes and renal function normal, hemoglobin A1c at 5.6 - Liver function tests normal - LDL cholesterol at 129 mg/dL Social History - The patient is involved in caregiving responsibilities for her dqpfsc-lw-vta, impacting her stress levels and anxiety. - Reports dietary adjustments due to lactose intolerance, avoiding dairy products. - Engages in physical activities and exercises to improve balance and strength. Review of Systems - Cardiovascular: Reports fast heart rate, denies chest pain. - Respiratory: Denies dyspnea or cough. - Gastrointestinal: Reports lactose intolerance, denies abdominal pain. - Neurological: Reports neuropathy, denies headaches. - Musculoskeletal: Reports weakness in legs, denies joint pain. - Psychiatric: Reports anxiety and depression. Physical Exam - Neurological: Squeeze test performed, shoulder shrug, toe pointing, and movement assessed - Respiratory: Auscultation of breath sounds - Cardiovascular: Heart rate regular, oxygen saturation 96-97% Results - Labs: Normal blood count and platelet count, electrolytes normal, renal function normal, hemoglobin A1c at 5.6, liver function normal, LDL cholesterol at 129 mg/dL - Tests: Colonoscopy completed, mammogram conducted in November 2024 Plan The patient will continue with current management for hypertension and hypercholesterolemia, with regular monitoring of blood pressure and lipid levels. Follow-up with urology is scheduled for bladder cancer surveillance, and nephrology for nephrolithiasis management. The patient is advised to maintain a diet low in lactose to manage intolerance and to continue physical therapy to improve balance and strength. Regular exercise is encouraged to manage osteopenia and improve overall health. For major depression and anxiety, the patient is advised to continue follow-up visits for mental health support. The patient is also considering weight management options, including the potential use of GLP-1 receptor agonists, pending insurance approval. Patient was informed and verbally consented to the use of an ambient scribe for clinic note documentation during this visit. Discussion Notes During the visit, we discussed the management of hypertension and hypercholesterolemia, emphasizing the importance of regular monitoring and medication adherence. We reviewed the patient's history of bladder cancer and the need for ongoing urological follow-up. The potential use of GLP-1 receptor agonists for weight management was considered, with a discussion on its benefits and insurance coverage challenges. Patient Instructions - Continue taking prescribed medications for hypertension and hypercholesterolemia. - Follow up with urology and nephrology as scheduled. - Maintain a lactose-free diet to manage intolerance. - Engage in regular physical activity to improve balance and manage osteopenia. - Attend follow-up visits for mental health support. - Consider weight management options and discuss insurance coverage for GLP-1 receptor agonists. Orders: Orders PT Evaluation and Treatment Today R26.81 - Unsteadiness on feet XR lumbar spine 2-3V Today M54.50 - Low back pain, unspecified XR DEXA axial skeleton Today M81.0 - Age-related osteoporosis without current pathological fracture, M85.80 - Other specified disorders of bone density and structure, unspecified site Medications: New tirzepatide (weight loss) (Zepbound) for 4 weeks 2.5 mg (0.5 mL) subcut QWEEK 2 mL 1RF E66.01 - Morbid (severe) obesity due to excess calories, Z68.41 - Body mass index [BMI] 40.0-44.9, adult
--- OUTSIDE RECORDS SUMMARY | 2025-04-05 08:54 | XMS_ITS | Patient Health Record ---
Author Organization [facility] Address [address] [place] [address] Care Team Providers Care Clinical Staff Rn Name Role Phone Po Maria De Jesus AJ Primary Care Provider Ubaldo Moreira [phone] Allergies Allergen (clinical drug ingredient) Drug/Non Drug Allergy documented on EMR Reaction Allergy Type Onset Date Status morphine Morphine Sulfate Unknown Drug Allergy Active erythromycin Erythromycin Unknown Drug Allergy A ctive Substance with 3-qccyrta-7-methylgluta ryl-coenzyme A reductase inhibitor mechanism of action [...] Problem Status W/U Status Risk Notes Problem 989659186 Encounter for screening for malignant neoplasm of colon (Z12.11) Active confirmed Problem 522911201 Long-term use of aspirin therapy (Z79.82) Active confirmed Problem 368621070 Pre-procedural examination (Z01.818) Active confirmed Problem 624781460 Encntr long-term NSAID use (Z79.1) Active confirmed Plan Of Treatment Future Test Test Name Order Date COLONOSCOPY 12/03/2017 Insurance Providers Payer Name Payer Address Payer Phone Subscriber Number Group Number Insured Name Patient Relationship to Insured Coverage Start Date Coverage End Date [facility] [address] [place] [address] [id number] HARVEY MATA Self - patient is the insured Medical (General) History Medical History History ICD Code Vertigo Kidney stones--ESWL and cystoscopies Arthritis HTN Hyperlipidemia Negative colonoscopy in 2006 except for diverticulosis Shingles on LUE--resolved Arthritis Bladder cancer--has periodic cystoscopie s Denies DC,DM,CVA,Lung disease,renal dise ase Surgical History Surgery Date(Month/Year) [...]
== END 2025-04-05 09:26 | disposition home or self-care (01) ==
LOC: HO.HMCH 08:33
PROVIDERS: PCP Internal Medicine; Visit Provider Internal Medicine
DX: R73.01 Impaired fasting glucose (principal); E66.01 Morbid (severe) obesity due to excess calories; Z68.41 Body mass index [BMI] 40.0-44.9, adult; C67.9 Malignant neoplasm of bladder, unspecified; M85.80 Other specified disorders of bone density and structure, unspecified site; K21.9 Gastro-esophageal reflux disease without esophagitis; N20.0 Calculus of kidney; E66.9 Obesity, unspecified; R26.81 Unsteadiness on feet; M54.50 Low back pain, unspecified

== ENCOUNTER → 2025-04-05 08:32 | Outpatient (BNVA) | payer MEDICARE, SELFPAY | PROVIDERS: PCP Internal Medicine; Visit Provider Internal Medicine | DX: E66.01 Morbid (severe) obesity due to excess calories (principal); R73.01 Impaired fasting glucose; K21.9 Gastro-esophageal reflux disease without esophagitis; M85.80 Other specified disorders of bone density and structure, unspecified site; N20.0 Calculus of kidney; C67.9 Malignant neoplasm of bladder, unspecified; R26.81 Unsteadiness on feet; M54.50 Low back pain, unspecified; I10 Essential (primary) hypertension; E78.00 Pure hypercholesterolemia, unspecified; F32.A Depression, unspecified; Z68.41 Body mass index [BMI] 40.0-44.9, adult | CPT/HCPCS: 96127; 99212 ==

== ENCOUNTER 2025-05-23 10:44 | Outpatient (REF) | payer MEDICARE, SELFPAY ==
--- NOTE | ~2025-05-23 | US_ITS ---
CLINICAL HISTORY: N20.0 - Calculus of kidney US Renal Comparison: None provided Findings: Right kidney normal size and echotexture, 10.3 cm length. Multiple benign cysts are present, the largest within the upper pole measuring up to 2.6 cm. There is also a 5 mm lower pole nonobstructing calculus present. Left kidney normal size and echotexture, 11.9 cm length. 1.1 cm upper pole cyst. 5 mm lower pole nonobstructing calculus. Normal color Doppler. Minimal prominence of the left-sided collecting system. IMPRESSION: Nonobstructing calculi and cysts bilaterally. Minimal prominence of the left-sided collecting system, nonspecific. This document has been electronically signed by: Loyd Valdes MD on 05/23/2025 13:01:13
--- NOTE | ~2025-05-23 | XR_ITS ---
EXAMINATION: XR LUMBOSACRAL SPINE CLINICAL INFORMATION: M54.50 - Low back pain, unspecified COMPARISON: None available. TECHNIQUE: AP and lateral views FINDINGS: S-shaped curvature of the thoracolumbar spine. Multilevel marginal osteophyte formation and syndesmophyte formation with endplate sclerosis decreased intervertebral disc height subchondral cyst formation throughout the axial skeleton. No gross acute cortical disruption. Grade 1 anterolisthesis L4-5. Osteopenia versus the process. Metallic hip prosthesis not fully included in the rmxet-uc-griy. Vascular clips right upper quadrant abdomen and likely prior cholecystectomy. 1.7 cm calcification in the left hemiabdomen. Vascular calcifications, aorta and iliac arteries. XR/XR lumbar spine 2-3V IMPRESSION: Multilevel thoracolumbar spondylosis and scoliosis with grade 1 anterolisthesis L4-5. Probable calculus, left kidney. Electronically signed by: Jose Elias Renee MD 05/23/2025 11:30 AM EDT
--- OUTSIDE RECORDS SUMMARY | 2025-05-23 11:50 | XMS_ITS | Patient Health Record ---
Author Organization [facility] Address [address] [place] [address] Care Team Providers Care Manufacturing Recruiter Name Role Phone Po Maria De Jesus AJ Primary Care Provider Ubaldo Moreira [phone] Allergies Allergen (clinical drug ingredient) Drug/Non Drug Allergy documented on EMR Reaction Allergy Type Onset Date Status morphine Morphine Sulfate Unknown Drug Allergy Active erythromycin Erythromycin Unknown Drug Allergy A ctive Substance with 6-esshiaa-9-methylgluta ryl-coenzyme A reductase inhibitor mechanism of action [...] Problem Status W/U Status Risk Notes Problem 589011600 Encounter for screening for malignant neoplasm of colon (Z12.11) Active confirmed Problem 475656342 Long-term use of aspirin therapy (Z79.82) Active confirmed Problem 978845523 Pre-procedural examination (Z01.818) Active confirmed Problem 932598960 Encntr long-term NSAID use (Z79.1) Active confirmed Plan Of Treatment Future Test Test Name Order Date COLONOSCOPY 12/03/2017 Insurance Providers Payer Name Payer Address Payer Phone Subscriber Number Group Number Insured Name Patient Relationship to Insured Coverage Start Date Coverage End Date [facility] [address] [place] [address] [id number] HARVEY MATA Self - patient is the insured Medical (General) History Medical History History ICD Code Vertigo Kidney stones--ESWL and cystoscopies Arthritis HTN Hyperlipidemia Negative colonoscopy in 2006 except for diverticulosis Shingles on LUE--resolved Arthritis Bladder cancer--has periodic cystoscopie s Denies NH,DM,CVA,Lung disease,renal dise ase Surgical History Surgery Date(Month/Year) [...]
== END 2025-05-23 10:45 | disposition home or self-care (01) ==
LOC: HO.US 10:44
PROVIDERS: Absent Provider Internal Medicine; PCP Internal Medicine; Visit Provider Urology
DX: N20.0 Calculus of kidney (principal); M54.50 Low back pain, unspecified
CPT/HCPCS: 72100; 76775

== ENCOUNTER → 2025-05-23 10:51 | Outpatient (BNV) | payer MEDICARE, SELFPAY | PROVIDERS: Absent Provider Internal Medicine; PCP Internal Medicine; Visit Provider Radiology Diagnostic Radiology | DX: M54.50 Low back pain, unspecified (principal); N20.0 Calculus of kidney | CPT/HCPCS: 72100; 76775 ==

== ENCOUNTER 2025-05-25 07:53 | Outpatient (REF) | payer MEDICARE, SELFPAY ==
--- NOTE | ~2025-05-25 | MM_ITS ---
EXAMINATION: DXA BONE DENSITY AXIAL HISTORY: M81.0 - Age-related osteoporosis without current pathological fracture TECHNIQUE: [employer] Dual energy absorptiometry (DEXA) of the lumbar spine and distal radius was performed. The hips were not evaluated due to a history of bilateral total hip arthroplasty. COMPARISON: Comparison is made with the prior examination dated 11/12/2021. FINDINGS: The bone mineral density of the lumbar spine is 1.593 g/cm2, corresponding to a T-score of 3.6, and a Z-score of 4.3. This is indicative of normal bone mineral density. This represents a BMD change of 3.4% compared to the prior exam. This is not statistically significant. The bone mineral density of the distal radius is 0.913 g/cm2, corresponding to a T-score of 0.4, and a Z-score of 3.0. This is indicative of normal bone mineral density. This represents a BMD change of 6.8% compared to the prior exam. This is statistically significant. MM/XR DEXA axial skeleton IMPRESSION: Based on bone mineral density, and according to World Health Organization (WHO) criteria, the diagnosis is consistent with normal bone mineral density. Statistically, 68% of repeat scans fall within 1 SD (+/- 0.010 g/cm2 for AP spine L1-L4) and 1 SD (+/- 0.012 g/cm2 for femur total) FRAX is a trademark of the [employer] [place] for Metabolic Bone Disease, a World Health Organization (WHO) Collaborating Center. Electronically signed by: Ubaldo Chaves MD 05/25/2025 08:47 AM EDT
--- OUTSIDE RECORDS SUMMARY | 2025-05-25 07:55 | XMS_ITS | Patient Health Record ---
Author Organization [facility] Address [address] [place] [address] Care Team Providers Care Transportation Logistics Internship Name Role Phone Po Maria De Jesus AJ Primary Care Provider Ubaldo Moreira [phone] Allergies Allergen (clinical drug ingredient) Drug/Non Drug Allergy documented on EMR Reaction Allergy Type Onset Date Status morphine Morphine Sulfate Unknown Drug Allergy Active erythromycin Erythromycin Unknown Drug Allergy A ctive Substance with 4-quriwao-2-methylgluta ryl-coenzyme A reductase inhibitor mechanism of action [...] Problem Status W/U Status Risk Notes Problem [id number] Encounter for screening for malignant neoplasm of colon (Z12.11) Active confirmed Problem 618441858 Long-term use of aspirin therapy (Z79.82) Active confirmed Problem 163141993 Pre-procedural examination (Z01.818) Active confirmed Problem 644618036 Encntr long-term NSAID use (Z79.1) Active confirmed Plan Of Treatment Future Test Test Name Order Date COLONOSCOPY 12/03/2017 Insurance Providers Payer Name Payer Address Payer Phone Subscriber Number Group Number Insured Name Patient Relationship to Insured Coverage Start Date Coverage End Date [facility] [address] [place] [phone] [id number] HARVEY MATA Self - patient is the insured Medical (General) History Medical History History ICD Code Vertigo Kidney stones--ESWL and cystoscopies Arthritis HTN Hyperlipidemia Negative colonoscopy in 2006 except for diverticulosis Shingles on LUE--resolved Arthritis Bladder cancer--has periodic cystoscopie s Denies VT,DM,CVA,Lung disease,renal dise ase Surgical History Surgery Date(Month/Year) [...]
== END 2025-05-25 07:54 | disposition home or self-care (01) ==
LOC: HO.MAMMO 07:53
PROVIDERS: PCP Internal Medicine; Visit Provider Internal Medicine
DX: M81.0 Age-related osteoporosis without current pathological fracture (principal); M85.80 Other specified disorders of bone density and structure, unspecified site
CPT/HCPCS: 77080

== ENCOUNTER → 2025-05-25 08:15 | Outpatient (BNV) | payer MEDICARE, SELFPAY | PROVIDERS: PCP Internal Medicine; Visit Provider Radiology Diagnostic Radiology | DX: E28.39 Other primary ovarian failure (principal) | CPT/HCPCS: 77080 ==

== ENCOUNTER 2025-06-08 08:57 | Outpatient (AMB) | payer MEDICARE, SELFPAY ==
--- NOTE | 2025-06-08 09:03 | MHC.OFFVIS ---
Intake Visit Reasons: 1y/US Intake Note: Patient is present for 1yr Follow up Urology Medication:VITB-6, Potassium Antibiotic Allergy:ERYTHROMYCIN Blood Thinner:NONE Ultrasound done: 05/23/2025 Bit Sharpener Required: No Accompanied by: Self / Same As Patient Allergies erythromycin base (ERYTHROMYCIN BASE) Allergy (Severe, Verified 06/08/25 09:04) BODY ACHES Xlzhbxz-MKK-NmS Reductase Inhibitor (IFKHDRQ-SUG-CIF REDUCTASE INHIBITOR) Allergy (Severe, Verified 06/08/25 09:04) ALTERED MENTAL STATUS adhesive tape Allergy (Intermediate, Verified 06/08/25 09:04) BLISTERS omeprazole (From PRILOSEC) Adverse Reaction (Intermediate, Verified 06/08/25 09:04) DIARRHEA hospital sheets Allergy (Mild, Uncoded 04/05/25 08:40) years ago-caused itching HPI Comments Details: Charlette is a pleasant female. She is a patient of Dr. Evans. She is seen for the following urologic conditions - bladder cancer - nephrolithiasis - urinary urgency Yearly follow-up Continued reduction in stone burden on ultrasound Continue use of vitamin B6 and lemon juice Did not tolerate potassium citrate Secondary issue of urinary urgency Pronounced following COVID with nighttime leakage Discussed trial OAB medication Solifenacin provide Bladder Cancer Diagnosed 1994 Low-grade superficial Negative in prior surveillance cystoscopy Currently in check every 2 years Cystoscopy - 05/01 NAD, 05/03 NAD, 05/04 NAD Nephrolithiasis 07/03 uric acid 50% Known stone former Current therapy b.i.d. 10 mEq potassium citrate vitamin B6 Imaging - 04/29 renal ultrasound bilateral 9 mm stones - 05/01 renal ultrasound bilateral cysts, right 1.2 cm stone, left 8 mm stone - 09/02 renal ultrasound bilateral cysts, significant decrease stone burden 3 mm stones bilateral - 04/03 renal ultrasound, bilateral cysts stable, increased stone burden left side up to 12 mm - 10/03 renal ultrasound significant reduction in stone burden - 05/04 renal ultrasound right 3 mm, left 6 mm. This is significantly down over 1 year Prior interventions - ureteroscopy and ESWL - 07/03 R USR Stone composition - 07/03 uric acid 50%, calcium oxalate Urinary frequency and urgency Prior oral medications Prior discussion regarding tibial stimulation [facility] Medical History (Updated 06/08/25 @ 09:50 by Ashvin Arellano MD) Arthritis Renal calculus, bilateral Varicose veins of left lower extremity with inflammation Annual physical exam DVT (deep venous thrombosis) Left leg swelling Preop exam for internal medicine Tinnitus Encounter for annual wellness visit (AWV) in Medicare patient Stress incontinence Calculus of proximal right ureter Preop exam for internal medicine Allergic rhinitis Dislocation of right shoulder joint Right rotator cuff tear Cervical radiculopathy Obesity Carpal tunnel syndrome, left Left leg DVT GERD (gastroesophageal reflux disease) Post herpetic neuralgia Bladder cancer Hypercholesteremia Hypertension Surgical History Hx of cystoscopy History of carpal tunnel surgery of left wrist H/O shoulder replacement History of hip replacement History of lithotripsy History of cystoscopy History of cholecystectomy History of knee replacement procedure of right knee History of knee replacement procedure of left knee History of appendectomy History of total abdominal hysterectomy and bilateral salpingo-oophorectomy History of lumpectomy of left breast History of lumpectomy of right breast Family History Father Cancer Mother CVD (cardiovascular disease) Cerebral hemorrhage Brain aneurysm Brother CAD (coronary artery disease) Sister CVD (cardiovascular disease) Cancer Lung cancer Cerebral hemorrhage Sister Cancer Lung cancer Social History Household Members: Spouse Housing: House Are you a primary pet caretaker to a significant other at home: No Do you presently have visiting nurse or other home services: No Alcohol intake: current Alcohol intake frequency: holidays/special occasions only Comment: twice a month 2 drinks Patient Tobacco Use Status: Never used Tobacco Tobacco use type: Cigarette e-Cigarette/Vaping Use: Never Used Second Hand Smoke Exposure: No service: No Current occupational status: employed and retired Cognitive needs: No Hearing needs: No Vision needs: Yes Review of Systems Const Denies chills and Denies fever(s) Card Reports no additional complaints and Denies syncope Resp Denies cough GI Denies abdominal pain and Denies heartburn Reports as per HPI and Denies change in libido Neuro Denies syncope Psych Denies change in libido Endo Denies change in libido Physical Exam Const General: cooperative, healthy appearing, comfortable and no acute distress Orientation/consciousness: patient oriented x3 HEENT Face and sinus: Yes normal facial exam Mouth: moist mucous membranes Neck Neck: Yes normal visual inspection, Yes full ROM and Yes trachea midline Chest Chest palpation & inspection: normal inspection of the chest Resp Effort & Inspection: normal respiratory effort, able to speak in complete sentences and no respiratory distress GI Inspection: Yes normal to inspection Back/Spine/Pelvis Cervical Spine: normal cervical lordosis Thoracic/Lumbar Spine: thoracic and lumbar spine normal to inspection Skin General skin exam: no rashes or lesions noted Neuro General: patient oriented x3, gait normal, tone normal and moves all extremities Extrem General: Yes normal to inspection and Yes capillary refill normal Assessment & Plan Assessment & Plan (1) Bladder cancer: Comment: Dr. Hicks 1994 no chemo/radio Q other year cysto and the last cysto 2022 Code(s): C67.9 - Malignant neoplasm of bladder, unspecified Category: Medical Qualifiers: Bladder location: unspecified site Qualified Code(s): C67.9 - Malignant neoplasm of bladder, unspecified (2) Mixed incontinence: Code(s): N39.46 - Mixed incontinence Category: Medical (3) Uric acid kidney stone: Code(s): N20.0 - Calculus of kidney Category: Medical (4) Urinary urgency: Code(s): R39.15 - Urgency of urination Category: Medical Plan Twelve month follow-up Trial OAB meds if successful she will call Orders: Orders US renal BI 12 Months N20.0 - Calculus of kidney Medications: New solifenacin 5 mg PO DAILY 30 tabs 1RF 30 days R39.15 - Urgency of urination Refilled pyridoxine (vitamin B6) 50 mg PO DAILY 90 tabs 3RF 90 days N20.0 - Calculus of kidney Patient Instructions: This note is constructed using voice recognition software. While every effort has been made to ensure accuracy tennis court attendant errors may have been included. Imaging studies, laboratory and physical exam results were discussed and reviewed in detail. No major barriers to patient understanding were identified. An opportunity to ask questions regarding the treatment plan was provided. All questions were answered. The patient expressed understanding and agreement with the above treatment plan. The patient is aware they should contact our office by phone for worsening of their current condition or the appearance of new urologic symptoms. Compliance is encouraged with any medications and followup testing that is ordered. It is a privilege to participate in the urologic care of your patient. If you have any questions or concerns regarding treatment for the above conditions, or other urologic issues, please do not hesitate to contact me. The office telephone contact is [phone]. Sincerely, Dr Ashvin Arellano MD, [facility] - Urology Compassionate Specialist Care for the Genitourinary System Coding Level of Care Code Est Pt Level 4 (53157) Complex EM visit Add On G2211 Diagnoses Malignant neoplasm of urinary bladder, unspecified site C67.9 Bladder location: unspecified site Mixed incontinence N39.46 Uric acid kidney stone N20.0 Urinary urgency R39.15
--- OUTSIDE RECORDS SUMMARY | 2025-06-08 09:48 | XMS_ITS | Patient Health Record ---
Author Organization [facility] Address [address] [place] [address] Care Team Providers Care Farm Equipment Technician Name Role Phone Po Maria De Jesus AJ Primary Care Provider Ubaldo Moreira [phone] Allergies Allergen (clinical drug ingredient) Drug/Non Drug Allergy documented on EMR Reaction Allergy Type Onset Date Status morphine Morphine Sulfate Unknown Drug Allergy Active erythromycin Erythromycin Unknown Drug Allergy A ctive Substance with 2-fliwcjj-4-methylgluta ryl-coenzyme A reductase inhibitor mechanism of action [...] Problem Status W/U Status Risk Notes Problem [id number] Encounter for screening for malignant neoplasm of colon (Z12.11) Active confirmed Problem 650789399 Long-term use of aspirin therapy (Z79.82) Active confirmed Problem 838277099 Pre-procedural examination (Z01.818) Active confirmed Problem 950747261 Encntr long-term NSAID use (Z79.1) Active confirmed Plan Of Treatment Future Test Test Name Order Date COLONOSCOPY 12/03/2017 Insurance Providers Payer Name Payer Address Payer Phone Subscriber Number Group Number Insured Name Patient Relationship to Insured Coverage Start Date Coverage End Date [facility] [address] [place] [phone] [id number] HARVEY MATA Self - patient is the insured Medical (General) History Medical History History ICD Code Vertigo Kidney stones--ESWL and cystoscopies Arthritis HTN Hyperlipidemia Negative colonoscopy in 2006 except for diverticulosis Shingles on LUE--resolved Arthritis Bladder cancer--has periodic cystoscopie s Denies MS,DM,CVA,Lung disease,renal dise ase Surgical History Surgery Date(Month/Year) [...]
== END 2025-06-08 09:58 | disposition home or self-care (01) ==
LOC: HO.HUSH 08:58
PROVIDERS: PCP Internal Medicine; Visit Provider Urology
DX: C67.9 Malignant neoplasm of bladder, unspecified (principal); N39.46 Mixed incontinence; N20.0 Calculus of kidney
CPT/HCPCS: 99214; G2211

== ENCOUNTER → 2025-06-08 08:57 | Outpatient (BNVA) | payer MEDICARE, SELFPAY | PROVIDERS: PCP Internal Medicine; Visit Provider Urology | DX: N20.0 Calculus of kidney (principal); N39.46 Mixed incontinence; C67.9 Malignant neoplasm of bladder, unspecified | CPT/HCPCS: 99212 ==

== ENCOUNTER 2025-06-27 09:00 | Outpatient (RCR) | payer MEDICARE, SELFPAY ==
--- NOTE | 2025-05-31 10:37 | MHC.PT.EP ---
[facility] [place] Office [place] Office [place] Office [address] Yasmin Weaver [address] [phone] F: [phone] F: [phone] F: [phone] F: [phone] Physical Therapy Plan of Care Date of Evaluation: 05/31/25 Date of Surgery: NA Diagnosis: GAIT INSTABILITY Assessment: Pt IS 80 YO F REFERRED TO PT FROM DR VALDIVIA WITH GT INSTABILITY. Pt WITH EXTENSIVE PMH. PRESENTS WITH DECREASED LE STRENGTH, DECREASED CORE/UPPER BODY STRENGTH, GENERALIZED PAIN, LIMITED FUNCTIONAL MOBILITY AND LIMITED BALANCE. Pt CHALLENGED WITH DYNAMIC BAL ON FOAM PAD WITH EYES CLOSED (VESTIBULAR HYPOFUNCTION). SHOULD BENEFIT FROM PT TO ADDRESS THESE ISSUES WITH LOWER BODY AND UPPER BODY STRETCH AND STRENGTHENING EXS, BALANCE AND PROPRIOCEPTION WORK. Frequency and Duration: The patient will be seen 1X/WK X 6 WKS Short Term Goals: 1. INCREASED AWARENESS BACK CARE 2. GOOD BODY MECH WITH TRANSFERS 3. IMPROVED POSTURE WITH GT AND SIT Assisted Goals: 1. I HEP WITH DC EX PLAN 2. Pt TO REPORT OVERALL IMPROVED STRENGTH AND EASE WITH FUNCTIONAL MOBILITY 3. HIP FLEX 5/5 B, ANKLE DF 5/5 B 4. IMPROVED LEFI ( SOC) Treatment Plan: Modalities to reduce pain, spasms and effusion. Manual therapy to restore motion and function. Therapeutic exercise to improve strength and flexibility. Neuromuscular re-education for posture and balance. Therapeutic activities to return to functional activities of daily living. Electronically signed by: SHAINA CARMICHAEL PT Please sign and return to therapist. Thank you for your referral.
--- NOTE | 2025-09-12 15:04 | MHC.PT.DC ---
[facility] [place] [facility] [place] Office [place] [facility] [address] Yasmin Weaver [address] [phone] F: [phone] F: [phone] F: [phone] F: [phone] Physical Therapy Discharge Report Diagnosis: GAIT INSTABILITY Date of Surgery: NA Date of Evaluation: 05/31/25 Date of Discharge: 09/12/25 Treatments to Date: 5 Cancellations to Date: No Shows to Date: Discharge Status: Patient Elected to Stop Recommend MD Follow-up Discharge Summary: PER ASSESSMENT FROM LAST NOTE ON 06/27/25 RESTS PRN LE WEAKNESS CONTINUES. Pt WOULD LIKE TO CONTINUE BUT WITH LESS FREQUENCY (40 DOLLAR COPAY) Pt WAS ADMITTED TO HOSPITAL AND WAS SUPPOSED TO GO TO STR. IT HAS BEEN 11 WKS SINCE LAST APPT. WILL DC CHART AT THIS TIME. WILL NEED NEW EVALUATION IF RE-REFERRED Electronically signed by: SHAINA CARMICHAEL PT Please sign and return to therapist. Thank you for your referral.
== END 2025-10-10 14:58 | disposition home or self-care (01) ==
LOC: HO.PT 09:00
PROVIDERS: PCP Internal Medicine; Visit Provider Internal Medicine
DX: R26.81 Unsteadiness on feet (principal)
CPT/HCPCS: 97110; 97162; 97530; 97535

== ENCOUNTER 2025-07-13 06:02 | Inpatient (IN) | payer MEDICARE, SELFPAY ==
[2025-07-13] VITALS (13 sets, daily range): BP systolic 83–138; BP diastolic 39–85; PULSE 63–120; RESP 14–20; TEMP 36.5–40.6; O2SAT 88–99; BMI 35.9
--- NOTE | 2025-07-13 | ECG_ITS ---
Test Reason : tachy Blood Pressure : */* mmHG Vent. Rate : 103 BPM Atrial Rate : 103 BPM P-R Int : 188 ms QRS Dur : 72 ms QT Int : 346 ms P-R-T Axes : 41 4 52 degrees QTcB Int : 453 ms Sinus tachycardia Nonspecific T wave abnormality Borderline ECG When compared with ECG of 26-Aug-2022 12:16, Premature supraventricular complexes are no longer Present Referred By: Filippo Tellez Electronically Signed By: SUE PEÑA
--- NOTE | ~2025-07-13 | CT_ITS ---
EXAMINATION: CT HEAD WITHOUT CONTRAST CLINICAL INFORMATION: Altered mental status. COMPARISON: None available. TECHNIQUE: Contiguous axial imaging was performed from the skull base to vertex without intravenous administration of contrast. This CT examination was performed using dose optimization techniques as appropriate, variously including the following: *Automated exposure control *Adjustment of mA and/or kV according to patient size (this includes techniques or standardized protocols for targeted exams where dose is matched to indication/reason for exam; i.e. extremities or head) *Use of iterative reconstruction technique FINDINGS: There is no evidence of intracranial hemorrhage or extra-axial fluid collection. There is no mass effect, or edema. No CT evidence of acute territorial infarct. Ventricles, sulci, and cisterns are normal in size and configuration for patient age. No hydrocephalus. No midline shift. Negative hyperdense MCA sign. Negative insular ribbon sign. Patchy periventricular and deep white matter hypoattenuation is consistent with mild to moderate small vessel ischemic changes. Normal pituitary. Globes and orbital contents image normally. There are bilateral lens replacements. No extracranial soft tissue abnormalities. The paranasal sinuses, mastoid air cells, and tympanic cavities are normally aerated. No suspicious bony abnormalities. There are no acute fractures evident. CT/CT head/brain wo IV con IMPRESSION: No acute intracranial abnormalities. Electronically signed by: Abhinav Freeman MD 07/13/2025 09:03 AM EDT
--- NOTE | ~2025-07-13 | FL_ITS ---
EXAMINATION: XR FLUOROSCOPY WITH IMAGES CLINICAL INFORMATION: Left retrograde ureteroscopy with stent placement. COMPARISON: Correlation made with CT abdomen and pelvis 07/13/2025. TECHNIQUE: Fluoroscopy provided to: Dr. Kvng Huynh Fluoroscopy time: 0.1 minutes DAP: 2.13 Gycm2 Images: 5 FINDINGS: 5 fluoroscopic spot images obtained during left retrograde ureteroscopy with subsequent stent placement. Please refer to the full operative report for details. FL/FL guidance in OR IMPRESSION: Fluoroscopic guidance. Electronically signed by: Abhinav Freeman MD 07/18/2025 02:48 PM EDT
--- NOTE | ~2025-07-13 | CT_ITS ---
EXAMINATION: CT CHEST WITHOUT CONTRAST CLINICAL INFORMATION: Weak, sepsis. COMPARISON: None available. TECHNIQUE: Multidetector volumetric CT imaging of the chest was done. Axial MIP volume rendering provided. Sagittal and coronal reformatted images were obtained. This CT examination was performed using dose optimization techniques as appropriate, variously including the following: *Automated exposure control *Adjustment of mA and/or kV according to patient size (this includes techniques or standardized protocols for targeted exams where dose is matched to indication/reason for exam; i.e. extremities or head) *Use of iterative reconstruction technique . DLP: 337.39 mGy centimeter. FINDINGS: BUSINESS ASST: Patient's large body habitus. Scoliosis, thoracolumbar spine. Metallic hip prosthesis, bilaterally. Upper extremities both sides of the head. LUNGS: No gross consolidation. Atelectasis lung bases. 4 mm noncalcified pulmonary nodule, right middle lung lobe. No bronchiectasis. No honeycombing. No gross emphysematous changes. Airway is patent MEDIASTINUM: No mediastinal lymphadenopathy. No aneurysm, thoracic aorta. Mixed plaques throughout the thoracic aorta wall. Heart is not enlarged. No pericardial effusion. Calcified plaques in the coronary arteries. No pneumomediastinum. No hemopericardium. The thyroid gland is not enlarged. CORONARY ARTERY CALCIFICATION: Calcified plaques. PLEURA: No pleural effusion. No calcified pleural plaques. No pneumothorax. No hemothorax. AXILLA: No lymphadenopathy. UPPER ABDOMEN: Status post cholecystectomy. Calcified plaques abdominal aorta wall and the origin of the main renal arteries. OSSEOUS STRUCTURES: Multilevel spondylosis without acute fracture or listhesis. Subchondral cyst formation and glenoid, left scapula. Metallic prosthesis left humerus. Degenerative changes in the sternum clavicular joints. No acute rib fracture. CT/CT chest wo IV con IMPRESSION: No acute airspace disease. 4 mm noncalcified pulmonary nodule, right middle lung lobe. Consider inflammatory versus infectious versus neoplasm. Coronary artery disease and atherosclerosis disease. Fleischner guidelines were followed. Electronically signed by: Jose Elias Renee MD 07/13/2025 09:12 AM EDT
--- NOTE | ~2025-07-13 | CT_ITS ---
EXAMINATION: CT ABDOMEN AND PELVIS WITHOUT CONTRAST CLINICAL INFORMATION: Abdominal pain. Fever. Sepsis. COMPARISON: May 29, 2022. TECHNIQUE: Multidetector volumetric imaging was performed from the superior aspect of the liver through the pubic symphysis. Sagittal and coronal reformatted images were obtained on the technologist's workstation. This CT examination was performed using dose optimization techniques as appropriate, variously including the following: *Automated exposure control *Adjustment of mA and/or kV according to patient size (this includes techniques or standardized protocols for targeted exams where dose is matched to indication/reason for exam; i.e. extremities or head) *Use of iterative reconstruction technique. DLP: 903.30 mGy centimeter. FINDINGS: Inadequate evaluation of the intra-abdominal organs and vascular structures due to lack of IV contrast. LUNG BASES: Atelectasis. LIVER, GALLBLADDER, AND BILIARY TREE: Liver measures 16 cm. Status post cholecystectomy. No intrahepatic or extrahepatic biliary ductal dilatation. PANCREAS: No peripancreatic fluid collections. No main pancreatic ductal dilatation. SPLEEN: 8 cm. ADRENAL GLANDS: No nodular lesions. KIDNEYS AND URETERS: Right kidney: Multiple calculi, the largest measures 8.3 mm. No gross hydronephrosis. Nonspecific perinephric edema pattern. Less than 2 cm fluid density lesions in the renal parenchyma. No dilatation of the right ureter. Left kidney: There is a 6.3 mm calculus in the mid ureter. There is mild to moderate dilatation of the pelvicalyceal system and to a lesser extent proximal ureter. Multiple large calculi in the renal pelvis, the largest measures 20 mm. Perinephric edema pattern. Hypodensities in the renal parenchyma. BLADDER: Collapsed. Limited due to beam hardening artifact secondary to metallic hip prosthesis. GASTROINTESTINAL TRACT: Contrast within the large intestine. Numerous diverticula in the left hemicolon, mostly the sigmoid colon as well as the transverse colon. No intestinal obstruction pattern. No pneumatosis intestinalis. No fluid collections, peritoneal cavity. I do not see the appendix, no pericecal/mesocolon edema. Gas and fluid-filled mildly prominent proximal small bowel loops and collapsed appearance of the distal ileal loops. No ascites. No pneumoperitoneum. Rectal probe . ABDOMINAL WALL: Fat-containing umbilical hernia. LYMPH NODES: No gross lymphadenopathy, mesenteric or retroperitoneal. VASCULAR: Mixed plaques throughout the abdominal aorta wall and iliac arteries without gross aneurysm. Calcified plaques at the origin of the main renal arteries and mesenteric arteries. Calcified plaques in the femoral arteries. PELVIC VISCERA: Absent. Inadequate evaluation. OSSEOUS STRUCTURES: Multilevel thoracolumbar spondylosis resulting in grade 1 anterolisthesis L4-5 without gross spondylolysis pars interarticulares causing central spinal canal and bilateral neuroforamina stenosis. S-shaped curvature of the thoracolumbar spine with a levoconvex rotoscoliosis apex at L2-3. Metallic hip prosthesis with an acetabular and femoral components well seated in the osseous structures. Degenerative changes in the symphysis pubis.. CT/CT abdomen pelvis wo IV con IMPRESSION: Bilateral nephrolithiasis with a 6.3 mm obstructing calculus in the mid left ureter causing moderate left hydroureteronephrosis. Superimposed inflammatory versus infectious process in the left kidney cannot be excluded. No fluid collections, peritoneal cavity. Diverticular disease. Fleischner guidelines were followed. Electronically signed by: Jose Elias Renee MD 07/13/2025 09:26 AM EDT
--- NOTE | 2025-07-13 06:20 | ED_ITS ---
HPI - General Adult General Chief complaint: Weakness Stated complaint: Flank Pain Time Seen by Provider: 07/13/25 06:11 Source: family and EMS Mode of arrival: EMS Limitations: altered mental status History of Present Illness ED Provider: HPI narrative: Seven 10-year-old woman presenting with fever, altered mental status, I will obtain additional information from family, she had a travel to [facility] last week, it sounds like symptoms has been getting worse today. Patient is able to answer yes and no questions she told me she has no pain but she is clearly confused and is having a hard time speaking. Related Data Home Medications ?Medication ?Instructions ?Recorded ?Confirmed loratadine 10 mg tablet (Claritin) 10 mg PO DAILY PRN Allergy Symptoms 08/30/20 07/13/25 cholecalciferol (vitamin D3) 50 50 mcg PO DAILY 07/13/25 mcg (2,000 unit) capsule (Vitamin D3) L.paracasei,rhamnosus-B.animalis 1 cap PO DAILY PRN UP SET STOMACH 12/27/24 07/13/25 11 billion cell-vit C 15 mg capsule (Daily Probiotic (4 Strains)) albuterol sulfate 90 mcg/actuation 2 puff inhalation Q 4-6H PRN 07/13/25 07/13/25 aerosol inhaler Shortness Of Breath Or Wheez ing diclofenac sodium 1 % topical gel 4 g topical QID PRN Pain 07/13/25 07/13/25 (Arthritis Pain (diclofenac)) meloxicam 15 mg tablet 15 mg PO DAILY 07/13/2512/06 Previous Rx's ?Medication ?Instructions ?Recorded acetaminophen 500 mg tablet 1,000 mg (2 x 500 mg) PO T ID PRN 11/14/22 Pain #90 tabs fluticasone propionate 50 2 spray intranasal DAILY #16 grams 06/22/24 mcg/actuation nasal spray,suspension (Flonase Allergy Relief) pyridoxine (vitamin B6) 50 mg 50 mg PO DAILY 90 days # 90 tabs 06/08/25 tablet ezetimibe 10 mg tablet (Zetia) 10 mg PO DAILY 90 days #90 tabs 06/22/25 lisinopril 20 1 tab PO DAILY #90 tabs 06/13 12/06 mg-hydrochlorothiazide 25 mg tablet Allergies Allergy/AdvReac Type Severity Reaction Status Date / Time erythromycin base Allergy Severe BODY ACHES Verified 07/13/25 06:14 (ERYTHROMYCIN BASE) [id number]-JDJ-AzB Reductase Allergy Severe ALTERED Verified 07/13/25 06:14 Inhibitor ([id number] MENTAL REDUCTASE INHIBITOR) STATUS adhesive tape Allergy Intermediate BLISTERS Verified 07/13/25 06:14 omeprazole (From PRILOSEC) AdvReac Intermediate DIARRHEA Verified 07/13/25 06:14 hospital sheets Allergy Mild years Uncoded 07/13/25 06:14 ago-caused itching Review of Systems 2 Review of Systems: Yes Unobtainable due to mental status Constitutional: Constitutional: Reports as per HPI [facility] Past Medical History Medical History (Updated 07/13/25 @ 11:18 by KYLAH Bonilla) Arthritis Renal calculus, bilateral Varicose veins of left lower extremity with inflammation Annual physical exam DVT (deep venous thrombosis) Left leg swelling Preop exam for internal medicine Tinnitus Encounter for annual wellness visit (AWV) in Medicare patient Stress incontinence Calculus of proximal right ureter Preop exam for internal medicine Allergic rhinitis Dislocation of right shoulder joint Right rotator cuff tear Cervical radiculopathy Obesity Carpal tunnel syndrome, left Left leg DVT GERD (gastroesophageal reflux disease) Post herpetic neuralgia Bladder cancer Hypercholesteremia Hypertension Surgical History Hx of cystoscopy History of carpal tunnel surgery of left wrist H/O shoulder replacement History of hip replacement History of lithotripsy History of cystoscopy History of cholecystectomy History of knee replacement procedure of right knee History of knee replacement procedure of left knee History of appendectomy History of total abdominal hysterectomy and bilateral salpingo-oophorectomy History of lumpectomy of left breast History of lumpectomy of right breast Family History Family History Father Cancer Mother CVD (cardiovascular disease) Cerebral hemorrhage Brain aneurysm Brother CAD (coronary artery disease) Sister CVD (cardiovascular disease) Cancer Lung cancer Cerebral hemorrhage Sister Cancer Lung cancer Social History Social History Household Members: Spouse Housing: House Are you a primary resident care manager rn to a significant other at home: No Do you presently have visiting nurse or other home services: No Alcohol intake: current Alcohol intake frequency: holidays/special occasions only Comment: twice a month 2 drinks Patient Tobacco Use Status: Never used Tobacco Tobacco use type: Cigarette Smoked in Last 30 Days: No e-Cigarette/Vaping Use: Never Used Second Hand Smoke Exposure: No Use of substances other than those prescribed or required for medical reasons: No Advance Directives: No Advance Directives Information Provided: Yes Do you have a plan to hurt others: No Plan service: No Current occupational status: employed and retired Cognitive needs: No Hearing needs: No Vision needs: Yes Physical Exam ED Vital Signs: Vital Signs - 24 hr 07/13/25 06:08 07/13/25 06:34 07/13/25 06:34 Temperature 105.1 F H 105.1 F H Pulse Rate 118 H 109 H Respiratory Rate 19 20 Blood Pressure 134/72 138/60 Pulse Oximetry 92 88 L 94 Oxygen Delivery Method Room Air Room Air Nasal Cannula Oxygen Flow Rate 2 07/13/25 07:26 07/13/25 07:28 07/13/25 08:00 Temperature 102.7 F H 102.7 F H 101.8 F H Pulse Rate 110 H 96 Respiratory Rate 16 20 Blood Pressure 110/59 L 116/60 Pulse Oximetry 97 96 Oxygen Delivery Method Nasal Cannula Nasal Cannula Oxygen Flow Rate 2 2 BMI result Body Mass Index 35.9 Const Other: General: Older woman, unwell ? ?no scleral icterus, dry oral mucosa ? ?CV: S1-S2 ferrous heart rate ? ?Resp: ?No wheezing rales rhonchi no stridor moving air well ? Abd: ?Generalized tenderness no rebound or rigidity bowel sounds present ? ?MSK: No obvious deformities to the extremities no evidence for swelling of the joints, she has 2+ pitting edema bilateral lower extremities ? Skin: Warm, dry, intact, ? ?Neuro: ?Alert and oriented to self, answering yes and no questions, moving upper and lower extremities symmetrically, no obvious facial asymmetry noted, she pauses before speaking when answering questions but otherwise able to make herself be known Medications Administered Discontinued Medications Generic Name Dose Route Start Last Admin Trade Name Freq PRN Reason Stop Dose Admin Acetaminophen 650 mg 07/13/25 06:21 07/13/25 06:25 Acetaminophen Supp 650 Mg Supp.Rect AZ 07/13/25 06:22 650 mg ONCE ONE Administration Sodium Chloride 1,000 mls @ 999 mls/hr 07/13/25 06:30 07/13/25 07:31 Ns IV 07/13/25 07:30 Infused .Q1H1M PAUL Infusion Piperacillin Sod/Tazobactam 50 mls @ 100 mls/hr 07/13/25 06:45 07/13/25 07:28 Sod 3.375 gm/ Sodium Chloride IV 07/13/25 07:14 Infused ONCE ONE Infusion Medical Decision Making Medical Decision Making MDM Narrative: 6:43 AM 07/13/2025 (Dr. Filippo Tellez): We will have to get additional information from the family but it I am concerned for underlying septic etiology and code sepsis activated the patient noted to be febrile to 105.1, generalized abdominal pain, as well as altered mentation this is likely delirium but we will obtain CT brain to make sure there was no underlying brain bleed, brain mass such as abscess which is unlikely, other workup to consider include pneumonia, diverticulitis, infectious colitis, UTI, there were no apparent rashes, encephalitis. Anticipating admission. We will give fluids, we will cover empirically with antibiotics. We will start with Zosyn as she has abdominal tenderness on also has bladder cancer so she has a UTI or abdominal source of infection Zosyn will cover these potential sources. 7:19 AM 07/13/2025 (Dr. iFlippo Tellez): As fevers coming down patient is much more responsive and readily to answer my questions and overall her speech has improved she is alert and oriented at this time temp on the monitor 102.7, also spoke to patient's daughter who is a nurse, they found her very confused in the morning and had difficulty speaking, and at this time patient is fully alert speaking well, I re-examined her, thus far blood work with mild leukocytosis, she does have GUIDO, viral swab is negative, awaiting imaging, no evidence for any rashes, no evidence for rashes him on facial area to suspect disseminated zoster resulting in encephalitis patient has a history of kidney stones and came back from the [facility] yesterday feeling like she may have kidney stones so pyelonephritis is a consideration urinalysis results are still pending 9:34 AM 07/13/2025 (Dr. Filippo Tellez): 9:34 AM 07/13/2025 we will consult Urology regarding patient's CT findings there appears to be an obstructed mid ureteral stone on the left side as I noted in my impression with some uptake I suspect patient will need nephrostomy as this is proximal source Dr. Arellano is her urologist 11:15 AM 07/13/2025 (Dr. Filippo Tellez): Slightly elevated troponin 80.6 from 20, I suspect this is septic related, she is not having chest pain Differential Diagnosis Differential Diagnoses: The differential diagnosis associated with the presentation includes (See my differential as above) Admission/Observation Consideration of admission/observation: Escalation of care including admission/observation considered Consult Healthcare Provider Management of the patient was discussed with: Hospitalist Lab Data MDM Lab Attestation statement: I reviewed the patient's lab results. 07/13/25 06:17 07/13/25 06:17 Labs: Lab Results 07/13/25 07/13/25 Range/Units 06:17 07:20 WBC 11.3 H (4.8-10.8) X10*3/uL RBC 3.98 L (4.20-5.50) X10*6/uL Hgb 12.3 (12.0-16.0) g/dl Hct 35.5 L (37.0-47.0) % MCV 89.2 (80.0-98.0) fL MCH 30.9 (27.0-33.0) pg MCHC 34.6 (31.0-35.0) g/dl RDW 13.5 (11.0-16.0) % Plt Count 217 D (160-400) X10*3/uL MPV 9.0 L (9.4-12.3) fL Immature Gran % (Auto) 0.7 H (0.0-0.4) % Neut % (Auto) 93.6 H (45-73) % Lymph % (Auto) 3.5 L (20-40) % Crosby % (Auto) 1.7 L (2-11) % Eos % (Auto) 0.1 (0-4) % Baso % (Auto) 0.4 (0-2) % Lymph # (Auto) 0.4 L (1.2-4.9) X10*3/uL Crosby # (Auto) 0.2 (0.1-1.2) X10*3/uL Eos # (Auto) 0.0 (0.0-0.4) X10*3/uL Baso # (Auto) 0.0 (0.0-0.2) X10*3/uL Abs Immat Gran (auto) 0.08 H (0.00-0.03) X10*3/uL Absolute Neuts (auto) 10.6 H (2.0-8.3) x10*3/uL Absolute Nucleated RBC 0.000 (0.0-0.012) X10*3/uL Nucleated RBC % (auto) 0.0 (0.0-0.2) /100WBC Smear Tech's Comments VERIFIED Sodium 139 (135-145) mmol/L Potassium 4.0 (3.3-5.1) mmol/L Chloride 107 (96-108) mmol/L Carbon Dioxide 21 L (22-29) mmol/L Anion Gap 15 (12-20) BUN 36 H (9-16) mg/dL Creatinine 1.81 H (0.5-1.4) mg/dL Estim Creat Clear Calc 30.2 Estimated GFR 27 Random Glucose 174 H (60-115) mg/dL Lactic Acid 1.6 (0.5-2.0) mmol/L Calcium 9.5 (8.4-10.2) mg/dL Total Bilirubin 0.9 (0.0-1.0) mg/dL AST 31 (5-31) U/L ALT 27 (0-31) U/L Alkaline Phosphatase 70 (39-117) U/L Troponin I High Sens 22.2 H (<3.5-17.0) ng/L NT-Pro-B Natriuret Pep 308.5 H (<300) pg/mL Total Protein 6.8 (6.5-8.0) g/dL Albumin 4.1 (3.5-5.0) g/dL Urine Color Yellow Urine Appearance Clear Urine pH 5.5 (5.0-9.0) Ur Specific Ambler 1.020 (1.005-1.025) Urine Protein 30 (1+) H (Neg-Trace) mg/dL Urine Glucose (UA) Negative (Negative) mg/dL Urine Ketones Trace (Negative) mg/dL Urine Blood Small (1+) H (Negative) Urine Nitrite Negative (Negative) Ur Leukocyte Esterase Negative (Negative) Urine RBC 0-2 (0-2) /HPF Urine WBC 0-5 (0-5) /HPF Ur Squamous Epith Cells 0-2 (0-2) /HPF Urine Bacteria None Seen (None Seen) Hyaline Casts 0-2 (0-2) /LPF COVID-19 (CHARLY) Negative (Negative) COVID-19 Clin Com See Note Influenza Type A (NAVID) Negative (Negative) Influenza Type B (NAVID) Negative (Negative) Influenza A & B Note See Note Independent Interpretation I performed an independent interpretation of an: EKG (103 beats per minute otherwise normal ECG without dysrhythmia, AV yoly blocks or ST-T changes to suspect underlying ACS, my independent interpretation) Radiology Impression Discussion of test interpretation with radiology: I have reviewed the radiologist's reading. Radiologist Impression: MPRESSION: No acute airspace disease. 4 mm noncalcified pulmonary nodule, right middle lung lobe. Consider inflammatory versus infectious versus neoplasm. Coronary artery disease and atherosclerosis disease. CT/CT head/brain wo IV con IMPRESSION: No acute intracranial abnormalities. Critical Care Time Critical Care Time Critical Care Time: Yes Total Critical Care Time: 60 Attestation: Time is exclusive of separately billable procedures. Time includes: direct patient care, patient reassessment, coordination of patient care, interpretation of data (laboratory data, pulse oximetry, arterial blood gases and chest xrays), review of patient's medical records, medical consultation and documentation of patient care. Procedures excluded from critical care time: central intravenous line placement and electrocardiography. Discharge Plan Discharge Clinical Impression: Right ureteral stone, Acute pyelonephritis, Sepsis
[2025-07-13] MEDS: Acetaminophen Supp 650 MG SUPP.RECT PR (06:25)
[2025-07-13 06:30] LABS: Hematocrit 35.5 % (37.0-47.0); Hemoglobin 12.3 g/dl (12.0-16.0); Imm Gran Abs Auto 0.08 X10*3/uL (0.00-0.03); Imm Gran Pct Auto 0.7 % (0.0-0.4); Lymphocytes Absolute Auto 0.4 X10*3/uL (1.2-4.9); MANUAL DIFF FLAG SCAN; Mean Corpuscular HGB Conc 34.6 g/dl (31.0-35.0); Mean Corpuscular Hemoglobin 30.9 pg (27.0-33.0); Mean Corpuscular Volume 89.2 fL (80.0-98.0); NRBC Abs Auto 0.000 X10*3/uL (0.0-0.012); NRBC Pct Auto 0.0 /100WBC (0.0-0.2); Platelet Count 217 X10*3/uL (160-400); Red Blood Count 3.98 X10*6/uL (4.20-5.50); SCAN SMEAR FLAG 1; White Blood Count 11.3 X10*3/uL (4.8-10.8)
--- NOTE | 2025-07-13 06:31 | PC.NURSE ---
pt biba from home, a&ox4, respirations even and unlabored. per ems, pt had woken up with increased weakness unable to ambulate, pt called daughter who came and checked temperature of 103 and reports pt had increased altered mental status. pt noted to have trouble finding words at this time but remains able to follow commands and a&ox4. MD Tellez at bedside, sepsis alert called at this time. pt febrile and tachycardic. 20g placed in right ac and left wrist labs obtained. pt noted to be 88% on room air, placed on 2L nc sating 93%. rectal probe placed. pt medicated per dec
--- OUTSIDE RECORDS SUMMARY | 2025-07-13 06:41 | XMS_ITS | Patient Health Record ---
Author Organization [facility] Address [address] [place] [address] Care Team Providers Care Athletic Coach Name Role Phone Po Maria De Jesus AJ Primary Care Provider Ubaldo Moreira [phone] Allergies Allergen (clinical drug ingredient) Drug/Non Drug Allergy documented on EMR Reaction Allergy Type Onset Date Status Morphine Sulfate Unknown Drug Allergy Active erythromycin Erythromycin Unknown Drug Allergy A ctive Substance with 2-wkctfjh-0-methylgluta ryl-coenzyme A reductase inhibitor mechanism of action [...] Problem Status W/U Status Risk Notes Problem 920645622 Encounter for screening for malignant neoplasm of colon (Z12.11) Active confirmed Problem 064096338 Long-term use of aspirin therapy (Z79.82) Active confirmed Problem 212438205 Pre-procedural examination (Z01.818) Active confirmed Problem 625396264 Encntr long-term NSAID use (Z79.1) Active confirmed Plan Of Treatment Future Test Test Name Order Date COLONOSCOPY 12/03/2017 Insurance Providers Payer Name Payer Address Payer Phone Subscriber Number Group Number Insured Name Patient Relationship to Insured Coverage Start Date Coverage End Date [facility] [address] [facility] [place] [address] [phone] [id number] HARVEY MATA Self - patient is the insured Medical (General) History Medical History History ICD Code Vertigo Kidney stones--ESWL and cystoscopies Arthritis HTN Hyperlipidemia Negative colonoscopy in 2006 except for diverticulosis Shingles on LUE--resolved Arthritis Bladder cancer--has periodic cystoscopie s Denies [place],DM,CVA,Lung disease,renal dise ase Surgical History Surgery Date(Month/Year) [...]
[2025-07-13 06:44] LABS: COVID-19 Test Negative (Negative); IDNOW Serial# 58CA691E
[2025-07-13 06:53] LABS: IDNOW Serial# 55D5AD1C
[2025-07-13 06:54] LABS: Influenza B2 Negative (Negative)
[2025-07-13 07:00] LABS: NT Pro B Type Natriuretic Pept 308.5 pg/mL (<300); Troponin-I High Sensitivity 22.2 ng/L (<3.5-17.0)
[2025-07-13 07:01] LABS: Alanine Aminotransferase 27 U/L (0-31); Albumin Level 4.1 g/dL (3.5-5.0); Alkaline Phosphatase 70 U/L (39-117); Anion Gap 15 (12-20); Aspartate Amino Transferase 31 U/L (5-31); Blood Urea Nitrogen 36 mg/dL (9-16); Calcium 9.5 mg/dL (8.4-10.2); Carbon Dioxide 21 mmol/L (22-29); Chloride 107 mmol/L (96-108); Creatinine Clr Calc Pharmacy 30.2; Estimated Glomerular Filt Rate 27; Potassium 4.0 mmol/L (3.3-5.1); Sodium 139 mmol/L (135-145); Total Protein 6.8 g/dL (6.5-8.0)
[2025-07-13 07:30] LABS: Appearance Urine Clear; Glucose Urine UA Negative (Negative); PH 5.5 (5.0-9.0); Specific Gravity - Urine 1.020 (1.005-1.025); UMIC TRIGGER UACC YES
--- NOTE | 2025-07-13 08:15 | PC.NURSE ---
Assumed care of patient. Sepsis protocol started at 0620. IV abx given along with fluid bolus. Did not exceed 1000ml d/t fluid retention. Pt alert and oriented. Follows commands. HENAO equally. Voided using bedpan. Pending CT head. Pending disposition.
--- NOTE | 2025-07-13 11:01 | PM.IMHP ---
History of Present Illness Date of Service: 07/13/25 Attending physician on admission: Mercedes Arambula Chief Complaint: AMS, fever, flank pain This is a 80-year-old female who was brought into the emergency department by family due to confusion. Her symptoms started on Thursday with feeling cold, having nausea and left flank pain. She felt like she had a kidney stone which she has had many times in the past. However she began having episodes of vomiting and came home from her vacation early. She returned home from [facility] yesterday. This morning her daughter came to check on her and she was confused and had a high fever so they brought her to the emergency department for evaluation. On arrival her temperature was 105.1 degrees, she was tachycardic as well as hypoxic with an oxygen saturation of 88% air. She was initially unable to provide history to the ED provider, as her fever improved her mental status began to improve. Her oxygen levels improved with 2 L nasal cannula. Urinalysis negative, COVID-[address]. CT scan of the abdomen and pelvis showed bilateral nephrolithiasis with 6.3 mm obstructing calculus in the mid left ureter causing moderate left hydroureteronephrosis. With superimposed inflammatory versus infectious process of the left kidney. CT scan of the chest showed no acute airspace disease. Blood cultures were obtained. Lab work was significant for elevation in creatinine at 1.81. The case was discussed with Urology who plans to place stent today. She will be admitted for further management. Review of Systems Review of Systems: Yes all other systems are reviewed and are negative Constitutional: Constitutional: Reports chills and Reports fever(s) Cardiovascular: Cardiovascular: Denies chest pain and Denies palpitations Gastrointestinal: Gastrointestinal: Reports abdominal pain, Reports nausea and Reports vomiting Endocrine: Endocrine: Denies palpitations [facility] Medical History Arthritis Renal calculus, bilateral Varicose veins of left lower extremity with inflammation Annual physical exam DVT (deep venous thrombosis) Left leg swelling Preop exam for internal medicine Tinnitus Encounter for annual wellness visit (AWV) in Medicare patient Stress incontinence Calculus of proximal right ureter Preop exam for internal medicine Allergic rhinitis Dislocation of right shoulder joint Right rotator cuff tear Cervical radiculopathy Obesity Carpal tunnel syndrome, left Left leg DVT GERD (gastroesophageal reflux disease) Post herpetic neuralgia Bladder cancer Hypercholesteremia Hypertension Family History Father Cancer Mother CVD (cardiovascular disease) Cerebral hemorrhage Brain aneurysm Brother CAD (coronary artery disease) Sister CVD (cardiovascular disease) Cancer Lung cancer Cerebral hemorrhage Sister Cancer Lung cancer Surgical History Hx of cystoscopy History of carpal tunnel surgery of left wrist H/O shoulder replacement History of hip replacement History of lithotripsy History of cystoscopy History of cholecystectomy History of knee replacement procedure of right knee History of knee replacement procedure of left knee History of appendectomy History of total abdominal hysterectomy and bilateral salpingo-oophorectomy History of lumpectomy of left breast History of lumpectomy of right breast Social History Household Members: Spouse Housing: House Are you a primary menagerie caretaker to a significant other at home: No Do you presently have visiting nurse or other home services: No Alcohol intake: current Alcohol intake frequency: holidays/special occasions only Comment: twice a month 2 drinks Patient Tobacco Use Status: Never used Tobacco Tobacco use type: Cigarette Smoked in Last 30 Days: No e-Cigarette/Vaping Use: Never Used Second Hand Smoke Exposure: No Use of substances other than those prescribed or required for medical reasons: No Advance Directives: No Advance Directives Information Provided: Yes Do you have a plan to hurt others: No Plan service: No Current occupational status: employed and retired Cognitive needs: No Hearing needs: No Vision needs: Yes Meds Allergies Allergy/AdvReac Type Severity Reaction Status Date / Time erythromycin base Allergy Severe BODY ACHES Verified 07/13/25 06:14 (ERYTHROMYCIN BASE) Qlashvb-[id number]-BoI Reductase Allergy Severe ALTERED Verified 07/13/25 06:14 Inhibitor ([id number]-[id number] MENTAL REDUCTASE INHIBITOR) STATUS adhesive tape Allergy Intermediate BLISTERS Verified 07/13/25 06:14 omeprazole (From PRILOSEC) AdvReac Intermediate DIARRHEA Verified 07/13/25 06:14 hospital sheets Allergy Mild years Uncoded 07/13/25 06:14 ago-caused itching Home Medications ?Medication ?Instructions ?Recorded ?Confirmed ?Last Taken ?Type loratadine 10 mg tablet (Claritin) 10 mg PO DAILY PRN Allergy Symptoms 08/30/20 07/13/25 09/08/22 History cholecalciferol (vitamin D3) 50 50 mcg PO DAILY 11/24/22 07/13/25 07/12/25 History mcg (2,000 unit) capsule (Vitamin D3) L.paracasei,rhamnosus-B.animalis 1 cap PO DAILY PRN UPSET STOMACH 12/27/24 07/13/25 Unknown History 11 billion cell-vit C 15 mg capsule (Daily Probiotic (4 Strains)) albuterol sulfate 90 mcg/actuation 2 puff inhalation Q4-6H PRN 07/13/25 07/13/25 Unknown History aerosol inhaler Shortness Of Breath Or Wheezing diclofenac sodium 1 % topical gel 4 g topical QID PRN Pain 07/13/25 07/13/25 Unknown History (Arthritis Pain (diclofenac)) meloxicam 15 mg tablet 15 mg PO DAILY 07/13/25 07/13/25 07/12/25 History Physical Exam Vital Signs and Narrative: Vital Signs: Last Vital Signs Temp 101.8 F H 07/13/25 08:00 Pulse 96 07/13/25 08:00 Resp 20 07/13/25 08:00 BP 116/60 07/13/25 08:00 Pulse Ox 96 07/13/25 08:00 O2 Del Method Nasal Cannula 07/13/25 08:00 O2 Flow Rate 2 07/13/25 08:00 BMI result Body Mass Index 35.9 Const: General: cooperative, alert and awake Nutritional Appearance: obese Resp: Effort & Inspection: normal respiratory effort, able to speak in complete sentences, no respiratory distress and no use of accessory muscles Cardio: Rate: regular rate GI: Inspection: No distended Palpation (GI): Soft to palpation and nontender : Other: left CVAT Neuro: Other: tongue midline, speech normal, strength equal b/l General: moves all extremities and CN's II-XI intact bilaterally Extrem: Other: 1+ edema b/l Results Labs 07/13/25 06:17 07/13/25 06:17 Labs: Laboratory Results - last 24 hr 07/13/25 07/13/25 06:17 07:20 MCV 89.2 MCH 30.9 MCHC 34.6 RDW 13.5 Plt Count 217 D MPV 9.0 L Immature Gran % (Auto) 0.7 H Neut % (Auto) 93.6 H Lymph % (Auto) 3.5 L [place] % (Auto) 1.7 L Eos % (Auto) 0.1 Baso % (Auto) 0.4 Lymph # (Auto) 0.4 L [place] # (Auto) 0.2 Eos # (Auto) 0.0 Baso # (Auto) 0.0 Abs Immat Gran (auto) 0.08 H Absolute Neuts (auto) 10.6 H Absolute Nucleated RBC 0.000 Nucleated RBC % (auto) 0.0 Smear Tech's Comments VERIFIED Anion Gap 15 Estim Creat Clear Calc 30.2 Estimated GFR 27 Random Glucose 174 H Lactic Acid 1.6 Calcium 9.5 Total Bilirubin 0.9 AST 31 ALT 27 Alkaline Phosphatase 70 Troponin I High Sens 22.2 H NT-Pro-B Natriuret Pep 308.5 H Total Protein 6.8 Albumin 4.1 Urine Color Yellow Urine Appearance Clear Urine pH 5.5 Ur Specific [place] 1.020 Urine Protein 30 (1+) H Urine Glucose (UA) Negative Urine Ketones Trace Urine Blood Small (1+) H Urine Nitrite Negative Ur Leukocyte Esterase Negative Urine RBC 0-2 Urine WBC 0-5 Ur Squamous Epith Cells 0-2 Urine Bacteria None Seen Hyaline Casts 0-2 COVID-19 (CHARLY) Negative COVID-19 Clin Com See Note Influenza Type A (NAVID) Negative Influenza Type B (NAVID) Negative Influenza A & B Note See Note Imaging Radiologist's Impressions: Impressions Abdomen/Pelvis CT 07/13/25 07:38 IMPRESSION: Bilateral nephrolithiasis with a 6.3 mm obstructing calculus in the mid left ureter causing moderate left hydroureteronephrosis. Superimposed inflammatory versus infectious process in the left kidney cannot be excluded. No fluid collections, peritoneal cavity. Diverticular disease. Fleischner guidelines were followed. Electronically signed by: Jose Elias Renee MD 07/13/2025 09:[address] 07/13/25 07:38 IMPRESSION: No acute airspace disease. 4 mm noncalcified pulmonary nodule, right middle lung lobe. Consider inflammatory versus infectious versus neoplasm. Coronary artery disease and atherosclerosis disease. Fleischner guidelines were followed. Electronically signed by: Jose Elias Renee MD 07/13/2025 09:12 AM EDT RP Head CT 07/13/25 07:38 IMPRESSION: No acute intracranial abnormalities. Electronically signed by: Abhinav Freeman MD 07/13/2025 09:03 AM EDT RP Assessment and Plan (1) GUIDO (acute kidney injury): Status: Acute Plan This is a 80-year-old female with history of hypertension, hyperlipidemia who presents to the emergency department with confusion found to have high fever and obstructing stone Sepsis due to infected stone with obstructive uropathy and GUIDO lactic acid normal, bp so far stable. CT with left obstructing stone causing moderate hydroureteronephrosis UA negative received empiric zosyn in ED, will continue IV ceftriaxone Antipyretic Acute toxic metabolic encephalopathy due to above starting to improve brain CT negative, no focal neurological deficits Acute hypoxic respiratory failure Oxygen saturation 88% on room air, above 90% on 2 L NC Wean oxygen as tolerated GUIDO due to obstructing stone, vomiting and medications hold lisinopril/HCTZ IVF follow BMP NSTEMI no chest pain, non-specific EKG changes trop increased from 22 to 80 likely due to demand from fever, hypoxia and decreased clearance from GUIDO tele monitoring trend third trop, if continues to trend up will involve cardiology pulm nodule ct chest showing 4 mm noncalcified pulmonary nodule-outpatient follow-up recommend HTN hold lisinopril/HCT Monitor blood pressure closely HLD hold zetia morbid obesity BMI 35.9 weight loss encouraged med rec pending at this time dvt ppx - mechanical devices Code status full code Patient will likely require 2 midnight stay in the hospital for monitoring of mental status, fever, obstructing stone requiring specialist evaluation and plan proceed Quality Stroke Does the patient have a stroke diagnosis?: No VTE Prior VTE?: No VTE Risk Level:: Medical - moderate - high VTE Device Contraindication: N/A - Device Ordered VTE Drug Contraindication: Treatment Not Indicated
--- NOTE | 2025-07-13 11:04 | PHA.MEDREC ---
Addendum entered by Jamie Torres PharmD 07/13/25 11:18: reviewed Original Note: Pharmacy Consult ? Medication Reconciliation Pharmacy has completed the medication reconciliation. Spoke with pt and family (Spouse & daughter) and pt was able to confirm her medications. Pt no longer taking Solifenacin; pt states she took it for about 20 days and then started experiencing side effects and stopped it ~10 days ago.
[2025-07-13 11:15] LABS: Troponin-I High Sensitivity 80.6 ng/L (<3.5-17.0)
--- NOTE | 2025-07-13 11:38 | HO.NURTONUR ---
Pt is a 80 yo F came into ED this am for AMS per family members. Rectal temp on arrival 105.1, sepsis alert called. Bld cxs, IVF, and abx given. Pt reports fevers/chills x2days with left flank pain. Hx of kidney stones. CT abd showed obstructive kid stone with possible infection vs inflammation. Pt to be admitted by hospitalist and consult urology. Per hospitalist urology to place a stent today. Pt has been NPO except sips of water since coming to ED this am. Tylenol suppository given for fever with improvement. Pt was 88% on RA initially. Placed on 2LNC with improvement. Denies n/v. Voids using bedpan. Normally ambulates with walker at home. GBW. Pt more alert and oriented since fever dec. Pt understanding of plan of care and ok with admission
[2025-07-13] MEDS: Lactated Ringers 1,000 ML 100 ML IVCONT ×2 (12:20→21:59)
--- NOTE | 2025-07-13 12:49 | PM.EVENT ---
Event Note Date of Service: 07/13/25 Event Note: Nurse called that Pt Blood pressure has dropped to 80s/30s will give 30cc/kg bolus and repeat lactic acid Time Spent With Patient Time: Total time managing care of this patient today ____ minutes.
[2025-07-13] MEDS: LACTATED RINGERS 3027 ML IV (12:52)
--- NOTE | 2025-07-13 13:05 | PC.NURSE ---
PA notified of hypotension. Bolus fluids started. Pending admission
--- NOTE | 2025-07-13 13:50 | PC.NURSE ---
MD Arellano at bedside to place uretal stent. Camejo 16F placed by .
[2025-07-13 13:53] LABS: Troponin-I High Sensitivity 63.5 ng/L (<3.5-17.0)
--- NOTE | 2025-07-13 21:35 | PM.UROCN ---
History of Present Illness Consult details Consult date: 07/13/25 Narrative: CC: Urinary sepsis 80-year-old female. Brought to emergency department by family secondary to confusion. Symptoms present for 48 hours Did feel as though she had a kidney stone which she has had previously UA negative, COVID negative. CT scan showed bilateral nephrolithiasis with 6 mm obstructing calculus in the mid left ureter with moderate left hydro uretero nephrosis Creatinine at presentation 1.[address] a ureteric catheter at the bedside Catheter successfully placed We will review for white cell and plan to place stent Review of Systems Constitutional: Constitutional: Reports as per HPI and Reports no additional constitutional complaints Cardiovascular: Cardiovascular: Reports as per HPI and Reports no additional cardiovascular complaints Respiratory: Respiratory: Reports as per HPI and Reports no additional respiratory complaints Gastrointestinal: Gastrointestinal: Reports as per HPI and Reports no additional gastrointestinal complaints Genitourinary: Genitourinary: Reports as per HPI Musculoskeletal: Musculoskeletal: Reports no additional musculoskeletal complaints and Reports as per HPI Neurologic: Reports system reviewed and no additional complaints, except as documented and Reports as per HPI [facility] Past Medical History Medical History (Updated 07/14/25 @ 19:57 by Kellen Washington MD) Renal calculus, bilateral Arthritis Varicose veins of left lower extremity with inflammation Annual physical exam DVT (deep venous thrombosis) Left leg swelling Preop exam for internal medicine Tinnitus Encounter for annual wellness visit (AWV) in Medicare patient Stress incontinence Calculus of proximal right ureter Preop exam for internal medicine Allergic rhinitis Dislocation of right shoulder joint Right rotator cuff tear Cervical radiculopathy Obesity Carpal tunnel syndrome, left Left leg DVT GERD (gastroesophageal reflux disease) Post herpetic neuralgia Bladder cancer Hypercholesteremia Hypertension Family History Family History Father Cancer Mother CVD (cardiovascular disease) Cerebral hemorrhage Brain aneurysm Brother CAD (coronary artery disease) Sister CVD (cardiovascular disease) Cancer Lung cancer Cerebral hemorrhage Sister Cancer Lung cancer Surgical History Surgical History Hx of cystoscopy History of carpal tunnel surgery of left wrist H/O shoulder replacement History of hip replacement History of lithotripsy History of cystoscopy History of cholecystectomy History of knee replacement procedure of right knee History of knee replacement procedure of left knee History of appendectomy History of total abdominal hysterectomy and bilateral salpingo-oophorectomy History of lumpectomy of left breast History of lumpectomy of right breast Social History Social History Household Members: Spouse Housing: House Are you a primary vision care associate to a significant other at home: No Do you presently have visiting nurse or other home services: No Alcohol intake: current Alcohol intake frequency: holidays/special occasions only Comment: twice a month 2 drinks Patient Tobacco Use Status: Never used Tobacco Tobacco use type: Cigarette e-Cigarette/Vaping Use: Never Used Second Hand Smoke Exposure: No service: No Current occupational status: employed and retired Cognitive needs: No Hearing needs: No Vision needs: Yes Meds Allergies Allergy/AdvReac Type Severity Reaction Status Date / Time erythromycin base Allergy Severe BODY ACHES Verified 07/13/25 06:14 (ERYTHROMYCIN BASE) Rqewssl-GFN-PmH Reductase Allergy Severe ALTERED Verified 07/13/25 06:14 Inhibitor ([id number] MENTAL REDUCTASE INHIBITOR) STATUS adhesive tape Allergy Intermediate BLISTERS Verified 07/13/25 06:14 omeprazole (From PRILOSEC) AdvReac Intermediate DIARRHEA Verified 07/13/25 06:14 hospital sheets Allergy Mild years Uncoded 07/13/25 06:14 ago-caused itching Active Medications: Current Medications Acetaminophen (Acetaminophen 325 Mg Tablet) 650 mg PO Q6H PRN PRN Reason: Pain, Mild 1-3,fever,headache Last Admin: 07/13/25 19:04 Dose: 650 mg Albuterol Sulfate (Albuterol Sulfate 90 Mcg 8 Gm Inhaler) 2 puff INHALE RQ4H PRN PRN Reason: Shortness Of Breath Or Wheezing Calcium Carbonate (Calcium Carbonate 750 Mg Tab.Chew) 750 mg PO Q4H PRN PRN Reason: Heartburn Ceftriaxone Sodium (Ceftriaxone Sodium 1 Gm Vial) 1 gm IVPUSH Q24H PAUL Last Admin: 07/13/25 13:19 Dose: 1 gm Lactated Ringer's (Lr) 1,000 mls @ 100 mls/hr IVCONT .Q10H PAUL Last Admin: 07/13/25 12:20 Dose: 100 mls/hr Magnesium Hydroxide (Milk Of Magnesia 30 Ml Oral.Susp) 30 ml PO DAILY PRN PRN Reason: Constipation Melatonin (Melatonin 3 Mg Tablet) 6 mg PO BEDTIME PRN PRN Reason: Insomnia Pyridoxine HCl (Pyridoxine Hcl (Vitamin B6) 50 Mg Tablet) 50 mg PO DAILY [facility] Sodium Chloride (0.9 % Sodium Chloride Flush 3 Ml Syringe) 3 ml IVFLUSH QSHIFT [facility] Last Admin: 07/13/25 16:55 Dose: Not Given Vitamin D (Cholecalciferol (Vitamin D3) 25 Mcg Tablet) 50 mcg PO DAILY [facility] Home Medications ?Medication ?Instructions ?Recorded ?Confirmed ?Last Taken ?Type loratadine 10 mg tablet (Claritin) 10 mg PO DAILY PRN Allergy Symptoms 08/30/20 07/13/25 09/08/22 History cholecalciferol (vitamin D3) 50 50 mcg PO DAILY 11/24/22 07/13/25 07/12/25 History mcg (2,000 unit) capsule (Vitamin D3) L.paracasei,rhamnosus-B.animalis 1 cap PO DAILY PRN UPSET STOMACH 12/27/24 07/13/25 Unknown History 11 billion cell-vit C 15 mg capsule (Daily Probiotic (4 Strains)) albuterol sulfate 90 mcg/actuation 2 puff inhalation Q4-6H PRN 07/13/25 07/13/25 Unknown History aerosol inhaler Shortness Of Breath Or Wheezing diclofenac sodium 1 % topical gel 4 g topical QID PRN Pain 07/13/25 07/13/25 Unknown History (Arthritis Pain (diclofenac)) meloxicam 15 mg tablet 15 mg PO DAILY 07/13/25 07/13/25 07/12/25 History Physical Exam Vital Signs: Vital Signs: Last Vital Signs Temp 100 F 07/13/25 20:50 Pulse 72 07/13/25 20:50 Resp 17 07/13/25 20:50 BP 103/55 L 07/13/25 20:50 Pulse Ox 95 07/13/25 20:50 O2 Del Method Nasal Cannula 07/13/25 20:50 O2 Flow Rate 1 07/13/25 20:50 BMI result Body Mass Index 35.9 Const: General: cooperative, healthy appearing, comfortable and no acute distress Orientation/consciousness: patient oriented x3 HEENT: Face and sinus: Yes normal facial exam Mouth: moist mucous membranes Neck: Neck: Yes normal visual inspection, Yes full ROM and Yes trachea midline Chest: Chest palpation & inspection: normal inspection of the chest Resp: Effort & Inspection: normal respiratory effort, able to speak in complete sentences and no respiratory distress GI: Inspection: Yes normal to inspection Back/Spine/Pelvis: Cervical Spine: normal cervical lordosis Thoracic/Lumbar Spine: thoracic and lumbar spine normal to inspection Skin: General skin exam: no rashes or lesions noted Neuro: General: patient oriented x3, tone normal and moves all extremities Extrem: General: Yes normal to inspection and Yes capillary refill normal Results Labs 07/17/25 06:41 07/17/25 06:41 Labs: Abnormal lab results 07/13/25 07/13/25 07/13/25 Range/Units 06:17 07:20 10:38 WBC 11.3 H (4.8-10.8) X10*3/uL RBC 3.98 L (4.20-5.50) X10*6/uL Hct 35.5 L (37.0-47.0) % MPV 9.0 L (9.4-12.3) fL Immature Gran % (Auto) 0.7 H (0.0-0.4) % Neut % (Auto) 93.6 H (45-73) % Lymph % (Auto) 3.5 L (20-40) % [place] % (Auto) 1.7 L (2-11) % Lymph # (Auto) 0.4 L (1.2-4.9) X10*3/uL Abs Immat Gran (auto) 0.08 H (0.00-0.03) X10*3/uL Absolute Neuts (auto) 10.6 H (2.0-8.3) x10*3/uL Carbon Dioxide 21 L (22-29) mmol/L BUN 36 H (9-16) mg/dL Creatinine 1.81 H (0.5-1.4) mg/dL Random Glucose 174 H (60-115) mg/dL Troponin I High Sens 22.2 H 80.6 H* D (<3.5-17.0) ng/L NT-Pro-B Natriuret Pep 308.5 H (<300) pg/mL Urine Protein 30 (1+) H (Neg-Trace) mg/dL Urine Blood Small (1+) H (Negative) 07/13/25 Range/Units 13:20 WBC (4.8-10.8) X10*3/uL RBC (4.20-5.50) X10*6/uL Hct (37.0-47.0) % MPV (9.4-12.3) fL Immature Gran % (Auto) (0.0-0.4) % Neut % (Auto) (45-73) % Lymph % (Auto) (20-40) % [place] % (Auto) (2-11) % Lymph # (Auto) (1.2-4.9) X10*3/uL Abs Immat Gran (auto) (0.00-0.03) X10*3/uL Absolute Neuts (auto) (2.0-8.3) x10*3/uL Carbon Dioxide (22-29) mmol/L BUN (9-16) mg/dL Creatinine (0.5-1.4) mg/dL Random Glucose (60-115) mg/dL Troponin I High Sens 63.5 H* (<3.5-17.0) ng/L NT-Pro-B Natriuret Pep (<300) pg/mL Urine Protein (Neg-Trace) mg/dL Urine Blood (Negative) Short CBC 07/13/25 Range/Units 06:17 WBC 11.3 H (4.8-10.8) X10*3/uL Hgb 12.3 (12.0-16.0) g/dl Hct 35.5 L (37.0-47.0) % Plt Count 217 D (160-400) X10*3/uL BMP 07/13/25 06:17 Sodium 139 Potassium 4.0 Chloride 107 Carbon Dioxide 21 L BUN 36 H Creatinine 1.81 H Calcium 9.5 Liver Function 07/13/25 Range/Units 06:17 Total Bilirubin 0.9 (0.0-1.0) mg/dL AST 31 (5-31) U/L ALT 27 (0-31) U/L Alkaline Phosphatase 70 (39-117) U/L Albumin 4.1 (3.5-5.0) g/dL Urine 07/13/25 Range/Units 07:20 Urine Color Yellow Urine Appearance Clear Urine pH 5.5 (5.0-9.0) Ur Specific [place] 1.020 (1.005-1.025) Urine Protein 30 (1+) H (Neg-Trace) mg/dL Urine Glucose (UA) Negative (Negative) mg/dL All other labs normal. Assessment and Plan (1) GUIDO (acute kidney injury): Status: Acute (2) Ureteral calculi: Status: Acute Plan Reassess for conversion to indwelling stent Procedures Date of Service Date of Service: 07/17/25 Procedure Note Procedure Note: PreOperative Diagnosis: Left proximal ureteric stone Post Operative Diagnosis: Left proximal ureteric stone Procedure: Cystoscopy, left ureteric catheter placement Surgeon: Dr Ashvin Arellano Anesthesia: Indications for procedure: Left proximal ureteric stone with sepsis Procedure: Imaging reviewed, placement at bedside Urethral was cleaned. A 22 Swazi cystoscope was introduced per urethra. No abnormality was noted of urethra or bladder. Both ureteric orifices were seen in a normal position. The left ureter was cannulated with an open ended catheter. A Sensor guidewire was placed under fluoroscopy and a good coil was seen within the renal pelvis. A 4 Swazi open ureteric catheter was advanced over the wire and up to the level of the renal pelvis under direct visualization. Fluid aspirated and sent for culture. Using 18 Angiocath ureteric catheter was placed into Camejo catheter The patient tolerated the procedure CPT 43899
[2025-07-14 03:48] VITALS: BP 113/61; PULSE 79; RESP 18; TEMP 37.1; O2SAT 98
[2025-07-14] MEDS: Lactated Ringers 1,000 ML 100 ML IVCONT ×2 (07:05→15:50)
--- NOTE | 2025-07-14 07:18 | HO.PM.IMPN ---
Subjective Subjective Date of Service: 07/14/25 Interval History: Patient continues to be quite febrile and needs IV antibiotics Patient has urinary catheter placed by Urology on admission to relief post obstructive uropathy Review of Systems Review of Systems: Yes all other systems are reviewed and are negative Physical Exam Exam: Exam: Patient appears to be hemodynamically stable General: AOx3, no acute distress, but febrile to touch, has a Camejo catheter in place draining yellow urine Resp: CTA bilaterally CVS: S1, S2, RRR GI: +BS, NT, no distention Skin: Warm, dry Neuro: Motor grossly intact bilaterally Extremities: No edema Psych: Appropriate affect Vital Signs: Vital Signs: Last Vital Signs Temp 98.8 F 07/14/25 03:48 Pulse 79 07/14/25 03:48 Resp 18 07/14/25 03:48 BP 113/61 07/14/25 03:48 Pulse Ox 98 07/14/25 03:48 O2 Del Method Room Air 07/14/25 03:48 O2 Flow Rate 1 07/13/25 23:57 BMI result Body Mass Index 35.9 Objective Data Active Medications Acetaminophen (Acetaminophen 325 Mg Tablet) 650 mg PO Q6H PRN PRN Reason: Pain, Mild 1-3,fever,headache Last Admin: 07/13/25 19:04 Dose: 650 mg Documented By: JENIFER Albuterol Sulfate (Albuterol Sulfate 90 Mcg 8 Gm Inhaler) 2 puff INHALE RQ4H PRN PRN Reason: Shortness Of Breath Or Wheezing Calcium Carbonate (Calcium Carbonate 750 Mg Tab.Chew) 750 mg PO Q4H PRN PRN Reason: Heartburn Ceftriaxone Sodium (Ceftriaxone Sodium 1 Gm Vial) 1 gm IVPUSH Q24H [facility] Last Admin: 07/13/25 13:19 Dose: 1 gm Documented By: HEIDE Lactated Ringer's (Lr) 1,000 mls @ 100 mls/hr IVCONT .Q10H [facility] Last Admin: 07/14/25 07:05 Dose: 100 mls/hr Documented By: CASSIE Magnesium Hydroxide (Milk Of Magnesia 30 Ml Oral.Susp) 30 ml PO DAILY PRN PRN Reason: Constipation Melatonin (Melatonin 3 Mg Tablet) 6 mg PO BEDTIME PRN PRN Reason: Insomnia Pyridoxine HCl (Pyridoxine Hcl (Vitamin B6) 50 Mg Tablet) 50 mg PO DAILY [facility] Sodium Chloride (0.9 % Sodium Chloride Flush 3 Ml Syringe) 3 ml IVFLUSH QSHIFT [facility] Last Admin: 07/13/25 22:00 Dose: Not Given Documented By: CASSIE Non-Admin Reason: IV Running Vitamin D (Cholecalciferol (Vitamin D3) 25 Mcg Tablet) 50 mcg PO DAILY [facility] Labs 07/14/25 07:09 07/14/25 07:09 Labs: Laboratory Results - last 24 hr 07/13/25 07/13/25 07/13/25 07:20 10:38 13:20 Lactic Acid 1.6 Troponin I High Sens 80.6 H* D 63.5 H* Urine Color Yellow Urine Appearance Clear Urine pH 5.5 Ur Specific [place] 1.020 Urine Protein 30 (1+) H Urine Glucose (UA) Negative Urine Ketones Trace Urine Blood Small (1+) H Urine Nitrite Negative Ur Leukocyte Esterase Negative Urine RBC 0-2 Urine WBC 0-5 Ur Squamous Epith Cells 0-2 Urine Bacteria None Seen Hyaline Casts 0-2 Assessment and Plan (1) Ureteral calculi: Status: Acute Plan Patient with prior history of chronic recurrent bilateral nephrolithiasis-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 Urology consulted from the ED and underwent a stent placement and Camejo catheter placement to relieve pre and post renal obstruction Sepsis secondary to left obstructive uropathy s/p stent GUIDO prerenal renal and postrenal-we will resume antihypertensive meds post resolution of sepsis Acute toxic metabolic encephalopathy-secondary to sepsis resolved Continue IV antibiotics, IV fluid Camejo catheter placement by Urology to be continued Patient continues to be quite febrile We will continue sepsis protocol Pain control Significant deconditioning-PTOT requested likely we will need rehab placement NSTEMI-type 2 troponinemia Tele, replete electrolytes to goal Morbid obesity dietary DVT prophylaxis for now with SCD given instrumentation and risk of hematuria Given her prior history of DVT we will be cautious in likely re-initiate sooner This note is constructed using voice recognition software. While every effort has been made to ensure accuracy, nutrition internship errors may have been included. Quality Stroke Does the patient have a stroke diagnosis?: No VTE Prior VTE?: No VTE Risk Level:: Medical - moderate - high VTE Device Contraindication: N/A - Device Ordered VTE Drug Contraindication: Treatment Not Indicated
[2025-07-14 07:22] VITALS: BP 129/60; PULSE 74; RESP 18; TEMP 37.1; O2SAT 97
[2025-07-14 07:33] LABS: MANUAL DIFF FLAG NO
[2025-07-14 07:37] LABS: Hematocrit 32.9 % (37.0-47.0); Hemoglobin 10.9 g/dl (12.0-16.0); Imm Gran Abs Auto 0.05 X10*3/uL (0.00-0.03); Imm Gran Pct Auto 0.5 % (0.0-0.4); Lymphocytes Absolute Auto 0.6 X10*3/uL (1.2-4.9); Mean Corpuscular HGB Conc 33.1 g/dl (31.0-35.0); Mean Corpuscular Hemoglobin 30.4 pg (27.0-33.0); Mean Corpuscular Volume 91.6 fL (80.0-98.0); NRBC Abs Auto 0.000 X10*3/uL (0.0-0.012); NRBC Pct Auto 0.0 /100WBC (0.0-0.2); Platelet Count 166 X10*3/uL (160-400); Red Blood Count 3.59 X10*6/uL (4.20-5.50); White Blood Count 9.8 X10*3/uL (4.8-10.8)
[2025-07-14 07:56] LABS: Anion Gap 10 (12-20); Blood Urea Nitrogen 21 mg/dL (9-16); Calcium 8.7 mg/dL (8.4-10.2); Carbon Dioxide 25 mmol/L (22-29); Chloride 107 mmol/L (96-108); Potassium 3.6 mmol/L (3.3-5.1); Sodium 138 mmol/L (135-145)
[2025-07-14 08:07] LABS: Creatinine Clr Calc Pharmacy 60.7; Estimated Glomerular Filt Rate > 60
--- NOTE | 2025-07-14 08:44 | MHC.CM.PN ---
CM met with Patient and her /HCP/Gomez at bedside and addressed IMM with them(Patient preferred to sign IMM); the original was given to Patient and a copy has been placed on the chart. Patient lives in a house with her , uses a cane & walker to assist with mobility, and was doing outpatient PT @ [facility]. Patient may benefit from a PT Eval to assist with disposition. CM has initiated and will follow for dc planning. PCP is Dr. Maria De Jesus VALDIVIA and will transport to home at dc.
[2025-07-14] MEDS: 0.9 % Sodium Chloride Flush 3 ML SYRINGE IVFLUSH ×2 (09:29→20:03)
[2025-07-14 10:55] VITALS: BP 132/60; PULSE 74; RESP 18; TEMP 36.8; O2SAT 96
[2025-07-14 15:13] VITALS: BP 120/59; PULSE 69; RESP 18; TEMP 36.9; O2SAT 96
[2025-07-14 19:38] VITALS: BP 128/60; PULSE 71; RESP 20; TEMP 36.8; O2SAT 95
[2025-07-14 23:33] VITALS: BP 122/60; PULSE 61; RESP 16; TEMP 36.6; O2SAT 95
[2025-07-15] MEDS: Lactated Ringers 1,000 ML 100 ML IVCONT (00:46)
[2025-07-15 03:55] VITALS: BP 130/60; PULSE 62; RESP 20; TEMP 36.5; O2SAT 96
--- NOTE | 2025-07-15 07:17 | HO.PM.IMPN ---
Subjective Subjective Date of Service: 07/15/25 Interval History: Patient's Tylenol was made scheduled as the patient was not aware that she had to ask for her Tylenol Adequate pain control PTOT requested Advised the patient that she can walk and she should walk to get her strength back DVT prophylaxis initiated with heparin given her CKD stage 3-4 Camejo draining yellow color urine De-escalated antibiotics given optimal optimal hemodynamics and appropriate response Review of Systems Review of Systems: Yes all other systems are reviewed and are negative Physical Exam Exam: Exam: Patient appears to be hemodynamically stable General: AOx3, no acute distress, but febrile to touch, has a Camejo catheter in place draining yellow urine Resp: CTA bilaterally CVS: S1, S2, RRR GI: +BS, NT, no distention Skin: Warm, dry Neuro: Motor grossly intact bilaterally Extremities: No edema Psych: Appropriate affect Vital Signs: Vital Signs: Last Vital Signs Temp 97.7 F 07/15/25 03:55 Pulse 62 07/15/25 03:55 Resp 20 07/15/25 03:55 BP 130/60 07/15/25 03:55 Pulse Ox 96 07/15/25 03:55 O2 Del Method Room Air 07/15/25 03:55 O2 Flow Rate 1 07/14/25 07:22 BMI result Body Mass Index 35.9 Objective Data Active Medications Acetaminophen (Acetaminophen 325 Mg Tablet) 650 mg PO Q6H PRN PRN Reason: Pain, Mild 1-3,fever,headache Last Admin: 07/15/25 02:16 Dose: 650 mg Documented By: FRANK Albuterol Sulfate (Albuterol Sulfate 90 Mcg 8 Gm Inhaler) 2 puff INHALE RQ4H PRN PRN Reason: Shortness Of Breath Or Wheezing Calcium Carbonate (Calcium Carbonate 750 Mg Tab.Chew) 750 mg PO Q4H PRN PRN Reason: Heartburn Ceftriaxone Sodium (Ceftriaxone Sodium 1 Gm Vial) 1 gm IVPUSH Q24H [facility] Last Admin: 07/14/25 12:44 Dose: 1 gm Documented By: STACEY Lactated Ringer's (Lr) 1,000 mls @ 100 mls/hr IVCONT .Q10H [facility] Last Admin: 07/15/25 00:46 Dose: 100 mls/hr Documented By: FRANK Magnesium Hydroxide (Milk Of Magnesia 30 Ml Oral.Susp) 30 ml PO DAILY PRN PRN Reason: Constipation Melatonin (Melatonin 3 Mg Tablet) 6 mg PO BEDTIME PRN PRN Reason: Insomnia Pyridoxine HCl (Pyridoxine Hcl (Vitamin B6) 50 Mg Tablet) 50 mg PO DAILY [facility] Last Admin: 07/14/25 09:29 Dose: 50 mg Documented By: STACEY Sodium Chloride (0.9 % Sodium Chloride Flush 3 Ml Syringe) 3 ml IVFLUSH QSHIFT [facility] Last Admin: 07/14/25 20:03 Dose: 3 ml Documented By: FRANK Vitamin D (Cholecalciferol (Vitamin D3) 25 Mcg Tablet) 50 mcg PO DAILY [facility] Last Admin: 07/14/25 09:29 Dose: 50 mcg Documented By: STACEY Labs 07/15/25 08:19 07/15/25 08:19 Labs: Laboratory Results - last 24 hr 07/14/25 07:09 MCV 91.6 MCH 30.4 MCHC 33.1 RDW 13.6 Plt Count 166 MPV 9.4 Immature Gran % (Auto) 0.5 H Neut % (Auto) 87.9 H Lymph % (Auto) 5.6 L [place] % (Auto) 5.2 Eos % (Auto) 0.6 Baso % (Auto) 0.2 Lymph # (Auto) 0.6 L [place] # (Auto) 0.5 Eos # (Auto) 0.1 Baso # (Auto) 0.0 Abs Immat Gran (auto) 0.05 H Absolute Neuts (auto) 8.6 H Absolute Nucleated RBC 0.000 Nucleated RBC % (auto) 0.0 Anion Gap 10 L Estim Creat Clear Calc 60.7 Estimated GFR > 60 Random Glucose 101 Calcium 8.7 D Microbiology Microbiology Results: Microbiology 07/13/25 13:57 Urine Culture - Final Urine Catheterized - Camejo Catheter No growth. 07/13/25 06:17 Blood Culture - Preliminary Blood - Venous No growth after 24 hours. 07/13/25 06:18 Blood Culture - Preliminary Blood - Venous No growth after 24 hours. Assessment and Plan (1) Ureteral calculi: Status: Acute Plan Patient with prior history of chronic recurrent bilateral nephrolithiasis-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 underwent a stent placement and Camejo catheter placement to relieve pre and post renal obstruction Sepsis secondary to left obstructive uropathy s/p stent GUIDO prerenal renal and postrenal-resolving with fluids , ureteral stent and Camejo decompress Acute toxic metabolic encephalopathy-secondary to sepsis resolved post treatment CKD stage 3 to 4-nonoliguric likely we will need outpatient Nephrology follow-up We will switch IV antibiotics to p.o. given adequate response and negative sepsis workup thus far, UA also appears unremarkable no culture growth thus far in urine Also we do not carry any probiotics in our pharmacy hence patient encouraged to have dietary methods of probiotics Pain control with scheduled Tylenol as she reports severe osteoarthritis and did not know that Tylenol needs to be adjusted Creatinine appears to be near her baseline likely we will consult Nephrology to establish outpatient follow-up Significant deconditioning-PTOT requested likely we will need rehab placement, Tylenol, Robaxin, lidocaine, PTOT, we will likely need short-term rehab NSTEMI-type 2 troponinemia, Tele, replete electrolytes to goal Morbid obesity dietary recommendation DVT prophylaxis with heparin given CKD 4 Patient is at significant risk of decompensation and needs continued monitoring with p.o. antibiotics hemodynamics and consult for Nephrology given worsening CKD, hence we will likely need PTOT and placement which will likely happen Thursday This note is constructed using voice recognition software. While every effort has been made to ensure accuracy, marine pilot errors may have been included. Quality Stroke Does the patient have a stroke diagnosis?: No VTE Prior VTE?: No VTE Risk Level:: Medical - moderate - high VTE Device Contraindication: N/A - Device Ordered VTE Drug Contraindication: Treatment Not Indicated
[2025-07-15 07:28] VITALS: BP 161/75; PULSE 66; RESP 19; TEMP 36.4; O2SAT 97
[2025-07-15 08:55] LABS: MANUAL DIFF FLAG NO
[2025-07-15 08:58] LABS: Hematocrit 31.4 % (37.0-47.0); Hemoglobin 10.6 g/dl (12.0-16.0); Imm Gran Abs Auto 0.02 X10*3/uL (0.00-0.03); Imm Gran Pct Auto 0.3 % (0.0-0.4); Lymphocytes Absolute Auto 1.3 X10*3/uL (1.2-4.9); Mean Corpuscular HGB Conc 33.8 g/dl (31.0-35.0); Mean Corpuscular Hemoglobin 30.6 pg (27.0-33.0); Mean Corpuscular Volume 90.8 fL (80.0-98.0); NRBC Abs Auto 0.000 X10*3/uL (0.0-0.012); NRBC Pct Auto 0.0 /100WBC (0.0-0.2); Platelet Count 167 X10*3/uL (160-400); Red Blood Count 3.46 X10*6/uL (4.20-5.50); White Blood Count 6.7 X10*3/uL (4.8-10.8)
[2025-07-15] MEDS: 0.9 % Sodium Chloride Flush 3 ML SYRINGE IVFLUSH ×3 (09:08→20:31)
[2025-07-15 09:22] LABS: Alanine Aminotransferase 83 U/L (0-31); Albumin Level 3.2 g/dL (3.5-5.0); Alkaline Phosphatase 67 U/L (39-117); Anion Gap 11 (12-20); Aspartate Amino Transferase 127 U/L (5-31); Blood Urea Nitrogen 14 mg/dL (9-16); Calcium 8.8 mg/dL (8.4-10.2); Carbon Dioxide 25 mmol/L (22-29); Chloride 109 mmol/L (96-108); Creatinine Clr Calc Pharmacy 70.0; Estimated Glomerular Filt Rate > 60; Potassium 3.5 mmol/L (3.3-5.1); Sodium 141 mmol/L (135-145); Total Protein 5.7 g/dL (6.5-8.0)
[2025-07-15 11:18] VITALS: BP 113/54; PULSE 60; RESP 18; TEMP 36.3; O2SAT 96
[2025-07-15 14:22] LABS: Uric Acid 6.0 mg/dL (2.4-5.7)
[2025-07-15 14:29] LABS: Parathyroid Hormone Intact 74.6 pg/mL (8.7-77.1)
[2025-07-15 15:07] VITALS: BP 138/62; PULSE 61; RESP 19; TEMP 36.4; O2SAT 95
[2025-07-15 18:06] LABS: Microalbum/Creatinine Ratio Ur 144.6 ug/mg cr (<30)
[2025-07-15 19:47] VITALS: BP 128/59; PULSE 65; RESP 20; TEMP 36.2; O2SAT 97
[2025-07-15 21:11] LABS: Total Protein Urine Random 72 mg/dL (<12)
[2025-07-15 23:46] VITALS: BP 135/69; PULSE 59; RESP 18; TEMP 36.1; O2SAT 98
[2025-07-16] VITALS (7 sets, daily range): BP systolic 125–162; BP diastolic 59–75; PULSE 56–71; RESP 18–20; TEMP 36.1–36.8; O2SAT 94–97
--- NOTE | 2025-07-16 05:47 | PC.NURSE ---
Patient heart rate dipping to 40s in sleep, unsustained. Awoken for vitals and while awake, this did not happen about 15 min. When she was back to sleep, began dipping occasionally, recovering to 50-60s. When awake she denied dizziness or any other symptoms, stated she felt fine and was sleeping deeply. Hospitalist notified via [employer] and responded no interventions, please make sure she is not on BB or CCB if so we have to hold,thanks Patient is not on any cardiac meds.
--- NOTE | 2025-07-16 07:28 | P.PNIM_ITS ---
Subjective Subjective Date of Service: 07/16/25 Interval History: She is afebrile, responding to current treatment We will await PTOT and outpatient Urology Patient has a Camejo likely will be going to rehab on Camejo Physical Exam 2 Exam: Exam: Patient appears to be hemodynamically stable General: AOx3, no acute distress, but febrile to touch, has a Camejo catheter in place draining yellow urine Resp: CTA bilaterally CVS: S1, S2, RRR GI: +BS, NT, no distention Skin: Warm, dry Neuro: Motor grossly intact bilaterally Vital Signs: Vital Signs: Last Vital Signs Temp 97.0 F 07/16/25 07:19 Pulse 60 07/16/25 07:19 Resp 18 07/16/25 07:19 BP 145/68 H 07/16/25 07:19 Pulse Ox 96 07/16/25 07:19 O2 Del Method Room Air 07/16/25 07:19 O2 Flow Rate 1 07/14/25 07:22 BMI result Body Mass Index 35.9 Objective Data Active Medications Acetaminophen (Acetaminophen 325 Mg Tablet) 650 mg PO Q6H [facility] Last Admin: 07/16/25 03:42 Dose: 650 mg Documented By: ROSAS Albuterol Sulfate (Albuterol Sulfate 90 Mcg 8 Gm Inhaler) 2 puff INHALE RQ4H PRN PRN Reason: Shortness Of Breath Or Wheezing Amoxicillin/Clavulanate Potassium (Amoxicillin/Potassium Clav 875 Mg Tablet) 875 mg PO BID [facility] Last Admin: 07/15/25 20:28 Dose: 875 mg Documented By: PAULO Calcium Carbonate (Calcium Carbonate 750 Mg Tab.Chew) 750 mg PO Q4H PRN PRN Reason: Heartburn Fluticasone Propionate (Fluticasone Propionate Nasal 16 Gm [place]) 2 spray NOSTRIL-B DAILY [facility] Last Admin: 07/15/25 09:13 Dose: Not Given Documented By: FLORES Non-Admin Reason: Med Not Available Heparin Sodium (Porcine) (Heparin Sodium,Porcine 5,000 Unit/Ml Vial) 5,000 unit SUBCUT Q12H [facility] Last Admin: 07/15/25 20:28 Dose: 5,000 unit Documented By: PAULO Loratadine (Loratadine 10 Mg Tablet) 10 mg PO DAILY PRN PRN Reason: Allergy Symptoms Magnesium Hydroxide (Milk Of Magnesia 30 Ml Oral.Susp) 30 ml PO DAILY PRN PRN Reason: Constipation Melatonin (Melatonin 3 Mg Tablet) 6 mg PO BEDTIME PRN PRN Reason: Insomnia Naproxen (Naproxen 500 Mg Tablet) 500 mg PO BID [facility] Last Admin: 07/15/25 20:28 Dose: 500 mg Documented By: JAMESONSIALISA Pyridoxine HCl (Pyridoxine Hcl (Vitamin B6) 50 Mg Tablet) 50 mg PO DAILY [facility] Last Admin: 07/15/25 09:12 Dose: 50 mg Documented By: FLORES Sodium Chloride (0.9 % Sodium Chloride Flush 3 Ml Syringe) 3 ml IVFLUSH QSHIFT [facility] Last Admin: 07/15/25 20:31 Dose: 3 ml Documented By: PAULO Vitamin D (Cholecalciferol (Vitamin D3) 25 Mcg Tablet) 50 mcg PO DAILY [facility] Last Admin: 07/15/25 09:12 Dose: 50 mcg Documented By: FLORES Labs 07/16/25 07:36 07/16/25 07:36 Labs: Laboratory Results - last 24 hr 07/15/25 07/15/25 07/15/25 08:19 13:47 17:18 MCV 90.8 MCH 30.6 MCHC 33.8 RDW 13.6 Plt Count 167 MPV 9.6 Immature Gran % (Auto) 0.3 Neut % (Auto) 63.6 Lymph % (Auto) 19.5 L [place] % (Auto) 9.9 Eos % (Auto) 6.3 H Baso % (Auto) 0.4 Lymph # (Auto) 1.3 [place] # (Auto) 0.7 Eos # (Auto) 0.4 Baso # (Auto) 0.0 Abs Immat Gran (auto) 0.02 Absolute Neuts (auto) 4.3 Absolute Nucleated RBC 0.000 Nucleated RBC % (auto) 0.0 Anion Gap 11 L Estim Creat Clear Calc 70.0 Estimated GFR > 60 Random Glucose 104 Uric Acid 6.0 H Calcium 8.8 Total Bilirubin 0.4 AST 127 H ALT 83 H Alkaline Phosphatase 67 Total Protein 5.7 L Albumin 3.2 L PTH Intact 74.6 U Random Total Protein 72 H Urine Creatinine 147.25 Urine Microalbumin 213.0 Microalb/Creat Ratio 144.6 H Microbiology Microbiology Results: Microbiology 07/13/25 06:17 Blood Culture - Preliminary Blood - Venous No growth after 48 hours. 07/13/25 06:18 Blood Culture - Preliminary Blood - Venous No growth after 48 hours. Assessment and Plan (1) Ureteral calculi: Status: Acute Plan Patient with prior history of chronic recurrent bilateral nephrolithiasis-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 underwent a stent placement and Camejo catheter placement to relieve pre and post renal obstruction Sepsis secondary to left obstructive uropathy s/p stent with altered mental status, leukocytosis, evidence of hydronephrosis GUIDO prerenal renal and postrenal-resolving with fluids , ureteral stent and Camejo decompress Acute toxic metabolic encephalopathy-secondary to sepsis resolved post treatment P.o. antibiotics for a total of 5 days of duration for completion Also we do not carry any probiotics in our pharmacy hence patient encouraged to have dietary methods of probiotics Pain control with scheduled Tylenol as she reports severe osteoarthritis and did not know that Tylenol needs to be adjusted Significant deconditioning-PTOT requested likely we will need rehab placement, Tylenol, Robaxin, lidocaine, PTOT, we will likely need short-term rehab hence it will happen tomorrow as we do not have physical therapy in house on Thursday NSTEMI-type 2 troponinemia, Tele, replete electrolytes to goal Morbid obesity dietary recommendation DVT prophylaxis with heparin given CKD 4 Patient is optimized, however physically deconditioned, needs PT eval and short- term rehab placement, which we do not have on a Thursday hence it will happen tomorrow and patient to go to rehab tomorrow. This note is constructed using voice recognition software. While every effort has been made to ensure accuracy, thermocouple tester errors may have been included. Quality Stroke Does the patient have a stroke diagnosis?: No VTE Prior VTE?: No VTE Risk Level:: Medical - moderate - high VTE Device Contraindication: N/A - Device Ordered VTE Drug Contraindication: Treatment Not Indicated
[2025-07-16 07:42] LABS: MANUAL DIFF FLAG NO
[2025-07-16 07:46] LABS: Hematocrit 32.3 % (37.0-47.0); Hemoglobin 10.5 g/dl (12.0-16.0); Imm Gran Abs Auto 0.02 X10*3/uL (0.00-0.03); Imm Gran Pct Auto 0.3 % (0.0-0.4); Lymphocytes Absolute Auto 1.7 X10*3/uL (1.2-4.9); Mean Corpuscular HGB Conc 32.5 g/dl (31.0-35.0); Mean Corpuscular Hemoglobin 29.9 pg (27.0-33.0); Mean Corpuscular Volume 92.0 fL (80.0-98.0); NRBC Abs Auto 0.000 X10*3/uL (0.0-0.012); NRBC Pct Auto 0.0 /100WBC (0.0-0.2); Platelet Count 200 X10*3/uL (160-400); Red Blood Count 3.51 X10*6/uL (4.20-5.50); White Blood Count 6.9 X10*3/uL (4.8-10.8)
[2025-07-16 08:00] LABS: Alanine Aminotransferase 108 U/L (0-31); Albumin Level 3.1 g/dL (3.5-5.0); Alkaline Phosphatase 72 U/L (39-117); Anion Gap 11 (12-20); Aspartate Amino Transferase 121 U/L (5-31); Blood Urea Nitrogen 19 mg/dL (9-16); Calcium 8.7 mg/dL (8.4-10.2); Carbon Dioxide 24 mmol/L (22-29); Chloride 109 mmol/L (96-108); Creatinine Clr Calc Pharmacy 71.9; Estimated Glomerular Filt Rate > 60; Magnesium 1.6 mg/dL (1.6-2.6); Potassium 3.7 mmol/L (3.3-5.1); Sodium 140 mmol/L (135-145); Total Protein 5.7 g/dL (6.5-8.0)
[2025-07-16] MEDS: 0.9 % Sodium Chloride Flush 3 ML SYRINGE IVFLUSH (10:25)
--- NOTE | 2025-07-16 16:07 | MHC.CM.PN ---
Addendum entered by Sanjuanita Elkins 07/17/25 16:39: PT AWARE [facility] IS OFFERING PENDING INSURANCE AUTH Addendum entered by Sanjuanita Elkins 07/17/25 14:58: [facility] [employer] ARE FOLLOWING PT EVAL SENT VIA [facility] Addendum entered by Sanjuanita Elkins 07/17/25 09:25: PT INFORMED [facility] IS AN ACUTE [facility], AND WHILE A REFERRAL WAS NOT MADE, IT IS UNLIKELY SHE WOULD QUALIFY STR OPTIONS DISCUSSED, REFERRALS SENT TO [facility] AND [facility] BASED ON DISCUSSION Original Note: Pt. informed her nurse today that if it is determined that she needs STR, her first choice is [facility]. PT eval is pending.
[2025-07-17] VITALS (8 sets, daily range): BP systolic 127–168; BP diastolic 53–93; PULSE 60–68; RESP 18–20; TEMP 36.3–37.2; O2SAT 94–98
[2025-07-17 06:50] LABS: MANUAL DIFF FLAG NO
[2025-07-17 06:53] LABS: Hematocrit 33.9 % (37.0-47.0); Hemoglobin 11.3 g/dl (12.0-16.0); Imm Gran Abs Auto 0.06 X10*3/uL (0.00-0.03); Imm Gran Pct Auto 0.7 % (0.0-0.4); Lymphocytes Absolute Auto 2.3 X10*3/uL (1.2-4.9); Mean Corpuscular HGB Conc 33.3 g/dl (31.0-35.0); Mean Corpuscular Hemoglobin 30.4 pg (27.0-33.0); Mean Corpuscular Volume 91.1 fL (80.0-98.0); NRBC Abs Auto 0.000 X10*3/uL (0.0-0.012); NRBC Pct Auto 0.0 /100WBC (0.0-0.2); Platelet Count 235 X10*3/uL (160-400); Red Blood Count 3.72 X10*6/uL (4.20-5.50); White Blood Count 8.8 X10*3/uL (4.8-10.8)
[2025-07-17 07:08] LABS: Alanine Aminotransferase 117 U/L (0-31); Albumin Level 3.4 g/dL (3.5-5.0); Alkaline Phosphatase 84 U/L (39-117); Anion Gap 11 (12-20); Aspartate Amino Transferase 96 U/L (5-31); Blood Urea Nitrogen 18 mg/dL (9-16); Calcium 8.8 mg/dL (8.4-10.2); Carbon Dioxide 24 mmol/L (22-29); Chloride 110 mmol/L (96-108); Creatinine Clr Calc Pharmacy 70.0; Estimated Glomerular Filt Rate > 60; Potassium 3.8 mmol/L (3.3-5.1); Sodium 141 mmol/L (135-145); Total Protein 6.2 g/dL (6.5-8.0)
--- NOTE | 2025-07-17 07:13 | HO.PM.IMPN ---
Subjective Subjective Date of Service: 07/17/25 Interval History: by Urology, she will likely need stent removal tomorrow We will need short-term rehab Otherwise medically optimized Review of Systems Review of Systems: Yes all other systems are reviewed and are negative Physical Exam Exam: Exam: Patient appears to be hemodynamically stable General: AOx3, no acute distress, but febrile to touch, has a Camejo catheter in place draining yellow urine Resp: CTA bilaterally CVS: S1, S2, RRR GI: +BS, NT, no distention Skin: Warm, dry Neuro: Motor grossly intact bilaterally Vital Signs: Vital Signs: Last Vital Signs Temp 98.2 F 07/17/25 03:35 Pulse 68 07/17/25 03:35 Resp 20 07/17/25 03:35 BP 150/73 H 07/17/25 03:35 Pulse Ox 95 07/17/25 03:35 O2 Del Method Room Air 07/17/25 03:35 O2 Flow Rate 1 07/14/25 07:22 BMI result Body Mass Index 35.9 Objective Data Active Medications Acetaminophen (Acetaminophen 325 Mg Tablet) 650 mg PO Q6H [facility] Last Admin: 07/17/25 06:47 Dose: 650 mg Documented By: VIDAL Albuterol Sulfate (Albuterol Sulfate 90 Mcg 8 Gm Inhaler) 2 puff INHALE RQ4H PRN PRN Reason: Shortness Of Breath Or Wheezing Amoxicillin/Clavulanate Potassium (Amoxicillin/Potassium Clav 875 Mg Tablet) 875 mg PO BID [facility] Last Admin: 07/16/25 20:06 Dose: 875 mg Documented By: VIDAL Calcium Carbonate (Calcium Carbonate 750 Mg Tab.Chew) 750 mg PO Q4H PRN PRN Reason: Heartburn Fluticasone Propionate (Fluticasone Propionate Nasal 16 Gm [place]) 2 spray NOSTRIL-B DAILY [facility] Last Admin: 07/16/25 21:14 Dose: 2 spray Documented By: VIDAL Heparin Sodium (Porcine) (Heparin Sodium,Porcine 5,000 Unit/Ml Vial) 5,000 unit SUBCUT Q12H [facility] Last Admin: 07/16/25 20:04 Dose: 5,000 unit Documented By: VIDAL Loratadine (Loratadine 10 Mg Tablet) 10 mg PO DAILY PRN PRN Reason: Allergy Symptoms Magnesium Hydroxide (Milk Of Magnesia 30 Ml Oral.Susp) 30 ml PO DAILY PRN PRN Reason: Constipation Melatonin (Melatonin 3 Mg Tablet) 6 mg PO BEDTIME PRN PRN Reason: Insomnia Naproxen (Naproxen 500 Mg Tablet) 500 mg PO BID [facility] Last Admin: 07/16/25 20:05 Dose: 500 mg Documented By: VIDAL Pyridoxine HCl (Pyridoxine Hcl (Vitamin B6) 50 Mg Tablet) 50 mg PO DAILY [facility] Last Admin: 07/16/25 10:27 Dose: 50 mg Documented By: FLORES Sodium Chloride (0.9 % Sodium Chloride Flush 3 Ml Syringe) 3 ml IVFLUSH QSHIFT [facility] Last Admin: 07/17/25 01:25 Dose: Not Given Documented By: VIDAL Non-Admin Reason: Previously Administered Vitamin D (Cholecalciferol (Vitamin D3) 25 Mcg Tablet) 50 mcg PO DAILY [facility] Last Admin: 07/16/25 10:27 Dose: 50 mcg Documented By: FLORES Labs 07/17/25 06:41 07/17/25 06:41 Labs: Laboratory Results - last 24 hr 07/16/25 07/17/25 07:36 06:41 MCV 92.0 91.1 MCH 29.9 30.4 MCHC 32.5 33.3 RDW 13.5 13.5 Plt Count 200 235 MPV 9.5 9.2 L Immature Gran % (Auto) 0.3 0.7 H Neut % (Auto) 57.1 57.0 Lymph % (Auto) 24.5 26.7 [place] % (Auto) 10.7 8.3 Eos % (Auto) 6.8 H 6.7 H Baso % (Auto) 0.6 0.6 Lymph # (Auto) 1.7 2.3 [place] # (Auto) 0.7 0.7 Eos # (Auto) 0.5 H 0.6 H Baso # (Auto) 0.0 0.1 Abs Immat Gran (auto) 0.02 0.06 H Absolute Neuts (auto) 3.9 5.0 Absolute Nucleated RBC 0.000 0.000 Nucleated RBC % (auto) 0.0 0.0 Anion Gap 11 L 11 L Estim Creat Clear Calc 71.9 70.0 Estimated GFR > 60 > 60 Random Glucose 125 H 121 H Calcium 8.7 8.8 Magnesium 1.6 Total Bilirubin 0.3 0.3 AST 121 H 96 H ALT 108 H 117 H Alkaline Phosphatase 72 84 Total Protein 5.7 L 6.2 L Albumin 3.1 L 3.4 L Assessment and Plan (1) Ureteral calculi: Status: Acute Plan Patient with prior history of chronic recurrent bilateral nephrolithiasis-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 underwent a stent placement and Camejo catheter placement to relieve pre and post renal obstruction sepsis secondary to left obstructive uropathy s/p stent with altered mental status, leukocytosis, evidence of hydronephrosis - the reason for continued hospitalization she will have stent removal tomorrow 07/18/2025 GUIDO prerenal renal and postrenal-resolving with fluids , ureteral stent and Camejo decompress Acute toxic metabolic encephalopathy-secondary to sepsis resolved post treatment P.o. antibiotics for a total of 5 days of duration for completion Also we do not carry any probiotics in our pharmacy hence patient encouraged to have dietary methods of probiotics Pain control with scheduled Tylenol as she reports severe osteoarthritis and did not know that Tylenol needs to be adjusted Significant deconditioning-PTOT requested likely we will need rehab placement, Tylenol, Robaxin, lidocaine, PTOT, we will likely need short-term rehab hence it will happen tomorrow as we do not have physical therapy in house on Thursday NSTEMI-type 2 troponinemia, Tele, replete electrolytes to goal Morbid obesity dietary recommendation Lovenox for DVT prophylaxis Patient is optimized, however physically deconditioned, needs PT eval and short-term rehab placement, as well as we will have stent removal by Dr. Smith urologist tomorrow hence the necessity to continue hospitalization This note is constructed using voice recognition software. While every effort has been made to ensure accuracy, cleat feeder errors may have been included. Quality Stroke Does the patient have a stroke diagnosis?: No VTE Prior VTE?: No VTE Risk Level:: Medical - moderate - high VTE Device Contraindication: N/A - Device Ordered VTE Drug Contraindication: Treatment Not Indicated
--- NOTE | 2025-07-17 18:39 | P.PNUR_ITS ---
Subjective Subjective Date of Service: 07/17/25 Interval history: Follow-up from ureteric catheter on left side WBC reduced Creatinine reduced Urine clear No growth on urine or blood culture Plan exchange ureteric catheter for ureteric stent tomorrow Physical Exam 2 Vital Signs: Vital Signs: Last Vital Signs Temp 97.7 F 07/17/25 16:00 Pulse 63 07/17/25 16:00 Resp 18 07/17/25 16:00 BP 145/77 H 07/17/25 16:00 Pulse Ox 94 07/17/25 16:00 O2 Del Method Room Air 07/17/25 16:00 O2 Flow Rate 1 07/14/25 07:22 BMI result Body Mass Index 35.9 Const: General: cooperative, healthy appearing, comfortable and no acute distress Orientation/consciousness: patient oriented x3 HEENT: Face and sinus: Yes normal facial exam Mouth: moist mucous membranes Neck: Neck: Yes normal visual inspection, Yes full ROM and Yes trachea midline Chest: Chest palpation & inspection: normal inspection of the chest Resp: Effort & Inspection: normal respiratory effort, able to speak in complete sentences and no respiratory distress GI: Inspection: Yes normal to inspection Back/Spine/Pelvis: Cervical Spine: normal cervical lordosis Thoracic/Lumbar Spine: thoracic and lumbar spine normal to inspection Skin: General skin exam: no rashes or lesions noted Neuro: General: patient oriented x3, tone normal and moves all extremities Extrem: General: Yes normal to inspection and Yes capillary refill normal Urology Results Labs 07/17/25 06:41 07/17/25 06:41 Labs: Laboratory Results - last 24 hr 07/17/25 06:41 WBC 8.8 RBC 3.72 L Hgb 11.3 L Hct 33.9 L MCV 91.1 MCH 30.4 MCHC 33.3 RDW 13.5 Plt Count 235 MPV 9.2 L Immature Gran % (Auto) 0.7 H Neut % (Auto) 57.0 Lymph % (Auto) 26.7 [place] % (Auto) 8.3 Eos % (Auto) 6.7 H Baso % (Auto) 0.6 Lymph # (Auto) 2.3 [place] # (Auto) 0.7 Eos # (Auto) 0.6 H Baso # (Auto) 0.1 Abs Immat Gran (auto) 0.06 H Absolute Neuts (auto) 5.0 Absolute Nucleated RBC 0.000 Nucleated RBC % (auto) 0.0 Sodium 141 Potassium 3.8 Chloride 110 H Carbon Dioxide 24 Anion Gap 11 L BUN 18 H Creatinine 0.78 Estim Creat Clear Calc 70.0 Estimated GFR > 60 Random Glucose 121 H Calcium 8.8 Total Bilirubin 0.3 AST 96 H ALT 117 H Alkaline Phosphatase 84 Total Protein 6.2 L Albumin 3.4 L Progress Note: A&P Assessment and plan (1) Ureteral calculi: Status: Acute Plan Exchange ureteric catheter for ureteric stent tomorrow Time Spent With Patient Time: Total time managing care of this patient today ____ minutes. Progress Note: Quality Stroke Does the patient have a stroke diagnosis?: No
--- NOTE | 2025-07-17 19:53 | PC.NURSE ---
0753 Report give to Serena De Guzman on S3. pt is alert oriented x4 pleasant. Pt to be transported to the unit via wheelchair and transport.
[2025-07-17] MEDS: 0.9 % Sodium Chloride Flush 3 ML SYRINGE IVFLUSH (21:29)
[2025-07-18] VITALS (11 sets, daily range): BP systolic 117–166; BP diastolic 61–80; PULSE 52–103; RESP 12–18; TEMP 36.2–37.2; O2SAT 94–98
[2025-07-18] MEDS: 0.9 % Sodium Chloride Flush 3 ML SYRINGE IVFLUSH ×3 (08:52→20:09)
[2025-07-18 10:03] LABS: MANUAL DIFF FLAG NO
[2025-07-18 10:06] LABS: Hematocrit 32.7 % (37.0-47.0); Hemoglobin 10.6 g/dl (12.0-16.0); Imm Gran Abs Auto 0.12 X10*3/uL (0.00-0.03); Imm Gran Pct Auto 1.3 % (0.0-0.4); Lymphocytes Absolute Auto 2.9 X10*3/uL (1.2-4.9); Mean Corpuscular HGB Conc 32.4 g/dl (31.0-35.0); Mean Corpuscular Hemoglobin 29.9 pg (27.0-33.0); Mean Corpuscular Volume 92.1 fL (80.0-98.0); NRBC Abs Auto 0.000 X10*3/uL (0.0-0.012); NRBC Pct Auto 0.0 /100WBC (0.0-0.2); Platelet Count 267 X10*3/uL (160-400); Red Blood Count 3.55 X10*6/uL (4.20-5.50); White Blood Count 9.0 X10*3/uL (4.8-10.8)
--- NOTE | 2025-07-18 10:21 | HO.PM.IMPN ---
Subjective Subjective Date of Service: 07/18/25 Interval History: f/u on sepsiss d/t obstructive kidney stone complicated by kidney failure No new issues, waiting for procedure Physical Exam Exam: Exam: General: AO X 3, no acute distress Resp: CTA bilateral CVS: S1,S2,RRR, 2+ edema GI: +BS, NT, no distention Skin: No rash Neuro: motor grossly intact Psych: appropriate affect Vital Signs: Vital Signs: Last Vital Signs Temp 97.1 F 07/18/25 07:37 Pulse 52 07/18/25 07:37 Resp 12 07/18/25 07:37 BP 128/62 07/18/25 07:37 Pulse Ox 96 07/18/25 07:37 O2 Del Method Room Air 07/18/25 07:37 O2 Flow Rate 1 07/14/25 07:22 BMI result Body Mass Index 35.9 Objective Data Active Medications Acetaminophen (Acetaminophen 325 Mg Tablet) 650 mg PO Q6H [facility] Last Admin: 07/18/25 03:22 Dose: 650 mg Documented By: REYNALDO Albuterol Sulfate (Albuterol Sulfate 90 Mcg 8 Gm Inhaler) 2 puff INHALE RQ4H PRN PRN Reason: Shortness Of Breath Or Wheezing Calcium Carbonate (Calcium Carbonate 750 Mg Tab.Chew) 750 mg PO Q4H PRN PRN Reason: Heartburn Enoxaparin Sodium (Enoxaparin Sodium 40 Mg/0.4 Ml Syringe) 40 mg SUBCUT Q24H [facility] Last Admin: 07/17/25 15:48 Dose: 40 mg Documented By: DOM Fluticasone Propionate (Fluticasone Propionate Nasal 16 Gm [place]) 2 spray NOSTRIL-B DAILY [facility] Last Admin: 07/17/25 21:26 Dose: 2 spray Documented By: JANEY Comments: pt states she takes medication at night Loratadine (Loratadine 10 Mg Tablet) 10 mg PO DAILY PRN PRN Reason: Allergy Symptoms Magnesium Hydroxide (Milk Of Magnesia 30 Ml Oral.Susp) 30 ml PO DAILY PRN PRN Reason: Constipation Melatonin (Melatonin 3 Mg Tablet) 6 mg PO BEDTIME PRN PRN Reason: Insomnia Naproxen (Naproxen 500 Mg Tablet) 500 mg PO BID [facility] Last Admin: 07/17/25 21:24 Dose: 500 mg Documented By: JANEY Pyridoxine HCl (Pyridoxine Hcl (Vitamin B6) 50 Mg Tablet) 50 mg PO DAILY [facility] Last Admin: 07/17/25 08:04 Dose: 50 mg Documented By: DOM Sodium Chloride (0.9 % Sodium Chloride Flush 3 Ml Syringe) 3 ml IVFLUSH QSHIFT [facility] Last Admin: 07/17/25 21:29 Dose: 3 ml Documented By: JANEY Vitamin D (Cholecalciferol (Vitamin D3) 25 Mcg Tablet) 50 mcg PO DAILY [facility] Last Admin: 07/17/25 08:04 Dose: 50 mcg Documented By: DOM Labs 07/18/25 09:36 07/17/25 06:41 Assessment and Plan (1) Renal calculus, bilateral: Status: Acute (2) Sepsis: Status: Acute Plan 80-year-old male with chronic recurrent bilateral nephrolithiasis (likely uric acid stones) presented on 07/13/2025 with acute altered mental status. Found to have left obstructive ureteral stone with hydroureteronephrosis. Underwent stent and Camejo catheter placement for decompression. Sepsis secondary to left obstructive uropathy (s/p ureteral stent and Camejo): Presented with acute AMS, leukocytosis, and hydronephrosis due to left ureteral stone. Stent and Camejo placed for decompression. Sepsis and encephalopathy resolved with treatment. Exchange ureteric catheter for ureteric stent scheduled for today 07/18/2025 (reason for continued hospitalization). cultures negative but will treat for at least 7 days, has been on Ceftriaxone, Augmentin, Acute kidney injury (prerenal and postrenal): Resolved with fluids and decompression. Pain management: Scheduled Tylenol for osteoarthritis; patient educated on dosing. Robaxin and lidocaine as needed. Deconditioning: PT/OT consulted; short-term rehab placement planned after stent removal. No in-house PT on Thursday; transfer to rehab expected tomorrow. Morbid obesity: Dietary recommendations provided. DVT prophylaxis: Lovenox for prevention. Summary: Patient is improving but requires stent placement and rehab placement due to significant deconditioning. Continued hospitalization is necessary until stent removal is completed. Quality Stroke Does the patient have a stroke diagnosis?: No VTE Prior VTE?: No VTE Risk Level:: Medical - moderate - high VTE Device Contraindication: N/A - Device Ordered VTE Drug Contraindication: Treatment Not Indicated
[2025-07-18 10:22] LABS: Alanine Aminotransferase 99 U/L (0-31); Albumin Level 3.3 g/dL (3.5-5.0); Alkaline Phosphatase 72 U/L (39-117); Anion Gap 10 (12-20); Aspartate Amino Transferase 72 U/L (5-31); Blood Urea Nitrogen 19 mg/dL (9-16); Calcium 9.0 mg/dL (8.4-10.2); Carbon Dioxide 28 mmol/L (22-29); Chloride 111 mmol/L (96-108); Creatinine Clr Calc Pharmacy 80.4; Estimated Glomerular Filt Rate > 60; Potassium 4.3 mmol/L (3.3-5.1); Sodium 145 mmol/L (135-145); Total Protein 6.0 g/dL (6.5-8.0)
--- NOTE | 2025-07-18 13:26 | HO.ANESPROP2 ---
Documented by User: Ofelia Lowery NP 07/18/25 08:39 HPI - Anesthesia Eval Consult details Narrative: 80 yr old female for cystoscopy ureteroscopy with stent exchange. Medically optimized for surgery PMFSH Active Problems Active Problems: All Active Problems Ureteral calculi (Acute) Renal calculus, bilateral (Acute) GUIDO (acute kidney injury) (Acute) Sepsis (Acute) Acute pyelonephritis (Acute) Right ureteral stone (Acute) Urinary urgency (Acute) Lower extremity weakness (Acute) Low back pain (Acute) Gait instability (Acute) COVID-19 virus infection (Acute) Arthritis (Acute) Depression, major, recurrent (Acute) Peripheral vascular disease (Acute) Left leg DVT (Acute) Vitamin D deficiency (Acute) Impaired fasting blood sugar (Acute) Annual physical exam (Acute) Mixed incontinence (Acute) Osteopenia (Acute) Cataract (Acute) Uric acid kidney stone (Acute) Bladder cancer (Acute) Allergic rhinitis (Acute) Obesity (Acute) GERD (gastroesophageal reflux disease) (Acute) Hypercholesteremia (Acute) Hypertension (Acute) Past Medical History Medical History (Updated 07/14/25 @ 19:57 by Kellen Washington MD) Renal calculus, bilateral Arthritis Varicose veins of left lower extremity with inflammation Annual physical exam DVT (deep venous thrombosis) Left leg swelling Preop exam for internal medicine Tinnitus Encounter for annual wellness visit (AWV) in Medicare patient Stress incontinence Calculus of proximal right ureter Preop exam for internal medicine Allergic rhinitis Dislocation of right shoulder joint Right rotator cuff tear Cervical radiculopathy Obesity Carpal tunnel syndrome, left Left leg DVT GERD (gastroesophageal reflux disease) Post herpetic neuralgia Bladder cancer Hypercholesteremia Hypertension Family History Family History Father Cancer Mother CVD (cardiovascular disease) Cerebral hemorrhage Brain aneurysm Brother CAD (coronary artery disease) Sister CVD (cardiovascular disease) Cancer Lung cancer Cerebral hemorrhage Sister Cancer Lung cancer Family history of problems with anesthesia: No Surgical History Surgical History Hx of cystoscopy History of carpal tunnel surgery of left wrist H/O shoulder replacement History of hip replacement History of lithotripsy History of cystoscopy History of cholecystectomy History of knee replacement procedure of right knee History of knee replacement procedure of left knee History of appendectomy History of total abdominal hysterectomy and bilateral salpingo-oophorectomy History of lumpectomy of left breast History of lumpectomy of right breast History of Problems with Anesthesia: Yes (History of delayed emergence ) Social History Social History Household Members: Spouse Housing: House Are you a primary home care manager rn to a significant other at home: No Do you presently have visiting nurse or other home services: No Alcohol intake: current Alcohol intake frequency: holidays/special occasions only Comment: twice a month 2 drinks Patient Tobacco Use Status: Never used Tobacco Tobacco use type: Cigarette e-Cigarette/Vaping Use: Never Used Second Hand Smoke Exposure: No service: No Current occupational status: employed and retired Cognitive needs: No Hearing needs: No Vision needs: Yes Meds Allergies Allergy/AdvReac Type Severity Reaction Status Date / Time erythromycin base Allergy Severe BODY ACHES Verified 07/13/25 06:14 (ERYTHROMYCIN BASE) [id number] Reductase Allergy Severe ALTERED Verified 07/13/25 06:14 Inhibitor ([id number] MENTAL REDUCTASE INHIBITOR) STATUS adhesive tape Allergy Intermediate BLISTERS Verified 07/13/25 06:14 omeprazole (From PRILOSEC) AdvReac Intermediate DIARRHEA Verified 07/13/25 06:14 hospital sheets Allergy Mild years Uncoded 07/13/25 06:14 ago-caused itching Active Medications: Current Medications Acetaminophen (Acetaminophen 325 Mg Tablet) 650 mg PO Q6H [facility] Last Admin: 07/18/25 03:22 Dose: 650 mg Albuterol Sulfate (Albuterol Sulfate 90 Mcg 8 Gm Inhaler) 2 puff INHALE RQ4H PRN PRN Reason: Shortness Of Breath Or Wheezing Calcium Carbonate (Calcium Carbonate 750 Mg Tab.Chew) 750 mg PO Q4H PRN PRN Reason: Heartburn Enoxaparin Sodium (Enoxaparin Sodium 40 Mg/0.4 Ml Syringe) 40 mg SUBCUT Q24H [facility] Last Admin: 07/17/25 15:48 Dose: 40 mg Fluticasone Propionate (Fluticasone Propionate Nasal 16 Gm [place]) 2 spray NOSTRIL-B DAILY [facility] Last Admin: 07/17/25 21:26 Dose: 2 spray Loratadine (Loratadine 10 Mg Tablet) 10 mg PO DAILY PRN PRN Reason: Allergy Symptoms Magnesium Hydroxide (Milk Of Magnesia 30 Ml Oral.Susp) 30 ml PO DAILY PRN PRN Reason: Constipation Melatonin (Melatonin 3 Mg Tablet) 6 mg PO BEDTIME PRN PRN Reason: Insomnia Naproxen (Naproxen 500 Mg Tablet) 500 mg PO BID [facility] Last Admin: 07/17/25 21:24 Dose: 500 mg Pyridoxine HCl (Pyridoxine Hcl (Vitamin B6) 50 Mg Tablet) 50 mg PO DAILY [facility] Last Admin: 07/17/25 08:04 Dose: 50 mg Sodium Chloride (0.9 % Sodium Chloride Flush 3 Ml Syringe) 3 ml IVFLUSH QSHIFT [facility] Last Admin: 07/17/25 21:29 Dose: 3 ml Vitamin D (Cholecalciferol (Vitamin D3) 25 Mcg Tablet) 50 mcg PO DAILY [facility] Last Admin: 07/17/25 08:04 Dose: 50 mcg Home Medications ?Medication ?Instructions ?Recorded ?Confirmed ?Last Taken ?Type loratadine 10 mg tablet (Claritin) 10 mg PO DAILY PRN Allergy Symptoms 08/30/20 07/13/25 09/08/22 History cholecalciferol (vitamin D3) 50 50 mcg PO DAILY 11/24/22 07/13/25 07/12/25 History mcg (2,000 unit) capsule (Vitamin D3) L.paracasei,rhamnosus-B.animalis 1 cap PO DAILY PRN UPSET STOMACH 12/27/24 07/13/25 Unknown History 11 billion cell-vit C 15 mg capsule (Daily Probiotic (4 Strains)) albuterol sulfate 90 mcg/actuation 2 puff inhalation Q4-6H PRN 07/13/25 07/13/25 Unknown History aerosol inhaler Shortness Of Breath Or Wheezing diclofenac sodium 1 % topical gel 4 g topical QID PRN Pain 07/13/25 07/13/25 Unknown History (Arthritis Pain (diclofenac)) meloxicam 15 mg tablet 15 mg PO DAILY 07/13/25 07/13/25 07/12/25 History Exam Height,Weight and Vital Signs: Height 5 ft 6 in Weight 100.9 kg Last Vital Signs Temp 97.1 F 07/18/25 07:37 Pulse 52 07/18/25 07:37 Resp 12 07/18/25 07:37 BP 128/62 07/18/25 07:37 Pulse Ox 96 07/18/25 07:37 O2 Del Method Room Air 07/18/25 07:37 O2 Flow Rate 1 07/14/25 07:22 Pertinent Lab Results Pertinent Lab Results: Laboratory Tests 07/13/25 07/13/25 07/13/25 06:17 07:20 10:38 WBC 11.3 H RBC 3.98 L Hgb 12.3 Hct 35.5 L MCV 89.2 MCH 30.9 MCHC 34.6 RDW 13.5 Plt Count 217 D MPV 9.0 L Immature Gran % (Auto) 0.7 H Neut % (Auto) 93.6 H Lymph % (Auto) 3.5 L Coal % (Auto) 1.7 L Eos % (Auto) 0.1 Baso % (Auto) 0.4 Lymph # (Auto) 0.4 L Coal # (Auto) 0.2 Eos # (Auto) 0.0 Baso # (Auto) 0.0 Abs Immat Gran (auto) 0.08 H Absolute Neuts (auto) 10.6 H Absolute Nucleated RBC 0.000 Nucleated RBC % (auto) 0.0 Smear Tech's Comments VERIFIED Sodium 139 Potassium 4.0 Chloride 107 Carbon Dioxide 21 L Anion Gap 15 BUN 36 H Creatinine 1.81 H Estim Creat Clear Calc 30.2 Estimated GFR 27 Random Glucose 174 H Lactic Acid 1.6 Uric Acid Calcium 9.5 Magnesium Total Bilirubin 0.9 AST 31 ALT 27 Alkaline Phosphatase 70 Troponin I High Sens 22.2 H 80.6 H* D NT-Pro-B Natriuret Pep 308.5 H Total Protein 6.8 Albumin 4.1 PTH Intact Urine Color Yellow Urine Appearance Clear Urine pH 5.5 Ur Specific [place] 1.020 Urine Protein 30 (1+) H Urine Glucose (UA) Negative Urine Ketones Trace Urine Blood Small (1+) H Urine Nitrite Negative Ur Leukocyte Esterase Negative Urine RBC 0-2 Urine WBC 0-5 Ur Squamous Epith Cells 0-2 Urine Bacteria None Seen Hyaline Casts 0-2 U Random Total Protein Urine Creatinine Urine Microalbumin Microalb/Creat Ratio COVID-19 (CHARLY) Negative COVID-19 Clin Com See Note Influenza Type A (NAVID) Negative Influenza Type B (NAVID) Negative Influenza A & B Note See Note 07/13/25 07/14/25 07/15/25 13:20 07:09 08:19 WBC 9.8 6.7 RBC 3.59 L 3.46 L Hgb 10.9 L 10.6 L Hct 32.9 L 31.4 L MCV 91.6 90.8 MCH 30.4 30.6 MCHC 33.1 33.8 RDW 13.6 13.6 Plt Count 166 167 MPV 9.4 9.6 Immature Gran % (Auto) 0.5 H 0.3 Neut % (Auto) 87.9 H 63.6 Lymph % (Auto) 5.6 L 19.5 L Coal % (Auto) 5.2 9.9 Eos % (Auto) 0.6 6.3 H Baso % (Auto) 0.2 0.4 Lymph # (Auto) 0.6 L 1.3 Coal # (Auto) 0.5 0.7 Eos # (Auto) 0.1 0.4 Baso # (Auto) 0.0 0.0 Abs Immat Gran (auto) 0.05 H 0.02 Absolute Neuts (auto) 8.6 H 4.3 Absolute Nucleated RBC 0.000 0.000 Nucleated RBC % (auto) 0.0 0.0 Smear Tech's Comments Sodium 138 141 Potassium 3.6 3.5 Chloride 107 109 H Carbon Dioxide 25 25 Anion Gap 10 L 11 L BUN 21 H 14 Creatinine 0.90 0.78 Estim Creat Clear Calc 60.7 70.0 Estimated GFR > 60 > 60 Random Glucose 101 104 Lactic Acid 1.6 Uric Acid Calcium 8.7 D 8.8 Magnesium Total Bilirubin 0.4 AST 127 H ALT 83 H Alkaline Phosphatase 67 Troponin I High Sens 63.5 H* NT-Pro-B Natriuret Pep Total Protein 5.7 L Albumin 3.2 L PTH Intact Urine Color Urine Appearance Urine pH Ur Specific [place] Urine Protein Urine Glucose (UA) Urine Ketones Urine Blood Urine Nitrite Ur Leukocyte Esterase Urine RBC Urine WBC Ur Squamous Epith Cells Urine Bacteria Hyaline Casts U Random Total Protein Urine Creatinine Urine Microalbumin Microalb/Creat Ratio COVID-19 (CHARLY) COVID-19 Clin Com Influenza Type A (NAVID) Influenza Type B (NAVID) Influenza A & B Note 07/15/25 07/15/25 07/16/25 13:47 17:18 07:36 WBC 6.9 RBC 3.51 L Hgb 10.5 L Hct 32.3 L MCV 92.0 MCH 29.9 MCHC 32.5 RDW 13.5 Plt Count 200 MPV 9.5 Immature Gran % (Auto) 0.3 Neut % (Auto) 57.1 Lymph % (Auto) 24.5 Coal % (Auto) 10.7 Eos % (Auto) 6.8 H Baso % (Auto) 0.6 Lymph # (Auto) 1.7 Coal # (Auto) 0.7 Eos # (Auto) 0.5 H Baso # (Auto) 0.0 Abs Immat Gran (auto) 0.02 Absolute Neuts (auto) 3.9 Absolute Nucleated RBC 0.000 Nucleated RBC % (auto) 0.0 Smear Tech's Comments Sodium 140 Potassium 3.7 Chloride 109 H Carbon Dioxide 24 Anion Gap 11 L BUN 19 H Creatinine 0.76 Estim Creat Clear Calc 71.9 Estimated GFR > 60 Random Glucose 125 H Lactic Acid Uric Acid 6.0 H Calcium 8.7 Magnesium 1.6 Total Bilirubin 0.3 AST 121 H ALT 108 H Alkaline Phosphatase 72 Troponin I High Sens NT-Pro-B Natriuret Pep Total Protein 5.7 L Albumin 3.1 L PTH Intact 74.6 Urine Color Urine Appearance Urine pH Ur Specific [place] Urine Protein Urine Glucose (UA) Urine Ketones Urine Blood Urine Nitrite Ur Leukocyte Esterase Urine RBC Urine WBC Ur Squamous Epith Cells Urine Bacteria Hyaline Casts U Random Total Protein 72 H Urine Creatinine 147.25 Urine Microalbumin 213.0 Microalb/Creat Ratio 144.6 H COVID-19 (CHARLY) COVID-19 Clin Com Influenza Type A (NAVID) Influenza Type B (NAVID) Influenza A & B Note 07/17/25 06:41 WBC 8.8 RBC 3.72 L Hgb 11.3 L Hct 33.9 L MCV 91.1 MCH 30.4 MCHC 33.3 RDW 13.5 Plt Count 235 MPV 9.2 L Immature Gran % (Auto) 0.7 H Neut % (Auto) 57.0 Lymph % (Auto) 26.7 Coal % (Auto) 8.3 Eos % (Auto) 6.7 H Baso % (Auto) 0.6 Lymph # (Auto) 2.3 Coal # (Auto) 0.7 Eos # (Auto) 0.6 H Baso # (Auto) 0.1 Abs Immat Gran (auto) 0.06 H Absolute Neuts (auto) 5.0 Absolute Nucleated RBC 0.000 Nucleated RBC % (auto) 0.0 Smear Tech's Comments Sodium 141 Potassium 3.8 Chloride 110 H Carbon Dioxide 24 Anion Gap 11 L BUN 18 H Creatinine 0.78 Estim Creat Clear Calc 70.0 Estimated GFR > 60 Random Glucose 121 H Lactic Acid Uric Acid Calcium 8.8 Magnesium Total Bilirubin 0.3 AST 96 H ALT 117 H Alkaline Phosphatase 84 Troponin I High Sens NT-Pro-B Natriuret Pep Total Protein 6.2 L Albumin 3.4 L PTH Intact Urine Color Urine Appearance Urine pH Ur Specific [place] Urine Protein Urine Glucose (UA) Urine Ketones Urine Blood Urine Nitrite Ur Leukocyte Esterase Urine RBC Urine WBC Ur Squamous Epith Cells Urine Bacteria Hyaline Casts U Random Total Protein Urine Creatinine Urine Microalbumin Microalb/Creat Ratio COVID-19 (CHARLY) COVID-19 Clin Com Influenza Type A (NAVID) Influenza Type B (NAVID) Influenza A & B Note Narrative Narrative: EKG 07/13/2025 Vent. Rate : 103 BPM Atrial Rate : 103 BPM P-R Int : 188 ms QRS Dur : 72 ms QT Int : 346 ms P-R-T Axes : 41 4 52 degrees QTcB Int : 453 ms Sinus tachycardia Nonspecific T wave abnormality Borderline ECG When compared with ECG of 26-Aug-2022 12:16, Premature supraventricular complexes are no longer Present Assessment and Plan Final Anesthetic Review Family History of Problems with Anesthesia: No History of Problems with Anesthesia: Yes (History of delayed emergence ) Documented by User: Kailee Helton DO 07/18/25 13:29 [facility] Past Medical History Medical History (Updated 07/14/25 @ 19:57 by Kellen Washington MD) Renal calculus, bilateral Arthritis Varicose veins of left lower extremity with inflammation Annual physical exam DVT (deep venous thrombosis) Left leg swelling Preop exam for internal medicine Tinnitus Encounter for annual wellness visit (AWV) in Medicare patient Stress incontinence Calculus of proximal right ureter Preop exam for internal medicine Allergic rhinitis Dislocation of right shoulder joint Right rotator cuff tear Cervical radiculopathy Obesity Carpal tunnel syndrome, left Left leg DVT GERD (gastroesophageal reflux disease) Post herpetic neuralgia Bladder cancer Hypercholesteremia Hypertension Family History Family History Father Cancer Mother CVD (cardiovascular disease) Cerebral hemorrhage Brain aneurysm Brother CAD (coronary artery disease) Sister CVD (cardiovascular disease) Cancer Lung cancer Cerebral hemorrhage Sister Cancer Lung cancer Family history of problems with anesthesia: No Surgical History Surgical History Hx of cystoscopy History of carpal tunnel surgery of left wrist H/O shoulder replacement History of hip replacement History of lithotripsy History of cystoscopy History of cholecystectomy History of knee replacement procedure of right knee History of knee replacement procedure of left knee History of appendectomy History of total abdominal hysterectomy and bilateral salpingo-oophorectomy History of lumpectomy of left breast History of lumpectomy of right breast History of Problems with Anesthesia: Yes (history of delayed emergence) Social History Social History Household Members: Spouse Housing: House Are you a primary home care manager rn to a significant other at home: No Do you presently have visiting nurse or other home services: No Alcohol intake: current Alcohol intake frequency: holidays/special occasions only Comment: twice a month 2 drinks Patient Tobacco Use Status: Never used Tobacco Tobacco use type: Cigarette e-Cigarette/Vaping Use: Never Used Second Hand Smoke Exposure: No service: No Current occupational status: employed and retired Cognitive needs: No Hearing needs: No Vision needs: Yes Meds Allergies Allergy/AdvReac Type Severity Reaction Status Date / Time erythromycin base Allergy Severe BODY ACHES Verified 07/13/25 06:14 (ERYTHROMYCIN BASE) Hvslvle-TFA-UiX Reductase Allergy Severe ALTERED Verified 07/13/25 06:14 Inhibitor ([id number] MENTAL REDUCTASE INHIBITOR) STATUS adhesive tape Allergy Intermediate BLISTERS Verified 07/13/25 06:14 omeprazole (From PRILOSEC) AdvReac Intermediate DIARRHEA Verified 07/13/25 06:14 hospital sheets Allergy Mild years Uncoded 07/13/25 06:14 ago-caused itching Home Medications ?Medication ?Instructions ?Recorded ?Confirmed ?Last Taken ?Type loratadine 10 mg tablet (Claritin) 10 mg PO DAILY PRN Allergy Symptoms 08/30/20 07/13/25 09/08/22 History cholecalciferol (vitamin D3) 50 50 mcg PO DAILY 11/24/22 07/13/25 07/12/25 History mcg (2,000 unit) capsule (Vitamin D3) L.paracasei,rhamnosus-B.animalis 1 cap PO DAILY PRN UPSET STOMACH 12/27/24 07/13/25 Unknown History 11 billion cell-vit C 15 mg capsule (Daily Probiotic (4 Strains)) albuterol sulfate 90 mcg/actuation 2 puff inhalation Q4-6H PRN 07/13/25 07/13/25 Unknown History aerosol inhaler Shortness Of Breath Or Wheezing diclofenac sodium 1 % topical gel 4 g topical QID PRN Pain 07/13/25 07/13/25 Unknown History (Arthritis Pain (diclofenac)) meloxicam 15 mg tablet 15 mg PO DAILY 07/13/25 07/13/25 07/12/25 History Exam Exam Date and Time: 07/18/25 1325 Airway Mallampati Class: II TM Dist: >3cm Neck ROM: Full Loose/Missing/Broken Teeth: Yes (missing #7) Heart: S1S2 Lungs: CTAB Assessment and Plan Assessment Anesthesia Assessment: Anesthesia Plan Discussed and Chart Reviewed Final Anesthetic Review Family History of Problems with Anesthesia: No History of Problems with Anesthesia: Yes (history of delayed emergence) NPO: Yes ASA Class: II Final Preanesthetic Review: No Changes in Pt Med Stat, Meds/Allgs Chart Reviewed, Consent Obtained/Reviewed and Anes Risks/Benef Reviewed Patient Risk: Low Procedure Risk: Low Anesthetic Plan Anesthetic Plan: GA and Agree w/ Assess. and Plan Disposition: Standard PACU
--- NOTE | 2025-07-18 14:26 | P.OP_ITS ---
Operative Note Operative Note Date of Service: 07/18/25 Narrative: PREOP DIAGNOSIS: Left ureteral stone, UTI sepsis, left obstructive uropathy status post open-ended ureteral stent POSTOP DIAGNOSIS: Left ureteral stone, UTI sepsis, left obstructive uropathy status post open-ended ureteral stent PROCEDURE: Cystoscopy, left retrograde left ureteroscopy insertion of left ureteral double-J stent size 6 [place] by 22-32 cm SURGEON: Roxanna John MD ANESTHESIA: General Findings: Stone at left UPJ Details of procedure: The patient was brought into the operating room placed on the OR table in supine position. The open-ended ureteral stent was noted to be outside of the bladder. The Camejo was in place. Ancef 2 g IV. General anesthesia was administered. The patient was repositioned into lithotomy position, the Camejo was removed, the patient was prepped and draped in the usual sterile fashion. Time-out was done per protocol. A 22 fr cystoscope was placed transurethrally into the bladder. There was a calcification seen in the bladder that was sent for analysis. The right and left ureteral orifices were visualized. Using an open-ended ureteral catheter a retrograde was done. A guidewire was passed into the left ureter. The semi rigid ureteroscope was passed alongside the guidewire there were no stones in the mid ureter at the UPJ there was a stone noted. The ureteroscope was removed leaving the guidewire in place. The cystoscope was placed over the guidewire and a double-J stent size 6 [place] by 22-32 cm. 2% lidocaine urojet was passed transurethrally into the bladder. The patient was brought out of anesthesia and taken to recovery in stable condition. Complications: None Drains: Left ureteral stent as above
--- NOTE | 2025-07-18 15:18 | MHC.CM.PN ---
PT'S FIRST CHOICE FOR [facility], [facility], HAS OFFERED A BED AND HAS STARTED AUTH FOR POTENTIAL DC 07/19. CM WILL AWAIT INSURANCE AUTH FOR ADMISSION.
[2025-07-19 03:00] VITALS: BP 138/64; PULSE 54; RESP 18; TEMP 36.4; O2SAT 95
[2025-07-19 06:06] LABS: MANUAL DIFF FLAG NO
[2025-07-19 06:22] LABS: Hematocrit 30.1 % (37.0-47.0); Hemoglobin 10.0 g/dl (12.0-16.0); Imm Gran Abs Auto 0.18 X10*3/uL (0.00-0.03); Imm Gran Pct Auto 1.6 % (0.0-0.4); Lymphocytes Absolute Auto 2.4 X10*3/uL (1.2-4.9); Mean Corpuscular HGB Conc 33.2 g/dl (31.0-35.0); Mean Corpuscular Hemoglobin 30.4 pg (27.0-33.0); Mean Corpuscular Volume 91.5 fL (80.0-98.0); NRBC Abs Auto 0.000 X10*3/uL (0.0-0.012); NRBC Pct Auto 0.0 /100WBC (0.0-0.2); Platelet Count 293 X10*3/uL (160-400); Red Blood Count 3.29 X10*6/uL (4.20-5.50); White Blood Count 10.9 X10*3/uL (4.8-10.8)
[2025-07-19 06:29] LABS: Alanine Aminotransferase 82 U/L (0-31); Albumin Level 3.3 g/dL (3.5-5.0); Alkaline Phosphatase 65 U/L (39-117); Anion Gap 14 (12-20); Aspartate Amino Transferase 56 U/L (5-31); Blood Urea Nitrogen 19 mg/dL (9-16); Calcium 8.8 mg/dL (8.4-10.2); Carbon Dioxide 23 mmol/L (22-29); Chloride 110 mmol/L (96-108); Creatinine Clr Calc Pharmacy 71.9; Estimated Glomerular Filt Rate > 60; Potassium 4.3 mmol/L (3.3-5.1); Sodium 143 mmol/L (135-145); Total Protein 6.0 g/dL (6.5-8.0)
[2025-07-19 07:50] VITALS: BP 139/64; PULSE 70; RESP 18; TEMP 36.7; O2SAT 95
[2025-07-19] MEDS: 0.9 % Sodium Chloride Flush 3 ML SYRINGE IVFLUSH (08:45)
--- NOTE | 2025-07-19 08:56 | HO.POSTANES ---
Post Anesthesia Evaluation Post Anesthesia Evaluation Date of Service: 07/19/25 Vital Signs: Vital Signs Temp Pulse Resp BP Pulse Ox O2 Del Method 07/19/25 07:50 98.1 F 70 18 139/64 95 Room Air 07/19/25 03:00 97.6 F 54 18 138/64 95 Room Air 07/18/25 23:36 97.2 F 70 16 148/66 H 97 Room Air Anesthesia: General Mental Status: Awake Pain Control: Satisfactory Nausea/Vomiting: None Hydration: Adequate Anesthesia-Related Issues: No Anes. Related Issues
[2025-07-19 12:00] VITALS: BP 155/65; PULSE 52; RESP 18; TEMP 36.6; O2SAT 96
--- NOTE | 2025-07-19 12:21 | MHC.CM.PN ---
DP: PT HAS BEEN MEDICALLY CLEARED FOR DC TO SHORT TERM REHAB AT [facility]. [facility] HAS OBTAINED INSURANCE AUTH. FOR ADMISSION. BLS TRANSPORT BOOKED FOR 1: 30 PM VIA [facility] (RUN # [id number]) ([facility] INSURANCE) RN/PROVIDER AWARE. FINAL IMM DELIVERED. AT BEDSIDE AND AWARE OF PLAN.
--- NOTE | 2025-07-19 13:14 | P.DS_ITS ---
DS: Providers Provider Date of Service: 07/19/25 Date of admission: 07/13/25 10:58 Date of discharge: 07/19/25 Primary care physician: Maria De Jesus Evans MD Consults: 07/15/25 12:40 Consult to Nephrology Routine Consulting Provider: [facility] Reason for consultation: CKD 3-4, oliguria, chronic nephrolithiasis, not seen by Nephrology prior to DS: Diagnosis Discharge Diagnosis (1) Renal calculus, bilateral: Status: Acute (2) Sepsis: Status: Acute DS: Summary Hospital Course Hospital Course: Chief Complaint: AMS, fever, flank pain This is a 80-year-old female who was brought into the emergency department by family due to confusion. Her symptoms started on Thursday with feeling cold, having nausea and left flank pain. She felt like she had a kidney stone which she has had many times in the past. However she began having episodes of vomiting and came home from her vacation early. She returned home from [facility] yesterday. This morning her daughter came to check on her and she was confused and had a high fever so they brought her to the emergency department for evaluation. On arrival her temperature was 105.1 degrees, she was tachycardic as well as hypoxic with an oxygen saturation of 88% air. She was initially unable to provide history to the ED provider, as her fever improved her mental status began to improve. Her oxygen levels improved with 2 L nasal cannula. Urinalysis negative, COVID-[address]. CT scan of the abdomen and pelvis showed bilateral nephrolithiasis with 6.3 mm obstructing calculus in the mid left ureter causing moderate left hydroureteronephrosis. With superimposed inflammatory versus infectious process of the left kidney. CT scan of the chest showed no acute airspace disease. Blood cultures were obtained. Lab work was significant for elevation in creatinine at 1.81. The case was discussed with Urology who plans to place stent today. She will be admitted for further management. Hospital course: Reason for Admission: Acute altered mental status secondary to sepsis from left obstructive uropathy (ureteral stone with hydroureteronephrosis). Hospital Course: The patient is a 80-year-old female with a history of chronic recurrent bilateral nephrolithiasis (likely uric acid stones) who presented with acute a ltered mental status. Workup revealed leukocytosis and left hydroureteronephrosis due to an obstructing ureteral stone. She underwent emergent decompression with placement of a left ureteral stent and Camejo catheter. She was diagnosed with sepsis secondary to left obstructive uropathy. Blood and urine cultures remained negative. She was treated empirically with intravenous Ceftriaxone and transitioned to Augmentin, with a plan to complete at least 7 days of antibiotics. His mental status and leukocytosis improved with treatment and decompression. The patient also developed acute kidney injury (both prerenal and postrenal components), which resolved with IV fluids and relief of obstruction. Renal function returned to baseline. Pain was managed with scheduled acetaminophen for osteoarthritis, and as-needed Robaxin and topical lidocaine. The patient was educated on appropriate use and dosing. She remained stable throughout his hospitalization. Exchange of the ureteric catheter for a ureteric stent was performed on 07/18/2025 without complications. She is now stable for discharge. Will complete antibiotics 500 mg bid of antibiotics for a total of 10 days and to follow up with urology in 1 to 2 weeks Discharge Medications: Cefuroxime 500 mg po bid continue usual meds Follow-Up: * Urology: Outpatient follow-up as scheduled for stent management and further stone evaluation * Primary Care: Within 1 week of discharge * Monitor for signs of infection, recurrent stones, or urinary symptoms Discharge Condition: Stable, alert and oriented, ambulating independently, tolerating oral intake, afebrile, pain controlled. Time Attestation Discharge Coordination Time (in mins): 45 Quality: Safe Use of Opioids Does Pt have an Active Cancer Diagnosis on the Problem List?: No Quality: Stroke Does the patient have a stroke diagnosis?: No Physical Exam Vital Signs: Vital Signs: Last Vital Signs Temp 97.8 F 07/19/25 12:00 Pulse 52 07/19/25 12:00 Resp 18 07/19/25 12:00 BP 155/65 H 07/19/25 12:00 Pulse Ox 96 07/19/25 12:00 O2 Del Method Room Air 07/19/25 12:00 O2 Flow Rate 1 07/14/25 07:22 BMI result Body Mass Index 35.9 DS: Data Data Completed and Pending Completed studies during hospitalization [Text1]: Pending at discharge 07/18/25 14:05 Surgical [PTH] Routine Labs on day of discharge: Laboratory Results - last 24 hr 07/19/25 05:36 WBC 10.9 H RBC 3.29 L Hgb 10.0 L Hct 30.1 L MCV 91.5 MCH 30.4 MCHC 33.2 RDW 13.7 Plt Count 293 MPV 9.5 Immature Gran % (Auto) 1.6 H Neut % (Auto) 69.2 Lymph % (Auto) 21.7 [place] % (Auto) 6.9 Eos % (Auto) 0.3 Baso % (Auto) 0.3 Lymph # (Auto) 2.4 [place] # (Auto) 0.8 Eos # (Auto) 0.0 Baso # (Auto) 0.0 Abs Immat Gran (auto) 0.18 H Absolute Neuts (auto) 7.6 Absolute Nucleated RBC 0.000 Nucleated RBC % (auto) 0.0 Sodium 143 Potassium 4.3 Chloride 110 H Carbon Dioxide 23 Anion Gap 14 BUN 19 H Creatinine 0.76 Estim Creat Clear Calc 71.9 Estimated GFR > 60 Random Glucose 119 H Calcium 8.8 Total Bilirubin 0.3 AST 56 H ALT 82 H Alkaline Phosphatase 65 Total Protein 6.0 L Albumin 3.3 L Discharge Plan Discharge Anticipated Discharge Date/Time: 07/19/25 13:33 Patient Disposition: Xfer SNF Discharge Diagnosis: Kidney stone, Pyelonephritis, [facility]] - 1 Week Referral Note: TRANSFER FOR SHORT TERM REHAB Po,Maria De Jesus Lobo MD [Primary Care Provider, Internal Medicine] - 1 Week Discharge Medications: New cefuroxime axetil 500 mg Tablet 500 mg PO Q12H Qty: 10 0RF Continued acetaminophen 500 mg tablet 1,000 mg PO TID PRN (Reason: Pain) Qty: 90 0RF ezetimibe [Zetia] 10 mg tablet 10 mg PO DAILY 90 Days Qty: 90 3RF lisinopril-hydrochlorothiazide 20-25 mg tablet 1 tab PO DAILY Qty: 90 3RF cholecalciferol (vitamin D3) [Vitamin D3] 50 mcg (2,000 unit) Capsule 50 mcg PO DAILY meloxicam 15 mg tablet 15 mg PO DAILY albuterol sulfate 90 mcg/actuation Hfa Aerosol Inhaler 2 puff INHALATION Q4-6H PRN (Reason: Shortness Of Breath Or Wheezing) diclofenac sodium [Arthritis Pain (diclofenac)] 1 % gel 4 g topical QID PRN (Reason: Pain) Rx Instructions: apply to single knee, ankle, foot; for foot includes sole/toes/top of foot loratadine [Claritin] 10 mg tablet 10 mg PO DAILY PRN (Reason: Allergy Symptoms) fluticasone propionate [Flonase Allergy Relief] 50 mcg/actuation spray,suspension 2 spray intranasal DAILY Qty: 16 12RF Rx Instructions: administer into each nostril Daily Probiotic (4 Strains) 11 billion cell -15 mg capsule 1 cap PO DAILY PRN (Reason: UPSET STOMACH) pyridoxine (vitamin B6) 50 mg tablet 50 mg PO DAILY 90 Days Qty: 90 3RF Discharge Orders: Discharge Order (Routine); Ordered 07/19/25 Ordered By: Washington Michel Diet: Advance to usual diet Activity on Discharge: As tolerated Stand Alone Forms: Patient Portal Discharge page Print Language: Yemeni Care Plan Goals: recovery from pylonephritis, kidney stone and renal failure Health Concerns: same as above Plan of Treatment: to complete cefuroxime follow up with urology to short term rehab Assessment: see above
[2025-07-19 14:14] VITALS: BP 146/65; PULSE 54; RESP 16; TEMP 36.2; O2SAT 97
[2025-07-21 16:54] LABS: Vitamin D 25-OH, D2 <4 ng/mL; Vitamin D 25-OH, D3 15 ng/mL; Vitamin D 25-OH, Total 15 ng/mL (30-100)
== END 2025-07-19 14:14 | disposition skilled nursing facility (03) | DRG 853 ==
LOC: HO.ED 06:43 → HO.EDOVER 11:04 → HO.IMC 19:28 → HO.S3 07-17 19:19
PROVIDERS: Internal Medicine Critical Care Medicine; Student in an Organized Health Care Education/Training Program; Urology; Admitting Provider Physician Assistant Medical; Emergency Provider Emergency Medicine; PCP Internal Medicine; Visit Provider Internal Medicine
PROC: 0T778DZ Dilation of Left Ureter with Intraluminal Device, Via Natural or Artificial Opening Endoscopic (ICD-10-PCS; principal; 2025-07-18 14:30)
DX: A41.9 Sepsis, unspecified organism (principal); G92.8 Other toxic encephalopathy; J96.01 Acute respiratory failure with hypoxia; I21.A1 Myocardial infarction type 2; N13.6 Pyonephrosis; N17.9 Acute kidney failure, unspecified; N18.4 Chronic kidney disease, stage 4 (severe); R91.1 Solitary pulmonary nodule; I12.9 Hypertensive chronic kidney disease with stage 1 through stage 4 chronic kidney disease, or unspecified chronic kidney disease; E78.5 Hyperlipidemia, unspecified; R53.81 Other malaise; E66.01 Morbid (severe) obesity due to excess calories; Z68.35 Body mass index [BMI] 35.0-35.9, adult; Z71.3 Dietary counseling and surveillance; Z20.822 Contact with and (suspected) exposure to COVID-19; Z79.51 Long term (current) use of inhaled steroids; Z79.899 Other long term (current) drug therapy
CPT/HCPCS: 36415; 70450; 71250; 74176; 80048; 80053; 81001; 82043; 82306; 82365; 82570; 83605; 83735; 83880; 83970; 84156; 84484; 84550; 85025; 87040; 87086; 87502; 87635; 93005; 97116; 97162; 97530; 99285; C1758; C1769; C2617; J0690; J0696; J1644; J1650; J2543; J3010; J7120; Q9967

== ENCOUNTER → 2025-07-13 06:21 | Outpatient (BNV) | payer MEDICARE, SELFPAY | PROVIDERS: Emergency Provider Emergency Medicine; PCP Internal Medicine; Visit Provider Radiology Diagnostic Radiology | DX: N13.2 Hydronephrosis with renal and ureteral calculous obstruction (principal); K57.90 Diverticulosis of intestine, part unspecified, without perforation or abscess without bleeding; R91.1 Solitary pulmonary nodule; I25.10 Atherosclerotic heart disease of native coronary artery without angina pectoris; I70.90 Unspecified atherosclerosis; R41.82 Altered mental status, unspecified | CPT/HCPCS: 70450; 71250; 74176 ==

== ENCOUNTER → 2025-07-13 06:49 | Outpatient (BNV) | payer MEDICARE, SELFPAY | PROVIDERS: Admitting Provider Physician Assistant Medical; Emergency Provider Emergency Medicine; PCP Internal Medicine; Visit Provider Internal Medicine | DX: R00.0 Tachycardia, unspecified (principal) | CPT/HCPCS: 93010 ==

== ENCOUNTER → 2025-07-13 10:58 | Outpatient (BNV) | payer MEDICARE, SELFPAY | PROVIDERS: Admitting Provider Physician Assistant Medical; Emergency Provider Emergency Medicine; PCP Internal Medicine; Visit Provider Urology | DX: N17.9 Acute kidney failure, unspecified (principal); N20.1 Calculus of ureter | CPT/HCPCS: 52005; 99222; 99232 ==

== ENCOUNTER → 2025-07-13 10:58 | Outpatient (BNV) | payer MEDICARE, SELFPAY | PROVIDERS: Admitting Provider Physician Assistant Medical; Emergency Provider Emergency Medicine; PCP Internal Medicine; Visit Provider Physician Assistant Medical | DX: N20.1 Calculus of ureter (principal) | CPT/HCPCS: 99232; 99499 ==

== ENCOUNTER 2025-07-31 13:44 | Outpatient (AMB) | payer MEDICARE, SELFPAY ==
--- NOTE | 2025-07-31 14:10 | MHC.PC.OV ---
Vital Signs 07/31/25 14:11 Height 5 ft 6 in Weight 215 lb 2 oz BMI 34.7 BP 120/84 Blood Pressure Location Lt brachial Position Sitting Pulse 85 Pulse Source Pulse Oximeter Temp 98.2 F Temp Source Temporal Artery Scan Pulse Oximetry (%) 96 Oxygen Delivery Method Room Air Intake Visit Reasons: Fever and chilles Intake Note: Patient complains of Fever, chills, elevated heart rate, bodyaches. Home covid and flu negative, OTC TYLENOL as needed for fever/bodyaches. Or Director Required: No Program Development Specialist: Present Accompanied by: Spouse Allergies erythromycin base (ERYTHROMYCIN BASE) Allergy (Severe, Verified 07/31/25 14:11) BODY ACHES Svcgacs-HGO-DcH Reductase Inhibitor (TSFEKWR-FEU-TDE REDUCTASE INHIBITOR) Allergy (Severe, Verified 07/31/25 14:11) ALTERED MENTAL STATUS adhesive tape Allergy (Intermediate, Verified 07/31/25 14:11) BLISTERS omeprazole (From PRILOSEC) Adverse Reaction (Intermediate, Verified 07/31/25 14:11) DIARRHEA hospital sheets Allergy (Mild, Uncoded 07/31/25 14:11) years ago-caused itching Medication List - Last Reconciled 07/31/25 by Steff Moody MD acetaminophen 1,000 mg (2 x 500 mg) PO TID PRN albuterol sulfate 90 mcg/actuation 2 puffs inhalation Q4-6H PRN cefuroxime axetil 500 mg PO Q12H cholecalciferol (vitamin D3) (Vitamin D3) 50 mcg PO DAILY diclofenac sodium 1% (Arthritis Pain (diclofenac)) 4 grams topical QID PRN ezetimibe (Zetia) 10 mg PO DAILY 90 days fluticasone propionate 50 mcg/actuation (Flonase Allergy Relief) 2 sprays intranasal DAILY L.parac,rhamn-B.animalis-vit C 11 billion cell -15 mg (Daily Probiotic (4 Strains)) 1 cap PO DAILY PRN lisinopril-hydrochlorothiazide 20-25 mg 1 tab PO DAILY loratadine (Claritin) 10 mg PO DAILY PRN meloxicam 15 mg PO DAILY pyridoxine (vitamin B6) 50 mg PO DAILY 90 days Tobacco use date assessed: 07/31/25 Fall risk assessment: No Falls in past year Last assessed Fall Risk: 07/31/25 Dental Screening Dental Screen Date: 04/05/25 HPI HPI Comments History of Present Illness Details The patient is a 80-year-old female presenting with persistent fever and complications related to kidney stones. The patient was admitted to the emergency room on July 13 with a fever of 105.1?F and was diagnosed with sepsis secondary to obstructive uropathy due to a kidney stone blockage. She was hospitalized for a week and subsequently spent a weekend in rehabilitation to regain strength. Recently, she experienced a recurrence of fever and body aches, with her pulse rate elevated above her usual baseline. Her daughter, a nurse, has been monitoring her vital signs closely. The patient has a history of nephrolithiasis with a retained stent, and she continues to produce kidney stones. She has been under the care of Dr. Arellano in the hospital. And she has an upcoming appointment with a press shop supervisor. During her recent hospitalization, she was treated with antibiotics, including cefuroxime, which resolved her fever temporarily. However, since discontinuing antibiotics, her fever has returned, prompting further evaluation. The patient denies any history of diabetes and reports having undergone multiple joint replacements, including both knees, hips, and a shoulder. She is currently on a diuretic and has been taken off her blood pressure medication during her hospital stay. [facility] Medical History (Updated 07/27/25 @ 00:01 by Trudy Taylor) Renal calculus, bilateral Arthritis Varicose veins of left lower extremity with inflammation Annual physical exam DVT (deep venous thrombosis) Left leg swelling Preop exam for internal medicine Tinnitus Encounter for annual wellness visit (AWV) in Medicare patient Stress incontinence Calculus of proximal right ureter Preop exam for internal medicine Allergic rhinitis Dislocation of right shoulder joint Right rotator cuff tear Cervical radiculopathy Obesity Carpal tunnel syndrome, left Left leg DVT GERD (gastroesophageal reflux disease) Post herpetic neuralgia Bladder cancer Hypercholesteremia Hypertension Surgical History (Updated 07/31/25 @ 14:21 by CONG Gomez) History of removal of ureteral stent Hx of cystoscopy History of carpal tunnel surgery of left wrist H/O shoulder replacement History of hip replacement History of lithotripsy History of cystoscopy History of cholecystectomy History of knee replacement procedure of right knee History of knee replacement procedure of left knee History of appendectomy History of total abdominal hysterectomy and bilateral salpingo-oophorectomy History of lumpectomy of left breast History of lumpectomy of right breast Family History Father Cancer Mother CVD (cardiovascular disease) Cerebral hemorrhage Brain aneurysm Brother CAD (coronary artery disease) Sister CVD (cardiovascular disease) Cancer Lung cancer Cerebral hemorrhage Sister Cancer Lung cancer Social History Household Members: Spouse Housing: House Are you a primary pediatric care coordinator to a significant other at home: No Do you presently have visiting nurse or other home services: No Alcohol intake: current Alcohol intake frequency: holidays/special occasions only Comment: twice a month 2 drinks Patient Tobacco Use Status: Never used Tobacco Tobacco use type: Cigarette e-Cigarette/Vaping Use: Never Used Second Hand Smoke Exposure: No service: No Current occupational status: employed and retired Cognitive needs: Yes (walker) Hearing needs: No Vision needs: Yes Questionnaire Thrive Questionnaire Date Thrive assessed: 12/21/24 I am a: Patient What is your living situation today?: I have a steady place to live Within the past 12 months, did the food you bought not last and you didn't have the money to get more?: Never true Within the past 12 months, did you worry whether your food would run out before you got money to buy more?: Never true Do you have trouble paying for medicines?: No Do you have trouble getting transportation to medical appointments?: No Do you have trouble paying your heating and electricity bill?: No Do you have trouble taking care of your child, family member or friend?: I choose not to answer this question Do you have trouble with day-to-day activities such as bathing, preparing meals, shopping, managing finances, etc.?: I choose not to answer this question Are you currently unemployed and looking for a job?: No Are you interested in more education?: No Please select the resources that you would like help with: None Currently or been in a relationship where the following occur: No concerns reported THRIVE Score: 0 ANDREW-7 AMB Questionnaire ANDREW-7 Date ANDREW - 7 assessed: 04/05/25 Source: Developed by Drs. Ubaldo Zepeda, Ramona Reza, Derrek Martinez and colleagues, with an educational lucila from [employer]. Review of Systems Const Details: Positives besides what was mentioned in HPI are in BOLD Constitutional: No Weight Change, No Fever, No Chills, No Night Sweats, No Fatigue, No Malaise ENT/Mouth: No Hearing Changes, No Ear Pain, No Nasal Congestion, No Sinus Pain, No Hoarseness, No sore throat, No Rhinorrhea, No Swallowing Difficulty Eyes: No Eye Pain, No Swelling, No Redness, No Foreign Body, No Discharge, No Vision Changes Cardiovascular: No Chest Pain, No SOB, No PND, No Dyspnea on Exertion, No Orthopnea, No Claudication, No Edema, No Palpitations Respiratory: No Cough, No Sputum, No Wheezing, No Smoke Exposure, No Dyspnea Gastrointestinal: No Nausea, No Vomiting, No Diarrhea, No Constipation, No Pain, No Heartburn, No Anorexia, No Dysphagia, No Hematochezia, No Melena, No Flatulence, No Jaundice Genitourinary: No Dysmenorrhea, No DUB, No Dyspareunia, No Dysuria, No Urinary Frequency, No Hematuria, No Urinary Incontinence, No Urgency, No Flank Pain, No Urinary Flow Changes, No Hesitancy Musculoskeletal: No Arthralgias, No Myalgias, No Joint Swelling, No Joint Stiffness, No Back Pain, No Neck Pain, No Injury History Skin: No Skin Lesions, No Pruritis, No Hair Changes, No Breast/Skin Changes, No Nipple Discharge Neuro: No Weakness, No Numbness, No Paresthesias, No Loss of Consciousness, No Syncope, No Dizziness, No Headache, No Coordination Changes, No Recent Falls Psych: No Anxiety/Panic, No Depression, No Insomnia, No Personality Changes, No Delusions, No Rumination, No SI/HI/AH/VH, No Social Issues, No Memory Changes, No Violence/Abuse Hx., No Eating Concerns Heme/Lymph: No Bruising, No Bleeding, No Transfusions History, No Lymphadenopathy Endocrine: No Polyuria, No Polydipsia, No Temperature Intolerance Physical exam (Primary Care) Vital Signs: Last Vital Signs Temp 98.2 F 07/31/25 14:11 Pulse 85 07/31/25 14:11 BP 120/84 07/31/25 14:11 Pulse Ox 96 07/31/25 14:11 Oxygen Delivery Method Room Air 07/31/25 14:11 BMI result Body Mass Index 34.7 Tobacco/Smoking Status: Tobacco use Status Tobacco use date assessed 07/31/25 07/31/25 14:22 Patient Tobacco Use Status Never used Tobacco 07/31/25 14:22 Tobacco use type Cigarette 07/31/25 14:22 e-Cigarette/Vaping Use Never Used 07/31/25 14:22 Thrive Assessment: Date of Thrive Assessment Date Thrive assessed 12/21/24 07/31/25 14:22 Currently or been in a relationship where the following occur: No concerns reported Const Other: Pertinent findings are in BOLD GENERAL APPEARANCE NAD, activity normal for age, well developed/ well nourished, no cyanosis, pallor, or diaphoresis. EYES lids/conjunctiva normal. EARS/NOSE/THROAT Mucous membranes moist, nares normal, lips/teeth normal uvula midline without oral pharyngeal erythema, exudate or swelling TMs normal bilaterally. No lymphangitis/lymphedema. HEAD/NECK normocephalic atraumatic, no facial trauma, neck is supple. RESPIRATORY respiratory effort normal, speaks in full sentences, no tripod position, no accessory muscle use. Lungs clear to auscultation without rhonchi, wheezes, rales CARDIAC Regular rate and rhythm, no edema. ABDOMINAL Soft, ND/NT. No evidence of fluid wave. No pulsatile masses on exam, rebound tenderness, Esquivel sign or pain over Mcburney's point. MUSCLES/EXTREMITIES No abnormal range of motion, no swelling. SKIN Warm, pink and dry. No rashes, dermatoses, petechiae or lesions. NEUROLOGICAL Speech is clear and appropriate. Normal level of consciousness. Gait and coordination are normal. 5/5 strength in all extremities. PSYCH Normal mood and affect. Judgement/competence is appropriate Coding Level of Care Code Est Pt Level 3 (04620) Diagnoses Right ureteral stone N20.1 Time Spent (min) 20 Assessment & Plan Assessment & Plan (1) Right ureteral stone: Code(s): N20.1 - Calculus of ureter Category: Medical Plan: Recent stent placed in the hospital. The patient continues to experience fever at home. She completed Cefuroxime as prescribed on discharge from the hospital. Patient will call Dr. Arellano's office to schedule follow-up with Urology. Plan for CT abdomen to check for any paranephrotic abcess. Extended Cefuroxime treatment for another 10 days. Plan During the visit, I discussed the importance of continuing antibiotics until the follow-up with the urologist to manage the risk of infection due to the retained kidney stones and stent. I recommended scheduling a CT scan to evaluate the current status of the kidney stones and to rule out any abscess formation. We also discussed the need for follow-up appointments with both the urologist and press shop supervisor to ensure comprehensive management of her condition. Orders: Orders CT abdomen pelvis wo IV con Today N20.1 - Calculus of ureter Medications: New cefuroxime axetil 500 mg PO BID 20 tabs 0RF
[2025-07-31 14:11] VITALS: BP 120/84; PULSE 85; TEMP 36.8; O2SAT 96; BMI 34.7
--- OUTSIDE RECORDS SUMMARY | 2025-07-31 17:05 | XMS_ITS | Patient Health Record ---
Author Organization [facility] Address [address] [place] [address] Care Team Providers Care Supervisor Tree Trimming Name Role Phone Po Maria De Jesus AJ Primary Care Provider Ubaldo Moreira [phone] Allergies Allergen (clinical drug ingredient) Drug/Non Drug Allergy documented on EMR Reaction Allergy Type Onset Date Status Morphine Sulfate Unknown Drug Allergy Active erythromycin Erythromycin Unknown Drug Allergy A ctive Substance with 3-fldojrv-5-methylgluta ryl-coenzyme A reductase inhibitor mechanism of action [...] Problem Status W/U Status Risk Notes Problem Screening for malignant neoplasm of colon (200176759) Encounter for screening for malignant neoplasm of colon (Z12.11) Active confirmed Problem Long-term current use of antiplatelet drug (799091982728038 ) Long-term use of aspirin therapy (Z79.82) Active confirmed Problem Pre-procedure evaluation check (233984120) Pre-procedural examination (Z01.818) Active confirmed Problem intermediate current use of non-steroidal anti-inflammator y drug ([id number] ) Encntr long-term NSAID use (Z79.1) Active confirmed Plan Of Treatment Future Test Test Name Order Date COLONOSCOPY 12/03/2017 Insurance Providers Payer Name Payer Address Payer Phone Subscriber Number Group Number Insured Name Patient Relationship to Insured Coverage Start Date Coverage End Date [facility] [address] [place] [phone] [id number] HARVEY MATA Self - patient is the insured Medical (General) History Medical History History ICD Code Vertigo Kidney stones--ESWL and cystoscopies Arthritis HTN Hyperlipidemia Negative colonoscopy in 2006 except for diverticulosis Shingles on LUE--resolved Arthritis Bladder cancer--has periodic cystoscopie s Denies HI,DM,CVA,Lung disease,renal dise ase Surgical History Surgery Date(Month/Year) [...]
== END 2025-07-31 15:00 | disposition home or self-care (01) ==
LOC: HO.HMCH 13:45
PROVIDERS: PCP Internal Medicine; Visit Provider Internal Medicine
DX: N20.1 Calculus of ureter (principal)

== ENCOUNTER 2025-08-03 12:44 | Inpatient (IN) | payer MEDICARE, SELFPAY ==
[2025-08-03] VITALS (9 sets, daily range): BP systolic 130–152; BP diastolic 48–69; PULSE 58–90; RESP 14–18; TEMP 36.4–38.1; O2SAT 95–98; BMI 36.6; BMI 37.2
--- NOTE | ~2025-08-03 | CT_ITS ---
EXAMINATION: CT CHEST WITHOUT CONTRAST CLINICAL INFORMATION: persisent fever post stone, and sepsis COMPARISON: July 13, 2025 TECHNIQUE: Multidetector volumetric CT imaging of the chest was done. Axial MIP volume rendering provided. Sagittal and coronal reformatted images were obtained. This CT examination was performed using dose optimization techniques as appropriate, variously including the following: *Automated exposure control *Adjustment of mA and/or kV according to patient size (this includes techniques or standardized protocols for targeted exams where dose is matched to indication/reason for exam; i.e. extremities or head) *Use of iterative reconstruction technique FINDINGS: LUNGS: There is a solid pulmonary nodule in right middle lobe measuring 5 mm, likely unchanged from the prior examination. Differences in size are likely related to volume averaging and slice selection. Small blebs are present in the posterior medial base of the right lower lobe. Lungs are clear. MEDIASTINUM: The mediastinum is normal. CORONARY ARTERY CALCIFICATION: None identified PLEURA: There is no pleural effusion. No pleural mass or thickening. AXILLA: No lymphadenopathy. UPPER ABDOMEN: There are clips related to cholecystectomy. OSSEOUS STRUCTURES: Unremarkable. CT/CT chest wo IV con IMPRESSION: Solid pulmonary nodule in the right middle lobe measuring 5 mm. No further follow-up is indicated per Fleischner Society recommendations, unless the patient falls into a high risk category, in which case a 12 month follow-up CT chest without contrast is optional. High risk patients includes those with a history of smoking, first-degree relative with lung cancer, or exposure to uranium, radon, or asbestos. No other abnormalities noted. Fleischner guidelines were followed. Electronically signed by: Sedrick Valera MD 08/03/2025 04:41 PM EDT
--- NOTE | ~2025-08-03 | CT_ITS ---
EXAMINATION: CT ABDOMEN AND PELVIS WITHOUT CONTRAST CLINICAL INFORMATION: Persistent fever, sepsis, recent left hydronephrosis and hydroureter secondary to an obstructing calculus with subsequent stent placement. COMPARISON: 07/13/2025 CT abdomen pelvis. TECHNIQUE: Multidetector volumetric imaging was performed from the superior aspect of the liver through the pubic symphysis. Sagittal and coronal reformatted images were obtained on the technologist's workstation. This CT examination was performed using dose optimization techniques as appropriate, variously including the following: *Automated exposure control *Adjustment of mA and/or kV according to patient size (this includes techniques or standardized protocols for targeted exams where dose is matched to indication/reason for exam; i.e. extremities or head) *Use of iterative reconstruction technique FINDINGS: LUNG BASES: Heart size is normal. Prominent epicardial fat pad. No effusions. Imaged lung bases demonstrate minor atelectatic changes, minor subpleural scarring, and mild bronchiectasis of the lower lobe small airways. LIVER, GALLBLADDER, AND BILIARY TREE: The unenhanced liver is normal in size, shape, and attenuation. No focal hepatic lesion or biliary ductal dilatation is present. Gallbladder is surgically absent. PANCREAS: Unremarkable. SPLEEN: Unremarkable. ADRENAL GLANDS: Unremarkable. KIDNEYS AND URETERS: Right kidney: There is no hydronephrosis or hydroureter. There are 3 nonobstructing calculi again noted, the largest in the lower pole measuring 10 x 6 mm. There are subcentimeter small cysts. No definite mass allowing for noncontrast technique. There is moderate perirenal stranding, nonspecific. Left kidney: There has been placement of a ureteral stent, with pigtails formed in the urinary bladder and left renal collecting system. Previously seen hydronephrosis has resolved. There is a 1.9 x 1.3 cm calculus within the renal pelvis abutting the stent. Slightly more distally at the UPJ, there is an 9 x 4 mm oval calculus abutting the stent. No additional calculi in the left kidney. The left ureter is nondilated. There is perinephric and periureteral stranding present, nonspecific. BLADDER: Partially obscured by streak artifact from bilateral hip replacements. Pigtail catheter noted formed within. Suboptimally distended but otherwise grossly normal. GASTROINTESTINAL TRACT: Small hiatus hernia suspected at the GE junction. The stomach is decompressed. The duodenum appears normal. The small bowel is normal in caliber and course. The appendix is not definitively visualized. There is no CT evidence of acute appendicitis. The colon demonstrates scattered diverticulosis, severe in the sigmoid region. The colon is normal in caliber and course, without evidence of wall thickening or inflammation. The rectum appears normal. PERITONEUM: There is no ascites. There is no free air. ABDOMINAL WALL: There is a small fat-containing umbilical hernia containing a loop of nonobstructed small bowel. No additional hernia is identified. LYMPH NODES: No abnormal lymphadenopathy is present. VASCULAR: Mild to moderate atheromatous calcification of the aorta and iliac arteries. There is no aneurysm. PELVIC VISCERA: There has been a hysterectomy. There are no adnexal masses. OSSEOUS STRUCTURES: Bilateral hip replacements in place with associated streak artifact. Scoliosis and advanced degenerative spondylosis of the imaged spine. No suspicious lytic or blastic bone lesion identified. CT/CT abdomen pelvis wo IV con IMPRESSION: 1. Since the prior recent exam, there has been placement of a left ureteral stent, well-positioned with resolution of previously seen left hydroureteronephrosis. There is a 9 x 4 mm calculus abutting the stent at the level of the left UPJ, and a 19 x 13 mm calculus abutting the stent in the left renal pelvis. 2. Stable nonobstructing nephrolithiasis in right kidney. 3. Diverticulosis of the colon, severe in the sigmoid. No CT evidence of acute diverticulitis. 4. Additional ancillary findings as discussed in the body of the report. Electronically signed by: Abhinav Freeman MD 08/03/2025 04:48 PM EDT
--- NOTE | ~2025-08-03 | FL_ITS ---
EXAMINATION: FL GUIDANCE ONLY HISTORY: BILATERAL STONES COMPARISON: Correlation is made with an unenhanced CT of the abdomen and pelvis dated 08/03/2025. TECHNIQUE: Fluoroscopy time: 22.8 seconds. Cumulative Dose: 11.695 mGy. DAP: 5.0870 Gycm2 Images: 6. FINDINGS: Fluoroscopic spot films from a bilateral retrograde ureterogram are submitted. On the left, there are filling defects in the renal pelvis consistent with the calculi seen on CT. No filling defects are seen in the visualized portion of the right renal collecting system or ureter. FL/FL guidance in OR IMPRESSION: Fluoroscopy during procedure. Please see procedure report for additional information. Electronically signed by: Ubaldo Chaves MD 08/08/2025 07:04 AM EDT
--- NOTE | 2025-08-03 12:50 | ED.GENADULT ---
HPI - General Adult General Chief complaint: Fever Stated complaint: IV antibiotics , sent by Dr. Arellano Time Seen by Provider: 08/03/25 13:50 Source: patient, family and old records reviewed Mode of arrival: ambulatory Limitations: no limitations History of Present Illness ED Provider: KATHERYN PAT narrative: 80 yo female with PMH of DVT, GERD, HTN, HLD, renal colic, multiple surgeries including THR, shoulder replacement, L and R TKR, OWEN and BSO, appendectomy, just here on 07/13 for confusion, hypoxia, sepsis secondary to obstructive L ureter calculus with most hydro and GUIDO. She was febrile and altered, she had decompression and still has stent in place. She had been on ceftin 500mg Q12H after DC for 5 more days. She has been having some upset stomach and fevers up to 101.9 that responds to tylenol but the fever comes back. This fevers started on Thursday. Her [facility] called PCP who put her back on ceftin 07/31/25 MD complaint: fever Onset (ago): day(s) (5) Location: abdomen Radiation: non-radiation Severity: mild Quality: other Pain Consistency: intermittent Relieving factors: medication Exacerbating factors: none Associated symptoms: fever/chills, loss of appetite and malaise Treatments prior to arrival: other Related Data Home Medications ?Medication ?Instructions ?Recorded ?Confirmed loratadine 10 mg tablet (Claritin) 10 mg PO DAILY PRN Allergy Symptoms 08/30/20 07/31/25 cholecalciferol (vitamin D3) 50 50 mcg PO DAILY 11/24/22 07/31/25 mcg (2,000 unit) capsule (Vitamin D3) L.paracasei,rhamnosus-B.animalis 1 cap PO DAILY PRN UPSET STOMACH 12/27/24 07/31/25 11 billion cell-vit C 15 mg capsule (Daily Probiotic (4 Strains)) albuterol sulfate 90 mcg/actuation 2 puff inhalation Q4-6H PRN 07/13/25 07/31/25 aerosol inhaler Shortness Of Breath Or Wheezing diclofenac sodium 1 % topical gel 4 g topical QID PRN Pain 07/13/25 07/31/25 (Arthritis Pain (diclofenac)) meloxicam 15 mg tablet 15 mg PO DAILY 07/13/25 07/31/25 Previous Rx's ?Medication ?Instructions ?Recorded acetaminophen 500 mg tablet 1,000 mg (2 x 500 mg) PO TID PRN 11/14/22 Pain #90 tabs fluticasone propionate 50 2 spray intranasal DAILY #16 grams 06/22/24 mcg/actuation nasal spray,suspension (Flonase Allergy Relief) pyridoxine (vitamin B6) 50 mg 50 mg PO DAILY 90 days #90 tabs 06/08/25 tablet ezetimibe 10 mg tablet (Zetia) 10 mg PO DAILY 90 days #90 tabs 06/22/25 lisinopril 20 1 tab PO DAILY #90 tabs 07/03/25 mg-hydrochlorothiazide 25 mg tablet cefuroxime axetil 500 mg tablet 500 mg PO Q12H #10 tabs 07/19/25 cefuroxime axetil 500 mg tablet 500 mg PO BID #20 tabs 07/31/25 Allergies Allergy/AdvReac Type Severity Reaction Status Date / Time erythromycin base Allergy Severe BODY ACHES Verified 08/03/25 12:49 (ERYTHROMYCIN BASE) Drvvbpq-AQT-[id number] Reductase Allergy Severe ALTERED Verified 08/03/25 12:49 Inhibitor ([id number] MENTAL REDUCTASE INHIBITOR) STATUS adhesive tape Allergy Intermediate BLISTERS Verified 08/03/25 12:49 omeprazole (From PRILOSEC) AdvReac Intermediate DIARRHEA Verified 08/03/25 12:49 hospital sheets Allergy Mild years Uncoded 07/31/25 14:11 ago-caused itching Review of Systems Review of Systems: Constitutional : pos Fever, pos Chills, pos Fatigue ENT/Mouth : No sore throat, No Rhinorrhea Eyes: No Eye Pain, No Swelling, No Redness Cardiovascular : No Chest Pain, No SOB, No Dyspnea on Exertion Respiratory : No Cough, No Sputum Gastrointestinal : No Nausea, No Vomiting, No Diarrhea, pos abdominal Pain Genitourinary : No Dysuria, No Urinary Frequency, No Hematuria, Musculoskeletal : No joint pain, No Myalgias, No Joint Swelling Skin : No Skin Lesions, No rash Neuro : No Weakness, No Numbness, No Dizziness, no Headache All other systems reviewed and are negative Yes all other systems are reviewed and are negative [facility] Past Medical History Attestation statement: The following information was validated with the patient. Source: old records reviewed Medical History Renal calculus, bilateral Arthritis Varicose veins of left lower extremity with inflammation Annual physical exam DVT (deep venous thrombosis) Left leg swelling Preop exam for internal medicine Tinnitus Encounter for annual wellness visit (AWV) in Medicare patient Stress incontinence Calculus of proximal right ureter Preop exam for internal medicine Allergic rhinitis Dislocation of right shoulder joint Right rotator cuff tear Cervical radiculopathy Obesity Carpal tunnel syndrome, left Left leg DVT GERD (gastroesophageal reflux disease) Post herpetic neuralgia Bladder cancer Hypercholesteremia Hypertension Surgical History History of removal of ureteral stent Hx of cystoscopy History of carpal tunnel surgery of left wrist H/O shoulder replacement History of hip replacement History of lithotripsy History of cystoscopy History of cholecystectomy History of knee replacement procedure of right knee History of knee replacement procedure of left knee History of appendectomy History of total abdominal hysterectomy and bilateral salpingo-oophorectomy History of lumpectomy of left breast History of lumpectomy of right breast Family History Family History Father Cancer Mother CVD (cardiovascular disease) Cerebral hemorrhage Brain aneurysm Brother CAD (coronary artery disease) Sister CVD (cardiovascular disease) Cancer Lung cancer Cerebral hemorrhage Sister Cancer Lung cancer Social History Social History Household Members: Spouse Housing: House Are you a primary wound care specialist to a significant other at home: No Do you presently have visiting nurse or other home services: No Alcohol intake: current Alcohol intake frequency: holidays/special occasions only Comment: twice a month 2 drinks Patient Tobacco Use Status: Never used Tobacco Tobacco use type: Cigarette e-Cigarette/Vaping Use: Never Used Second Hand Smoke Exposure: No Use of substances other than those prescribed or required for medical reasons: No Advance Directives: Yes Advance Directives on File: Yes Advance Directives Date on File: 08/03/25 service: No Current occupational status: employed and retired Cognitive needs: Yes (walker) Hearing needs: No Vision needs: Yes Physical Exam ED Vital Signs: Vital Signs - 24 hr 08/03/25 12:48 08/03/25 13:22 08/03/25 14:27 Temperature 98.0 F 98.3 F 97.9 F Pulse Rate 90 80 70 Respiratory Rate 18 18 14 Blood Pressure 152/67 H 131/63 148/48 H Pulse Oximetry 95 96 98 Oxygen Delivery Method Room Air Room Air Room Air 08/03/25 16:04 08/03/25 16:07 Temperature 100.6 F H Pulse Rate 71 Respiratory Rate 18 Blood Pressure 143/58 H Pulse Oximetry 97 Oxygen Delivery Method Room Air BMI result Body Mass Index 36.6 Appearance: Alert. Oriented X3. No acute distress. Eyes: Pupils equal, round and reactive to light. ENT: Pharynx normal. Neck: Normal inspection. Neck supple. CVS: Normal heart rate and rhythm. Pulses normal. Respiratory: No respiratory distress. Breath sounds normal. Abdomen: Soft and nontender. Skin: Skin warm and dry. pale skin color. Normal skin turgor. Extremities: 1+ pitting symmetric bilateral lower extremity edema. Neuro: Oriented X 3. No motor deficit. No sensory deficit. CN2-12 intact Course Course Course Narrative: This is an RME: Additional HPI, ROS, PE not included below will be deferred to primary provider. RME assessment and note performed by: Es Suero PA-C This is a 89-[id number]-ueo-female,who presents to the ER with a complaint of fevers which started thursday. On Jul 13, pt was brought in via EMS due to 105 degree fever, found to have hydroureter nephrosis due to an obstructing ureteral stone. She underwent emergent decompression with placement of left ureteral stent and Camejo catheter. She was diagnosed with sepsis secondary to left obstructive uropathy. Blood cultures and urine culture was negative. She was treated empirically with IV ceftriaxone and transition to Augmentin. She d/c on 07/19 then d/c to [facility] due to generalized weakness, d/c 1 week ago from [facility] [place]. Called her PCP and saw her and placed patient back on ABX, which she has been taking. Reports this AM at 1:00AM this morning, called VNA this morning, who contacted Dr. Arellano and instructed her to come to the ED. Plan: Labs, UA Reevaluation(s) Reevaluation #1: signed out to Ezequiel MONTERO pending CT scans. Reevaluation #2: CT chest showing solid pulmonary nodule to right middle lobe measuring 5 mm. No other acute findings. CT abdomen/pelvis showing resolution of previously seen left hydroureternephrosis, new left ureteral stent. There is a 9 x 4 mm calculus abutting the stent at the level of the left UPJ and a 19 x 13 mm calculus abutting the stent in the left renal pelvis. Also showing diverticulosis without acute diverticulitis. Patient febrile to 100.6F - IV tylenol ordered. I reached out to urologist, Dr. Huynh - agrees w/ admission to medicine for IV antibiotics and culture surveillance. Urology will consult tomorrow morning. Discussed imaging results + plan with patient, patient and family at bedside are agreeable. I spoke with hospitalist dr. cutler who has accepted patient admission to medicine. Time: 17:35 Medications Administered Discontinued Medications Generic Name Dose Route Start Last Admin Trade Name Freq PRN Reason Stop Dose Admin Cefepime HCl 2 gm in 50 mls @ 100 mls/hr 08/03/25 13:51 08/03/25 16:04 Maxipime IV 08/03/25 14:20 Infused ONCE ONE Infusion Vancomycin HCl 2,000 mg in 500 mls @ 250 mls/hr 08/03/25 14:07 08/03/25 14:46 Vancomycin/Ns IV 08/03/25 16:06 250 mls/hr ONCE ONE Administration Ibuprofen 400 mg 08/03/25 15:55 08/03/25 16:02 Ibuprofen 400 Mg Tablet PO 08/03/25 15:56 400 mg ONCE ONE Administration Medical Decision Making Medical Decision Making MDM Narrative: 80 yo female with PMH of DVT, GERD, HTN, HLD, renal colic, multiple surgeries including THR, shoulder replacement, L and R TKR, OWEN and BSO, appendectomy now here with c/o fevers x 5 days, malaise and some stomach pain at this time will need labs, cultures, lactic acid, CT scan of abd/chest to evaluate for infection. I am also going to start broad abx including cefepime and vanco given recent instrumentation. Plan to admit Differential Diagnosis Differential Diagnoses: The differential diagnosis associated with the presentation includes UTI, seeding of stent, underlying pneumonia/mass Admission/Observation Consideration of admission/observation: Escalation of care including admission/observation considered given recent sepsis and now recurrent fever with source of ureteral stent would admit for further management IV abx and culture surveillance Consult Healthcare Provider Management of the patient was discussed with: Hospitalist Lab Data MDM Lab Attestation statement: I reviewed the patient's lab results. 08/03/25 13:05 08/03/25 13:05 Labs: Lab Results 08/03/25 08/03/25 08/03/25 Range/Units 13:05 14:01 14:25 WBC 11.6 H (4.8-10.8) X10*3/uL RBC 3.77 L (4.20-5.50) X10*6/uL Hgb 11.0 L (12.0-16.0) g/dl Hct 34.2 L (37.0-47.0) % MCV 90.7 (80.0-98.0) fL MCH 29.2 (27.0-33.0) pg MCHC 32.2 (31.0-35.0) g/dl RDW 13.4 (11.0-16.0) % Plt Count 329 (160-400) X10*3/uL MPV 8.6 L (9.4-12.3) fL Immature Gran % (Auto) 0.5 H (0.0-0.4) % Neut % (Auto) 75.9 H (45-73) % Lymph % (Auto) 12.5 L (20-40) % [place] % (Auto) 9.0 (2-11) % Eos % (Auto) 1.7 (0-4) % Baso % (Auto) 0.4 (0-2) % Lymph # (Auto) 1.5 (1.2-4.9) X10*3/uL [place] # (Auto) 1.1 (0.1-1.2) X10*3/uL Eos # (Auto) 0.2 (0.0-0.4) X10*3/uL Baso # (Auto) 0.1 (0.0-0.2) X10*3/uL Abs Immat Gran (auto) 0.06 H (0.00-0.03) X10*3/uL Absolute Neuts (auto) 8.8 H (2.0-8.3) x10*3/uL Absolute Nucleated RBC 0.000 (0.0-0.012) X10*3/uL Nucleated RBC % (auto) 0.0 (0.0-0.2) /100WBC ESR 92 H (0-20) MM/HR Sodium 140 (135-145) mmol/L Potassium 3.4 D (3.3-5.1) mmol/L Chloride 108 (96-108) mmol/L Carbon Dioxide 22 (22-29) mmol/L Anion Gap 13 (12-20) BUN 13 (9-16) mg/dL Creatinine 0.84 (0.5-1.4) mg/dL Estim Creat Clear Calc 61.2 Estimated GFR > 60 Random Glucose 109 (60-115) mg/dL Lactic Acid 1.2 (0.5-2.0) mmol/L Calcium 9.5 D (8.4-10.2) mg/dL Magnesium 1.6 (1.6-2.6) mg/dL Total Bilirubin 0.5 (0.0-1.0) mg/dL Direct Bilirubin 0.2 (0.0-0.5) mg/dL AST 26 (5-31) U/L ALT 24 (0-31) U/L Alkaline Phosphatase 62 (39-117) U/L C-Reactive Protein 19.37 H (< or = 0.50) mg/dL Total Protein 7.1 (6.5-8.0) g/dL Albumin 3.9 (3.5-5.0) g/dL Lipase 14 (8-78) U/L Urine Color Urine Appearance Urine pH (5.0-9.0) Ur Specific Hodgen (1.005-1.025) Urine Protein (Neg-Trace) mg/dL Urine Glucose (UA) (Negative) mg/dL Urine Ketones (Negative) mg/dL Urine Blood (Negative) Urine Nitrite (Negative) Ur Leukocyte Esterase (Negative) Urine RBC (0-2) /HPF Urine WBC (0-5) /HPF Ur Squamous Epith Cells (0-2) /HPF Urine Bacteria (None Seen) Hyaline Casts (0-2) /LPF COVID-19 (CHARLY) Negative (Negative) COVID-19 Clin Com See Note Influenza Type A (NAVID) Negative (Negative) Influenza Type A (PCR) NEGATIVE (Negative) Influenza Type B (NAVID) Negative (Negative) Influenza Type B (PCR) NEGATIVE (Negative) Influenza A & B Note See Note RSV RNA Qual (PCR) NEGATIVE (Negative) SARS-CoV-2 RNA (RT-PCR) NEGATIVE (Negative) 08/03/25 Range/Units 14:26 WBC (4.8-10.8) X10*3/uL RBC (4.20-5.50) X10*6/uL Hgb (12.0-16.0) g/dl Hct (37.0-47.0) % MCV (80.0-98.0) fL MCH (27.0-33.0) pg MCHC (31.0-35.0) g/dl RDW (11.0-16.0) % Plt Count (160-400) X10*3/uL MPV (9.4-12.3) fL Immature Gran % (Auto) (0.0-0.4) % Neut % (Auto) (45-73) % Lymph % (Auto) (20-40) % [place] % (Auto) (2-11) % Eos % (Auto) (0-4) % Baso % (Auto) (0-2) % Lymph # (Auto) (1.2-4.9) X10*3/uL [place] # (Auto) (0.1-1.2) X10*3/uL Eos # (Auto) (0.0-0.4) X10*3/uL Baso # (Auto) (0.0-0.2) X10*3/uL Abs Immat Gran (auto) (0.00-0.03) X10*3/uL Absolute Neuts (auto) (2.0-8.3) x10*3/uL Absolute Nucleated RBC (0.0-0.012) X10*3/uL Nucleated RBC % (auto) (0.0-0.2) /100WBC ESR (0-20) MM/HR Sodium (135-145) mmol/L Potassium (3.3-5.1) mmol/L Chloride (96-108) mmol/L Carbon Dioxide (22-29) mmol/L Anion Gap (12-20) BUN (9-16) mg/dL Creatinine (0.5-1.4) mg/dL Estim Creat Clear Calc Estimated GFR Random Glucose (60-115) mg/dL Lactic Acid (0.5-2.0) mmol/L Calcium (8.4-10.2) mg/dL Magnesium (1.6-2.6) mg/dL Total Bilirubin (0.0-1.0) mg/dL Direct Bilirubin (0.0-0.5) mg/dL AST (5-31) U/L ALT (0-31) U/L Alkaline Phosphatase (39-117) U/L C-Reactive Protein (< or = 0.50) mg/dL Total Protein (6.5-8.0) g/dL Albumin (3.5-5.0) g/dL Lipase (8-78) U/L Urine Color Yellow Urine Appearance Cloudy Urine pH 5.0 (5.0-9.0) Ur Specific Hodgen 1.020 (1.005-1.025) Urine Protein Trace (Neg-Trace) mg/dL Urine Glucose (UA) Negative (Negative) mg/dL Urine Ketones Negative (Negative) mg/dL Urine Blood Trace H (Negative) Urine Nitrite Negative (Negative) Ur Leukocyte Esterase Moderate (2+) H (Negative) Urine RBC 3-5 H (0-2) /HPF Urine WBC 6-10 (0-5) /HPF Ur Squamous Epith Cells 6-10 (0-2) /HPF Urine Bacteria 2+ (None Seen) Hyaline Casts 6-10 (0-2) /LPF COVID-19 (CHARLY) (Negative) COVID-19 Clin Com Influenza Type A (NAVID) (Negative) Influenza Type A (PCR) (Negative) Influenza Type B (NAVID) (Negative) Influenza Type B (PCR) (Negative) Influenza A & B Note RSV RNA Qual (PCR) (Negative) SARS-CoV-2 RNA (RT-PCR) (Negative) Independent Interpretation I performed an independent interpretation of an: CT Scan Radiology Impression Discussion of test interpretation with radiology: I have reviewed the radiologist's reading. Independent Historian Clinical information obtained from an independent historian. History obtained from or confirmed by: Other (family) External Record Review External record reviewed: Inpatient record, Outpatient record, Prior outpatient labs and Prior outpatient radiology Discharge Plan Discharge Clinical Impression: Elevated erythrocyte sedimentation rate, Left ureteral calculus Fever Qualifiers: Fever type: unspecified Qualified Code(s): R50.9 - Fever, unspecified Patient Disposition: Admitted As Inpatient Print Language: Romansh
[2025-08-03 13:13] LABS: MANUAL DIFF FLAG NO
[2025-08-03 13:16] LABS: Hematocrit 34.2 % (37.0-47.0); Hemoglobin 11.0 g/dl (12.0-16.0); Imm Gran Abs Auto 0.06 X10*3/uL (0.00-0.03); Imm Gran Pct Auto 0.5 % (0.0-0.4); Lymphocytes Absolute Auto 1.5 X10*3/uL (1.2-4.9); Mean Corpuscular HGB Conc 32.2 g/dl (31.0-35.0); Mean Corpuscular Hemoglobin 29.2 pg (27.0-33.0); Mean Corpuscular Volume 90.7 fL (80.0-98.0); NRBC Abs Auto 0.000 X10*3/uL (0.0-0.012); NRBC Pct Auto 0.0 /100WBC (0.0-0.2); Platelet Count 329 X10*3/uL (160-400); Red Blood Count 3.77 X10*6/uL (4.20-5.50); White Blood Count 11.6 X10*3/uL (4.8-10.8)
[2025-08-03 13:30] LABS: COVID-19 Test Negative (Negative); IDNOW Serial# 55D5AD1C
[2025-08-03 13:31] LABS: IDNOW Serial# 58CA691E; Influenza B2 Negative (Negative)
[2025-08-03 13:32] LABS: Alanine Aminotransferase 24 U/L (0-31); Albumin Level 3.9 g/dL (3.5-5.0); Alkaline Phosphatase 62 U/L (39-117); Anion Gap 13 (12-20); Aspartate Amino Transferase 26 U/L (5-31); Blood Urea Nitrogen 13 mg/dL (9-16); Calcium 9.5 mg/dL (8.4-10.2); Carbon Dioxide 22 mmol/L (22-29); Chloride 108 mmol/L (96-108); Creatinine Clr Calc Pharmacy 61.2; Estimated Glomerular Filt Rate > 60; Lipase 14 U/L (8-78); Magnesium 1.6 mg/dL (1.6-2.6); Potassium 3.4 mmol/L (3.3-5.1); Sodium 140 mmol/L (135-145); Total Protein 7.1 g/dL (6.5-8.0)
[2025-08-03] MEDS: cefEPime HCl/D5W 2 GM/50 ML PIGGYBACK IV (14:37)
[2025-08-03 14:46] LABS: Appearance Urine Cloudy; Glucose Urine UA Negative (Negative); PH 5.0 (5.0-9.0); Specific Gravity - Urine 1.020 (1.005-1.025); UMIC TRIGGER UACC YES
[2025-08-03] MEDS: vancomycin/NS 2,000 MG/500 ML PLAST..BAG 250 MG IV (14:46)
[2025-08-03 14:57] LABS: UACC Culture Trigger YES
[2025-08-03 15:21] LABS: Resp Syncy Virus RNA Qual PCR NEGATIVE (Negative); SARS COV2 PCR INHOUSE NEGATIVE (Negative)
--- NOTE | 2025-08-03 16:05 | PC.NURSE ---
pt is alert and oriented, skin pink and slightly warm to the touch, respirations even and unlabored, pt reports generalized pain all over, hips/legs, feeling generally weak and fevers at home 105
--- NOTE | 2025-08-03 16:30 | PC.NURSE ---
vancomycin rate is slowed down look like the pt is experiencing red man syndrome, the entire head very red/itchy, md aware
--- OUTSIDE RECORDS SUMMARY | 2025-08-03 16:59 | XMS_ITS | Encounter Summary ---
Author Organization [facility] Address [address] [place] [address] Care Team Providers Care Knitter Wire Mesh Name Role Phone Jasvir Herron MD Primary Care Provider [phone] Encounter Details Date Type Department Care Team (Latest Contact Info) Description 07/29/2025 Lab Requisition [facility] - Main Lab [address] [place] [address] Jasvir Herron MD [address] [place] [address] Essential (primary) hypertension; Hydronephrosis with renal and ureteral calculous obstruction; Encounter for surgical aftercare following surgery on the genitourinary system Social History Tobacco Use Types Packs/Day Years Used Date Smoking Tobacco: Never Assessed Comments Unknown Sex and Gender Information Value Date Recorded Sex Assigned at Not on file Legal Sex Female 10:16 AM EDT Gender Identity Not on file Sexual Orientation Not on file documented as of this encounter Plan of Treatment Not on file documented as of this encounter Visit Diagnoses Diagnosis Essential (primary) hypertension Unspecified essential hypertension Hydronephrosis with renal and ureteral calculous obstruction Encounter for surgical aftercare following surgery on the genitourinary system documented in this encounter Care Teams Knitter Wire Mesh Relationship Specialty Start Date End Date Jasvir Herron MD [address] [place] [address] PCP - General Internal Medicine 07/20/25 documented as of this encounter
--- OUTSIDE RECORDS SUMMARY | 2025-08-03 16:59 | XMS_ITS | Patient Health Record ---
Author Organization [facility] Address [address] [place] [address] Care Team Providers Care Diesel Trailer Mechanic Name Role Phone Po Maria De Jesus AJ Primary Care Provider Ubaldo Moreira [phone] Allergies Allergen (clinical drug ingredient) Drug/Non Drug Allergy documented on EMR Reaction Allergy Type Onset Date Status morphine Morphine Sulfate Unknown Drug Allergy Active erythromycin Erythromycin Unknown Drug Allergy A ctive Substance with 7-crohjeg-0-methylgluta ryl-coenzyme A reductase inhibitor mechanism of action [...] Problem Screening for malignant neoplasm of colon (159950991) Encounter for screening for malignant neoplasm of colon (Z12.11) Active confirmed Problem Long-term current use of antiplatelet drug (561108952825426 ) Long-term use of aspirin therapy (Z79.82) Active confirmed Problem Pre-procedure evaluation check (003134411) Pre-procedural examination (Z01.818) Active confirmed 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 non-steroidal anti-inflammator y drug (029107327704670 ) Encntr long-term NSAID use (Z79.1) Active confirmed Plan Of Treatment Future Test Test Name Order Date COLONOSCOPY 12/03/2017 Insurance Providers Payer Name Payer Address Payer Phone Subscriber Number Group Number Insured Name Patient Relationship to Insured Coverage Start Date Coverage End Date [facility] [address] [place] [phone] [id number] HARVEY MATA Self - patient is the insured Medical (General) History Medical History History ICD Code Vertigo Kidney stones--ESWL and cystoscopies Arthritis HTN Hyperlipidemia Negative colonoscopy in 2006 except for diverticulosis Shingles on LUE--resolved Arthritis Bladder cancer--has periodic cystoscopie s Denies ME,DM,CVA,Lung disease,renal dise ase Surgical History Surgery Date(Month/Year) [...]
--- OUTSIDE RECORDS SUMMARY | 2025-08-03 16:59 | XMS_ITS | Encounter Summary ---
Author Organization [facility] Address [address] [place] [address] Care Team Providers Care Shoe Polisher Name Role Phone Jasvir Herron MD Primary Care Provider [phone] Encounter Details Date Type Department Care Team (Latest Contact Info) Description 07/21/2025 Lab Requisition [facility] - Main Lab [address] [facility] [place] [address] Jasvir Herron MD [address] [place] [phone] Essential (primary) hypertension; Hydronephrosis with renal [...] on file documented as of this encounter Procedures Procedure Name Priority Date/Time Associated Diagnosis Comments COMPLETE BLOOD COUNT Routine 07/24/2025 5:00 AM EDT Essential (primary) hypertension Hydronephrosis with renal and ureteral calculous obstruction Encounter for surgical aftercare following surgery on the genitourinary system COMPREHENSIVE METABOLIC PANEL Routine 07/24/2025 5:00 AM EDT Essential (primary) hypertension Hydronephrosis with renal and ureteral calculous obstruction Encounter for surgical aftercare following surgery on the genitourinary system documented in this encounter Results * (ABNORMAL) Comprehensive metabolic panel (07/24/2025 5:00 AM EDT) Sodium 140 133 - 145 mmol/L LAB CHEMISTRY METHOD 07/24/2025 12:01 PM [facility] Potassium 4.7 3.5 - 5.5 mmol/L LAB CHEMISTRY METHOD 07/24/2025 12:01 PM [facility] Chloride 107 96 - 110 mmol/L LAB CHEMISTRY METHOD 07/24/2025 12:01 PM [facility] CO2 25 21 - 32 mmol/L LAB CHEMISTRY METHOD 07/24/2025 12:01 PM [facility] Anion Gap 8 3 - 11 LAB CHEMISTRY METHOD 07/24/2025 12:01 PM [facility] Glucose 86 70 - 100 mg/dL LAB CHEMISTRY METHOD 07/24/2025 12:01 PM [facility] BUN 20 5 - 25 mg/dL LAB CHEMISTRY METHOD 07/24/2025 12:01 [facility] Creatinine 0.80 0.50 - 1.10 mg/dL LAB CHEMISTRY METHOD 07/24/2025 12:01 PM [facility] eGFR 75 >=60 mL/min/1. 73m2 LAB CHEMISTRY METHOD 07/24/2025 12:01 PM [facility] Comment:Calculation based on the Chronic Kidney Disease Epidemiology Collaboration (CKD-EPI) equation refit without adjustment for race. BUN/Creatinine Ratio 25.0 LAB CHEMISTRY METHOD 07/24/2025 12:01 PM [facility] Calcium 9.3 8.5 - 10.5 mg/dL LAB CHEMISTRY METHOD 07/24/2025 12:01 [facility] AST (SGOT) 26 10 - 42 unit/L LAB CHEMISTRY METHOD 07/24/2025 12:01 PM [facility] ALT (SGPT) 47 10 - 60 unit/L LAB CHEMISTRY METHOD 07/24/2025 12:01 PM [facility] Alkaline Phosphatase 67 42 - 121 unit/L LAB CHEMISTRY METHOD 07/24/2025 12:01 PM EDT [facility] Total Protein 5.8(L) 6.0 - 8.0 g/dL LAB [facility] Albumin 2.9(L) 3.2 - 5.0 g/dL LAB CHEMISTRY [facility] 07/[facility] Total Bilirubin 0.3 0.0 - 1.4 mg/dL LAB CHEMISTRY METHOD 07/24/2025 12:01 PM T [facility] Blood Venous blood specimen / Unknown Venipuncture / Unknown 07/24/2025 5:00 AM EDT 07/24/2025 10:38 AM EDT us Jasvir Herron MD LAB BLOOD ORDERABLES Final Resu lt [facility] [address] [place] [address], [place] [phone] * (ABNORMAL) Complete blood count (07/24/2025 5:00 AM EDT) WBC 8.4 4.8 - 10.8 K/mcL LAB HEMETOLOGY METHOD 07/24/2025 11:12 AM T [facility] RBC 3.50(L) 3.80 - 4.80 M/mcL LAB HEMETOLOGY METHOD 07/24/2025 11:12 AM EDT [facility] Hemoglobin 10.3(L) 11.5 - 16.0 g/dL LAB HEMETOLOGY METHOD 07/24/2025 11:12 AM EDT [facility] Hematocrit 33.0(L) 35.0 - 47.0 % LAB HEMETOLOGY METHOD 07/24/2025 11:12 AM EDT [facility] MCV 95.7 79.0 - 98.0 FL LAB HEMETOLOGY METHOD 07/24/2025 11:12 AM EDT [facility] MCH 29.9 27.0 - 32.0 pcg LAB HEMETOLOGY METHOD 07/24/2025 11:12 AM EDT [facility] MCHC 31.2(L) 32.0 - 37.0 g/dL LAB HEMETOLOGY METHOD 07/24/2025 11:12 AM EDT [facility] RDW 14.3 11.0 - 15.0 % LAB HEMETOLOGY METHOD 07/24/2025 11:12 AM EDT [facility] Platelets 489(H) 130 - 400 K/mcL LAB HEMETOLOGY METHOD 07/24/2025 11:12 AM EDT [facility] MPV 9.4 7.0 - 11.0 FL LAB HEMETOLOGY METHOD 07/24/2025 11:12 AM EDT [facility] NRBC 0.0 <1.0 % LAB HEMETOLOGY METHOD 07/24/2025 11:12 AM EDT [facility] NRBC Absolute 0.00 <0.10 K/mcL LAB HEMETOLOGY METHOD 07/24/2025 11:12 AM T [facility] Blood Venous blood specimen / Unknown Venipuncture / Unknown 07/24/2025 5:00 AM EDT 07/24/2025 10:38 AM EDT us Jasvir Herron MD LAB BLOOD ORDERABLES Final Resu lt [facility] [address] [place] [address], documented in this encounter Visit Diagnoses Diagnosis Essential (primary) hypertension Unspecified essential hypertension Hydronephrosis with renal and ureteral calculous obstruction Encounter for surgical aftercare following surgery on the genitourinary system documented in this encounter Care Teams Shoe Polisher Relationship Specialty Start Date End Date Jasvir Herron MD [address] [place] [address] PCP - General Internal Medicine 07/20/25 documented as of this encounter
--- OUTSIDE RECORDS SUMMARY | 2025-08-03 16:59 | XMS_ITS | Clinical Summary ---
Author Organization [address] Address [address] [place] [address] Phone Care Team Providers Care Junior Business Analyst Name Role Phone Jasvir Herron MD Primary Care Provider [phone] Encounters Date Type Department Care Team Description 07/29/2025 Lab Requisition [facility] Lab [address] [place] [address] Jasvir Herron MD Essential (primary) hypertension; Hydronephrosis with renal and ureteral calculous obstruction; Encounter for surgical aftercare following surgery on the genitourinary system 07/26/2025 Lab Requisition [facility] Lab [address] [place] [address] Jasvir Herron MD Essential (primary) hypertension; Hydronephrosis with renal and ureteral calculous obstruction; Encounter for surgical aftercare following surgery on the genitourinary system 07/21/2025 Lab Requisition [facility] Lab [address] [place] [address] Jasvir Herron MD Essential (primary) hypertension; Hydronephrosis with renal and ureteral calculous obstruction; Encounter for surgical aftercare following surgery on the genitourinary system 07/20/2025 Lab Requisition [facility] Lab [address] [place] [address] Jasvir Herron MD Essential (primary) hypertension; Hydronephrosis with renal and ureteral calculous obstruction; Encounter for surgical aftercare following surgery on the genitourinary system from Last 3 Months Social History Tobacco Use Types Packs/Day Years Used Date Smoking Tobacco: Never Assessed Comments Unknown Sex and Gender Information Value Date Recorded Sex Assigned at Not on file Legal Sex Female 10:16 AM EDT Gender Identity Not on file Sexual Orientation Not on file Plan of Treatment Health Maintenance Due Date Last Done Comments DTaP,Tdap,and Td Vaccines (1 - Tdap) 1965 Pneumococcal Vaccine: 50+ Years (1 of 1 - PCV) 1996 Zoster Vaccines (1 of 2) 1996 RSV Immunization Adult Patients (1 - 1-dose 75+ series) 2021 Depression Screening 10/12/2024 COVID-19 Vaccine (1 - 2023-2 5 season) 2025 Influenza Vaccine (#1) 2025 Cholesterol Screening (Lipid Panel) 07/20/2025 Falls Risk Assessment 07/20/2025 Hepatitis C Screening 07/20/2025 Medicare Annual Wellness Visit 07/20/2025 Osteoporosis Screening (Bone Density Screening) 07/20/2025 Social Influencers of Health Screening 07/20/2025 Hypertension/CHF/CAD Annual BMP Blood Test 07/27/2026 07/27/2025, 07/24/2025, 07/20/2025 HIB Vaccines Aged Out No longer eligi ble based on patient's age to complete this topic HPV Vaccines Aged Out No longer eligi ble based on patient's age to complete this topic Hepatitis A Vaccines Aged Out No long er eligible based on patient's age to complete this topic Hepatitis B Vaccines Aged Out No long er eligible based on patient's age to complete this topic IPV Vaccines Aged Out No longer eligi ble based on patient's age to complete this topic MMR Vaccines Aged Out No longer eligi ble based on patient's age to complete this topic Meningococcal ACWY Vaccine Aged Out N o longer eligible based on patient's age to complete this topic Meningococcal B Vaccine Aged Out No l onger eligible based on patient's age to complete this topic RSV Immunization Patients Under 20 months Aged Out No longer eligible b ased on patient's age to complete this topic Varicella Vaccines Aged Out No longer eligible based on patient's age to complete this topic Procedures Procedure Name Priority Date/Time Associated Diagnosis Comments COMPLETE BLOOD COUNT Routine 07/27/2025 6:40 AM EDT Essential (primary) hypertension Hydronephrosis with renal and ureteral calculous obstruction Encounter for surgical aftercare following surgery on the genitourinary system BASIC METABOLIC PANEL Routine 07/27/2025 6:40 AM EDT Essential (primary) hypertension Hydronephrosis with renal and ureteral calculous obstruction Encounter for surgical aftercare following surgery on the genitourinary system COMPREHENSIVE METABOLIC PANEL Routine 07/24/2025 5:00 AM EDT Essential (primary) hypertension Hydronephrosis with renal and ureteral calculous obstruction Encounter for surgical aftercare following surgery on the genitourinary system COMPLETE BLOOD COUNT Routine 07/24/2025 5:00 AM EDT Essential (primary) hypertension Hydronephrosis with renal and ureteral calculous obstruction Encounter for surgical aftercare following surgery on the genitourinary system COMPREHENSIVE METABOLIC PANEL Routine 07/20/2025 8:22 AM EDT Essential (primary) hypertension Hydronephrosis with renal and ureteral calculous obstruction Encounter for surgical aftercare following surgery on the genitourinary system COMPLETE BLOOD COUNT Routine 07/20/2025 8:22 AM EDT Essential (primary) hypertension Hydronephrosis with renal and ureteral calculous obstruction Encounter for surgical aftercare following surgery on the genitourinary system from Last 3 Months Results * (ABNORMAL) Complete blood count (07/27/2025 6:40 AM EDT) Only the most recent of3 resultswithin the time period is included. WBC 7.9 4.8 - 10.8 K/mcL LAB HEMETOLOGY METHOD 07/27/2025 8:48 AM EDT [facility] RBC 3.60(L) 3.80 - 4.80 M/mcL LAB HEMETOLOGY METHOD 07/27/2025 [facility] Hemoglobin 10.7(L) 11.5 - 16.0 g/dL LAB HEMETOLOGY METHOD 07/27/2025 8:48 AM [facility] Hematocrit 34.0(L) 35.0 - 47.0 % LAB HEMETOLOGY METHOD 07/27/2025 8:48 AM EDT [facility] MCV 95.2 79.0 - 98.0 FL LAB HEMETOLOGY METHOD 07/27/2025 8:48 AM EDT [facility] MCH 30.0 27.0 - 32.0 pcg LAB HEMETOLOGY METHOD 07/27/2025 8:48 AM EDT [facility] MCHC 31.5(L) 32.0 - 37.0 g/dL LAB HEMETOLOGY METHOD 07/27/2025 8:48 AM EDT [facility] RDW 13.8 11.0 - 15.0 % LAB HEMETOLOGY METHOD 07/27/2025 8:48 AM EDT [facility] Platelets 513(H) 130 - 400 K/mcL LAB HEMETOLOGY METHOD 07/27/2025 8:48 AM EDT [facility] MPV 9.0 7.0 - 11.0 FL LAB HEMETOLOGY METHOD 07/27/2025 8:48 AM EDT [facility] NRBC 0.0 <1.0 % LAB HEMETOLOGY METHOD 07/27/2025 8:48 AM EDT [facility] NRBC Absolute 0.00 <0.10 K/mcL LAB HEMETOLOGY METHOD 07/27/2025 8:48 AM EDT [facility] Blood Venous blood specimen / Unknown Venipuncture / Unknown 07/27/2025 6:40 AM EDT 07/27/2025 8:23 AM EDT us Jasvir Herron MD LAB BLOOD ORDERABLES Final Resu lt [facility] [address] [place] [address], * Basic metabolic panel (07/27/2025 6:40 AM EDT) Sodium 141 133 - 145 mmol/L LAB CHEMISTRY METHOD 07/27/2025 9:05 AM [facility] Potassium 4.6 3.5 - 5.5 mmol/L LAB CHEMISTRY METHOD 07/27/2025 9:05 AM [facility] Chloride 109 96 - 110 mmol/L LAB CHEMISTRY METHOD 07/27/2025 9:05 AM [facility] CO2 26 21 - 32 mmol/L LAB CHEMISTRY METHOD 07/27/2025 9:05 AM [facility] Anion Gap 6 3 - 11 LAB CHEMISTRY METHOD 07/27/2025 9:05 AM [facility] Glucose 93 70 - 100 mg/dL LAB CHEMISTRY METHOD 07/27/2025 9:05 AM [facility] BUN 21 5 - 25 mg/dL LAB CHEMISTRY METHOD 07/27/2025 9:05 AM [facility] Creatinine 0.72 0.50 - 1.10 mg/dL LAB CHEMISTRY METHOD 07/27/2025 9:05 AM [facility] eGFR 85 >=60 mL/min/1. 73m2 LAB CHEMISTRY METHOD 07/27/2025 9:05 AM [facility] Comment:Calculation based on the Chronic Kidney Disease Epidemiology Collaboration (CKD-EPI) equation refit without adjustment for race. BUN/Creatinine Ratio 29.2 LAB CHEMISTRY METHOD 07/27/2025 9:05 AM [facility] Calcium 9.3 8.5 - 10.5 mg/dL LAB CHEMISTRY METHOD 07/27/2025 9:05 AM [facility] Blood Venous blood specimen / Unknown Venipuncture / Unknown 07/27/2025 6:40 AM EDT 07/27/2025 8:23 AM EDT us Jasvir Herron MD LAB BLOOD ORDERABLES Final Resu lt [facility] [address] [place] [address], * (ABNORMAL) Comprehensive metabolic panel (07/24/2025 5:00 AM EDT) Only the most recent of2 resultswithin the time period is included. Sodium 140 133 - 145 mmol/L LAB CHEMISTRY METHOD 07/24/2025 12:01 PM [facility] Potassium 4.7 3.5 - 5.5 mmol/L LAB CHEMISTRY METHOD 07/24/2025 12:01 PM [facility] Chloride 107 96 - 110 mmol/L LAB CHEMISTRY METHOD 07/24/2025 12:01 PM [facility] CO2 25 21 - 32 mmol/L LAB CHEMISTRY METHOD 07/24/2025 12:01 PM [facility] Anion Gap 8 3 - 11 LAB CHEMISTRY METHOD 07/24/2025 12:01 PM [facility] Glucose 86 70 - 100 mg/dL LAB CHEMISTRY METHOD 07/24/2025 12:01 PM [facility] BUN 20 5 - 25 mg/dL LAB CHEMISTRY METHOD 07/24/2025 12:01 PM [facility] Creatinine 0.80 0.50 - 1.10 mg/dL LAB CHEMISTRY METHOD 07/24/2025 12:01 PM [facility] eGFR 75 >=60 mL/min/1. 73m2 LAB CHEMISTRY METHOD 07/24/2025 12:01 PM [facility] Comment:Calculation based on the Chronic Kidney Disease Epidemiology Collaboration (CKD-EPI) equation refit without adjustment for race. BUN/Creatinine Ratio 25.0 LAB CHEMISTRY METHOD 07/24/2025 12:01 PM [facility] Calcium 9.3 8.5 - 10.5 mg/dL LAB CHEMISTRY METHOD 07/24/2025 12:01 PM EDT [facility] AST (SGOT) 26 10 - 42 unit/L LAB CHEMISTRY METHOD 07/24/2025 12:01 PM [facility] ALT (SGPT) 47 10 - 60 unit/L LAB CHEMISTRY METHOD 07/24/2025 12:01 PM [facility] Alkaline Phosphatase 67 42 - 121 unit/L LAB CHEMISTRY METHOD [facility] Total Protein 5.8(L) 6.0 - 8.0 g/dL LAB CHEMISTRY METHOD 07/24/2025 12:01 PM [facility] Albumin 2.9(L) 3.2 - 5.0 g/dL LAB CHEMISTRY METHOD 07/24/2025 12:01 PM [facility] Total Bilirubin 0.3 0.0 - 1.4 mg/dL LAB CHEMISTRY METHOD 07/24/2025 12:01 PM T [facility] Blood Venous blood specimen / Unknown Venipuncture / Unknown 07/24/2025 5:00 AM EDT 07/24/2025 10:38 AM EDT us Jasvir Herron MD LAB BLOOD ORDERABLES Final Resu lt [facility] [address] [place] [address], [place] [phone] from Last 3 Months Insurance MEDICARE [facility] Care Teams Junior Business Analyst Relationship Specialty Start Date End Date Jasvir Herron MD [address] [place] [id number] PCP - General Internal Medicine 07/20/25
--- OUTSIDE RECORDS SUMMARY | 2025-08-03 16:59 | XMS_ITS | Encounter Summary ---
Author Organization [facility] Address [address] [place] [address] Care Team Providers Care Imaging Scheduler Name Role Phone Jasvir Herron MD Primary Care Provider [phone] Encounter Details Date Type Department Care Team (Latest Contact Info) Description 07/26/2025 Lab Requisition [facility] - Main Lab [address] [facility] [place] [address] Jasvir Herron MD [address] [place] [address] Essential (primary) hypertension; Hydronephrosis with renal [...] documented in this encounter Results * (ABNORMAL) Complete blood count (07/27/2025 6:40 AM EDT) WBC 7.9 4.8 - 10.8 K/[facility] 07/27/2025 8:48 AM [facility] RBC 3.60(L) 3.80 - 4.80 M/mcL LAB HEMETOLOGY METHOD 07/27/2025 8:48 AM [facility] Hemoglobin 10.7(L) 11.5 - 16.0 g/dL LAB HEMETOLOGY METHOD 07/27/2025 8:48 AM [facility] Hematocrit 34.0(L) 35.0 - 47.0 % LAB HEMETOLOGY METHOD 07/27/2025 8:48 AM [facility] MCV 95.2 79.0 - 98.0 FL LAB HEMETOLOGY METHOD 07/27/2025 8:48 AM [facility] MCH 30.0 27.0 - 32.0 pcg LAB HEMETOLOGY METHOD 07/27/2025 8:48 AM [facility] MCHC 31.5(L) 32.0 - 37.0 g/dL LAB HEMETOLOGY METHOD 07/27/2025 8:48 AM [facility] RDW 13.8 11.0 - 15.0 % LAB HEMETOLOGY METHOD 07/27/2025 8:48 AM [facility] Platelets 513(H) 130 - 400 K/mcL LAB HEMETOLOGY METHOD 07/27/2025 8:48 AM [facility] MPV 9.0 7.0 - 11.0 FL LAB HEMETOLOGY METHOD 07/27/2025 8:48 AM [facility] NRBC 0.0 <1.0 % LAB HEMETOLOGY METHOD 07/27/2025 8:48 AM [facility] NRBC Absolute 0.00 <0.10 K/mcL LAB HEMETOLOGY METHOD 07/27/2025 8:48 AM [facility] Blood Venous blood specimen / Unknown Venipuncture / Unknown 07/27/2025 6:40 AM EDT 07/27/2025 8:23 AM EDT us Jasvir Herron MD LAB BLOOD ORDERABLES Final Resu lt [facility] [address] [place] [address], [place] [phone] * Basic metabolic panel (07/27/2025 6:40 AM EDT) Sodium 141 133 - 145 mmol/L LAB CHEMISTRY METHOD 07/27/2025 9:05 AM [facility] Potassium 4.6 3.5 - 5.5 mmol/L LAB CHEMISTRY METHOD 07/27/2025 9:05 AM [facility] Chloride 109 96 - 110 mmol/L LAB CHEMISTRY METHOD 07/27/2025 9:05 AM [facility] CO2 26 21 - 32 mmol/L LAB CHEMISTRY METHOD 07/27/2025 9:05 AM [facility] Anion Gap 6 3 - 11 LAB CHEMISTRY METHOD 07/27/2025 9:05 AM [facility] Glucose 93 70 - 100 mg/dL LAB CHEMISTRY METHOD 07/27/2025 9:05 AM [facility] BUN 21 5 - 25 mg/dL LAB CHEMISTRY METHOD 07/27/2025 9:05 AM [facility] Creatinine 0.72 0.50 - 1.10 mg/dL LAB CHEMISTRY METHOD 07/27/2025 9:05 AM [facility] eGFR 85 >=60 mL/min/1. 73m2 LAB CHEMISTRY METHOD 07/27/2025 9:05 AM [facility] Comment:Calculation based on the Chronic Kidney Disease Epidemiology Collaboration (CKD-EPI) equation refit without adjustment for race. BUN/Creatinine Ratio 29.2 LAB CHEMISTRY METHOD 07/27/2025 9:05 AM EDT [facility] Calcium 9.3 8.5 - 10.5 mg/dL LAB CHEMISTRY METHOD 07/27/2025 9:05 AM EDT [facility] Blood Venous blood specimen / Unknown Venipuncture / Unknown 07/27/2025 6:40 AM EDT 07/27/2025 8:23 AM EDT us Jasvir Herron MD LAB BLOOD ORDERABLES Final Resu lt [facility] [address] [place] [address], documented in this encounter Visit Diagnoses Diagnosis Essential (primary) hypertension Unspecified essential hypertension Hydronephrosis with renal and ureteral calculous obstruction Encounter for surgical aftercare following surgery on the genitourinary system documented in this encounter Care Teams Imaging Scheduler Relationship Specialty Start Date End Date Jasvir Herron MD [address] [place] [address] PCP - General Internal Medicine 07/20/25 documented as of this encounter
--- OUTSIDE RECORDS SUMMARY | 2025-08-03 16:59 | XMS_ITS | Encounter Summary ---
Author Organization [facility] Address [address] [place] [address] Care Team Providers Care Upper Cutter Out Name Role Phone Jasvir Herron MD Primary Care Provider Encounter Details Date Type Department Care Team (Latest Contact Info) Description 07/20/2025 Lab Requisition [facility] - Main Lab [address] [facility] [place] [address] Jasvir Herron MD [address] [place] [id number] Essential (primary) hypertension; Hydronephrosis with renal [...] Associated Diagnosis Comments COMPLETE BLOOD COUNT Routine 07/20/2025 8:22 AM [...] encounter Results * (ABNORMAL) Comprehensive metabolic panel (07/20/2025 8:22 AM EDT) Sodium 142 133 - 145 mmol/L LAB CHEMISTRY METHOD 07/20/2025 10:55 AM [facility] Potassium 4.1 3.5 - 5.5 mmol/L LAB CHEMISTRY METHOD 07/20/2025 10:55 AM [facility] Chloride 109 96 - 110 mmol/L LAB CHEMISTRY METHOD 07/20/2025 10:55 AM [facility] CO2 25 21 - 32 mmol/L LAB CHEMISTRY METHOD 07/20/2025 10:55 AM [facility] Anion Gap 8 3 - 11 LAB CHEMISTRY METHOD 07/20/2025 10:55 AM [facility] Glucose 89 70 - 100 mg/dL LAB CHEMISTRY METHOD 07/20/2025 10:55 AM [facility] BUN 20 5 - 25 mg/dL LAB CHEMISTRY METHOD 07/20/2025 10:55 AM [facility] Creatinine 0.76 0.50 - 1.10 mg/dL LAB CHEMISTRY METHOD 07/20/2025 10:55 AM [facility] eGFR 80 >=60 mL/min/1. 73m2 LAB CHEMISTRY METHOD 07/20/2025 10:55 AM [facility] Comment:Calculation based on the Chronic Kidney Disease Epidemiology Collaboration (CKD-EPI) equation refit without adjustment for race. BUN/Creatinine Ratio 26.3 LAB CHEMISTRY METHOD 07/20/2025 10:55 AM [facility] Calcium 8.9 8.5 - 10.5 mg/dL LAB CHEMISTRY METHOD 07/20/2025 10:55 AM [facility] AST (SGOT) 45(H) 10 - 42 unit/L LAB CHEMISTRY METHOD 07/20/2025 10:55 AM [facility] ALT (SGPT) 84(H) 10 - 60 unit/L LAB CHEMISTRY METHOD 07/20/2025 10:55 AM [facility] Alkaline Phosphatase 71 42 - 121 unit/L LAB CHEMISTRY METHOD 07/20/2025 10:[address] [facility] Total Protein 6.1 6.0 - 8.0 g/dL LAB CHEMISTRY METHOD 07/20/2025 10:55 AM [facility] Albumin 3.1(L) 3.2 - 5.0 g/dL LAB CHEMISTRY METHOD 07/20/2025 10:55 AM [facility] Total Bilirubin 0.3 0.0 - 1.4 mg/dL LAB CHEMISTRY METHOD 07/20/2025 10:[address] [facility] Blood Venous blood specimen / Unknown Venipuncture / Unknown 07/20/2025 8:22 AM EDT 07/20/2025 10:26 AM EDT us Jasvir Herron MD LAB BLOOD ORDERABLES Final Resu lt [facility] [address] [place] [address], [place] [phone] * (ABNORMAL) Complete blood count (07/20/2025 8:22 AM EDT) WBC 9.5 4.8 - 10.8 K/mcL LAB HEMETOLOGY METHOD 07/20/2025 10:31 AM [facility] RBC 3.50(L) 3.80 - 4.80 M/mcL LAB HEMETOLOGY METHOD 07/20/2025 10:[address] [facility] Hemoglobin 10.5(L) 11.5 - 16.0 g/dL LAB HEMETOLOGY METHOD 07/20/2025 10:31 AM [facility] Hematocrit 33.1(L) 35.0 - 47.0 % LAB HEMETOLOGY METHOD 07/20/2025 10:31 AM [facility] MCV 95.4 79.0 - 98.0 FL LAB HEMETOLOGY METHOD 07/20/2025 10:[address] [facility] MCH 30.3 27.0 - 32.0 pcg LAB HEMETOLOGY METHOD 07/20/2025 10:[address] [facility] MCHC 31.7(L) 32.0 - 37.0 g/dL LAB HEMETOLOGY METHOD 07/20/2025 10:[address] [facility] RDW 14.2 11.0 - 15.0 % LAB HEMETOLOGY METHOD 07/20/2025 10:[address] [facility] Platelets 393 130 - 400 K/mcL LAB HEMETOLOGY METHOD 07/20/2025 10:[address] [facility] MPV 9.2 7.0 - 11.0 FL LAB HEMETOLOGY METHOD 07/20/2025 10:[address] [facility] NRBC 0.0 <1.0 % LAB HEMETOLOGY METHOD 07/20/2025 10:[address] [facility] NRBC Absolute 0.00 <0.10 K/mcL LAB HEMETOLOGY METHOD 07/20/2025 10:31 AM [facility] Blood Venous blood specimen / Unknown Venipuncture / Unknown 07/20/2025 8:22 AM EDT 07/20/2025 10:26 AM EDT us Jasvir Herron MD LAB BLOOD ORDERABLES Final Resu lt [facility] [address] [place] [address], documented in this encounter Visit Diagnoses Diagnosis Essential (primary) hypertension Unspecified essential hypertension Hydronephrosis with renal and ureteral calculous obstruction Encounter for surgical aftercare following surgery on the genitourinary system documented in this encounter Care Teams Upper Cutter Out Relationship Specialty Start Date End Date Jasvir Herron MD [address] [place] [address] PCP - General Internal Medicine 07/20/25 documented as of this encounter
--- NOTE | 2025-08-03 18:03 | PM.IMHP ---
History of Present Illness Date of Service: 08/03/25 Chief Complaint: fever 80F PMH nephrolithiasis, htn, hld, LLE DVT no longer on AC, presented with fevers. Patient was admitted to [facility] 07/13/25 to 07/19/2025 for sepsis due to obstructing ureteral stones requiring left ureteral stent placement. Was discharged on cefuroxime. Cultures at that time did not grow anything. 5 days prior to presentation started to have recurrent fevers and generally feeling unwell. Was given Tylenol and restarted on cefuroxime. Continued to have fevers. Contacted Urology who recommended patient come to ED for evaluation. In ED noted to have low-grade fever, CT abdomen showing will positioned left ureteral stent with resolution of previous hydronephrosis, 9 mm x 4 mm stone abutting stent at left UPJ and 19 mm x 13 mm stone abutting the stent in the left renal pelvis. Review of Systems Review of Systems: Yes all other systems are reviewed and are negative [facility] Medical History Renal calculus, bilateral Arthritis Varicose veins of left lower extremity with inflammation Annual physical exam DVT (deep venous thrombosis) Left leg swelling Preop exam for internal medicine Tinnitus Encounter for annual wellness visit (AWV) in Medicare patient Stress incontinence Calculus of proximal right ureter Preop exam for internal medicine Allergic rhinitis Dislocation of right shoulder joint Right rotator cuff tear Cervical radiculopathy Obesity Carpal tunnel syndrome, left Left leg DVT GERD (gastroesophageal reflux disease) Post herpetic neuralgia Bladder cancer Hypercholesteremia Hypertension Family History Father Cancer Mother CVD (cardiovascular disease) Cerebral hemorrhage Brain aneurysm Brother CAD (coronary artery disease) Sister CVD (cardiovascular disease) Cancer Lung cancer Cerebral hemorrhage Sister Cancer Lung cancer Surgical History History of removal of ureteral stent Hx of cystoscopy History of carpal tunnel surgery of left wrist H/O shoulder replacement History of hip replacement History of lithotripsy History of cystoscopy History of cholecystectomy History of knee replacement procedure of right knee History of knee replacement procedure of left knee History of appendectomy History of total abdominal hysterectomy and bilateral salpingo-oophorectomy History of lumpectomy of left breast History of lumpectomy of right breast Social History Household Members: Spouse Housing: House Are you a primary before and after school daycare worker to a significant other at home: No Do you presently have visiting nurse or other home services: No Alcohol intake: current Alcohol intake frequency: holidays/special occasions only Comment: twice a month 2 drinks Patient Tobacco Use Status: Never used Tobacco Tobacco use type: Cigarette e-Cigarette/Vaping Use: Never Used Second Hand Smoke Exposure: No Use of substances other than those prescribed or required for medical reasons: No Advance Directives: Yes Advance Directives on File: Yes Advance Directives Date on File: 08/03/25 service: No Current occupational status: employed and retired Cognitive needs: Yes (walker) Hearing needs: No Vision needs: Yes Meds Allergies Allergy/AdvReac Type Severity Reaction Status Date / Time erythromycin base Allergy Severe BODY ACHES Verified 08/03/25 12:49 (ERYTHROMYCIN BASE) [id number] Reductase Allergy Severe ALTERED Verified 08/03/25 12:49 Inhibitor (KIEKAOA-SAR-SNP MENTAL REDUCTASE INHIBITOR) STATUS adhesive tape Allergy Intermediate BLISTERS Verified 08/03/25 12:49 omeprazole (From PRILOSEC) AdvReac Intermediate DIARRHEA Verified 08/03/25 12:49 hospital sheets Allergy Mild years Uncoded 07/31/25 14:11 ago-caused itching Active Medications: Current Medications Acetaminophen (Acetaminophen 325 Mg Tablet) 650 mg PO Q6H PRN PRN Reason: Pain, Mild 1-3,fever,headache Calcium Carbonate (Calcium Carbonate 750 Mg Tab.Chew) 750 mg PO Q4H PRN PRN Reason: Heartburn Enoxaparin Sodium (Enoxaparin Sodium 40 Mg/0.4 Ml Syringe) 40 mg SUBCUT Q24H PAUL Cefepime HCl 1 gm/ Sodium (Chloride) 50 mls @ 100 mls/hr IV Q8H PAUL Magnesium Hydroxide (Milk Of Magnesia 30 Ml Oral.Susp) 30 ml PO DAILY PRN PRN Reason: Constipation Melatonin (Melatonin 3 Mg Tablet) 6 mg PO BEDTIME PRN PRN Reason: Insomnia Sodium Chloride (0.9 % Sodium Chloride Flush 3 Ml Syringe) 3 ml IVFLUSH QSHIFT [facility] Home Medications ?Medication ?Instructions ?Recorded ?Confirmed ?Last Taken ?Type loratadine 10 mg tablet (Claritin) 10 mg PO DAILY PRN Allergy Symptoms 08/30/20 07/31/25 09/08/22 History cholecalciferol (vitamin D3) 50 50 mcg PO DAILY 11/24/22 07/31/25 07/12/25 History mcg (2,000 unit) capsule (Vitamin D3) L.paracasei,rhamnosus-B.animalis 1 cap PO DAILY PRN UPSET STOMACH 12/27/24 07/31/25 Unknown History 11 billion cell-vit C 15 mg capsule (Daily Probiotic (4 Strains)) albuterol sulfate 90 mcg/actuation 2 puff inhalation Q4-6H PRN 07/13/25 07/31/25 Unknown History aerosol inhaler Shortness Of Breath Or Wheezing diclofenac sodium 1 % topical gel 4 g topical QID PRN Pain 07/13/25 07/31/25 Unknown History (Arthritis Pain (diclofenac)) meloxicam 15 mg tablet 15 mg PO DAILY 07/13/25 07/31/25 07/12/25 History solifenacin 5 mg tablet 5 mg PO DAILY 08/03/25 Unknown History Physical Exam Vital Signs and Narrative: Vital Signs: Last Vital Signs Temp 100.4 F 08/03/25 17:55 Pulse 71 08/03/25 16:07 Resp 18 08/03/25 16:07 BP 143/58 H 08/03/25 16:07 Pulse Ox 97 08/03/25 16:07 O2 Del Method Room Air 08/03/25 16:07 BMI result Body Mass Index 36.6 General: AO X 3, no acute distress Resp: CTA bilateral, no accessory muscles used CVS: S1,S2,RRR GI: soft, non tender, non distended Neuro: motor grossly intact, alert Psych: appropriate affect, appropriate insight Results Labs 08/03/25 13:05 08/03/25 13:05 Labs: Laboratory Results - last 24 hr 08/03/25 08/03/25 08/03/25 13:05 14:01 14:25 MCV 90.7 MCH 29.2 MCHC 32.2 RDW 13.4 Plt Count 329 MPV 8.6 L Immature Gran % (Auto) 0.5 H Neut % (Auto) 75.9 H Lymph % (Auto) 12.5 L [place] % (Auto) 9.0 Eos % (Auto) 1.7 Baso % (Auto) 0.4 Lymph # (Auto) 1.5 [place] # (Auto) 1.1 Eos # (Auto) 0.2 Baso # (Auto) 0.1 Abs Immat Gran (auto) 0.06 H Absolute Neuts (auto) 8.8 H Absolute Nucleated RBC 0.000 Nucleated RBC % (auto) 0.0 ESR 92 H Anion Gap 13 Estim Creat Clear Calc 61.2 Estimated GFR > 60 Random Glucose 109 Lactic Acid 1.2 Calcium 9.5 D Magnesium 1.6 Total Bilirubin 0.5 Direct Bilirubin 0.2 AST 26 ALT 24 Alkaline Phosphatase 62 C-Reactive Protein 19.37 H Total Protein 7.1 Albumin 3.9 Lipase 14 Urine Color Urine Appearance Urine pH Ur Specific Barry Urine Protein Urine Glucose (UA) Urine Ketones Urine Blood Urine Nitrite Ur Leukocyte Esterase Urine RBC Urine WBC Ur Squamous Epith Cells Urine Bacteria Hyaline Casts COVID-19 (CHARLY) Negative COVID-19 Clin Com See Note Influenza Type A (NAVID) Negative Influenza Type A (PCR) NEGATIVE Influenza Type B (NAVID) Negative Influenza Type B (PCR) NEGATIVE Influenza A & B Note See Note RSV RNA Qual (PCR) NEGATIVE SARS-CoV-2 RNA (RT-PCR) NEGATIVE 08/03/25 14:26 MCV MCH MCHC RDW Plt Count MPV Immature Gran % (Auto) Neut % (Auto) Lymph % (Auto) [place] % (Auto) Eos % (Auto) Baso % (Auto) Lymph # (Auto) [place] # (Auto) Eos # (Auto) Baso # (Auto) Abs Immat Gran (auto) Absolute Neuts (auto) Absolute Nucleated RBC Nucleated RBC % (auto) ESR Anion Gap Estim Creat Clear Calc Estimated GFR Random Glucose Lactic Acid Calcium Magnesium Total Bilirubin Direct Bilirubin AST ALT Alkaline Phosphatase C-Reactive Protein Total Protein Albumin Lipase Urine Color Yellow Urine Appearance Cloudy Urine pH 5.0 Ur Specific Barry 1.020 Urine Protein Trace Urine Glucose (UA) Negative Urine Ketones Negative Urine Blood Trace H Urine Nitrite Negative Ur Leukocyte Esterase Moderate (2+) H Urine RBC 3-5 H Urine WBC 6-10 Ur Squamous Epith Cells 6-10 Urine Bacteria 2+ Hyaline Casts 6-10 COVID-19 (CHARLY) COVID-19 Clin Com Influenza Type A (NAVID) Influenza Type A (PCR) Influenza Type B (NAVID) Influenza Type B (PCR) Influenza A & B Note RSV RNA Qual (PCR) SARS-CoV-2 RNA (RT-PCR) Imaging Radiologist's Impressions: Impressions Abdomen/Pelvis CT 08/03/25 16:08 IMPRESSION: 1. Since the prior recent exam, there has been placement of a left ureteral stent, well-positioned with resolution of previously seen left hydroureteronephrosis. There is a 9 x 4 mm calculus abutting the stent at the level of the left UPJ, and a 19 x 13 mm calculus abutting the stent in the left renal pelvis. 2. Stable nonobstructing nephrolithiasis in right kidney. 3. Diverticulosis of the colon, severe in the sigmoid. No CT evidence of acute diverticulitis. 4. Additional ancillary findings as discussed in the body of the report. Electronically signed by: Abhinav Freeman MD 08/03/2025 04:[address] 08/03/25 16:08 IMPRESSION: Solid pulmonary nodule in the right middle lobe measuring 5 mm. No further follow-up is indicated per Fleischner Society recommendations, unless the patient falls into a high risk category, in which case a 12 month follow-up CT chest without contrast is optional. High risk patients includes those with a history of smoking, first-degree relative with lung cancer, or exposure to uranium, radon, or asbestos. No other abnormalities noted. Fleischner guidelines were followed. Electronically signed by: Sedrick Valera MD 08/03/2025 04:41 PM EDT RP Assessment and Plan (1) Ureteral calculi: Status: Acute Plan 80F PMH nephrolithiasis, htn, hld, LLE DVT no longer on AC, presented with fevers Complicated upper urinary tract infection associated with ureteral stent and recurrent nephrolithiasis IV cefepime, follow up cultures, Urology eval History of DVT No longer on anticoagulation Hyperlipidemia Zetia DVT prophylaxis-Lovenox Full code Given recent hospitalization infection patient and recurrent fevers with complicated UTI with indwelling stent patient is at risk for development of sepsis and MDR organisms therefore expected to require at least 2 midnights inpatient Quality Stroke Does the patient have a stroke diagnosis?: No VTE Prior VTE?: Yes VTE Risk Level:: Medical - moderate - high VTE Device Contraindication: Treatment Not Indicated VTE Drug Contraindication: N/A - Med Ordered
--- NOTE | 2025-08-03 18:34 | PHA.MEDREC ---
Addendum entered by Regina Carson [facility] 08/04/25 12:26: Caren meaaysha called back stating the patient started Furosemide 20 mg daily on 07/23/25 Addendum entered by Regina Carson [facility] 08/03/25 18:58: [facility] reviewed Original Note: Pharmacy Consult ? Medication Reconciliation Pharmacy has completed the medication reconciliation. Spoke with pt and she was able to confirm her medications. Pt started a Cefuroxime 500mg 1 BID regimen this past Thursday, she stopped taking the Lisinopril-hydrochlorothiazide her last discharge (07/19) with us, and pt no longer taking Solifenacin as of a few weeks ago and states she did not like that medication. Pt states she got prescribed Furosemide 20mg tab once daily from [facility]; pt discharged from their facility 1 week ago, I called to verify that med but was unable to get an answer and left a voicemail for admissions office to call us back when they can.
--- NOTE | 2025-08-03 20:56 | HO.NURTONUR ---
80 yo female with PMH of DVT, GERD, HTN, HLD, renal colic, multiple surgeries including THR, shoulder replacement, L and R TKR, OWEN and BSO, appendectomy, just here on 07/13 for confusion, hypoxia, sepsis secondary to obstructive L ureter calculus. Alert and oriented, at bedside, has generalized pain, will give 2100 naproxen prior to transport. day shift RN said she had a little red man syndrome from the vanc so she slowed the rate and everything was fine. NPO after midnight. can get up to bed side commode. 20g RAC heplock
--- NOTE | 2025-08-03 20:57 | PC.NURSE ---
report for admit in sys
[2025-08-03] MEDS: 0.9 % Sodium Chloride Flush 3 ML SYRINGE IVFLUSH (23:31)
[2025-08-04 03:31] VITALS: BP 132/63; PULSE 87; RESP 18; TEMP 36.7; O2SAT 98
[2025-08-04 06:57] LABS: Hematocrit 32.7 % (37.0-47.0); Hemoglobin 10.5 g/dl (12.0-16.0); Mean Corpuscular HGB Conc 32.1 g/dl (31.0-35.0); Mean Corpuscular Hemoglobin 29.8 pg (27.0-33.0); Mean Corpuscular Volume 92.9 fL (80.0-98.0); NRBC Abs Auto 0.000 X10*3/uL (0.0-0.012); NRBC Pct Auto 0.0 /100WBC (0.0-0.2); Platelet Count 317 X10*3/uL (160-400); Red Blood Count 3.52 X10*6/uL (4.20-5.50); White Blood Count 9.2 X10*3/uL (4.8-10.8)
[2025-08-04 06:58] LABS: Anion Gap 13 (12-20); Blood Urea Nitrogen 14 mg/dL (9-16); Calcium 9.3 mg/dL (8.4-10.2); Carbon Dioxide 26 mmol/L (22-29); Chloride 109 mmol/L (96-108); Creatinine Clr Calc Pharmacy 73.2; Estimated Glomerular Filt Rate > 60; Magnesium 1.8 mg/dL (1.6-2.6); Potassium 4.0 mmol/L (3.3-5.1); Sodium 144 mmol/L (135-145)
[2025-08-04 07:14] VITALS: BP 153/70; PULSE 60; RESP 16; TEMP 36.9; O2SAT 96
[2025-08-04 08:20] VITALS: BP 153/70
[2025-08-04] MEDS: 0.9 % Sodium Chloride Flush 3 ML SYRINGE IVFLUSH ×3 (08:24→20:20)
--- NOTE | 2025-08-04 10:26 | PM.UROCN ---
History of Present Illness Consult details Consult date: 08/04/25 Narrative: CC: complicated UTI Patient known to Urology Had undergone cystoscopy with left stenting after presenting with infected urinary stone 2 weeks ago Has had persistent low-grade fever On assessment in emergency room found to have Gram-positive bacteria in urine Admitted for antibiotics Significant bilateral stone burden with indwelling left stent CT - There is a 9 x 4 mm calculus abutting the stent at the level of the left UPJ, and a 19 x 13 mm calculus abutting the stent in the left renal pelvis Recommend IV antibiotics throughout the weekend and on Thursday we will be added on for bilateral ureteroscopy with stone procedure WBC trending down today. Had been given IV cefepime. Review of Systems Constitutional: Constitutional: Reports as per HPI and Reports no additional constitutional complaints Cardiovascular: Cardiovascular: Reports as per HPI and Reports no additional cardiovascular complaints Respiratory: Respiratory: Reports as per HPI and Reports no additional respiratory complaints Gastrointestinal: Gastrointestinal: Reports as per HPI and Reports no additional gastrointestinal complaints Genitourinary: Genitourinary: Reports as per HPI Musculoskeletal: Musculoskeletal: Reports no additional musculoskeletal complaints and Reports as per HPI Neurologic: Reports system reviewed and no additional complaints, except as documented and Reports as per HPI [facility] Past Medical History Medical History Renal calculus, bilateral Arthritis Varicose veins of left lower extremity with inflammation Annual physical exam DVT (deep venous thrombosis) Left leg swelling Preop exam for internal medicine Tinnitus Encounter for annual wellness visit (AWV) in Medicare patient Stress incontinence Calculus of proximal right ureter Preop exam for internal medicine Allergic rhinitis Dislocation of right shoulder joint Right rotator cuff tear Cervical radiculopathy Obesity Carpal tunnel syndrome, left Left leg DVT GERD (gastroesophageal reflux disease) Post herpetic neuralgia Bladder cancer Hypercholesteremia Hypertension Family History Family History Father Cancer Mother CVD (cardiovascular disease) Cerebral hemorrhage Brain aneurysm Brother CAD (coronary artery disease) Sister CVD (cardiovascular disease) Cancer Lung cancer Cerebral hemorrhage Sister Cancer Lung cancer Surgical History Surgical History History of removal of ureteral stent Hx of cystoscopy History of carpal tunnel surgery of left wrist H/O shoulder replacement History of hip replacement History of lithotripsy History of cystoscopy History of cholecystectomy History of knee replacement procedure of right knee History of knee replacement procedure of left knee History of appendectomy History of total abdominal hysterectomy and bilateral salpingo-oophorectomy History of lumpectomy of left breast History of lumpectomy of right breast Social History Social History Household Members: Spouse Housing: House Are you a primary rn transitional care to a significant other at home: No Do you presently have visiting nurse or other home services: Yes Alcohol intake: current Alcohol intake frequency: holidays/special occasions only Comment: twice a month 2 drinks Patient Tobacco Use Status: Never used Tobacco Tobacco use type: Cigarette e-Cigarette/Vaping Use: Never Used Second Hand Smoke Exposure: No Advance Directives Date on File: 08/03/25 service: No Current occupational status: employed and retired Cognitive needs: Yes (walker) Hearing needs: No Vision needs: Yes Meds Allergies Allergy/AdvReac Type Severity Reaction Status Date / Time erythromycin base Allergy Severe BODY ACHES Verified 08/03/25 12:49 (ERYTHROMYCIN BASE) [id number] Reductase Allergy Severe ALTERED Verified 08/03/25 12:49 Inhibitor ([id number] MENTAL REDUCTASE INHIBITOR) STATUS adhesive tape Allergy Intermediate BLISTERS Verified 08/03/25 12:49 omeprazole (From PRILOSEC) AdvReac Intermediate DIARRHEA Verified 08/03/25 12:49 hospital sheets Allergy Mild years Uncoded 07/31/25 14:11 ago-caused itching Active Medications: Current Medications Acetaminophen (Acetaminophen 325 Mg Tablet) 650 mg PO Q6H PRN PRN Reason: Pain, Mild 1-3,fever,headache Calcium Carbonate (Calcium Carbonate 750 Mg Tab.Chew) 750 mg PO Q4H PRN PRN Reason: Heartburn Ezetimibe (Ezetimibe 10 Mg Tablet) 10 mg PO DAILY PAUL Last Admin: 08/04/25 08:22 Dose: 10 mg Enoxaparin Sodium (Enoxaparin Sodium 40 Mg/0.4 Ml Syringe) 40 mg SUBCUT Q24H [facility]UL Furosemide (Furosemide 20 Mg Tablet) 20 mg PO DAILY [facility]; Protocol Last Admin: 08/04/25 08:20 Dose: 20 mg Cefepime HCl 1 gm/ Sodium (Chloride) 50 mls @ 100 mls/hr IV Q12H [facility] Last Infusion: 08/04/25 02:30 Dose: Infused Magnesium Hydroxide (Milk Of Magnesia 30 Ml Oral.Susp) 30 ml PO DAILY PRN PRN Reason: Constipation Melatonin (Melatonin 3 Mg Tablet) 6 mg PO BEDTIME PRN PRN Reason: Insomnia Naproxen (Naproxen 500 Mg Tablet) 500 mg PO BID [facility] Last Admin: 08/04/25 09:18 Dose: Not Given Pyridoxine HCl (Pyridoxine Hcl (Vitamin B6) 50 Mg Tablet) 50 mg PO DAILY [facility] Last Admin: 08/04/25 08:20 Dose: 50 mg Sodium Chloride (0.9 % Sodium Chloride Flush 3 Ml Syringe) 3 ml IVFLUSH QSHIFT [facility] Last Admin: 08/04/25 08:24 Dose: 3 ml Vitamin D (Cholecalciferol (Vitamin D3) 25 Mcg Tablet) 50 mcg PO DAILY [facility] Last Admin: 08/04/25 08:21 Dose: 50 mcg Home Medications ?Medication ?Instructions ?Recorded ?Confirmed ?Last Taken ?Type cholecalciferol (vitamin D3) 50 50 mcg PO DAILY 11/24/22 08/03/25 08/03/25 History mcg (2,000 unit) capsule (Vitamin D3) L.paracasei,rhamnosus-B.animalis 1 cap PO DAILY PRN UPSET STOMACH 12/27/24 08/03/25 Unknown History 11 billion cell-vit C 15 mg capsule (Daily Probiotic (4 Strains)) diclofenac sodium 1 % topical gel 4 g topical QID PRN Pain 07/13/25 08/03/25 Unknown History (Arthritis Pain (diclofenac)) meloxicam 15 mg tablet 15 mg PO DAILY 07/13/25 08/03/25 08/03/25 History fluticasone propionate 50 2 spray intranasal BEDTIME 08/03/25 08/03/25 Unknown History mcg/actuation nasal spray,suspension (Flonase Allergy Relief) furosemide 20 mg tablet 20 mg PO DAILY 08/03/25 08/03/25 08/03/25 History Physical Exam Vital Signs: Vital Signs: Last Vital Signs Temp 98.4 F 08/04/25 07:14 Pulse 60 08/04/25 07:14 Resp 16 08/04/25 07:14 BP 153/70 H 08/04/25 08:20 Pulse Ox 96 08/04/25 07:14 O2 Del Method Room Air 08/04/25 07:14 BMI result Body Mass Index 37.2 Const: General: cooperative, healthy appearing, comfortable and no acute distress Orientation/consciousness: patient oriented x3 HEENT: Face and sinus: Yes normal facial exam Mouth: moist mucous membranes Neck: Neck: Yes normal visual inspection, Yes full ROM and Yes trachea midline Chest: Chest palpation & inspection: normal inspection of the chest Resp: Effort & Inspection: normal respiratory effort, able to speak in complete sentences and no respiratory distress GI: Inspection: Yes normal to inspection Back/Spine/Pelvis: Cervical Spine: normal cervical lordosis Thoracic/Lumbar Spine: thoracic and lumbar spine normal to inspection Skin: General skin exam: no rashes or lesions noted Neuro: General: patient oriented x3, tone normal and moves all extremities Extrem: General: Yes normal to inspection and Yes capillary refill normal Results Labs 08/04/25 06:26 08/04/25 06:26 Labs: Abnormal lab results 08/03/25 08/03/25 08/04/25 Range/Units 13:05 14:26 06:26 WBC 11.6 H (4.8-10.8) X10*3/uL RBC 3.77 L 3.52 L (4.20-5.50) X10*6/uL Hgb 11.0 L 10.5 L (12.0-16.0) g/dl Hct 34.2 L 32.7 L (37.0-47.0) % MPV 8.6 L 8.8 L (9.4-12.3) fL Immature Gran % (Auto) 0.5 H (0.0-0.4) % Neut % (Auto) 75.9 H (45-73) % Lymph % (Auto) 12.5 L (20-40) % Abs Immat Gran (auto) 0.06 H (0.00-0.03) X10*3/uL Absolute Neuts (auto) 8.8 H (2.0-8.3) x10*3/uL ESR 92 H (0-20) MM/HR Chloride 109 H (96-108) mmol/L C-Reactive Protein 19.37 H (< or = 0.50) mg/dL Urine Blood Trace H (Negative) Ur Leukocyte Esterase Moderate (2+) H (Negative) Urine RBC 3-5 H (0-2) /HPF Short CBC 08/03/25 08/04/25 Range/Units 13:05 06:26 WBC 11.6 H 9.2 (4.8-10.8) X10*3/uL Hgb 11.0 L 10.5 L (12.0-16.0) g/dl Hct 34.2 L 32.7 L (37.0-47.0) % Plt Count 329 317 (160-400) X10*3/uL BMP 08/03/25 08/04/25 13:05 06:26 Sodium 140 144 Potassium 3.4 D 4.0 Chloride 108 109 H Carbon Dioxide 22 26 BUN 13 14 Creatinine 0.84 0.71 Calcium 9.5 D 9.3 Liver Function 08/03/25 Range/Units 13:05 Total Bilirubin 0.5 (0.0-1.0) mg/dL Direct Bilirubin 0.2 (0.0-0.5) mg/dL AST 26 (5-31) U/L ALT 24 (0-31) U/L Alkaline Phosphatase 62 (39-117) U/L Albumin 3.9 (3.5-5.0) g/dL Urine 08/03/25 Range/Units 14:26 Urine Color Yellow Urine Appearance Cloudy Urine pH 5.0 (5.0-9.0) Ur Specific [place] 1.020 (1.005-1.025) Urine Protein Trace (Neg-Trace) mg/dL Urine Glucose (UA) Negative (Negative) mg/dL All other labs normal. Assessment and Plan (1) Complicated urinary tract infection: Status: Acute (2) Disorder due to ureteral stent: Status: Acute Plan Urine and blood culture pending Admission for IV antibiotic therapy Plan for stone procedure after 48-72 hrs abx coverage Likely Thursday Procedures Date of Service Date of Service: 08/04/25
--- NOTE | 2025-08-04 11:04 | HO.PM.IMPN ---
Subjective Subjective Date of Service: 08/04/25 Interval History: improving Physical Exam Exam: Exam: General: AO X 3, no acute distress Resp: CTA bilateral, no accessory muscles used CVS: S1,S2,RRR GI: soft, non tender, non distended Neuro: motor grossly intact, alert Psych: appropriate affect, appropriate insight Vital Signs: Vital Signs: Last Vital Signs Temp 98.4 F 08/04/25 07:14 Pulse 60 08/04/25 07:14 Resp 16 08/04/25 07:14 BP 153/70 H 08/04/25 08:20 Pulse Ox 96 08/04/25 07:14 O2 Del Method Room Air 08/04/25 07:14 BMI result Body Mass Index 37.2 Objective Data Active Medications Acetaminophen (Acetaminophen 325 Mg Tablet) 650 mg PO Q6H PRN PRN Reason: Pain, Mild 1-3,fever,headache Calcium Carbonate (Calcium Carbonate 750 Mg Tab.Chew) 750 mg PO Q4H PRN PRN Reason: Heartburn Ezetimibe (Ezetimibe 10 Mg Tablet) 10 mg PO DAILY [facility] Last Admin: 08/04/25 08:22 Dose: 10 mg Documented By: CANDIDA Enoxaparin Sodium (Enoxaparin Sodium 40 Mg/0.4 Ml Syringe) 40 mg SUBCUT Q24H [facility] Furosemide (Furosemide 20 Mg Tablet) 20 mg PO DAILY [facility]; Protocol Last Admin: 08/04/25 08:20 Dose: 20 mg Documented By: CANDIDA Cefepime HCl 1 gm/ Sodium (Chloride) 50 mls @ 100 mls/hr IV Q12H [facility] Last Infusion: 08/04/25 02:30 Dose: Infused Documented By: SARBJIT Magnesium Hydroxide (Milk Of Magnesia 30 Ml Oral.Susp) 30 ml PO DAILY PRN PRN Reason: Constipation Melatonin (Melatonin 3 Mg Tablet) 6 mg PO BEDTIME PRN PRN Reason: Insomnia Naproxen (Naproxen 500 Mg Tablet) 500 mg PO BID [facility] Last Admin: 08/04/25 09:18 Dose: Not Given Documented By: CANDIDA Non-Admin Reason: hold, anticipating procedure Pyridoxine HCl (Pyridoxine Hcl (Vitamin B6) 50 Mg Tablet) 50 mg PO DAILY [facility] Last Admin: 08/04/25 08:20 Dose: 50 mg Documented By: CANDIDA Sodium Chloride (0.9 % Sodium Chloride Flush 3 Ml Syringe) 3 ml IVFLUSH QSHIFT [facility] Last Admin: 08/04/25 08:24 Dose: 3 ml Documented By: CANDIDA Vitamin D (Cholecalciferol (Vitamin D3) 25 Mcg Tablet) 50 mcg PO DAILY [facility] Last Admin: 08/04/25 08:21 Dose: 50 mcg Documented By: CANDIDA Labs 08/04/25 06:26 08/04/25 06:26 Labs: Laboratory Results - last 24 hr 08/03/25 08/03/25 08/03/25 13:05 14:01 14:25 MCV 90.7 MCH 29.2 MCHC 32.2 RDW 13.4 Plt Count 329 MPV 8.6 L Immature Gran % (Auto) 0.5 H Neut % (Auto) 75.9 H Lymph % (Auto) 12.5 L [place] % (Auto) 9.0 Eos % (Auto) 1.7 Baso % (Auto) 0.4 Lymph # (Auto) 1.5 Saunders # (Auto) 1.1 Eos # (Auto) 0.2 Baso # (Auto) 0.1 Abs Immat Gran (auto) 0.06 H Absolute Neuts (auto) 8.8 H Absolute Nucleated RBC 0.000 Nucleated RBC % (auto) 0.0 ESR 92 H Anion Gap 13 Estim Creat Clear Calc 61.2 Estimated GFR > 60 Random Glucose 109 Lactic Acid 1.2 Calcium 9.5 D Magnesium 1.6 Total Bilirubin 0.5 Direct Bilirubin 0.2 AST 26 ALT 24 Alkaline Phosphatase 62 C-Reactive Protein 19.37 H Total Protein 7.1 Albumin 3.9 Lipase 14 Urine Color Urine Appearance Urine pH Ur Specific [place] Urine Protein Urine Glucose (UA) Urine Ketones Urine Blood Urine Nitrite Ur Leukocyte Esterase Urine RBC Urine WBC Ur Squamous Epith Cells Urine Bacteria Hyaline Casts COVID-19 (CHARLY) Negative COVID-19 Clin Com See Note Influenza Type A (NAVID) Negative Influenza Type A (PCR) NEGATIVE Influenza Type B (NAVID) Negative Influenza Type B (PCR) NEGATIVE Influenza A & B Note See Note RSV RNA Qual (PCR) NEGATIVE SARS-CoV-2 RNA (RT-PCR) NEGATIVE 08/03/25 08/04/25 14:26 06:26 MCV 92.9 MCH 29.8 MCHC 32.1 RDW 13.6 Plt Count 317 MPV 8.8 L Immature Gran % (Auto) Neut % (Auto) Lymph % (Auto) Saunders % (Auto) Eos % (Auto) Baso % (Auto) Lymph # (Auto) Saunders # (Auto) Eos # (Auto) Baso # (Auto) Abs Immat Gran (auto) Absolute Neuts (auto) Absolute Nucleated RBC 0.000 Nucleated RBC % (auto) 0.0 ESR Anion Gap 13 Estim Creat Clear Calc 73.2 Estimated GFR > 60 Random Glucose 103 Lactic Acid Calcium 9.3 Magnesium 1.8 Total Bilirubin Direct Bilirubin AST ALT Alkaline Phosphatase C-Reactive Protein Total Protein Albumin Lipase Urine Color Yellow Urine Appearance Cloudy Urine pH 5.0 Ur Specific [place] 1.020 Urine Protein Trace Urine Glucose (UA) Negative Urine Ketones Negative Urine Blood Trace H Urine Nitrite Negative Ur Leukocyte Esterase Moderate (2+) H Urine RBC 3-5 H Urine WBC 6-10 Ur Squamous Epith Cells 6-10 Urine Bacteria 2+ Hyaline Casts 6-10 COVID-19 (CHARLY) COVID-19 Clin Com Influenza Type A (NAVID) Influenza Type A (PCR) Influenza Type B (NAVID) Influenza Type B (PCR) Influenza A & B Note RSV RNA Qual (PCR) SARS-CoV-2 RNA (RT-PCR) Assessment and Plan (1) Left ureteral calculus: Status: Acute Plan 80F PMH nephrolithiasis, htn, hld, LLE DVT no longer on AC, presented with fevers Complicated upper urinary tract infection associated with ureteral stent and recurrent nephrolithiasis continue IV cefepime, follow up cultures, Urology appreciated plan for cysto after 48-72hrs abx History of DVT No longer on anticoagulation Hyperlipidemia Zetia DVT prophylaxis-Lovenox Full code reason for continued hospitalization:awaiting cultures and procedure Quality Stroke Does the patient have a stroke diagnosis?: No VTE Prior VTE?: Yes VTE Risk Level:: Medical - moderate - high VTE Device Contraindication: Treatment Not Indicated VTE Drug Contraindication: N/A - Med Ordered
--- NOTE | 2025-08-04 15:08 | MHC.CM.PN ---
IMM delivered. Patient lives in a home w/ her . Ambulates w/ a cane, sometimes walker. Recent stay at [facility] 07/19-07/26. Is now active w/ [facility] for SN/PT/OT. PCP Maria De Jesus Evans MD Reports she has an HCP naming her , Gomez, as HCA. Copy requested. DP: Goal is home, resume services. to transport. CM will continue to follow.
[2025-08-04 15:24] VITALS: BP 127/59; PULSE 65; RESP 18; TEMP 36.6; O2SAT 95
[2025-08-04 19:29] VITALS: BP 144/71; PULSE 67; RESP 18; TEMP 37; O2SAT 94
[2025-08-05 03:27] VITALS: BP 140/69; PULSE 82; RESP 16; TEMP 36.6; O2SAT 93
[2025-08-05 08:00] VITALS: BP 145/68; PULSE 56; RESP 16; TEMP 36.7; O2SAT 96
[2025-08-05] MEDS: 0.9 % Sodium Chloride Flush 3 ML SYRINGE IVFLUSH ×3 (08:47→20:23)
--- NOTE | 2025-08-05 10:21 | HO.PM.IMPN ---
Subjective Subjective Date of Service: 08/05/25 Interval History: improving Physical Exam Exam: Exam: General: AO X 3, no acute distress Resp: CTA bilateral, no accessory muscles used CVS: S1,S2,RRR GI: soft, non tender, non distended Neuro: motor grossly intact, alert Psych: appropriate affect, appropriate insight Vital Signs: Vital Signs: Last Vital Signs Temp 98.1 F 08/05/25 08:00 Pulse 56 08/05/25 08:00 Resp 16 08/05/25 08:00 BP 145/68 H 08/05/25 08:00 Pulse Ox 96 08/05/25 08:00 O2 Del Method Room Air 08/05/25 08:00 BMI result Body Mass Index 37.2 Objective Data Active Medications Acetaminophen (Acetaminophen 325 Mg Tablet) 650 mg PO Q6H PRN PRN Reason: Pain, Mild 1-3,fever,headache Calcium Carbonate (Calcium Carbonate 750 Mg Tab.Chew) 750 mg PO Q4H PRN PRN Reason: Heartburn Ezetimibe (Ezetimibe 10 Mg Tablet) 10 mg PO DAILY [facility] Last Admin: 08/05/25 08:39 Dose: 10 mg Documented By: JULIANN Enoxaparin Sodium (Enoxaparin Sodium 40 Mg/0.4 Ml Syringe) 40 mg SUBCUT Q24H [facility] Last Admin: 08/05/25 08:40 Dose: 40 mg Documented By: JULIANN Furosemide (Furosemide 20 Mg Tablet) 20 mg PO DAILY [facility]; Protocol Last Admin: 08/05/25 08:39 Dose: 20 mg Documented By: JULIANN Cefepime HCl 1 gm/ Sodium (Chloride) 50 mls @ 100 mls/hr IV Q12H [facility] Last Infusion: 08/05/25 02:47 Dose: Infused Documented By: REYNALDO Magnesium Hydroxide (Milk Of Magnesia 30 Ml Oral.Susp) 30 ml PO DAILY PRN PRN Reason: Constipation Melatonin (Melatonin 3 Mg Tablet) 6 mg PO BEDTIME PRN PRN Reason: Insomnia Naproxen (Naproxen 500 Mg Tablet) 500 mg PO BID [facility] Last Admin: 08/05/25 08:39 Dose: 500 mg Documented By: JULIANN Pyridoxine HCl (Pyridoxine Hcl (Vitamin B6) 50 Mg Tablet) 50 mg PO DAILY [facility] Last Admin: 08/05/25 08:39 Dose: 50 mg Documented By: JULIANN Sodium Chloride (0.9 % Sodium Chloride Flush 3 Ml Syringe) 3 ml IVFLUSH QSHIFT [facility] Last Admin: 08/05/25 08:47 Dose: 3 ml Documented By: JULIANN Vitamin D (Cholecalciferol (Vitamin D3) 25 Mcg Tablet) 50 mcg PO DAILY [facility] Last Admin: 08/05/25 08:38 Dose: 50 mcg Documented By: JULIANN Labs 08/04/25 06:26 08/04/25 06:26 Microbiology Microbiology Results: Microbiology 08/03/25 14:01 Blood Culture - Preliminary Blood - Venous No growth after 24 hours. 08/03/25 14:09 Blood Culture - Preliminary Blood - Venous No growth after 24 hours. 08/03/25 Unknown Urine Culture - Preliminary Urine clean catch - Clean Catch Midstream No growth to date. Assessment and Plan (1) Left ureteral calculus: Status: Acute Plan 80F PMH nephrolithiasis, htn, hld, LLE DVT no longer on AC, presented with fevers Complicated upper urinary tract infection associated with ureteral stent and recurrent nephrolithiasis continue IV cefepime, follow up cultures - so far negative, Urology appreciated plan for cysto after 48-72hrs abx History of DVT No longer on anticoagulation Hyperlipidemia Zetia DVT prophylaxis-Lovenox Full code reason for continued hospitalization:awaiting cultures and procedure Quality Stroke Does the patient have a stroke diagnosis?: No VTE Prior VTE?: Yes VTE Risk Level:: Medical - moderate - high VTE Device Contraindication: Treatment Not Indicated VTE Drug Contraindication: N/A - Med Ordered
[2025-08-05 15:28] VITALS: BP 138/82; PULSE 70; RESP 16; TEMP 36.7; O2SAT 96
[2025-08-05 19:59] VITALS: BP 132/60; PULSE 59; RESP 18; TEMP 36.4; O2SAT 93
[2025-08-06 03:30] VITALS: BP 138/86; PULSE 60; RESP 18; TEMP 36.9; O2SAT 94
[2025-08-06 07:55] VITALS: BP 151/70; PULSE 59; RESP 16; TEMP 36.6; O2SAT 96
[2025-08-06] MEDS: 0.9 % Sodium Chloride Flush 3 ML SYRINGE IVFLUSH (08:34)
--- NOTE | 2025-08-06 10:02 | HO.PM.IMPN ---
Subjective Subjective Date of Service: 08/06/25 Interval History: improving Physical Exam Exam: Exam: General: AO X 3, no acute distress Resp: CTA bilateral, no accessory muscles used CVS: S1,S2,RRR GI: soft, non tender, non distended Neuro: motor grossly intact, alert Psych: appropriate affect, appropriate insight Vital Signs: Vital Signs: Last Vital Signs Temp 97.8 F 08/06/25 07:55 Pulse 59 08/06/25 07:55 Resp 16 08/06/25 07:55 BP 151/70 H 08/06/25 07:55 Pulse Ox 96 08/06/25 07:55 O2 Del Method Room Air 08/06/25 07:55 BMI result Body Mass Index 37.2 Objective Data Active Medications Acetaminophen (Acetaminophen 325 Mg Tablet) 650 mg PO Q6H PRN PRN Reason: Pain, Mild 1-3,fever,headache Calcium Carbonate (Calcium Carbonate 750 Mg Tab.Chew) 750 mg PO Q4H PRN PRN Reason: Heartburn Ezetimibe (Ezetimibe 10 Mg Tablet) 10 mg PO DAILY [facility] Last Admin: 08/06/25 08:33 Dose: 10 mg Documented By: JULIANN Enoxaparin Sodium (Enoxaparin Sodium 40 Mg/0.4 Ml Syringe) 40 mg SUBCUT Q24H [facility] Last Admin: 08/06/25 08:33 Dose: 40 mg Documented By: JULIANN Furosemide (Furosemide 20 Mg Tablet) 20 mg PO DAILY [facility]; Protocol Last Admin: 08/06/25 08:33 Dose: 20 mg Documented By: JULIANN Cefepime HCl 1 gm/ Sodium (Chloride) 50 mls @ 100 mls/hr IV Q12H [facility] Last Infusion: 08/06/25 02:46 Dose: Infused Documented By: REYNALDO Magnesium Hydroxide (Milk Of Magnesia 30 Ml Oral.Susp) 30 ml PO DAILY PRN PRN Reason: Constipation Melatonin (Melatonin 3 Mg Tablet) 6 mg PO BEDTIME PRN PRN Reason: Insomnia Naproxen (Naproxen 500 Mg Tablet) 500 mg PO BID [facility] Last Admin: 08/06/25 08:32 Dose: 500 mg Documented By: JULIANN Pyridoxine HCl (Pyridoxine Hcl (Vitamin B6) 50 Mg Tablet) 50 mg PO DAILY [facility] Last Admin: 08/06/25 08:32 Dose: 50 mg Documented By: JULIANN Sodium Chloride (0.9 % Sodium Chloride Flush 3 Ml Syringe) 3 ml IVFLUSH QSHIFT [facility] Last Admin: 08/06/25 08:34 Dose: 3 ml Documented By: JULIANN Vitamin D (Cholecalciferol (Vitamin D3) 25 Mcg Tablet) 50 mcg PO DAILY [facility] Last Admin: 08/06/25 08:33 Dose: 50 mcg Documented By: JULIANN Labs 08/04/25 06:26 08/04/25 06:26 Microbiology Microbiology Results: Microbiology 08/03/25 14:01 Blood Culture - Preliminary Blood - Venous No growth after 48 hours. 08/03/25 14:09 Blood Culture - Preliminary Blood - Venous No growth after 48 hours. 08/03/25 Unknown Urine Culture - Final Urine clean catch - Clean Catch Midstream No growth. Assessment and Plan (1) Left ureteral calculus: Status: Acute Plan 80F PMH nephrolithiasis, htn, hld, LLE DVT no longer on AC, presented with fevers Complicated upper urinary tract infection associated with ureteral stent and recurrent nephrolithiasis continue IV cefepime, follow up cultures - so far negative, Urology appreciated plan for cysto after 48-72hrs abx History of DVT No longer on anticoagulation Hyperlipidemia Zetia DVT prophylaxis-Lovenox Full code reason for continued hospitalization:awaiting cultures and procedure Quality Stroke Does the patient have a stroke diagnosis?: No VTE Prior VTE?: Yes VTE Risk Level:: Medical - moderate - high VTE Device Contraindication: Treatment Not Indicated VTE Drug Contraindication: N/A - Med Ordered
[2025-08-06 16:00] VITALS: BP 135/57; PULSE 73; RESP 16; TEMP 36.8; O2SAT 96
[2025-08-06 20:00] VITALS: BP 156/64; PULSE 64; RESP 18; TEMP 36.4; O2SAT 95
[2025-08-07] VITALS (10 sets, daily range): BP systolic 131–171; BP diastolic 66–81; PULSE 57–89; RESP 14–20; TEMP 36.2–36.5; O2SAT 92–98
--- NOTE | 2025-08-07 08:11 | P.PNIM_ITS ---
Subjective Subjective Date of Service: 08/07/25 Interval History: improving Physical Exam 2 Exam: Exam: General: AO X 3, no acute distress Resp: CTA bilateral, no accessory muscles used CVS: S1,S2,RRR GI: soft, non tender, non distended Neuro: motor grossly intact, alert Psych: appropriate affect, appropriate insight Vital Signs: Vital Signs: Last Vital Signs Temp 97.2 F 08/07/25 07:43 Pulse 60 08/07/25 07:43 Resp 16 08/07/25 07:43 BP 142/66 H 08/07/25 07:43 Pulse Ox 96 08/07/25 07:43 O2 Del Method Room Air 08/07/25 07:43 BMI result Body Mass Index 37.2 Objective Data Active Medications Acetaminophen (Acetaminophen 325 Mg Tablet) 650 mg PO Q6H PRN PRN Reason: Pain, Mild 1-3,fever,headache Calcium Carbonate (Calcium Carbonate 750 Mg Tab.Chew) 750 mg PO Q4H PRN PRN Reason: Heartburn Ezetimibe (Ezetimibe 10 Mg Tablet) 10 mg PO DAILY [facility] Last Admin: 08/06/25 08:33 Dose: 10 mg Documented By: JULIANN Enoxaparin Sodium (Enoxaparin Sodium 40 Mg/0.4 Ml Syringe) 40 mg SUBCUT Q24H [facility] Last Admin: 08/06/25 08:33 Dose: 40 mg Documented By: JULIANN Furosemide (Furosemide 20 Mg Tablet) 20 mg PO DAILY [facility]; Protocol Last Admin: 08/06/25 08:33 Dose: 20 mg Documented By: JULIANN Cefepime HCl 1 gm/ Sodium (Chloride) 50 mls @ 100 mls/hr IV Q12H [facility] Last Infusion: 08/07/25 02:35 Dose: Infused Documented By: FROY Magnesium Hydroxide (Milk Of Magnesia 30 Ml Oral.Susp) 30 ml PO DAILY PRN PRN Reason: Constipation Melatonin (Melatonin 3 Mg Tablet) 6 mg PO BEDTIME PRN PRN Reason: Insomnia Naproxen (Naproxen 500 Mg Tablet) 500 mg PO BID [facility] Last Admin: 08/06/25 20:06 Dose: 500 mg Documented By: FROY Pyridoxine HCl (Pyridoxine Hcl (Vitamin B6) 50 Mg Tablet) 50 mg PO DAILY [facility] Last Admin: 10/26/25 08:32 Dose: 50 mg Documented By: JULIANN Sodium Chloride (0.9 % Sodium Chloride Flush 3 Ml Syringe) 3 ml IVFLUSH QSHIFT [facility] Last Admin: 08/07/25 00:08 Dose: Not Given Documented By: FROY Non-Admin Reason: Previously Administered Vitamin D (Cholecalciferol (Vitamin D3) 25 Mcg Tablet) 50 mcg PO DAILY [facility] Last Admin: 08/06/25 08:33 Dose: 50 mcg Documented By: JULAINN Labs 08/04/25 06:26 08/04/25 06:26 Assessment and Plan (1) Left ureteral calculus: Status: Acute Plan 80F PMH nephrolithiasis, htn, hld, LLE DVT no longer on AC, presented with fevers Complicated upper urinary tract infection associated with ureteral stent and recurrent nephrolithiasis continue IV cefepime, cultures negative, Urology appreciated plan for cysto after 48-72hrs abx - today? History of DVT No longer on anticoagulation Hyperlipidemia Zetia DVT prophylaxis-Lovenox Full code reason for continued hospitalization:awaiting procedure Quality Stroke Does the patient have a stroke diagnosis?: No VTE Prior VTE?: Yes VTE Risk Level:: Medical - moderate - high VTE Device Contraindication: Treatment Not Indicated VTE Drug Contraindication: N/A - Med Ordered
[2025-08-07] MEDS: 0.9 % Sodium Chloride Flush 3 ML SYRINGE IVFLUSH (09:07)
--- NOTE | 2025-08-07 10:23 | MHC.CM.PN ---
Per MD rounds patient not medically cleared for dc. CM will continue to follow.
[2025-08-07] MEDS: Lactated Ringers 1,000 ML 80 ML IVCONT ×2 (13:22→18:35)
--- NOTE | 2025-08-07 13:39 | HO.ANESPROP2 ---
HPI - Anesthesia Eval Consult details Narrative: cysto/stent PMFSH Active Problems Active Problems: All Active Problems Disorder due to ureteral stent (Acute) Complicated urinary tract infection (Acute) Left ureteral calculus (Acute) Elevated erythrocyte sedimentation rate (Acute) Fever (Acute) Ureteral calculi (Acute) Renal calculus, bilateral (Acute) Right ureteral stone (Acute) Urinary urgency (Acute) Lower extremity weakness (Acute) Low back pain (Acute) Gait instability (Acute) COVID-19 virus infection (Acute) Arthritis (Acute) Depression, major, recurrent (Acute) Peripheral vascular disease (Acute) Left leg DVT (Acute) Vitamin D deficiency (Acute) Impaired fasting blood sugar (Acute) Annual physical exam (Acute) Mixed incontinence (Acute) Osteopenia (Acute) Cataract (Acute) Uric acid kidney stone (Acute) Bladder cancer (Acute) Allergic rhinitis (Acute) Obesity (Acute) GERD (gastroesophageal reflux disease) (Acute) Hypercholesteremia (Acute) Hypertension (Acute) Past Medical History Medical History Renal calculus, bilateral Arthritis Varicose veins of left lower extremity with inflammation Annual physical exam DVT (deep venous thrombosis) Left leg swelling Preop exam for internal medicine Tinnitus Encounter for annual wellness visit (AWV) in Medicare patient Stress incontinence Calculus of proximal right ureter Preop exam for internal medicine Allergic rhinitis Dislocation of right shoulder joint Right rotator cuff tear Cervical radiculopathy Obesity Carpal tunnel syndrome, left Left leg DVT GERD (gastroesophageal reflux disease) Post herpetic neuralgia Bladder cancer Hypercholesteremia Hypertension Family History Family History Father Cancer Mother CVD (cardiovascular disease) Cerebral hemorrhage Brain aneurysm Brother CAD (coronary artery disease) Sister CVD (cardiovascular disease) Cancer Lung cancer Cerebral hemorrhage Sister Cancer Lung cancer Family history of problems with anesthesia: No Surgical History Surgical History History of removal of ureteral stent Hx of cystoscopy History of carpal tunnel surgery of left wrist H/O shoulder replacement History of hip replacement History of lithotripsy History of cystoscopy History of cholecystectomy History of knee replacement procedure of right knee History of knee replacement procedure of left knee History of appendectomy History of total abdominal hysterectomy and bilateral salpingo-oophorectomy History of lumpectomy of left breast History of lumpectomy of right breast History of Problems with Anesthesia: Yes Social History Social History Household Members: Spouse Housing: House Are you a primary managed care coordinator to a significant other at home: No Do you presently have visiting nurse or other home services: No Alcohol intake: current Alcohol intake frequency: holidays/special occasions only Comment: twice a month 2 drinks Patient Tobacco Use Status: Never used Tobacco Tobacco use type: Cigarette e-Cigarette/Vaping Use: Never Used Second Hand Smoke Exposure: No Advance Directives Date on File: 08/03/25 service: No Current occupational status: employed and retired Cognitive needs: Yes (walker) Hearing needs: No Vision needs: Yes Meds Allergies Allergy/AdvReac Type Severity Reaction Status Date / Time erythromycin base Allergy Severe BODY ACHES Verified 08/03/25 12:49 (ERYTHROMYCIN BASE) [id number] Reductase Allergy Severe ALTERED Verified 08/03/25 12:49 Inhibitor ([id number]-HTT-[id number] MENTAL REDUCTASE INHIBITOR) STATUS adhesive tape Allergy Intermediate BLISTERS Verified 08/03/25 12:49 omeprazole (From PRILOSEC) AdvReac Intermediate DIARRHEA Verified 08/03/25 12:49 hospital sheets Allergy Mild years Uncoded 07/31/25 14:11 ago-caused itching Active Medications: Current Medications Acetaminophen (Acetaminophen 325 Mg Tablet) 650 mg PO Q6H PRN PRN Reason: Pain, Mild 1-3,fever,headache Last Admin: 08/07/25 08:56 Dose: 650 mg Calcium Carbonate (Calcium Carbonate 750 Mg Tab.Chew) 750 mg PO Q4H PRN PRN Reason: Heartburn Ezetimibe (Ezetimibe 10 Mg Tablet) 10 mg PO DAILY [facility] Last Admin: 08/07/25 08:46 Dose: 10 mg Enoxaparin Sodium (Enoxaparin Sodium 40 Mg/0.4 Ml Syringe) 40 mg SUBCUT Q24H [facility] Last Admin: 08/07/25 08:53 Dose: Not Given Furosemide (Furosemide 20 Mg Tablet) 20 mg PO DAILY [facility]; Protocol Last Admin: 08/07/25 08:52 Dose: 20 mg Cefepime HCl 1 gm/ Sodium (Chloride) 50 mls @ 100 mls/hr IV Q12H [facility] Last Infusion: 08/07/25 02:35 Dose: Infused Lactated Ringer's (Lr) 1,000 mls @ 80 mls/hr IVCONT .[id number] [facility] Last Admin: 08/07/25 13:22 Dose: 80 mls/hr Acetaminophen (Ofirmev) 1,000 mg in 100 mls @ 400 mls/hr IV PREOP ONE Stop: 08/07/25 13:45 Magnesium Hydroxide (Milk Of Magnesia 30 Ml Oral.Susp) 30 ml PO DAILY PRN PRN Reason: Constipation Melatonin (Melatonin 3 Mg Tablet) 6 mg PO BEDTIME PRN PRN Reason: Insomnia Naproxen (Naproxen 500 Mg Tablet) 500 mg PO BID [facility] Last Admin: 08/07/25 08:53 Dose: Not Given Pyridoxine HCl (Pyridoxine Hcl (Vitamin B6) 50 Mg Tablet) 50 mg PO DAILY [facility] Last Admin: 08/07/25 08:52 Dose: 50 mg Sodium Chloride (0.9 % Sodium Chloride Flush 3 Ml Syringe) 3 ml IVFLUSH QSHIFT [facility] Last Admin: 08/07/25 09:07 Dose: 3 ml Vitamin D (Cholecalciferol (Vitamin D3) 25 Mcg Tablet) 50 mcg PO DAILY [facility] Last Admin: 08/07/25 08:52 Dose: 50 mcg Home Medications ?Medication ?Instructions ?Recorded ?Confirmed ?Last Taken ?Type cholecalciferol (vitamin D3) 50 50 mcg PO DAILY 11/24/22 08/03/25 08/03/25 History mcg (2,000 unit) capsule (Vitamin D3) L.paracasei,rhamnosus-B.animalis 1 cap PO DAILY PRN UPSET STOMACH 12/27/24 08/03/25 Unknown History 11 billion cell-vit C 15 mg capsule (Daily Probiotic (4 Strains)) diclofenac sodium 1 % topical gel 4 g topical QID PRN Pain 07/13/25 08/03/25 Unknown History (Arthritis Pain (diclofenac)) meloxicam 15 mg tablet 15 mg PO DAILY 07/13/25 08/03/25 08/03/25 History fluticasone propionate 50 2 spray intranasal BEDTIME 08/03/25 08/03/25 Unknown History mcg/actuation nasal spray,suspension (Flonase Allergy Relief) furosemide 20 mg tablet 20 mg PO DAILY 08/03/25 08/03/25 08/03/25 History Exam Height,Weight and Vital Signs: Height 5 ft 4 in Weight 98.4 kg Last Vital Signs Temp 97.2 F 08/07/25 13:16 Pulse 57 08/07/25 13:16 Resp 16 08/07/25 13:16 BP 131/70 08/07/25 13:16 Pulse Ox 97 08/07/25 13:16 O2 Del Method Room Air 08/07/25 13:16 Pertinent Lab Results Pertinent Lab Results: Laboratory Tests 08/03/25 08/03/25 08/03/25 13:05 14:01 14:25 WBC 11.6 H RBC 3.77 L Hgb 11.0 L Hct 34.2 L MCV 90.7 MCH 29.2 MCHC 32.2 RDW 13.4 Plt Count 329 MPV 8.6 L Immature Gran % (Auto) 0.5 H Neut % (Auto) 75.9 H Lymph % (Auto) 12.5 L [place] % (Auto) 9.0 Eos % (Auto) 1.7 Baso % (Auto) 0.4 Lymph # (Auto) 1.5 [place] # (Auto) 1.1 Eos # (Auto) 0.2 Baso # (Auto) 0.1 Abs Immat Gran (auto) 0.06 H Absolute Neuts (auto) 8.8 H Absolute Nucleated RBC 0.000 Nucleated RBC % (auto) 0.0 ESR 92 H Sodium 140 Potassium 3.4 D Chloride 108 Carbon Dioxide 22 Anion Gap 13 BUN 13 Creatinine 0.84 Estim Creat Clear Calc 61.2 Estimated GFR > 60 Random Glucose 109 Lactic Acid 1.2 Calcium 9.5 D Magnesium 1.6 Total Bilirubin 0.5 Direct Bilirubin 0.2 AST 26 ALT 24 Alkaline Phosphatase 62 C-Reactive Protein 19.37 H Total Protein 7.1 Albumin 3.9 Lipase 14 Urine Color Urine Appearance Urine pH Ur Specific [place] Urine Protein Urine Glucose (UA) Urine Ketones Urine Blood Urine Nitrite Ur Leukocyte Esterase Urine RBC Urine WBC Ur Squamous Epith Cells Urine Bacteria Hyaline Casts COVID-19 (CHARLY) Negative COVID-19 Clin Com See Note Influenza Type A (NAVID) Negative Influenza Type A (PCR) NEGATIVE Influenza Type B (NAVID) Negative Influenza Type B (PCR) NEGATIVE Influenza A & B Note See Note RSV RNA Qual (PCR) NEGATIVE SARS-CoV-2 RNA (RT-PCR) NEGATIVE 08/03/25 08/04/25 14:26 06:26 WBC 9.2 RBC 3.52 L Hgb 10.5 L Hct 32.7 L MCV 92.9 MCH 29.8 MCHC 32.1 RDW 13.6 Plt Count 317 MPV 8.8 L Immature Gran % (Auto) Neut % (Auto) Lymph % (Auto) [place] % (Auto) Eos % (Auto) Baso % (Auto) Lymph # (Auto) [place] # (Auto) Eos # (Auto) Baso # (Auto) Abs Immat Gran (auto) Absolute Neuts (auto) Absolute Nucleated RBC 0.000 Nucleated RBC % (auto) 0.0 ESR Sodium 144 Potassium 4.0 Chloride 109 H Carbon Dioxide 26 Anion Gap 13 BUN 14 Creatinine 0.71 Estim Creat Clear Calc 73.2 Estimated GFR > 60 Random Glucose 103 Lactic Acid Calcium 9.3 Magnesium 1.8 Total Bilirubin Direct Bilirubin AST ALT Alkaline Phosphatase C-Reactive Protein Total Protein Albumin Lipase Urine Color Yellow Urine Appearance Cloudy Urine pH 5.0 Ur Specific [place] 1.020 Urine Protein Trace Urine Glucose (UA) Negative Urine Ketones Negative Urine Blood Trace H Urine Nitrite Negative Ur Leukocyte Esterase Moderate (2+) H Urine RBC 3-5 H Urine WBC 6-10 Ur Squamous Epith Cells 6-10 Urine Bacteria 2+ Hyaline Casts 6-10 COVID-19 (CHARLY) COVID-19 Clin Com Influenza Type A (NAVID) Influenza Type A (PCR) Influenza Type B (NAVID) Influenza Type B (PCR) Influenza A & B Note RSV RNA Qual (PCR) SARS-CoV-2 RNA (RT-PCR) Airway Mallampati Class: II TM Dist: <=3cm Neck ROM: Limited Heart: rrr Lungs: cta Assessment and Plan Assessment Anesthesia Assessment: Anesthesia Plan Discussed and Chart Reviewed Final Anesthetic Review Family History of Problems with Anesthesia: No History of Problems with Anesthesia: Yes NPO: Yes ASA Class: II Final Preanesthetic Review: No Changes in Pt Med Stat, Meds/Allgs Chart Reviewed, Consent Obtained/Reviewed and Anes Risks/Benef Reviewed Patient Risk: Low Procedure Risk: Low Anesthetic Plan Anesthetic Plan: GA and Agree w/ Assess. and Plan Disposition: Standard PACU
--- NOTE | 2025-08-07 14:42 | MHC.SHP ---
Pre-Procedural Eval Section A - 24 Hr Update-Section A only Date of Service: 08/07/25 The patient is an INPATIENT: Yes Changes since office visit: No Cold of Flu in the past 2 weeks, No New Medical Problems, No Changes in Medication and No Patient answered all questions The patient has been examined within 24 hours of the surgical procedure. The History & Physical has been completed within 30 days and I have reviewed it.: Yes Section B - Complete if H&P > 30 days Chief Complaint: uti Details of Present Illness: Cystoscopy, left stent removal, bilateral retrograde, bilateral flexible ureteroscopy with laser lithotripsy stone basketing and possible stent Allergies: Allergies Allergy/AdvReac Type Severity Reaction Status Date / Time erythromycin base Allergy Severe BODY ACHES Verified 08/03/25 12:49 (ERYTHROMYCIN BASE) Xuwlakc-VQC-[id number] Reductase Allergy Severe ALTERED Verified 08/03/25 12:49 Inhibitor ([id number]-ETU MENTAL REDUCTASE INHIBITOR) STATUS adhesive tape Allergy Intermediate BLISTERS Verified 08/03/25 12:49 omeprazole (From PRILOSEC) AdvReac Intermediate DIARRHEA Verified 08/03/25 12:49 hospital sheets Allergy Mild years Uncoded 07/31/25 14:11 ago-caused itching Plan Diagnosis/Plan: Unchanged I have reviewed the history and physical and performed a pertinent physical examination on my patient. No changes have occurred unless specified. Time Spent With Patient Time: Total time managing care of this patient today ____ minutes.
--- NOTE | 2025-08-07 17:12 | P.OP_ITS ---
Operative Note Operative Note Date of Service: 08/07/25 Narrative: PreOperative Diagnosis: Bilateral renal stones Post Operative Diagnosis: Left staghorn calculus, right renal stone Procedure: - cystoscopy, removal left indwelling ureteric stent, left retrograde - left dilatation of ureteric orifice under fluoroscopy - left ureteroscopy, laser lithotripsy, stone basketing using a steerable vacuum aspiration sheath - modifier 22 - 100% longer than typical 50 minutes - 2 cm stone - cystoscopy, right retrograde - right dilatation of ureteric orifice under fluoroscopy - right ureteroscopy, laser lithotripsy, stone basketing using a steerable vacuum aspiration sheath - modifier 22 50% longer than typical 40 minutes - 1 cm stone Surgeon: Dr Ashvin Arellano Anesthesia: General Indications for procedure: Re-presented back to hospital with UTI in setting of left indwelling stent. Had previously required stent placement for obstructing proximal ureteric stone. On imaging had been found to have significant stone burden on both sides. 2 cm x 1.4 cm staghorn stone on the left and 1 cm x 1 cm stone on the right. Given she had been readmitted and had antibiotics decision was made to proceed with stone clearance. Procedure: After informed consent was verified patient was brought to the operating placed in supine position. Anesthesia was administered per protocol. Patient was placed in modified dorsal lithotomy position and prepped and draped in a sterile fashion. Safety pause time-out and side of surgery confirmed. Antibiotics confirmed. A 22 Colombian cystoscope was inserted per urethra. The urethra and bladder were normal in their entirety. Both ureteric orifices were in normal position. Left stent seen emerging from left ureteric orifice. This was grasped and removed. The left ureteric orifice was cannulated and a retrograde examination was performed. Significant filling defects seen within left renal pelvis.. A Sensor guidewire was placed up to the level of the renal pelvis under fluoroscopy. The rigid cystoscope was removed and the inner cannula of ureteric access sheath was used under fluoroscopy to dilate the ureteric orifice. The steerable vacuum ureteric access sheath was placed and the inner cannula with access wire removed. The disposable digital flexible ureteral scope was placed. The renal pelvis was found to have 2 large stones. There may have been averaging on the CT scan. The stone was engaged using a 200 micron Thulium laser fiber. The ThinkHRulium laser was used. Settings were varied between 10 hertz and 160 hertz whilst power was varied between 0.2 and 1 joule. The stone surface was painted with the laser allowing the stone to break up into smaller pieces. This took approximally 50 minutes to allow for the break up of the 2 stones in the left renal pelvis. The settings were alternated to allow break-up of the stone into small pieces then the pieces were vacuumed into the sheath aware they further broke up to allow suction. In this fashion stone fragments were removed from throughout the entire kidney. All calices were eventually examined. At one point the 1.9 [place]ian ZeroTip basket was used in order to remove stone fragments that a sent for pathology. The kidney was irrigated using the 4 [place]ian open-ended catheter through further remove stone debris. Upon completion the steerable vacuum sheath was removed under direct visualization to ensure that mucosal of the left ureter was intact and no further stent was needed. Direction was then focused on the right side. The cystoscope was used and a retrograde examination performed. There did not appear to be a filling defect within the main portion of the renal pelvis. The steerable vacuum ureteric sheath was placed. The digital disposable ureteral scope was placed. The renal pelvis was examined its entirety. The 1 cm stone was found in the lower pole matching the prior CT scan. The stone was engaged with a 200 fiber. The thulium laser was used to break the stone into fragments and then dust the stone. Settings were varied in a similar range to the left staghorn calculus. Breaking the stone took approximately 30 minutes which is 50% longer than typical. Once the stone debris had been fully removed the ureteric sheath was backed out of the renal pelvis and ureteric mucosa was examined showing there was no need for stent placement. The bladder was emptied. The patient tolerated the procedure well and was extubated in the operating room, and transferred in stable condition to the recovery area. Pathology: Stone debris Drains: None [id number] describes cystourethroscopy, with ureteroscopy and/or pyeloscopy, with lithotripsy, and ureteral catheterization for steerable vacuum aspiration of the kidney, collecting system, ureter, bladder, and urethra if applicable (must use a steerable ureteral catheter).
[2025-08-08 02:42] VITALS: BP 145/66; PULSE 65; RESP 18; TEMP 36.4; O2SAT 98
[2025-08-08] MEDS: Lactated Ringers 1,000 ML 80 ML IVCONT (02:44)
[2025-08-08 07:41] VITALS: BP 135/64; PULSE 64; RESP 16; TEMP 36.4; O2SAT 95
--- NOTE | 2025-08-08 09:06 | P.DS_ITS ---
DS: Providers Provider Date of Service: 08/08/25 Date of admission: 08/03/25 17:46 Date of discharge: 08/08/25 Primary care physician: Maria De Jesus Evans MD Consults: 08/03/25 17:45 Consult to Urology Routine Consulting Provider: [facility] Reason for consultation: recent stent, uti, stones DS: Diagnosis Discharge Diagnosis (1) Left ureteral calculus: Status: Acute DS: Summary Hospital Course Hospital Course: from initial hpi: 80F PMH nephrolithiasis, htn, hld, LLE DVT no longer on AC, presented with fevers. Patient was admitted to [facility] 07/13/25 to 07/19/2025 for sepsis due to obstructing ureteral stones requiring left ureteral stent placement. Was discharged on cefuroxime. Cultures at that time did not grow anything. 5 days prior to presentation started to have recurrent fevers and generally feeling unwell. Was given Tylenol and restarted on cefuroxime. Continued to have fevers. Contacted Urology who recommended patient come to ED for evaluation. In ED noted to have low-grade fever, CT abdomen showing will positioned left ureteral stent with resolution of previous hydronephrosis, 9 mm x 4 mm stone abutting stent at left UPJ and 19 mm x 13 mm stone abutting the stent in the left renal pelvis. hospital course: Patient was admitted for complicated upper urinary tract infection associated with ureteral stent and recurrent nephrolithiasis. She was treated with IV cefepime and cultures came back negative. She was seen by Urology recommended 40-72 hours of IV antibiotics followed by cystoscopy with laser lithotripsy and stent replacement which was done. Symptoms resolved. On discharge we will continue course of Ceftin and follow up with Urology as outpatient. For history of DVT patient is no longer on anticoagulation. For hyperlipidemia continued on Zetia. Time Attestation Discharge Coordination Time (in mins): 33 Quality: Safe Use of Opioids Does Pt have an Active Cancer Diagnosis on the Problem List?: No Quality: Stroke Does the patient have a stroke diagnosis?: No Physical Exam Exam: Exam: General: AO X 3, no acute distress Resp: CTA bilateral, no accessory muscles used CVS: S1,S2,RRR GI: soft, non tender, non distended Neuro: motor grossly intact, alert Psych: appropriate affect, appropriate insight Vital Signs: Vital Signs: Last Vital Signs Temp 97.6 F 10/28/25 07:41 Pulse 64 08/08/25 07:41 Resp 16 08/08/25 07:41 BP 135/64 08/08/25 07:41 Pulse Ox 95 08/08/25 07:41 O2 Del Method Room Air 08/08/25 07:41 O2 Flow Rate 2 08/08/25 02:42 BMI result Body Mass Index 37.2 DS: Data Data Completed and Pending Completed studies during hospitalization [Text1]: Procedures Dilation of Left Ureter with Intraluminal Device, Via Natural or Artificial Opening Endoscopic (07/13/25) Drainage of Left Ureter with Drainage Device, Via Natural or Artificial Opening Endoscopic (07/13/25) Extirpation of Matter from Bladder, Via Natural or Artificial Opening Endoscopic (07/13/25) Fluoroscopy of Left Kidney, Ureter and Bladder (07/13/25) Pending studies at discharge: Pending at discharge 08/07/25 15:56 Surgical [PTH] Routine Labs on day of discharge: Preliminary micro results at discharge 08/03/25 14:01 Blood Culture - Preliminary Blood - Venous No growth after 48 hours. 08/03/25 14:09 Blood Culture - Preliminary Blood - Venous No growth after 48 hours. Discharge Plan Discharge Anticipated Discharge Date/Time: 08/08/25 09:03 Patient Disposition: Home, Self-Care Discharge Diagnosis: kidney stone Referrals: Ashvin Arellano MD [Physician, Urology] - 1 Week Po,Maria De Jesus Lobo MD [Primary Care Provider, Internal Medicine] - 1 Week Discharge Medications: Continued acetaminophen 500 mg tablet 1,000 mg PO TID PRN (Reason: Pain) Qty: 90 0RF ezetimibe [Zetia] 10 mg tablet 10 mg PO DAILY 90 Days Qty: 90 3RF cholecalciferol (vitamin D3) [Vitamin D3] 50 mcg (2,000 unit) Capsule 50 mcg PO DAILY meloxicam 15 mg tablet 15 mg PO DAILY diclofenac sodium [Arthritis Pain (diclofenac)] 1 % gel 4 g topical QID PRN (Reason: Pain) Rx Instructions: apply to single knee, ankle, foot; for foot includes sole/toes/top of foot fluticasone propionate [Flonase Allergy Relief] 50 mcg/actuation spray,suspe nsion 2 spray intranasal BEDTIME Rx Instructions: administer into each nostril furosemide 20 mg Tablet 20 mg PO DAILY Daily Probiotic (4 Strains) 11 billion cell -15 mg capsule 1 cap PO DAILY PRN (Reason: UPSET STOMACH) pyridoxine (vitamin B6) 50 mg tablet 50 mg PO DAILY 90 Days Qty: 90 3RF cefuroxime axetil 500 mg tablet 500 mg PO BID Qty: 20 0RF Discharge Orders: Discharge Order (Routine); Ordered 08/08/25 Ordered By: Blayne Tello Diet: Advance to usual diet Activity on Discharge: As tolerated Stand Alone Forms: Patient Portal Discharge page Print Language: Austrian Care Plan Goals: Recovery Health Concerns: Kidney stone Plan of Treatment: complete ceftin course, follow up with urology Assessment: see above
--- NOTE | 2025-08-08 09:35 | HO.POSTANES ---
Post Anesthesia Evaluation Post Anesthesia Evaluation Date of Service: 08/08/25 Vital Signs: Vital Signs Temp Pulse Resp BP Pulse Ox O2 Del Method O2 Flow Rate 08/08/25 07:41 97.6 F 64 16 135/64 95 Room Air 08/08/25 02:42 97.5 F 65 18 145/66 H 98 Nasal Cannula 2 Anesthesia: General Mental Status: Awake Pain Control: Satisfactory Nausea/Vomiting: None Hydration: Adequate Anesthesia-Related Issues: No Anes. Related Issues
--- NOTE | 2025-08-08 09:37 | MHC.CM.PN ---
Addendum entered by Joanna Greco RN 08/08/25 09:39: Correction - patient will dc home w/ resumption of [facility] for PT/OT/SN Original Note: Patient medically cleared for dc home self care. to transport. RN aware. IMM delivered.
== END 2025-08-08 10:16 | disposition home or self-care (01) | DRG 699 ==
LOC: HO.ED 17:38 → HO.EDOVER 17:49 → HO.S3 19:19
PROVIDERS: Physician Assistant Medical; Urology; Admitting Provider Internal Medicine; Emergency Provider Emergency Medicine; PCP Internal Medicine; Visit Provider Internal Medicine
PROC: 0TC78ZZ Extirpation of Matter from Left Ureter, Via Natural or Artificial Opening Endoscopic (ICD-10-PCS; principal; 2025-08-07 15:20)
DX: T83.592A Infection and inflammatory reaction due to indwelling ureteral stent, initial encounter (principal); N20.1 Calculus of ureter; N39.0 Urinary tract infection, site not specified; Y73.8 Miscellaneous gastroenterology and urology devices associated with adverse incidents, not elsewhere classified; E78.5 Hyperlipidemia, unspecified; Z20.822 Contact with and (suspected) exposure to COVID-19; Z87.442 Personal history of urinary calculi; Z86.718 Personal history of other venous thrombosis and embolism; Z79.899 Other long term (current) drug therapy
CPT/HCPCS: 36415; 71250; 74176; 80048; 80076; 81001; 82365; 83605; 83690; 83735; 85025; 85027; 85652; 86140; 87040; 87086; 87502; 87635; 87637; 88300; 99212; 99285; C1758; C1769; J0131; J0692; J1100; J1650; J1885; J2003; J2371; J2405; J2704; J3010; J3373; J7120; Q9967

== ENCOUNTER → 2025-08-03 14:07 | Outpatient (BNV) | payer MEDICARE, SELFPAY | PROVIDERS: Emergency Provider Emergency Medicine; PCP Internal Medicine; Visit Provider Radiology Diagnostic Radiology | DX: N20.0 Calculus of kidney (principal); K57.30 Diverticulosis of large intestine without perforation or abscess without bleeding; R91.1 Solitary pulmonary nodule | CPT/HCPCS: 71250; 74176 ==

== ENCOUNTER → 2025-08-03 17:46 | Outpatient (BNV) | payer MEDICARE, SELFPAY | PROVIDERS: Admitting Provider Internal Medicine; Emergency Provider Emergency Medicine; PCP Internal Medicine; Visit Provider Urology | DX: N39.0 Urinary tract infection, site not specified (principal); T83.193A Other mechanical complication of other urinary stent, initial encounter | CPT/HCPCS: 99223 ==

== ENCOUNTER → 2025-08-03 17:46 | Outpatient (BNV) | payer MEDICARE, SELFPAY | PROVIDERS: Admitting Provider Internal Medicine; Emergency Provider Emergency Medicine; PCP Internal Medicine; Visit Provider Internal Medicine | DX: N20.1 Calculus of ureter (principal) | CPT/HCPCS: 99231; 99232; 99233 ==

== ENCOUNTER 2025-08-09 08:19 | Outpatient (AMB) | payer MEDICARE, SELFPAY ==
[2025-08-09 08:24] VITALS: BP 132/76; PULSE 91; TEMP 36.2; O2SAT 99; BMI 37.1
--- NOTE | 2025-08-09 08:24 | A.OFFPC_ITS ---
Vital Signs 08/09/25 08:24 Height 5 ft 4 in Weight 216 lb 4.375 oz BMI 37.1 BP 132/76 Blood Pressure Location Lt brachial Position Sitting Pulse 91 Pulse Source Pulse Oximeter Temp 97.1 F Temp Source Temporal Artery Scan Pulse Oximetry (%) 99 Oxygen Delivery Method Room Air Intake Visit Reasons: surgery follow up Allergies erythromycin base (ERYTHROMYCIN BASE) Allergy (Severe, Verified 08/09/25 08:27) BODY ACHES Rceeqox-EXH-FsW Reductase Inhibitor (CIFVJVF-VUT-EKK REDUCTASE INHIBITOR) Allergy (Severe, Verified 08/09/25 08:27) ALTERED MENTAL STATUS adhesive tape Allergy (Intermediate, Verified 08/09/25 08:27) BLISTERS omeprazole (From PRILOSEC) Adverse Reaction (Intermediate, Verified 08/09/25 08:27) DIARRHEA hospital sheets Allergy (Mild, Uncoded 08/09/25 08:27) years ago-caused itching Medication List - Last Reconciled 08/09/25 by Maria De Jesus Evans MD acetaminophen 1,000 mg (2 x 500 mg) PO TID PRN cefuroxime axetil 500 mg PO BID cholecalciferol (vitamin D3) (Vitamin D3) 50 mcg PO DAILY diclofenac sodium 1% (Arthritis Pain (diclofenac)) 4 grams topical QID PRN ezetimibe (Zetia) 10 mg PO DAILY 90 days fluticasone propionate 50 mcg/actuation (Flonase Allergy Relief) 2 sprays intranasal BEDTIME furosemide 20 mg PO DAILY L.parac,rhamn-B.animalis-vit C 11 billion cell -15 mg (Daily Probiotic (4 Strains)) 1 cap PO DAILY PRN meloxicam 15 mg PO DAILY pyridoxine (vitamin B6) 50 mg PO DAILY 90 days Tobacco use date assessed: 08/09/25 Fall risk assessment: No Falls in past year Last assessed Fall Risk: 08/09/25 Dental Screening Dental Screen Date: 08/09/25 Did you have a dental visit in the last 12 months?: Yes Did you have a dental problem in the last 6 months where you did not have access to dental care?: No Was dental information given to patient?: Patient has dentist [facility] Medical History Renal calculus, bilateral Arthritis Varicose veins of left lower extremity with inflammation Annual physical exam DVT (deep venous thrombosis) Left leg swelling Preop exam for internal medicine Tinnitus Encounter for annual wellness visit (AWV) in Medicare patient Stress incontinence Calculus of proximal right ureter Preop exam for internal medicine Allergic rhinitis Dislocation of right shoulder joint Right rotator cuff tear Cervical radiculopathy Obesity Carpal tunnel syndrome, left Left leg DVT GERD (gastroesophageal reflux disease) Post herpetic neuralgia Bladder cancer Hypercholesteremia Hypertension Surgical History History of removal of ureteral stent Hx of cystoscopy History of carpal tunnel surgery of left wrist H/O shoulder replacement History of hip replacement History of lithotripsy History of cystoscopy History of cholecystectomy History of knee replacement procedure of right knee History of knee replacement procedure of left knee History of appendectomy History of total abdominal hysterectomy and bilateral salpingo-oophorectomy History of lumpectomy of left breast History of lumpectomy of right breast Family History Father Cancer Mother CVD (cardiovascular disease) Cerebral hemorrhage Brain aneurysm Brother CAD (coronary artery disease) Sister CVD (cardiovascular disease) Cancer Lung cancer Cerebral hemorrhage Sister Cancer Lung cancer Social History Household Members: Spouse Housing: House Are you a primary care professional to a significant other at home: No Do you presently have visiting nurse or other home services: No Alcohol intake: current Alcohol intake frequency: holidays/special occasions only Comment: twice a month 2 drinks Patient Tobacco Use Status: Never used Tobacco Tobacco use type: Cigarette e-Cigarette/Vaping Use: Never Used Second Hand Smoke Exposure: No Advance Directives Date on File: 08/03/25 service: No Current occupational status: employed and retired Cognitive needs: Yes (walker) Hearing needs: No Vision needs: Yes Questionnaire PHQ-9 Over the last 2 weeks, how often have you been bothered by any of the following problems? 1. Little interest or pleasure in doing things: not at all 2. Feeling down, depressed, or hopeless: not at all 3. Trouble falling or staying asleep, or sleeping too much: not at all 4. Feeling tired or having little energy: several days 5. Poor appetite or overeating: not at all 6. Feeling bad about yourself - or that you are a failure or have let yourself or your family down: not at all 7. Trouble concentrating on things, such as reading the newspaper or watching television: not at all 8. Moving or speaking so slowly that other people could have noticed. Or the opposite - being so fidgety or restless that you have been moving around a lot more than usual: several days 9. Thoughts that you would be better off or of hurting yourself in some way: not at all Total score: 2 Depression Screening Interpretation: Positive Depression Screening Done: Yes Source: Developed by Drs. Ubaldo Zepeda, Ramona Reza, Derrek Martinez and colleagues, with an educational lucila from [employer]. Thrive Questionnaire Date Thrive assessed: 12/21/24 I am a: Patient What is your living situation today?: I have a steady place to live Within the past 12 months, did the food you bought not last and you didn't have the money to get more?: Never true Within the past 12 months, did you worry whether your food would run out before you got money to buy more?: Never true Do you have trouble paying for medicines?: No Do you have trouble getting transportation to medical appointments?: No Do you have trouble paying your heating and electricity bill?: No Do you have trouble taking care of your child, family member or friend?: I choose not to answer this question Do you have trouble with day-to-day activities such as bathing, preparing meals, shopping, managing finances, etc.?: I choose not to answer this question Are you currently unemployed and looking for a job?: No Are you interested in more education?: No Please select the resources that you would like help with: None Currently or been in a relationship where the following occur: No concerns reported THRIVE Score: 0 AUDIT C Alcohol Use Questionnaire (AUDIT-C) 1. How often do you have a drink containing alcohol?: 2-4 times a month 2. How many drinks containing alcohol do you have on a typical day when you are drinking?: 1 or 2 3. How often do you have six or more drinks on one occasion?: Never Total Score: 2 ANDREW-7 AMB Questionnaire ANDREW-7 Date ANDREW - 7 assessed: 04/05/25 Feeling nervous, anxious, or on edge: 0 = Not at all Not being able to stop or control worryin = Not at all Worrying too much about different things: 1 = Several days Trouble relaxin = Not at all Being so restless that it is hard to sit still: 0 = Not at all Becoming easily annoyed or irritable: 0 = Not at all Feeling afraid as if something awful might happen: 0 = Not at all Total ANDREW-7 score (0-4 normal; 5-9 mild; 10-14 moderate; 15-21 severe): 1 Source: Developed by Drs. Ubaldo Zepeda, Ramona Reza, Derrek Martinez and colleagues, with an educational lucila from [employer]. Physical exam (Primary Care) Vital Signs: Last Vital Signs Temp 97.1 F 08/09/25 08:24 Pulse 91 08/09/25 08:24 BP 132/76 08/09/25 08:24 Pulse Ox 99 08/09/25 08:24 Oxygen Delivery Method Room Air 08/09/25 08:24 BMI result Body Mass Index 37.1 Tobacco/Smoking Status: Tobacco use Status Tobacco use date assessed 08/09/25 08/09/25 08:31 Patient Tobacco Use Status Never used Tobacco 08/09/25 08:31 Tobacco use type Cigarette 08/09/25 08:31 e-Cigarette/Vaping Use Never Used 08/09/25 08:31 PHQ-9: PHQ-9 Score PHQ-9: Total score 2 08/09/25 08:31 Depression Screening Interpretation: Positive Thrive Assessment: Date of Thrive Assessment Date Thrive assessed 12/21/24 08/09/25 08:31 Currently or been in a relationship where the following occur: No concerns reported Const General: alert; No acute distress Eyes Conjunctivae: conjunctivae normal Resp Auscultation: clear to auscultation bilaterally Cardio Rate: regular rate Rhythm: regular rhythm GI Inspection: Yes normal to inspection Extrem General: Yes normal to inspection and No edema Coding Level of Care Code Est Pt Level 4 (30155) Diagnoses Renal calculus, bilateral N20.0 Essential hypertension I10 Hypertension type: essential hypertension Class 3 severe obesity due to excess calories with serious comorbidity and body mass index (BMI) of 40.0 to 44.9 in adult E66.01; Z68.41 Obesity type: due to excess calories Obesity classification: adult class 3 (BMI >= 40) Serious obesity comorbidity presence: with serious comorbidity Body mass index: BMI 40.0-44.9 Gastroesophageal reflux disease without esophagitis K21.9 Esophagitis presence: without esophagitis Assessment & Plan Assessment & Plan (1) Renal calculus, bilateral: Comment: Left ureteral stent placement July 2025 Code(s): N20.0 - Calculus of kidney Category: Medical Plan: Patient is scheduled to follow-up with urology for procedure in August (2) Hypertension: Code(s): I10 - Essential (primary) hypertension Category: Medical Qualifiers: Hypertension type: essential hypertension Qualified Code(s): I10 - Essential (primary) hypertension (3) Obesity: Code(s): E66.9 - Obesity, unspecified Category: Medical Qualifiers: Obesity type: due to excess calories Obesity classification: adult class 3 (BMI >= 40) Serious obesity comorbidity presence: with serious comorbidity Body mass index: BMI 40.0-44.9 Qualified Code(s): E66.01 - Morbid (severe) obesity due to excess calories; Z68.41 - Body mass index [BMI]40.0- 44.9, adult Plan: Diet and exercise (4) GERD (gastroesophageal reflux disease): Code(s): K21.9 - Gastro-esophageal reflux disease without esophagitis Category: Medical Qualifiers: Esophagitis presence: without esophagitis Qualified Code(s): K21.9 - Gastro-esophageal reflux disease without esophagitis Plan: Avoid the foods that causes that usually spicy foods, tomato products, juices, coffee, soda and foods that your sensitive to. After eating do not lie down, allow 3-4 hours before in lie down. And keep the head of bed above 30 degrees to avoid the acid from going up. Plan History of Present Illness The patient is a 80-year-old obese female presenting for a follow-up after a recent hospitalization for sepsis due to obstructing ureteral stones. Her past medical history is significant for hypertension, hypercholesterolemia, GERD, emily dder cancer in 1994, nephrolithiasis, osteopenia, mixed incontinence, left leg DVT in 2019, peripheral vascular disease, and depression. On July 13, the patient was taken to the emergency room with confusion, chills, nausea, left leg pain, and vomiting. She was tachycardic and hypoxic with an oxygen saturation of 80% and was found to be septic. A CT of the abdomen and pelvis revealed bilateral nephrolithiasis, with a 6.3 mm obstructing stone in the left ureter causing moderate hydroureteronephrosis. The patient was hospitalized at [place] from July 13 to July 19, where she had a left ureteral stent placed and was discharged on Cefuroxime. However, she developed recurrent fevers up to almost 102? F within three days of discharge, which did not resolve with oral antibiotics. She was advised to return to the ER and was re-admitted for IV antibiotics. Two days prior to this visit, the patient underwent a nearly two-hour bilateral laser lithotripsy to remove the stones. She reports feeling much better since the procedure and has been passing small, sand-like stone fragments in her urine. The stones are suspected to be uric acid type based on prior history. Recent lab work from August 04 showed anemia with a hemoglobin of 10.5 and hematocrit of 32.7, with a normal white count, electrolytes, and renal function. Her blood pressure has been well-controlled recently, and her blood pressure medication was discontinued. The patient reports a weight loss of over 5 pounds, a decreased appetite, and an aversion to sweets since her illness. Health Maintenance This visit was converted from her annual physical, which has been rescheduled to December. She is advised to receive her influenza and COVID-19 vaccinations in 1-2 weeks, once she has regained more energy, given her history of post-flu shot fever. Social History - Functional Status: Reports significant weakness and fatigue following recent hospitalizations. - Exercise: Patient had VNA services including OT and PT after her first hospitalization and feels she has lost the progress made. - She is currently doing exercises on her own as she is able. - Nutrition/Diet: Reports a loss of appetite and over 5 pounds of weight loss. - She has developed an aversion to sweets. - Fluid intake includes water with Crystal Light, tea, and cranberry juice. - Rehab: Patient stayed at [facility] for rehabilitation after her first hospitalization and was progressing well, and she had high praise for the care received there and at [facility]. Review of Systems - Constitutional: Reports feeling much better post-procedure, but also reports significant weakness, fatigue, and being tired. - History of recent fevers and chills, which have resolved. - Neurological: Reports a history of confusion and memory loss of about 10 hours during her septic episode on July 13. - Reports poor balance. - GI: Reports decreased appetite, weight loss of more than 5 pounds, and a new aversion to sweets. - History of nausea and vomiting during acute illness. - : Reports passing urine that sometimes contains small, sand-like specks. - Musculoskeletal: Reports history of left leg pain during acute illness. Physical Exam Results - Labs (August 04, 2025): - CBC: Anemia with Hgb 10.5 g/dL and Hct 32.7%; no leukocytosis. - CMP: Sodium and potassium were normal; renal function was good with a creatini ne of 0.71 mg/dL; blood sugar was 103 mg/dL; LFTs were normal. - Inflammatory Markers (August 03, 2025): C-reactive protein was checked (result not specified). - Imaging: - CT Abdomen/Pelvis (initial): Showed bilateral nephrolithiasis with a 6.3 mm obstructing stone in the left ureter, causing moderate hydroureteronephrosis. - CT Abdomen/Pelvis (follow-up): Showed a well-positioned left ureteral stent with resolution of hydronephrosis, and a 9 mm x 4 mm stone. - CT Chest: No airspace disease. - CT Brain: Workup included a brain CT (results not specified). Plan Patient was informed and verbally consented to the use of an ambient scribe for clinic note documentation during this visit. 1. Bilateral Nephrolithiasis, S/P Laser Lithotripsy The patient is recovering well after bilateral laser lithotripsy for obstructing ureteral stones that caused sepsis. She will continue and complete her current 7-day course of Cefuroxime. The importance of aggressive hydration, preferably with plain water and fresh lemon, was emphasized to prevent the formation of new stones, which are suspected to be uric acid type. She will follow up with urology in October, and an ultrasound will be performed prior to that appointment to assess for any residual stones. 2. Hypertension The patient's blood pressure has been well-controlled throughout her recent hospitalizations, and her antihypertensive medication has been stopped. She will remain off this medication and monitor for any changes. 3. Post-Hospitalization Debility The patient is experiencing weakness after her prolonged hospital course. She will continue her home exercises as tolerated to regain strength. She was advised there are no activity limitations and to focus on hydration. Discussion Notes I reviewed the patient's recent and complex hospital course, which began with sepsis from an obstructing kidney stone leading to two hospitalizations and culminating in a successful bilateral laser lithotripsy procedure. We discussed that she is feeling much better and is currently passing stone fragments, which is expected. I emphasized that the most critical measure to prevent recurrence of her uric acid stones is to maintain excellent hydration by drinking plenty of water. I advised using fresh lemon instead of processed additives like Crystal Light. We discussed her medications, confirming the need to complete the current course of antibiotics and that her blood pressure medication has been held due to good recent readings. Regarding vaccinations, I recommended she wait 1-2 weeks to get her flu and COVID shots to allow her body more time to recover, given her history of post-vaccination fever. I informed her that her follow-up with urology is in October, with a preceding ultrasound to check the status post-procedure. Her annual physical exam has been rescheduled for December. Patient Instructions - Make sure to finish your entire course of antibiotic (Cefuroxime) as prescribed. - Drink plenty of water throughout the day. This is very important to help prevent new kidney stones from forming. It is best to use fresh lemon in your water instead of processed mixes. - You can stop taking your blood pressure medicine for now, as your blood pressure has been good. - Plan to get your flu shot and COVID vaccine in 1 to 2 weeks, once you feel stronger. - You have a follow-up appointment with your urologist in October. You will have an ultrasound before this visit. - You do not have any activity restrictions. Continue to do gentle exercises to build your strength back up. - Your annual physical appointment has been moved to December. - Please call the office if you develop a fever, chills, or severe pain.
== END 2025-08-09 09:12 | disposition home or self-care (01) ==
LOC: HO.HMCH 08:20
PROVIDERS: PCP Internal Medicine; Visit Provider Internal Medicine
DX: N20.0 Calculus of kidney (principal); I10 Essential (primary) hypertension; E66.01 Morbid (severe) obesity due to excess calories; Z68.41 Body mass index [BMI] 40.0-44.9, adult; K21.9 Gastro-esophageal reflux disease without esophagitis

== ENCOUNTER → 2025-08-09 08:19 | Outpatient (BNVA) | payer MEDICARE, SELFPAY | PROVIDERS: PCP Internal Medicine; Visit Provider Internal Medicine | DX: I10 Essential (primary) hypertension (principal); E66.01 Morbid (severe) obesity due to excess calories; Z68.41 Body mass index [BMI] 40.0-44.9, adult; K21.9 Gastro-esophageal reflux disease without esophagitis; Z87.442 Personal history of urinary calculi | CPT/HCPCS: 96127; 99212 ==

== ENCOUNTER 2025-08-30 13:52 | Outpatient (REF) | payer MEDICARE, SELFPAY ==
[2025-08-30 15:46] LABS: Appearance Urine Clear; Glucose Urine UA Negative (Negative); PH 5.5 (5.0-9.0); Specific Gravity - Urine 1.020 (1.005-1.025); UMIC TRIGGER UA YES
[2025-08-30 16:17] LABS: Uric Acid 5.4 mg/dL (2.4-5.7)
[2025-08-30 16:20] LABS: Parathyroid Hormone Intact 110.8 pg/mL (8.7-77.1)
[2025-08-30 16:56] LABS: Microalbum/Creatinine Ratio Ur 102.8 ug/mg cr (<30); Total Protein Urine Random 24 mg/dL (<12)
== END 2025-08-30 13:53 | disposition home or self-care (01) ==
LOC: HO.LAB 13:52
PROVIDERS: PCP Internal Medicine; Visit Provider Internal Medicine Critical Care Medicine
DX: I10 Essential (primary) hypertension (principal); N20.0 Calculus of kidney; Z13.21 Encounter for screening for nutritional disorder
CPT/HCPCS: 36415; 81001; 82043; 82306; 82570; 83970; 84100; 84156; 84550; 99202

== ENCOUNTER 2025-08-30 13:52 | Outpatient (AMB) | payer MEDICARE, SELFPAY ==
--- NOTE | 2025-08-30 13:59 | HO.NEPHOV_ITS ---
Vital Signs 08/30/25 14:05 Height 5 ft 4 in Weight 216 lb 6 oz BMI 37.1 BP 130/80 Blood Pressure Location Lt brachial Position Sitting Pulse 84 Pulse Source Pulse Oximeter Pulse Oximetry (%) 98 Oxygen Delivery Method Room Air Intake Visit Reasons: [facility] [place] Case Assembler Required: No Accompanied by: Spouse Allergies erythromycin base (ERYTHROMYCIN BASE) Allergy (Severe, Verified 08/30/25 14:05) BODY ACHES Bfanfgw-FQY-BvB Reductase Inhibitor (NZCEBIG-QRE-SKI REDUCTASE INHIBITOR) Allergy (Severe, Verified 08/30/25 14:05) ALTERED MENTAL STATUS adhesive tape Allergy (Intermediate, Verified 08/30/25 14:05) BLISTERS omeprazole (From PRILOSEC) Adverse Reaction (Intermediate, Verified 08/30/25 14:05) DIARRHEA hospital sheets Allergy (Mild, Uncoded 08/09/25 08:27) years ago-caused itching HPI Comments Details: 80-year-old lady with PMH of hypertension, hyperlipidemia, nephrolithiasis with recent hospitalization in July for sepsis from obstructing renal stones is here to establish care. She has history of renal stones, underwent cystoscopy and placement of left ureteral double-J stent on 07/18/2025 for left ureteral stones. She also had underwent ureteroscopy with ESWL in 04/2024. Stone composition was 50% uric acid and calcium oxalate [facility] Medical History Renal calculus, bilateral Arthritis Varicose veins of left lower extremity with inflammation Annual physical exam DVT (deep venous thrombosis) Left leg swelling Preop exam for internal medicine Tinnitus Encounter for annual wellness visit (AWV) in Medicare patient Stress incontinence Calculus of proximal right ureter Preop exam for internal medicine Allergic rhinitis Dislocation of right shoulder joint Right rotator cuff tear Cervical radiculopathy Obesity Carpal tunnel syndrome, left Left leg DVT GERD (gastroesophageal reflux disease) Post herpetic neuralgia Bladder cancer Hypercholesteremia Hypertension Surgical History History of removal of ureteral stent Hx of cystoscopy History of carpal tunnel surgery of left wrist H/O shoulder replacement History of hip replacement History of lithotripsy History of cystoscopy History of cholecystectomy History of knee replacement procedure of right knee History of knee replacement procedure of left knee History of appendectomy History of total abdominal hysterectomy and bilateral salpingo-oophorectomy History of lumpectomy of left breast History of lumpectomy of right breast Family History Father Cancer Mother CVD (cardiovascular disease) Cerebral hemorrhage Brain aneurysm Brother CAD (coronary artery disease) Sister CVD (cardiovascular disease) Cancer Lung cancer Cerebral hemorrhage Sister Cancer Lung cancer Social History Household Members: Spouse Housing: House Are you a primary physician locums urgent care to a significant other at home: No Do you presently have visiting nurse or other home services: No Alcohol intake: current Alcohol intake frequency: holidays/special occasions only Comment: twice a month 2 drinks Patient Tobacco Use Status: Never used Tobacco Tobacco use type: Cigarette e-Cigarette/Vaping Use: Never Used Second Hand Smoke Exposure: No Advance Directives Date on File: 08/03/25 service: No Current occupational status: employed and retired Cognitive needs: Yes (walker) Hearing needs: No Vision needs: Yes Review of Systems Const Details: Const : no body aches, no chills, no excessive sweating and no fatigue Eyes: no blurry vision and no change in vision ENT: no bleeding gums and no change in voice, no dizziness Card: no chest pain, no shortness of breath, no orthopnea, no PND Resp: no cough, no excessive phlegm production, no SOB GI: no abdominal pain and no nausea, no vomiting : no hematuria, no urinary frequency and no difficulty voiding Musc: no abnormal gait, no bone pain Neuro: no abnormal movements, no weakness, no dizziness, no abnormal gait and no behavioral changes Psych: no behavioral changes and no change in appetite Endo: no change in body appearance, no cold intolerance, no excessive sweating and no fatigue Physical Exam General: not in any acute distress, comfortable, sitting on the chair Nutritional Appearance: well nourished and weight Eyes: normal position, no icterus Neck: No lymphadenopathy, no thyromegaly Resp: bilateral air entry equal, no added sounds present Cardio: normal S1, S2 heard, no murmur heard, no edema GI: soft, nontender, no guarding, no hepatosplenomegaly : bladder normal to inspection, bladder normal to palpation, no renal angle tenderness Skin: no rashes or lesions noted and elasticity normal Neuro: oriented to person, oriented to place, oriented to time and moves all extremities Results Reviewed Nephrology Results: 2 Hgb, (12.0-16.0) 10.5 g/dl L 08/04/25 WBC, (4.8-10.8) 9.2 X10*3/uL 08/04/25 Plt Count, (160-400) 317 X10*3/uL 08/04/25 Sodium, (135-145) 144 mmol/L 08/04/25 Potassium, (3.3-5.1) 4.0 mmol/L 08/04/25 Chloride, (96-108) 109 mmol/L H 08/04/25 Carbon Dioxide, (22-29) 26 mmol/L 08/04/25 BUN, (9-16) 14 mg/dL 08/04/25 Creatinine, (0.5-1.4) 0.71 mg/dL 08/04/25 Calcium, (8.4-10.2) 9.3 mg/dL 08/04/25 Urine Protein, (Neg-Trace) Trace mg/dL 08/03/25 Renal US 05/23/25 Assessment & Plan Assessment & Plan (1) Hypertension: Code(s): I10 - Essential (primary) hypertension Category: Medical Qualifiers: Hypertension type: essential hypertension Qualified Code(s): I10 - Essential (primary) hypertension (2) Nephrolithiasis: Code(s): N20.0 - Calculus of kidney Category: Medical Plan Kidney stones: - secondary to calcium oxalate 20% and uric acid 80% stones - urine pH: 5.0; target is to raise urine pH above 6.5. - serum calcium: 9.3 , urine calcium: - will get PTH: Vitamin-D level: - Phosphorus: Mg: - will start the patient on thiazides, vitamin D and bicitra - advised the patient for fluid intake at least 3 L per day, more so in summer - low-sodium diet, increased dairy products with the meals, increased nightmute and citrous intake (without added sugar) - decrease animal protein, avoid sugar sweetened sodas, fruit punch, grapefruit and large volume cranberry juice - AVOID high oxalate food: spinach rhubarb, nuts, beets, tea, chocolate and soy products high uric acid food: red meat, organ meats, shell fish, soft drinks Hyperuricemia; - previously uric scid levels high - will start on allopurinol 300mg, will check uric acid levels - diet as explained Hypertension: - was on lisinopril and HCTZ in the past but was taken off during hospitalization - currently on no medications - will place on HCTZ 25mg. This note is constructed using voice recognition software. While every effort has been made to ensure accuracy social service assistant errors may have been included. Orders: Orders Total Protein Urine Random Today N20.0 - Calculus of kidney Microalbumin, Random (w Creat) Today N20.0 - Calculus of kidney UA and rflx microscopic Today N20.0 - Calculus of kidney Uric Acid 2 Months I10 - Essential (primary) hypertension, N20.0 - Calculus of kidney Phosphorus Today N20.0 - Calculus of kidney Vitamin D 25-OH Total Today N20.0 - Calculus of kidney Parathyroid Hormone Intact Today N20.0 - Calculus of kidney Uric Acid Today N20.0 - Calculus of kidney Creatinine Urine Today N20.0 - Calculus of kidney Basic Metabolic Panel 2 Months I10 - Essential (primary) hypertension, N20.0 - Calculus of kidney UA and rflx microscopic 2 Months I10 - Essential (primary) hypertension, N20.0 - Calculus of kidney Microalbumin, Random (w Creat) 2 Months I10 - Essential (primary) hypertension, N20.0 - Calculus of kidney Total Protein Urine Random 2 Months I10 - Essential (primary) hypertension, N20.0 - Calculus of kidney Medications: New allopurinol 300 mg PO DAILY 30 tabs 2RF Coding Level of Care Code New Pt Level 4 (37704) Diagnoses Essential hypertension I10 Hypertension type: essential hypertension Nephrolithiasis N20.0
[2025-08-30 14:05] VITALS: BP 130/80; PULSE 84; O2SAT 98; BMI 37.1
--- OUTSIDE RECORDS SUMMARY | 2025-08-31 02:02 | XMS_ITS | Patient Health Record ---
Author Organization [facility] Address [address] [place] [address] Care Team Providers Care Service Observer Chief Name Role Phone Po Maria De Jesus AJ Primary Care Provider Ubaldo Moreira [phone] Allergies Allergen (clinical drug ingredient) Drug/Non Drug Allergy documented on EMR Reaction Allergy Type Onset Date Status Substance with 3-xrslytd-7-methylgluta ryl-coenzyme A reductase inhibitor mechanism of action (substance) statines (uncoded) Unknown Allergy Active erythromycin Erythromycin Unknown Drug Allergy A ctive morphine Morphine Sulfate Unknown Drug Allergy Active Reason For Referral No Information Medications Medication SIG (Take, Route, Frequency, Duration) Notes Start Date End Date Status Multivitamin & Mineral as needed Active Loratadine Active Gabapentin Not-Takin g/PRN Aspirin Active Zetia Active Meloxicam Active Lisinopril Active Social History Tobacco Use: Social History Observation Description Date Details (start date - stop date) Never Smoker NA - NA Social History Drugs/Alcohol: Social Info Question Answer Notes Alcohol Screen Did you have a drink containing alcohol in the past year? Yes How often did you have a drink containing alcohol in the past year? Monthly or less (1 point) How many drinks did you have on a typical day when you were drinking in the past year? 1 or 2 drinks (0 point) How often did you have 6 or more drinks on one occasion in the past year? Never (0 point) Points 1 Interpretation Negative Tobacco Use: Social Info Question Answer Notes Tobacco Use/Smoking Patient is a nonsmoker Additional Details Category Social Info Options Details Miscellaneous: Marital status: Occupation: Retired---part-t [employer] Section Notes: Nonsmoker; no sig alcohol Problems Problem Type SNOMED Code ICD Code Onset Dates Problem Status W/U Status Risk Notes Problem Screening for malignant neoplasm of colon (511727962) Encounter for screening for malignant neoplasm of colon (Z12.11) Active confirmed Problem Long-term current use of antiplatelet drug (999942803841792 ) Long-term use of aspirin therapy (Z79.82) Active confirmed Problem Pre-procedure evaluation check (573179819) Pre-procedural examination (Z01.818) Active confirmed 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 anti-inflammator y drug (911341574396011 ) Encntr long-term NSAID use (Z79.1) Active confirmed Plan Of Treatment Future Test Test Name Order Date COLONOSCOPY 12/03/2017 Insurance Providers Payer Name Payer Address Payer Phone Subscriber Number Group Number Insured Name Patient Relationship to Insured Coverage Start Date Coverage End Date [facility] [address] [place] [phone] [id number] HARVEY MATA Self - patient is the insured Medical (General) History Medical History History ICD Code Vertigo Kidney stones--ESWL and cystoscopies Arthritis HTN Hyperlipidemia Negative colonoscopy in 2006 except for diverticulosis Shingles on LUE--resolved Arthritis Bladder cancer--has periodic cystoscopie s Denies CO,DM,CVA,Lung disease,renal dise ase Surgical History Surgery Date(Month/Year) Lumpectomy, left breast-benign lumpectomy, right breast- Dr. Jefferson gn Bladder cancer-removed from bladder--has periodic cystoscopies--Dr. Barrientos, [...]
== END 2025-08-30 14:51 | disposition home or self-care (01) ==
LOC: HO.HKA 13:52
PROVIDERS: PCP Internal Medicine; Visit Provider Internal Medicine Critical Care Medicine
DX: I10 Essential (primary) hypertension (principal); N20.0 Calculus of kidney
CPT/HCPCS: 99204